=== PATIENT | female | born 1965 | race Caucasian/White ===

== ENCOUNTER → 2020-03-05 09:49 | Outpatient (REF) | payer MEDICAID, SELFPAY ==
--- NOTE | 2020-03-05 09:58 | ECG_ITS ---
Hook-up date: 2020-03-05 10:23:00 Duration: 47:59:00 Test Indications: cardiac arrhythmia,unspecified
== END ==
LOC: HO.CARD 09:49
PROVIDERS: PCP Internal Medicine; Visit Provider Emergency Medicine
DX: I49.9 Cardiac arrhythmia, unspecified (principal)
CPT/HCPCS: 93225; 93226

== ENCOUNTER 2023-09-09 11:48 | Inpatient (IN) | payer MEDICAID, SELFPAY ==
--- NOTE | ~2023-09-09 | XR_ITS ---
EXAMINATION: XR LUMBOSACRAL SPINE AND PELVIS CLINICAL INFORMATION: Reason for Exam pain s/p fall COMPARISON: PET/CT 11/23/2018 TECHNIQUE: 3 views of the lumbar spine. One view of the pelvis. FINDINGS: 5 nonrib-bearing lumbar-type vertebral bodies. Age-indeterminate wedge compression deformities involving the L1 vertebral body with 30% height loss and the L5 vertebral body with 20% % height loss, new from 2019. Levoconvex curvature of the lumbar spine. Mild multilevel degenerative disc disease with loss of disc space height, disc osteophyte complex and facet arthropathy. Atherosclerotic calcifications of the abdominal aorta. Mild osteoarthritis of the right hip with borderline loss of superolateral joint space. Left hip and sacroiliac joint spaces are maintained. No pelvic fracture or dislocation appreciated. Calcified phleboliths in the pelvis. Atherosclerotic vascular calcification. XR/XR pelvis 1-2V IMPRESSION: 1. Age-indeterminate wedge compression deformities involving the L1 vertebral body with 30% height loss and the L5 vertebral body with 20%% height loss, new from 2019. 2. Levoconvex curvature of the lumbar spine. Mild multilevel degenerative disc disease. 3. Mild osteoarthritis of the right hip. 4. No pelvic fracture appreciated.
--- NOTE | ~2023-09-09 | CT_ITS ---
EXAMINATION: CT ANGIOGRAM OF THE CHEST WITH AND WITHOUT CONTRAST (CT PULMONARY ANGIOGRAM FOR PE) CLINICAL INFORMATION: Reason for Exam elevated dimer, tachycardia/soft blood pressures COMPARISON: None available. TECHNIQUE: Prior to contrast administration, noncontrast localization images were obtained. Subsequently, multidetector volumetric imaging was performed from the thoracic inlet to below the diaphragms following the administration of 65 mL Omnipaque 350 intravenous contrast. No contrast reaction reported Sagittal, coronal, and MIP oblique sagittal reformatted images were obtained on the CT workstation, uploaded to PACS, and reviewed. This CT examination was performed using dose optimization techniques as appropriate, variously including the following: *Automated exposure control *Adjustment of mA and/or kV according to patient size (this includes techniques or standardized protocols for targeted exams where dose is matched to indication/reason for exam; i.e. extremities or head) *Use of iterative reconstruction technique Total exam dose-length product 305 mGy-cm FINDINGS: QUALITY OF STUDY/CONTRAST BOLUS: Satisfactory. PULMONARY ARTERIES: No pulmonary emboli. THORACIC AORTA: No aneurysm. LUNG: No abnormality the trachea or mainstem bronchi. There is an irregular opacity in the right with some central calcification 09/09/23, series 7, image 31 1.0 cm 09/17/18, series 4, image 51-1.1 cm There is a peripheral opacity with some calcification in the posterior right upper lobe 09/09/23, series 7, image 71-1.2 cm 09/17/18, series 4, image 106-1.9 cm Previously there was a thick-walled cavitary lesion There is underlying emphysema. Nonspecific dependent lung densities could be atelectasis. PLEURA: No pleural effusion or pneumothorax. MEDIASTINUM: No enlarged mediastinal or hilar lymph nodes. No suspicious abnormality esophagus. No evidence of septal bowing or right heart strain. CORONARY ARTERY CALCIFICATION: There is mild coronary calcification. CHEST WALL/AXILLA: No axillary or internal mammary lymphadenopathy. OSSEOUS STRUCTURES: No acute or suspicious osseous abnormality. UPPER ABDOMEN: There is artifact. There is extensive fatty change in the liver. No reflux of contrast into the hepatic veins to suggest elevated right heart pressures. CT/CT angio chest PE protocol IMPRESSION: No pulmonary embolus demonstrated. Decreased size of opacities in the right upper lung which could represent the sequelae from previous cavitary lesion/abscess. VTE: negative
--- NOTE | ~2023-09-09 | XR_ITS ---
EXAMINATION: XR LUMBOSACRAL SPINE AND PELVIS CLINICAL INFORMATION: Reason for Exam pain s/p fall COMPARISON: PET/CT 11/23/2018 TECHNIQUE: 3 views of the lumbar spine. One view of the pelvis. FINDINGS: 5 nonrib-bearing lumbar-type vertebral bodies. Age-indeterminate wedge compression deformities involving the L1 vertebral body with 30% height loss and the L5 vertebral body with 20% % height loss, new from 2019. Levoconvex curvature of the lumbar spine. Mild multilevel degenerative disc disease with loss of disc space height, disc osteophyte complex and facet arthropathy. Atherosclerotic calcifications of the abdominal aorta. Mild osteoarthritis of the right hip with borderline loss of superolateral joint space. Left hip and sacroiliac joint spaces are maintained. No pelvic fracture or dislocation appreciated. Calcified phleboliths in the pelvis. Atherosclerotic vascular calcification. XR/XR lumbar spine 2-3V IMPRESSION: 1. Age-indeterminate wedge compression deformities involving the L1 vertebral body with 30% height loss and the L5 vertebral body with 20%% height loss, new from 2019. 2. Levoconvex curvature of the lumbar spine. Mild multilevel degenerative disc disease. 3. Mild osteoarthritis of the right hip. 4. No pelvic fracture appreciated.
--- NOTE | ~2023-09-09 | US_ITS ---
EXAMINATION: US VENOUS ULTRASOUND WITH DOPPLER LOWER EXTREMITY, BILATERAL CLINICAL INFORMATION: Bilateral lower extremity swelling. Lower extremity pain. Bilateral leg swelling COMPARISON: None available. TECHNIQUE: Ultrasound of the deep veins is performed from the hip to the calf with compression sonography and color and pulse Doppler assessment. Spectral analysis with color-flow imaging is performed. FINDINGS: RIGHT: There is normal venous compression and respiratory variation and augmented flow. The visualized common femoral vein, superficial femoral vein, profunda femoral vein, popliteal vein, and the trifurcation region shows no evidence of deep venous thrombosis. There is no significant popliteal fossa cyst. There is skin thickening and reticulation consistent with edema LEFT: There is normal venous compression and respiratory variation and augmented flow. The visualized common femoral vein, superficial femoral vein, profunda femoral vein, popliteal vein, and the trifurcation region shows no evidence of deep venous thrombosis. There is no significant popliteal fossa cyst. The left peroneal veins are not visualized There is skin thickening and reticulation consistent with edema If the patient's symptoms persist, followup ultrasound in 5 days 7 days might be of value to exclude proximal propagation from a non-visualized calf vein. US/US venous duplex LE BI IMPRESSION: No DVT demonstrated in the bilateral lower extremity.
[2023-09-09 11:53] VITALS: BP 128/92; BP 130/78; PULSE 116; PULSE 137; RESP 18; TEMP 37; O2SAT 98; O2SAT 99; BMI 25.1
--- NOTE | 2023-09-09 12:01 | ED.BACK ---
HPI - Back Pain/Injury General Chief Complaint: Back Pain/Injury Stated Complaint: BACK PAIN X 1 MONTH Time Seen by Provider: 09/09/23 12:01 Source: patient and EMS Mode of arrival: EMS Limitations: no limitations History of Present Illness HPI Narrative: 58-year-old female with history of low back pain, asthma, former smoker presents to the ER from home via EMS for evaluation of worsening low back pain for the last 1 month. She states 1 month ago she was standing in her kitchen when she got a sudden sharp pain from her middle of her spine in her lower back. The pain has been coming and going for the last month and getting worse. It radiates to both hips, worse on the right. It is worse with any movement. She reports recurrent sharp pain that is limiting her ability to ambulate and perform her ADLs. She states she intermittently has tingling in her bilateral extremities, but denies numbness and weakness. She states the pain is severe she has not been taking any medication for the pain. She has been drinking alcohol daily. She has not eating much. No chest pain, abdominal pain, nausea, vomiting, diarrhea. No bowel or bladder incontinence. MD elicited complaint: back pain Pertinent past history: prior back pain and recent trauma Onset (ago): month(s) (1) Timing: progressively worsening Severity: severe Pain scale (0-10): 10 Similar Symptoms Previously: Yes Quality: sharp Location: lumbar spine Radiation: other (Pelvis and bilateral hips) Exacerbating factors: movement Related Data Allergies Allergy/AdvReac Type Severity Reaction Status Date / Time amoxicillin [AMOXICILLIN] Allergy Unknown EYES Verified 09/09/23 12:00 SWELLING pseudoephedrine [Sudafed] Allergy Unknown Unknown Verified 09/09/23 12:00 Sulfa (Sulfonamide Allergy Unknown SWELLING Verified 09/09/23 12:00 Antibiotics) [SULFA (SULFONAMIDE ANTIBIOTICS)] [facility] Family History Family History (Updated 02/07/20 @ 11:36 by Domenica Desai) Father No problems noted. Mother No problems noted. Social History Social History Smoked in Last 30 Days: No Use of substances other than those prescribed or required for medical reasons: No Advance Directives: No Advance Directives Information Provided: Yes Patient : No Physical Exam Vital Signs: Vital Signs: Last Vital Signs Temp 97.0 F 09/09/23 14:33 Pulse 106 H 09/09/23 14:33 Resp 16 09/09/23 14:33 BP 126/73 09/09/23 14:33 Pulse Ox 99 09/09/23 14:33 O2 Del Method Room Air 09/09/23 14:33 BMI result Body Mass Index 25.1 Medications Administered Discontinued Medications Generic Name Dose Route Start Last Admin Trade Name Karen PRN Reason Stop Dose Admin Acetaminophen 975 mg 09/09/23 12:11 09/09/23 12:23 Acetaminophen 325 Mg Tablet PO 09/09/23 12:12 975 mg ONCE ONE Administration Cyclobenzaprine HCl 10 mg 09/09/23 13:49 09/09/23 14:11 Cyclobenzaprine Hcl 10 Mg Tablet PO 09/09/23 13:50 10 mg ONCE ONE Administration Sodium Chloride 1,000 mls @ 999 mls/hr 09/09/23 13:45 09/09/23 14:00 Ns IVCONT 09/09/23 14:45 999 mls/hr .Q1H1M JEMMA Administration Ketorolac Tromethamine 30 mg 09/09/23 12:11 09/09/23 12:23 Ketorolac Tromethamine 30 Mg/Ml Vial IM 09/09/23 12:12 30 mg ONCE ONE Administration Oxycodone HCl 5 mg 09/09/23 12:11 09/09/23 12:23 Oxycodone Hcl Immed Release 5 Mg Tablet PO 09/09/23 12:12 5 mg ONCE ONE Administration Medical Decision Making Medical Decision Making MDM Narrative: 58-year-old female presents to the ER for evaluation of low back pain. Radiating to the hips. No red flag symptoms of low back pain. She does have difficulty ambulating in his significant pain. X-rays of the spine were ordered along with basic labs given her lower extremity edema. Her lower extremity edema is symmetrical and bilateral. It is chronic. She has had ultrasounds in the past showing she does not have blood clots. Low suspicion for DVT. Labs showing some metabolic derangements. She has an anion gap of 25. This is likely due to starvation ketosis. Upon further questioning patient reports that she has been drinking alcohol and not eating much. She does not have any abdominal pain. IV was started and she was given 1 L of IV fluids. X-ray showing compression fractures of L1 and L5. These are new from 2019. Results were discussed with the patient. Her pain is much improved after multiple rounds of medications. She however does have stairs to get into her apartment and does not think that she can safely walk into her home and manage her activities of daily living at home. She is interested in seeing Physical therapy in the morning and arranging for additional services at home versus short-term rehab. Repeat labs are pending and then patient will be paced in physician observation pending PT consult and case management consult. Differential Diagnosis Differential Diagnoses: The differential diagnosis associated with the presentation includes Inflammatory disorders, malignancy, trauma, osteoporosis, nerve root compression, radiculopathy, plexopathy, degenerative disc disease, disc herniation, spinal stenosis, sacroiliac joint dysfunction, facet joint injury, and less likely infection?like abscess or diskitis Admission/Observation Consideration of admission/observation: Escalation of care including admission/observation considered Lab Data MDM Lab Attestation statement: I reviewed the patient's lab results. Elevated anion gap, likely due to starvation ketosis, patient reports not eating and drinking alcohol. 09/09/23 12:36 09/09/23 12:36 Labs: Lab Results 09/09/23 Range/Units 12:36 WBC 6.7 (4.8-10.8) X10*3/uL RBC 3.40 L (4.20-5.50) X10*6/uL Hgb 11.8 L (12.0-16.0) g/dl Hct 33.7 L (37.0-47.0) % MCV 99.1 H (80.0-98.0) fL MCH 34.7 H (27.0-33.0) pg MCHC 35.0 (31.0-35.0) g/dl RDW 13.9 (11.0-16.0) % Plt Count 226 (160-400) X10*3/uL MPV 9.8 (9.4-12.3) fL Immature Gran % (Auto) 1.5 H (0.0-0.4) % Neut % (Auto) 64.9 (45-73) % Lymph % (Auto) 21.8 (20-40) % Person % (Auto) 11.1 H (2-11) % Eos % (Auto) 0.2 (0-4) % Baso % (Auto) 0.5 (0-2) % Lymph # (Auto) 1.5 (1.2-4.9) X10*3/uL Person # (Auto) 0.7 (0.1-1.2) X10*3/uL Eos # (Auto) 0.0 (0.0-0.4) X10*3/uL Baso # (Auto) 0.0 (0.0-0.2) X10*3/uL Abs Immat Gran (auto) 0.10 H (0.00-0.03) X10*3/uL Absolute Neuts (auto) 4.3 (2.0-8.3) x10*3/uL Absolute Nucleated RBC 0.000 (0.0-0.012) X10*3/uL Nucleated RBC % (auto) 0.0 (0.0-0.2) /100WBC Sodium 136 (135-145) mmol/L Potassium 4.0 (3.3-5.1) mmol/L Chloride 95 L (96-108) mmol/L Carbon Dioxide 20 L (22-29) mmol/L Anion Gap 25 H (12-20) BUN < 3 L (9-16) mg/dL Creatinine 0.63 (0.5-1.4) mg/dL Estim Creat Clear Calc 94.6 Estimated GFR > 60 Random Glucose 103 (60-115) mg/dL Calcium 8.8 (8.4-10.2) mg/dL Magnesium 1.7 (1.6-2.6) mg/dL Total Bilirubin 0.5 (0.0-1.0) mg/dL Direct Bilirubin 0.3 (0.0-0.5) mg/dL AST 61 H (5-31) U/L ALT 34 H (0-31) U/L Alkaline Phosphatase 183 H (39-117) U/L B-Natriuretic Peptide 22 (<100) pg/mL Total Protein 6.1 L (6.5-8.0) g/dL Albumin 3.2 L (3.5-5.0) g/dL Independent Interpretation I performed an independent interpretation of an: Plain X-Ray Interpretation: Compression fractures appreciated Radiology Impression Discussion of test interpretation with radiology: I have reviewed the radiologist's reading. Radiologist Impression: EXAMINATION: XR LUMBOSACRAL SPINE AND PELVIS CLINICAL INFORMATION: Reason for Exam pain s/p fall COMPARISON: PET/CT 11/23/2018 TECHNIQUE: 3 views of the lumbar spine. One view of the pelvis. FINDINGS: 5 nonrib-bearing lumbar-type vertebral bodies. Age-indeterminate wedge compression deformities involving the L1 vertebral body with 30% height loss and the L5 vertebral body with 20% % height loss, new from 2019. Levoconvex curvature of the lumbar spine. Mild multilevel degenerative disc disease with loss of disc space height, disc osteophyte complex and facet arthropathy. Atherosclerotic calcifications of the abdominal aorta. Mild osteoarthritis of the right hip with borderline loss of superolateral joint space. Left hip and sacroiliac joint spaces are maintained. No pelvic fracture or dislocation appreciated. Calcified phleboliths in the pelvis. Atherosclerotic vascular calcification. XR/XR lumbar spine 2-3V IMPRESSION: 1. Age-indeterminate wedge compression deformities involving the L1 vertebral body with 30% height loss and the L5 vertebral body with 20%% height loss, new from 2019. 2. Levoconvex curvature of the lumbar spine. Mild multilevel degenerative disc disease. 3. Mild osteoarthritis of the right hip. 4. No pelvic fracture appreciated. External Record Review External record reviewed: Outpatient record Tests considered The following testing was considered but not selected: CT scan of the lumbar spine considered however no red flag symptoms of low back pain, low suspicion for acute infection Prescription Management I considered prescription management with: Pain Medication Social Determinants Patient?s care significantly limited by Social Determinants of Health including: Alcoholism and drug addiction in family and Other Social Determinant of Health Critical Care Time Critical Care Time Critical Care Time: Yes Total Critical Care Time: 49 Attestation: I have personally provided critical care time exclusive of time spent on separately billable procedures. Time includes review of lab data, radiology results, trending of labs and monitoring of pain, multiple bedside reassessments, and monitoring for potential decompensation. Intervention performed as documented. Discharge Plan Discharge Clinical Impression: Compression fx, lumbar spine, Alcohol abuse Patient Disposition: Still a Patient Print Language: Swedish
[2023-09-09] MEDS: Acetaminophen 325 MG TABLET 975 MG PO (12:23)
[2023-09-09] MEDS: oxyCODONE HCl Immed Release 5 MG TABLET PO (12:23)
[2023-09-09] MEDS: Ketorolac Tromethamine 30 MG/ML VIAL IM (12:23)
--- NOTE | 2023-09-09 12:40 | PC.NURSE ---
PT A/O X 3 NO SOB/CAESAR NOTED. PT C/O LOWER BACK PAIN. PT ENCOURAGED TO CHANGE INTO HOSP GARMENT MULTIPLE TIMES AND HAS ADAMANTLY REFUSED. PT C/O L LOWER EXT SWELLING. L LOWER EXT 2+ PITTING EDEMA NOTED. /RYAN AWARE.
[2023-09-09 12:43] LABS: MANUAL DIFF FLAG NO
[2023-09-09 12:46] LABS: Basophils Percent Auto 0.5 % (0-2); Eosinophils Percent Auto 0.2 % (0-4); Hematocrit 33.7 % (37.0-47.0); Hemoglobin 11.8 g/dl (12.0-16.0); Imm Gran Pct Auto 1.5 % (0.0-0.4); Lymphocytes Absolute Auto 1.5 X10*3/uL (1.2-4.9); Lymphocytes Percent Auto 21.8 % (20-40); Mean Corpuscular Hemoglobin 34.7 pg (27.0-33.0); Mean Corpuscular Volume 99.1 fL (80.0-98.0); Mean Platelet Volume 9.8 fL (9.4-12.3); Monocytes Absolute Auto 0.7 X10*3/uL (0.1-1.2); Monocytes Percent Auto 11.1 % (2-11); Neutrophils Absolute Auto 4.3 x10*3/uL (2.0-8.3); Neutrophils Percent Auto 64.9 % (45-73); Platelet Count 226 X10*3/uL (160-400); Red Cell Distribution Width 13.9 % (11.0-16.0); White Blood Count 6.7 X10*3/uL (4.8-10.8)
[2023-09-09 12:59] LABS: Alanine Aminotransferase 34 U/L (0-31); Albumin Level 3.2 g/dL (3.5-5.0); Alkaline Phosphatase 183 U/L (39-117); Anion Gap 25 (12-20); Aspartate Amino Transferase 61 U/L (5-31); Bilirubin Direct 0.3 mg/dL (0.0-0.5); Bilirubin Total 0.5 mg/dL (0.0-1.0); Blood Urea Nitrogen < 3 mg/dL (9-16); Calcium 8.8 mg/dL (8.4-10.2); Carbon Dioxide 20 mmol/L (22-29); Chloride 95 mmol/L (96-108); Creatinine Clr Calc Pharmacy 94.6; Estimated Glomerular Filt Rate > 60; Glucose Random 103 mg/dL (60-115); Magnesium 1.7 mg/dL (1.6-2.6); Sodium 136 mmol/L (135-145); Total Protein 6.1 g/dL (6.5-8.0)
[2023-09-09 13:04] LABS: B Type Natriuretic Peptide 22 pg/mL (<100)
[2023-09-09 13:51] VITALS: BP 117/76; PULSE 121; RESP 117; TEMP 36.8; O2SAT 99
[2023-09-09] MEDS: 0.9 % Sodium Chloride 1,000 ML 999 ML IVCONT (14:00)
[2023-09-09] MEDS: Cyclobenzaprine HCl 10 MG TABLET PO (14:11)
[2023-09-09 14:33] VITALS: BP 126/73; PULSE 106; RESP 16; TEMP 36.1; O2SAT 99
[2023-09-09 17:32] LABS: Anion Gap 21 (12-20); Blood Urea Nitrogen 3 mg/dL (9-16); Carbon Dioxide 18 mmol/L (22-29); Chloride 98 mmol/L (96-108); Creatinine Clr Calc Pharmacy 114.7; Estimated Glomerular Filt Rate > 60; Glucose Random 70 mg/dL (60-115); Potassium 3.3 mmol/L (3.3-5.1); Sodium 134 mmol/L (135-145)
[2023-09-09 17:44] LABS: Calcium 7.9 mg/dL (8.4-10.2)
[2023-09-09 18:43] VITALS: BP 90/52; PULSE 131; RESP 18; TEMP 36.7; O2SAT 97
[2023-09-09] MEDS: 0.9 % Sodium Chloride 1,000 ML 999 ML IV (19:01)
[2023-09-09] MEDS: PHENobarbitaL sodium 130 MG/ML IM ONCE 228 MG IM (19:32)
[2023-09-09] MEDS: Calcium Carbonate 750 MG TAB.CHEW 1500 MG PO (19:32)
--- NOTE | 2023-09-09 19:38 | P.HPHOSP_ITS ---
History of Present Illness Date of Service: 09/09/23 Attending physician on admission: Zo Moreno Chief Complaint: back pain 58-year-old female with history of COPD, osteoporosis on alendronate who is a former smoker presented to the ED from home for evaluation of worsening low back pain ongoing for 1 month. About 1 month ago she was standing in her kitchen when she developed sudden sharp pain from the middle of her spine in the lower back and has been intermittent since then. She denies any specific injury. Reports the pain radiates to both hips and into the ribs bilaterally. She does also report drinking at least 2 16 oz cans of beer on a daily basis but states it is typically more than this. Denies any other substance use. Denies any history of alcohol withdrawal including alcohol withdrawal seizure. Last drink was last night. Since arrival, has been progressively tachycardic on admission, heart rate in the 130s with sinus rhythm. Blood pressure is also soft on admission at 90/52 but has received narcotic medication and Flexeril. There is no leukocytosis. She has a mild macrocytic anemia with H/H 11.8/33.7%, MCV 99.1, platelets within normal limits. On admission, renal function normal. Initially had anion gap with mild acidosis likely secondary to starvation ketosis as patient has been drinking alcohol but not eating much. On admission, anion gap improved to 21. AST 61, ALT 34. X-ray of the lumbar spine shows age- indeterminate wedge compression deformities involving the L1 vertebral body with 30% height loss and the L5 vertebral body with 20% height loss which are new from prior imaging. No other acute osseous abnormality. In the ED, has received 975 mg Tylenol, 10 mg Flexeril, 30 mg ketorolac, 5 mg oxycodone and 1 L IV NS. She has also been started on phenobarbital per protocol given high suspicion for acute alcohol withdrawal with tachycardia and nausea. She is also reporting heartburn. Currently reports her pain as an 8/10 with any movement but is relatively comfortable at rest. She is also reporting concern over swelling and pain in the BLE. Review of Systems 2 Review of Systems: General: No fevers, malaise, unintentional weight loss HEENT: No blurred vision, diplopia. No sore throat, nasal congestion, rhinorrhea, sinus pain, ear pain Cardiovascular: No chest pain, palpitations. +ble edema Respiratory: No shortness of breath, wheezing, cough GI: +heartburn, +nausea. No abdominal pain, nausea, vomiting, diarrhea, constipation, melena, hematochezia : No dysuria, hematuria, increased urinary frequency, decreased urinary output MSK: No myalgia. +back pain, +rib pain. Neuro: No headaches, weakness, paresthesias Skin: No rashes or lesions [facility] Medical History Former smoker Osteopoikilosis Alcohol use disorder COPD (chronic obstructive pulmonary disease) Family History Father No problems noted. Mother No problems noted. Social History Patient Tobacco Use Status: Never used Tobacco Smoked in Last 30 Days: No Use of substances other than those prescribed or required for medical reasons: No Advance Directives: No Advance Directives Information Provided: Yes Nutrition Risks: No Nutritional Risk Patient : No Meds Allergies Allergy/AdvReac Type Severity Reaction Status Date / Time amoxicillin [AMOXICILLIN] Allergy Unknown EYES Verified 09/09/23 12:00 SWELLING pseudoephedrine [Sudafed] Allergy Unknown Unknown Verified 09/09/23 12:00 Sulfa (Sulfonamide Allergy Unknown SWELLING Verified 09/09/23 12:00 Antibiotics) [SULFA (SULFONAMIDE ANTIBIOTICS)] Active Medications: Current Medications Acetaminophen (Acetaminophen 325 Mg Tablet) 650 mg PO Q6H PRN PRN Reason: Pain, Mild (Pain Scale 1-3) Albuterol Sulfate (Albuterol Sulfate 90 Mcg 8 Gm Inhaler) 2 puff INHALE RQ6H PRN PRN Reason: Bronchodilation Calcium Carbonate (Calcium Carbonate 500 Mg Tablet) 500 mg PO DAILY JEMMA Folic Acid (Folic Acid 1 Mg Tablet) 1 mg PO DAILY JEMMA Heparin Sodium (Porcine) (Heparin Sodium,Porcine 5,000 Unit/Ml Vial) 5,000 unit SUBCUT Q12H JEMMA Sodium Chloride (Ns) 1,000 mls @ 999 mls/hr IV .Q1H1M JEMMA Stop: 09/09/23 20:00 Last Admin: 09/09/23 19:01 Dose: 999 mls/hr Sodium Chloride (Ns) 1,000 mls @ 100 mls/hr IVCONT .Q10H [facility] Thiamine HCl 100 mg/ Sodium (Chloride) 101 mls @ 202 mls/hr IV DAILY [facility] Ketorolac Tromethamine (Ketorolac Tromethamine 15 Mg/Ml Vial) 15 mg IVPUSH Q6H JEMMA Stop: 09/10/23 13:46 Loratadine (Loratadine 10 Mg Tablet) 10 mg PO DAILY [facility] Non-Formulary Medication (Fluticasone Propionate) 2 puff INHALE BID [facility] Omeprazole (Omeprazole 20 Mg Capsule.Dr) 20 mg PO DAILY@0630 [facility] Ondansetron HCl (Ondansetron Hcl 4 Mg/2 Ml Vial) 4 mg IVPUSH Q8H PRN PRN Reason: Nausea and Vomiting Oxycodone HCl (Oxycodone Hcl Immed Release 5 Mg Tablet) 5 mg PO Q6H PRN PRN Reason: Pain, Severe (Pain Scale 7-10) Pharmacy Consult (Consult Rx Etoh Phenob Im/Po) 1 each MISCELLANE ONCE PRN; Protocol PRN Reason: Consult order Phenobarbital (Phenobarbital 15 Mg Tablet) 45 mg PO BID [facility]; Protocol Stop: 09/11/23 21:01 Phenobarbital (Phenobarbital 15 Mg Tablet) 15 mg PO BID [facility]; Protocol Stop: 09/13/23 21:01 Phenobarbital (Phenobarbital 15 Mg Tablet) 15 mg PO DAILY [facility]; Protocol Stop: 09/15/23 09:01 Phenobarbital Sodium (Phenobarbital Sodium 130 Mg/Ml Im Once) 228 mg IM ONCE ONE; Protocol Stop: 09/09/23 20:01 Last Admin: 09/09/23 19:32 Dose: 228 mg Phenobarbital Sodium (Phenobarbital Sodium 130 Mg/Ml Vial Im Q3hx2) 170 mg IM Q3H [facility]; Protocol Stop: 09/10/23 02:01 Senna (Sennosides 8.6 Mg Tablet) 17.2 mg PO BEDTIME PRN PRN Reason: Constipation Trazodone HCl (Trazodone Hcl 50 Mg Tablet) 50 mg PO BEDTIME [facility] Vitamin D (Cholecalciferol (Vitamin D3) 25 Mcg Tablet) 25 mcg PO DAILY [facility] Home Medications ?Medication ?Instructions ?Recorded ?Confirmed ?Last Taken ?Type albuterol sulfate 90 mcg/actuation 2 puff inhalation Q6H PRN 09/09/23 09/09/23 Unknown History aerosol inhaler (Ventolin HFA) Bronchodilation alendronate 70 mg tablet 70 mg PO QWEEK 09/09/23 09/09/23 Unknown History calcium carbonate 600 mg PO QAM 09/09/23 09/09/23 Unknown History cetirizine 10 mg tablet 10 mg PO QAM 09/09/23 09/09/23 Unknown History cholecalciferol (vitamin D3) 25 25 mcg PO DAILY 09/09/23 09/09/23 Unknown History mcg (1,000 unit) capsule (Vitamin D3) cholecalciferol (vitamin D3) 25 25 mcg PO DAILY 09/09/23 09/09/23 Unknown History mcg (1,000 unit) capsule (Vitamin D3) fluticasone propionate 110 2 puff inhalation BID 09/09/23 09/09/23 Unknown History mcg/actuation HFA aerosol inhaler trazodone 50 mg tablet 50 mg PO BEDTIME 09/09/23 09/09/23 Unknown History Physical Exam 2 Vital Signs and Narrative: Vital Signs: Last Vital Signs Temp 98.1 F 09/09/23 18:43 Pulse 131 H 09/09/23 18:43 Resp 18 09/09/23 18:43 BP 90/52 L 09/09/23 18:43 Pulse Ox 97 09/09/23 18:43 O2 Del Method Room Air 09/09/23 18:43 BMI result Body Mass Index 25.1 Constitutional - Awake and Alert, No apparent distress Eyes - PERRLA, EOMI Cardiovascular - S1S2, RRR, 1+ ble edema Respiratory - Normal lung expansion, poor respiratory effort, No respiratory distress, CTA bilaterally Gastrointestinal - NT / ND; +BS; No rebound or guarding Extremities - ble swelling with right sided calf tenderness Musculoskeletal - Normal inspection. Pt refusing to turn for evaluation of low back due to pain Skin - Warm/Dry Neurological - Alert & oriented x3 Psychological - Appropriate affect Results Labs 09/09/23 12:36 09/09/23 17:02 Labs: Laboratory Results - last 24 hr 09/09/23 09/09/23 12:36 17:02 MCV 99.1 H MCH 34.7 H MCHC 35.0 RDW 13.9 Plt Count 226 MPV 9.8 Immature Gran % (Auto) 1.5 H Neut % (Auto) 64.9 Lymph % (Auto) 21.8 [place] % (Auto) 11.1 H Eos % (Auto) 0.2 Baso % (Auto) 0.5 Lymph # (Auto) 1.5 [place] # (Auto) 0.7 Eos # (Auto) 0.0 Baso # (Auto) 0.0 Abs Immat Gran (auto) 0.10 H Absolute Neuts (auto) 4.3 Absolute Nucleated RBC 0.000 Nucleated RBC % (auto) 0.0 Anion Gap 25 H 21 H Estim Creat Clear Calc 94.6 114.7 Estimated GFR > 60 > 60 Random Glucose 103 70 Calcium 8.8 7.9 L D Magnesium 1.7 Total Bilirubin 0.5 Direct Bilirubin 0.3 AST 61 H ALT 34 H Alkaline Phosphatase 183 H B-Natriuretic Peptide 22 Total Protein 6.1 L Albumin 3.2 L Imaging Radiologist's Impressions: Impressions Lumbar Spine X-Ray 09/09/23 13:24 IMPRESSION: 1. Age-indeterminate wedge compression deformities involving the L1 vertebral body with 30% height loss and the L5 vertebral body with 20%% height loss, new from 2018. 2. Levoconvex curvature of the lumbar spine. Mild multilevel degenerative disc disease. 3. Mild osteoarthritis of the right hip. 4. No pelvic fracture appreciated. Pelvis X-Ray 09/09/23 13:24 IMPRESSION: 1. Age-indeterminate wedge compression deformities involving the L1 vertebral body with 30% height loss and the L5 vertebral body with 20%% height loss, new from 2019. 2. Levoconvex curvature of the lumbar spine. Mild multilevel degenerative disc disease. 3. Mild osteoarthritis of the right hip. 4. No pelvic fracture appreciated. Assessment and Plan (1) Alcohol abuse: Status: Acute (2) Compression fx, lumbar spine: Status: Acute Plan 58-year-old female with history of COPD, osteoporosis on alendronate who is a former smoker admitted for further management of compression fracture awaiting pt eval for placement with impending alcohol withdrawal requiring phenobarbital per protocol #Acute alcohol withdrawal -pt with tachcyardia, nausea. Drinks at least 2 16 oz beers daily -initiate phenobarbital per protocol -thiamine, folic acid -monitor on ciwa -addiction med consult #Age-indeterminate compression fratures L1 and L5 with loss of vertebral height -known osteoporosis. Pain ongoing x1 month but worsening -IV ketorolac 15mg q6h x 4 doses, tylenol prn, oxycodone prn. Limit iv narcotics due to soft blood pressures -calitonin daily alternating nostrils -incentive spirometry -PT eval -outpt follow up with pain management #BLE swelling/pain RLE -Venous duplex ble -check ddimer given tachycardia and soft bps -no sob, chest pain, lightheadedness, palptiations -compression, leg elevation #Acute starvation ketosis- resolving -likely beer potomania -continue ivf -encourage po intake #Macrocytic anemia- suspect chronic in setting of alcohol abuse -check folic acid/vitamin b12 am -thiamine and folic acid as above #Transaminitis -due to alcohol abuse #COPD -no acute exacebration -continue maintenance inhalers, albuterol prn #osteoporosis -continue fosamax dvt prophylaxis- heparin full code Pt requires inpt stay at least 2 midnights for management of acute alcohol withdrawal requiring phenobarbital per protocol in pt with compression fractures awaiting probable placement to STR Quality Stroke Does the patient have a stroke diagnosis?: No VTE Prior VTE?: No VTE Risk Level:: Medical - moderate - high VTE Device Contraindication: Treatment Not Indicated VTE Drug Contraindication: N/A - Med Ordered
[2023-09-09] MEDS: 0.9 % Sodium Chloride 1,000 ML 100 ML IVCONT (19:40)
[2023-09-09] MEDS: Ketorolac Tromethamine 15 MG/ML VIAL IVPUSH (19:52)
[2023-09-09] MEDS: Loratadine 10 MG TABLET PO (19:52)
[2023-09-09] MEDS: Heparin Sodium,Porcine 5,000 UNIT/ML VIAL 5000 UNIT SUBCUT (19:52)
[2023-09-09] MEDS: Thiamine HCL 100 MG in 0.9 % Sodium Chloride 100 ML 202 MG IV (19:53)
[2023-09-09] MEDS: traZODone HCL 50 MG TABLET PO (19:53)
[2023-09-09] MEDS: Omeprazole 20 MG CAPSULE.DR PO (19:58)
[2023-09-09 20:14] LABS: D Dimer High Sensitivity 545 NG/ML
--- NOTE | 2023-09-09 20:14 | MHC.EDTECH ---
purewick in place.Bladder scan of 258 ml. patient tolerated placement well. VSS
--- NOTE | 2023-09-09 20:35 | PC.NURSE ---
called at 2034 for flopetere from pharmacy.
[2023-09-09] MEDS: iohexoL 350 MG/ML 100 ML INFUS..BTL IV (21:34)
[2023-09-09] MEDS: Fluticasone Propionate 100 MCG BLST.W.DEV 2 PUFF INHALE (21:37)
[2023-09-09 21:38] VITALS: PULSE 113; RESP 18; O2SAT 99
[2023-09-10] VITALS (12 sets, daily range): BP systolic 90–124; BP diastolic 54–80; PULSE 75–119; RESP 14–19; TEMP 36.1–36.8; O2SAT 96–99; BMI 25.1
[2023-09-10] MEDS: PHENobarbitaL sodium 130 MG/ML VIAL IM Q3Hx2 170 MG IM ×2 (00:20→02:54)
[2023-09-10] MEDS: Ketorolac Tromethamine 15 MG/ML VIAL IVPUSH ×3 (02:29→13:13)
[2023-09-10 04:48] LABS: MANUAL DIFF FLAG NO
[2023-09-10 04:49] LABS: Basophils Percent Auto 0.4 % (0-2); Eosinophils Percent Auto 0.4 % (0-4); Hematocrit 29.5 % (37.0-47.0); Imm Gran Abs Auto 0.06 X10*3/uL (0.00-0.03); Imm Gran Pct Auto 1.2 % (0.0-0.4); Lymphocytes Absolute Auto 1.5 X10*3/uL (1.2-4.9); Lymphocytes Percent Auto 29.2 % (20-40); Mean Corpuscular HGB Conc 33.9 g/dl (31.0-35.0); Mean Corpuscular Hemoglobin 34.7 pg (27.0-33.0); Mean Corpuscular Volume 102.4 fL (80.0-98.0); Mean Platelet Volume 10.1 fL (9.4-12.3); Monocytes Absolute Auto 0.5 X10*3/uL (0.1-1.2); Monocytes Percent Auto 10.5 % (2-11); Neutrophils Percent Auto 58.3 % (45-73); Platelet Count 195 X10*3/uL (160-400); Red Blood Count 2.88 X10*6/uL (4.20-5.50); Red Cell Distribution Width 14.3 % (11.0-16.0); White Blood Count 5.1 X10*3/uL (4.8-10.8)
[2023-09-10 05:12] LABS: Anion Gap 16 (12-20); Blood Urea Nitrogen 3 mg/dL (9-16); Calcium 8.3 mg/dL (8.4-10.2); Carbon Dioxide 20 mmol/L (22-29); Chloride 102 mmol/L (96-108); Creatinine Clr Calc Pharmacy 106.4; Estimated Glomerular Filt Rate > 60; Glucose Random 117 mg/dL (60-115); Potassium 2.7 mmol/L (3.3-5.1); Sodium 135 mmol/L (135-145)
--- NOTE | 2023-09-10 05:14 | PC.NURSE ---
Critical K+ 2.7, Dr. Moreno made aware.
[2023-09-10 05:38] LABS: Folate 4.9 ng/mL (> or = 4.0); Vitamin B12 524 pg/mL (200-900)
[2023-09-10] MEDS: 0.9 % Sodium Chloride 1,000 ML 100 ML IVCONT ×2 (05:41→15:14)
[2023-09-10] MEDS: Potassium Chloride/H20 10 MEQ/100 ML PIGGYBACK 100 MEQ IV ×4 (05:47→11:29)
[2023-09-10] MEDS: Omeprazole 20 MG CAPSULE.DR PO (05:47)
[2023-09-10] MEDS: Potassium Chloride Packet 20 MEQ PACKET 40 MEQ PO (05:47)
--- NOTE | 2023-09-10 06:40 | PC.NURSE ---
Patient reports she feeling urge to urinate, she would like to try voiding using a pure wick.Patient denies discomfort in supra pubic area, no discomfort with light palpation.
[2023-09-10] MEDS: Fluticasone Propionate 100 MCG BLST.W.DEV 2 PUFF INHALE ×2 (07:25→19:18)
--- NOTE | 2023-09-10 07:40 | PHA.MEDREC ---
Pharmacy Consult ? Medication Reconciliation Pharmacy has completed the medication reconciliation. Pharmacy has reviewed med rec done by nursing. Duplicate medications removed from list.
[2023-09-10] MEDS: Cholecalciferol (Vitamin D3) 25 MCG TABLET PO (07:45)
[2023-09-10] MEDS: Thiamine HCL 100 MG in 0.9 % Sodium Chloride 100 ML 202 MG IV (07:46)
[2023-09-10] MEDS: PHENobarbitaL 15 MG TABLET 45 MG PO ×2 (07:46→20:23)
[2023-09-10] MEDS: Loratadine 10 MG TABLET PO (07:47)
[2023-09-10] MEDS: Folic Acid 1 MG TABLET PO (07:47)
[2023-09-10] MEDS: Heparin Sodium,Porcine 5,000 UNIT/ML VIAL 5000 UNIT SUBCUT ×2 (07:47→20:22)
[2023-09-10] MEDS: Magnesium Oxide 400 MG TABLET PO ×2 (09:30→17:14)
[2023-09-10] MEDS: oxyCODONE HCl Immed Release 5 MG TABLET PO ×2 (09:30→15:29)
--- NOTE | 2023-09-10 09:35 | P.PNIM_ITS ---
Subjective Subjective Date of Service: 09/10/23 Interval History: weakness Physical Exam 2 Vital Signs: Vital Signs: Last Vital Signs Temp 97.9 F 09/10/23 05:58 Pulse 119 H 09/10/23 09:27 Resp 18 09/10/23 09:27 BP 106/55 L 09/10/23 09:27 Pulse Ox 98 09/10/23 09:27 O2 Del Method Room Air 09/10/23 09:27 BMI result Body Mass Index 25.1 General: AO X 3, anxious Resp: CTA bilateral, no accessory muscles used CVS: S1,S2,RRR GI: soft, non tender, non distended Neuro: motor grossly intact, light tremor Psych: appropriate affect, appropriate insight Objective Data Active Medications Acetaminophen (Acetaminophen 325 Mg Tablet) 650 mg PO Q6H PRN PRN Reason: Pain, Mild (Pain Scale 1-3) Albuterol Sulfate (Albuterol Sulfate 90 Mcg 8 Gm Inhaler) 2 puff INHALE RQ6H PRN PRN Reason: Bronchodilation Calcitonin [place] (Calcitonin,[place],Synth Nasal 3.7 Ml Bottle) 1 spray NOSTRILALT DAILY [facility] Calcium Carbonate (Calcium Carbonate 500 Mg Tablet) 500 mg PO DAILY [facility] Last Admin: 09/10/23 07:46 Dose: 500 mg Documented By: SUNIL Fluticasone Propionate (Fluticasone Propionate 100 Mcg Blst.W.Dev) 2 puff INHALE RBID [facility] Last Admin: 09/10/23 07:25 Dose: 2 puff Documented By: DONITA Folic Acid (Folic Acid 1 Mg Tablet) 1 mg PO DAILY [facility] Last Admin: 09/10/23 07:47 Dose: 1 mg Documented By: SUNIL Heparin Sodium (Porcine) (Heparin Sodium,Porcine 5,000 Unit/Ml Vial) 5,000 unit SUBCUT Q12H [facility] Last Admin: 09/10/23 07:47 Dose: 5,000 unit Documented By: SUNIL Sodium Chloride (Ns) 1,000 mls @ 100 mls/hr IVCONT .Q10H [facility] Last Admin: 09/10/23 05:41 Dose: 100 mls/hr Documented By: KARON Thiamine HCl 100 mg/ Sodium (Chloride) 101 mls @ 202 mls/hr IV DAILY [facility] Last Infusion: 09/10/23 09:19 Dose: Infused Documented By: SUNIL Potassium Chloride (Potassium Chloride/H20) 10 meq in 100 mls @ 100 mls/hr IV Q1H [facility] Stop: 09/10/23 09:59 Last Admin: 09/10/23 07:46 Dose: 100 mls/hr Documented By: SUNIL Ketorolac Tromethamine (Ketorolac Tromethamine 15 Mg/Ml Vial) 15 mg IVPUSH Q6H [facility] Stop: 09/10/23 13:46 Last Admin: 09/10/23 07:47 Dose: 15 mg Documented By: SUNIL Loratadine (Loratadine 10 Mg Tablet) 10 mg PO DAILY [facility] Last Admin: 09/10/23 07:47 Dose: 10 mg Documented By: SUNIL Magnesium Oxide (Magnesium Oxide 400 Mg Tablet) 400 mg PO BIDPC [facility] Last Admin: 09/10/23 09:30 Dose: 400 mg Documented By: SUNIL Omeprazole (Omeprazole 20 Mg Capsule.Dr) 20 mg PO DAILY@0630 [facility] Last Admin: 09/10/23 05:47 Dose: 20 mg Documented By: KARON Ondansetron HCl (Ondansetron Hcl 4 Mg/2 Ml Vial) 4 mg IVPUSH Q8H PRN PRN Reason: Nausea and Vomiting Oxycodone HCl (Oxycodone Hcl Immed Release 5 Mg Tablet) 5 mg PO Q6H PRN PRN Reason: Pain, Severe (Pain Scale 7-10) Last Admin: 09/10/23 09:30 Dose: 5 mg Documented By: SUNIL Pharmacy Consult (Consult Rx Etoh Phenob Im/Po) 1 each MISCELLANE ONCE PRN; Protocol PRN Reason: Consult order Phenobarbital (Phenobarbital 15 Mg Tablet) 45 mg PO BID [facility]; Protocol Stop: 09/11/23 21:01 Last Admin: 09/10/23 07:46 Dose: 45 mg Documented By: SUNIL Phenobarbital (Phenobarbital 15 Mg Tablet) 15 mg PO BID [facility]; Protocol Stop: 09/13/23 21:01 Phenobarbital (Phenobarbital 15 Mg Tablet) 15 mg PO DAILY [facility]; Protocol Stop: 09/15/23 09:01 Senna (Sennosides 8.6 Mg Tablet) 17.2 mg PO BEDTIME PRN PRN Reason: Constipation Trazodone HCl (Trazodone Hcl 50 Mg Tablet) 50 mg PO BEDTIME [facility] Last Admin: 09/09/23 19:53 Dose: 50 mg Documented By: KEV Vitamin D (Cholecalciferol (Vitamin D3) 25 Mcg Tablet) 25 mcg PO DAILY [facility] Last Admin: 09/10/23 07:45 Dose: 25 mcg Documented By: SUNIL Labs 09/10/23 04:19 09/10/23 04:19 Labs: Laboratory Results - last 24 hr 09/09/23 09/09/23 09/09/23 12:36 17:02 20:02 MCV 99.1 H MCH 34.7 H MCHC 35.0 RDW 13.9 Plt Count 226 MPV 9.8 Immature Gran % (Auto) 1.5 H Neut % (Auto) 64.9 Lymph % (Auto) 21.8 [place] % (Auto) 11.1 H Eos % (Auto) 0.2 Baso % (Auto) 0.5 Lymph # (Auto) 1.5 [place] # (Auto) 0.7 Eos # (Auto) 0.0 Baso # (Auto) 0.0 Abs Immat Gran (auto) 0.10 H Absolute Neuts (auto) 4.3 Absolute Nucleated RBC 0.000 Nucleated RBC % (auto) 0.0 D-Dimer High Sensitivty 545 Anion Gap 25 H 21 H Estim Creat Clear Calc 94.6 114.7 Estimated GFR > 60 > 60 Random Glucose 103 70 Calcium 8.8 7.9 L D Magnesium 1.7 Total Bilirubin 0.5 Direct Bilirubin 0.3 AST 61 H ALT 34 H Alkaline Phosphatase 183 H B-Natriuretic Peptide 22 Total Protein 6.1 L Albumin 3.2 L Vitamin B12 Folate 09/10/23 04:19 MCV 102.4 H MCH 34.7 H MCHC 33.9 RDW 14.3 Plt Count 195 MPV 10.1 Immature Gran % (Auto) 1.2 H Neut % (Auto) 58.3 Lymph % (Auto) 29.2 [place] % (Auto) 10.5 Eos % (Auto) 0.4 Baso % (Auto) 0.4 Lymph # (Auto) 1.5 [place] # (Auto) 0.5 Eos # (Auto) 0.0 Baso # (Auto) 0.0 Abs Immat Gran (auto) 0.06 H Absolute Neuts (auto) 3.0 Absolute Nucleated RBC 0.000 Nucleated RBC % (auto) 0.0 D-Dimer High Sensitivty Anion Gap 16 Estim Creat Clear Calc 106.4 Estimated GFR > 60 Random Glucose 117 H Calcium 8.3 L Magnesium Total Bilirubin Direct Bilirubin AST ALT Alkaline Phosphatase B-Natriuretic Peptide Total Protein Albumin Vitamin B12 524 Folate 4.9 Assessment and Plan (1) Alcohol abuse: Status: Acute Plan 58F PMH COPD, osteoporosis, alcohol dependence presented with back pain due to compression fracture, complicated by alcohol withdrawal Alcohol dependence with acute withdrawal Continue phenobarbital protocol Monitor CIWA Back pain due to age indeterminate compression fracture of L1 and L5 Continue pain control PT eval Acute hypokalemia Replace and monitor Acute starvation ketosis Resolved Osteoporosis Hold alendronate while inpatient COPD Stable DVT prophylaxis with heparin subQ Full code reason for continued hospitalization: Active withdrawal, Quality Stroke Does the patient have a stroke diagnosis?: No VTE Prior VTE?: No VTE Risk Level:: Medical - moderate - high VTE Device Contraindication: Treatment Not Indicated VTE Drug Contraindication: N/A - Med Ordered
[2023-09-10] MEDS: Calcitonin,Salmon,Synth Nasal 3.7 ML BOTTLE 1 SPRAY NOSTRILALT (11:10)
--- NOTE | 2023-09-10 12:06 | MHC.CM.PN ---
pt lives with son has own ride home pt will have a pt eval prior to dc ?care team as well
[2023-09-10] MEDS: HYDROmorphone HCl 0.5 MG/0.5 ML SYRINGE IVPUSH ×2 (12:11→18:08)
[2023-09-10] MEDS: ondansetron HCL 4 MG/2 ML VIAL IVPUSH (17:55)
[2023-09-10] MEDS: traZODone HCL 50 MG TABLET PO (20:23)
--- NOTE | 2023-09-10 20:28 | PC.NURSE ---
Patient refuses to have bed linen changed,refused hygiene care
[2023-09-11] VITALS (9 sets, daily range): BP systolic 98–114; BP diastolic 62–73; PULSE 61–108; RESP 16–18; TEMP 36.3–37.2; O2SAT 96–98
[2023-09-11] MEDS: 0.9 % Sodium Chloride 1,000 ML 100 ML IVCONT (00:17)
[2023-09-11] MEDS: HYDROmorphone HCl 0.5 MG/0.5 ML SYRINGE IVPUSH ×2 (00:32→14:13)
[2023-09-11 04:12] LABS: Appearance Urine Cloudy; Color Urine Yellow; Glucose Urine UA Negative (Negative); Leukocyte Esterase Urine Small (1+) (Negative); Nitrite Urine Negative (Negative); Specific Gravity - Urine <= 1.005 (1.005-1.025); UMIC TRIGGER UACC YES; Urine Blood Trace (Negative); Urine Ketones Negative (Negative); Urine Protein Negative (Neg-Trace)
[2023-09-11 04:20] LABS: Bacteria Urine 4+ (None Seen); Hyaline Casts Urine 0-2 /LPF (0-2); RBC Urine 0-2 /HPF (0-2); Squamous Epithelial Cell Urine 0-2 /HPF (0-2); UACC Culture Trigger YES; WBC Urine 0-5 /HPF (0-5)
[2023-09-11 04:33] LABS: Amphetamine Screen Urine Not Detected (Not Detect); Barbiturates, Urine POSITIVE (Not Detect); Benzodiazepines Screen Urine Not Detected (Not Detect); Buprenorphine Scr Not Detected (Not Detect); Cannabinoid Screen Urine Not Detected (Not Detect); Cocaine Screen Urine Not Detected (Not Detect); Fentanyl, urine Not Detected (Not Detect); Methadone Screen, Urine Not Detected (Not Detect); Opiate Screen Urine Not Detected (Not Detect); Oxycodone Screen Urine Positive (Not Detect); Phencyclidine Screen Urine Not Detected (Not Detect)
--- NOTE | 2023-09-11 04:35 | PC.NURSE ---
Patient still unable to void by 0300, asked numerous times to be assisted oob to commode to try and void, however, pt declined from 2330 on. Patient finally agreed to be bladder scanned and it revealed 854ml. Discussed again need to attempt void, but thus far only agreed to a purewick which remained empty. Pt did reveal that she was starting to feel full . Hospitalist alerted and replied okay to st cath at this time. Pt tolerated procedure well and 900ml yellow urine was obtained at 0355. Noted there was a previous specimen ordered for drug screening and UA with micro, therefore those were obtained and sent to the lab right at start of downtime. Will continue to monitor
[2023-09-11] MEDS: Omeprazole 20 MG CAPSULE.DR PO (06:33)
[2023-09-11] MEDS: Heparin Sodium,Porcine 5,000 UNIT/ML VIAL 5000 UNIT SUBCUT ×2 (08:30→20:34)
[2023-09-11] MEDS: Thiamine HCL 100 MG in 0.9 % Sodium Chloride 100 ML 202 MG IV (08:30)
[2023-09-11] MEDS: Folic Acid 1 MG TABLET PO (08:31)
[2023-09-11] MEDS: Loratadine 10 MG TABLET PO (08:31)
[2023-09-11] MEDS: Magnesium Oxide 400 MG TABLET PO ×2 (08:31→15:50)
[2023-09-11] MEDS: Cholecalciferol (Vitamin D3) 25 MCG TABLET PO (08:31)
[2023-09-11] MEDS: PHENobarbitaL 15 MG TABLET 45 MG PO ×2 (08:31→20:35)
[2023-09-11] MEDS: oxyCODONE HCl Immed Release 5 MG TABLET PO (08:52)
[2023-09-11] MEDS: Calcitonin,Salmon,Synth Nasal 3.7 ML BOTTLE 1 SPRAY NOSTRILALT (08:53)
[2023-09-11 08:57] LABS: Hematocrit 28.9 % (37.0-47.0); Hemoglobin 9.6 g/dl (12.0-16.0); Mean Corpuscular HGB Conc 33.2 g/dl (31.0-35.0); Mean Corpuscular Hemoglobin 34.8 pg (27.0-33.0); Mean Corpuscular Volume 104.7 fL (80.0-98.0); Mean Platelet Volume 9.7 fL (9.4-12.3); Platelet Count 186 X10*3/uL (160-400); Red Blood Count 2.76 X10*6/uL (4.20-5.50); Red Cell Distribution Width 14.3 % (11.0-16.0); White Blood Count 6.3 X10*3/uL (4.8-10.8)
[2023-09-11 09:06] LABS: INTERNATIONAL NORM RATIO 0.8 (0.9-1.1); Prothrombin Time 9.4 SEC (11.1-13.3)
[2023-09-11] MEDS: Fluticasone Propionate 100 MCG BLST.W.DEV 2 PUFF INHALE (09:19)
--- NOTE | 2023-09-11 09:27 | P.PNIM_ITS ---
Subjective Subjective Date of Service: 09/11/23 Interval History: back pain Physical Exam 2 Vital Signs: Vital Signs: Last Vital Signs Temp 97.5 F 09/11/23 07:31 Pulse 108 H 09/11/23 09:23 Resp 18 09/11/23 09:23 BP 103/63 09/11/23 07:31 Pulse Ox 98 09/11/23 07:31 O2 Del Method Room Air 09/11/23 07:31 BMI result Body Mass Index 25.1 General: AO X 3, anxious Resp: CTA bilateral, no accessory muscles used CVS: S1,S2,RRR GI: soft, non tender, non distended Neuro: motor grossly intact, light tremor Psych: appropriate affect, appropriate insight Objective Data Active Medications Acetaminophen (Acetaminophen 325 Mg Tablet) 650 mg PO Q6H PRN PRN Reason: Pain, Mild (Pain Scale 1-3) Albuterol Sulfate (Albuterol Sulfate 90 Mcg 8 Gm Inhaler) 2 puff INHALE RQ6H PRN PRN Reason: Bronchodilation Calcitonin [place] (Calcitonin,[place],Synth Nasal 3.7 Ml Bottle) 1 spray NOSTRILALT DAILY [facility] Last Admin: 09/11/23 08:53 Dose: 1 spray Documented By: SOHAIL Calcium Carbonate (Calcium Carbonate 500 Mg Tablet) 500 mg PO DAILY [facility] Last Admin: 09/11/23 08:31 Dose: 500 mg Documented By: SOHAIL Fluticasone Propionate (Fluticasone Propionate 100 Mcg Blst.W.Dev) 2 puff INHALE RBID [facility] Last Admin: 09/11/23 09:19 Dose: 2 puff Documented By: ABDI Folic Acid (Folic Acid 1 Mg Tablet) 1 mg PO DAILY [facility] Last Admin: 09/11/23 08:31 Dose: 1 mg Documented By: SOHAIL Heparin Sodium (Porcine) (Heparin Sodium,Porcine 5,000 Unit/Ml Vial) 5,000 unit SUBCUT Q12H [facility] Last Admin: 09/11/23 08:30 Dose: 5,000 unit Documented By: SOHAIL Hydromorphone HCl (Hydromorphone Hcl 0.5 Mg/0.5 Ml Syringe) 0.5 mg IVPUSH Q4H PRN; Protocol PRN Reason: severe pain Last Admin: 09/11/23 00:32 Dose: 0.5 mg Documented By: JENNA Sodium Chloride (Ns) 1,000 mls @ 100 mls/hr IVCONT .Q10H [facility] Last Admin: 09/11/23 00:17 Dose: 100 mls/hr Documented By: JENNA Thiamine HCl 100 mg/ Sodium (Chloride) 101 mls @ 202 mls/hr IV DAILY [facility] Last Infusion: 09/11/23 09:14 Dose: Infused Documented By: SOHAIL Loratadine (Loratadine 10 Mg Tablet) 10 mg PO DAILY [facility] Last Admin: 09/11/23 08:31 Dose: 10 mg Documented By: SOHAIL Magnesium Oxide (Magnesium Oxide 400 Mg Tablet) 400 mg PO BIDPC [facility] Last Admin: 09/11/23 08:31 Dose: 400 mg Documented By: SOHAIL Omeprazole (Omeprazole 20 Mg Capsule.Dr) 20 mg PO DAILY@0630 [facility] Last Admin: 09/11/23 06:33 Dose: 20 mg Documented By: JENNA Ondansetron HCl (Ondansetron Hcl 4 Mg/2 Ml Vial) 4 mg IVPUSH Q8H PRN PRN Reason: Nausea and Vomiting Last Admin: 09/10/23 17:55 Dose: 4 mg Documented By: VIRA Oxycodone HCl (Oxycodone Hcl Immed Release 5 Mg Tablet) 5 mg PO Q6H PRN PRN Reason: Pain, Severe (Pain Scale 7-10) Last Admin: 09/11/23 08:52 Dose: 5 mg Documented By: SOHAIL Pharmacy Consult (Consult Rx Etoh Phenob Im/Po) 1 each MISCELLANE ONCE PRN; Protocol PRN Reason: Consult order Phenobarbital (Phenobarbital 15 Mg Tablet) 45 mg PO BID [facility]; Protocol Stop: 09/11/23 21:01 Last Admin: 09/11/23 08:31 Dose: 45 mg Documented By: SOHAIL Phenobarbital (Phenobarbital 15 Mg Tablet) 15 mg PO BID [facility]; Protocol Stop: 09/13/23 21:01 Phenobarbital (Phenobarbital 15 Mg Tablet) 15 mg PO DAILY [facility]; Protocol Stop: 09/15/23 09:01 Senna (Sennosides 8.6 Mg Tablet) 17.2 mg PO BEDTIME PRN PRN Reason: Constipation Trazodone HCl (Trazodone Hcl 50 Mg Tablet) 50 mg PO BEDTIME [facility] Last Admin: 09/10/23 20:23 Dose: 50 mg Documented By: CARLOS Vitamin D (Cholecalciferol (Vitamin D3) 25 Mcg Tablet) 25 mcg PO DAILY [facility] Last Admin: 09/11/23 08:31 Dose: 25 mcg Documented By: SOHAIL Labs 09/11/23 08:51 09/10/23 04:19 Labs: Laboratory Results - last 24 hr 09/11/23 09/11/23 03:57 08:51 MCV 104.7 H MCH 34.8 H MCHC 33.2 RDW 14.3 Plt Count 186 MPV 9.7 Absolute Nucleated RBC 0.000 Nucleated RBC % (auto) 0.0 PT 9.4 L INR 0.8 L Urine Color Yellow Urine Appearance Cloudy Urine pH 6.0 Ur Specific [place] <= 1.005 Urine Protein Negative Urine Glucose (UA) Negative Urine Ketones Negative Urine Blood Trace H Urine Nitrite Negative Ur Leukocyte Esterase Small (1+) H Urine RBC 0-2 Urine WBC 0-5 Ur Squamous Epith Cells 0-2 Urine Bacteria 4+ Hyaline Casts 0-2 Urine Opiates Screen Not Detected Ur Buprenorphine Scrn Not Detected Ur Oxycodone Screen Positive H Urine Methadone Screen Not Detected Urine Fentanyl Screen Not Detected Ur Barbiturates Screen POSITIVE H Ur Phencyclidine Scrn Not Detected Ur Amphetamines Screen Not Detected U Benzodiazepines Scrn Not Detected Urine Cocaine Screen Not Detected U Marijuana (THC) Screen Not Detected Assessment and Plan (1) Alcohol abuse: Status: Acute Plan 58F PMH COPD, osteoporosis, alcohol dependence presented with back pain due to compression fracture, complicated by alcohol withdrawal Alcohol dependence with acute withdrawal Continue phenobarbital protocol Monitor CIWA Back pain due to age indeterminate compression fracture of L1 and L5 Continue pain control PT eval Acute hypokalemia Replaced follow up bmp Acute starvation ketosis Resolved Osteoporosis Hold alendronate while inpatient COPD Stable DVT prophylaxis with heparin subQ Full code reason for continued hospitalization: Active withdrawal, Quality Stroke Does the patient have a stroke diagnosis?: No VTE Prior VTE?: No VTE Risk Level:: Medical - moderate - high VTE Device Contraindication: Treatment Not Indicated VTE Drug Contraindication: N/A - Med Ordered
[2023-09-11 09:40] LABS: Alanine Aminotransferase 18 U/L (0-31); Albumin Level 2.3 g/dL (3.5-5.0); Alkaline Phosphatase 136 U/L (39-117); Anion Gap 11 (12-20); Aspartate Amino Transferase 22 U/L (5-31); Bilirubin Direct < 0.2 mg/dL (0.0-0.5); Bilirubin Total 0.2 mg/dL (0.0-1.0); Blood Urea Nitrogen < 3 mg/dL (9-16); Calcium 7.9 mg/dL (8.4-10.2); Carbon Dioxide 21 mmol/L (22-29); Chloride 107 mmol/L (96-108); Creatinine Clr Calc Pharmacy 129.6; Estimated Glomerular Filt Rate > 60; Glucose Fasting 104 mg/dL (60-99); Potassium 3.4 mmol/L (3.3-5.1); Sodium 136 mmol/L (135-145); Total Protein 4.5 g/dL (6.5-8.0)
[2023-09-11 10:01] LABS: Magnesium 1.4 mg/dL (1.6-2.6)
--- NOTE | 2023-09-11 10:47 | MHC.RECOVRN ---
Met with pt in 359 after consult placed to Addiction Medicine for alcohol use. Pt had presented to the ED reporting low back pain and bilateral lower extremity swelling. While in the ED awaiting PT eval, pt began experiencing alcohol withdrawal. Pt subsequently admitted for alcohol use and withdrawal as well as compression fracture. Pt sitting in bed, awake and alert. Pts son and daughter present for discussion with pts permission. Pt engages in conversation but guarded regarding alcohol use. Pt reports drinking 3 beers at night, reports she can stop whenever she wants. Pt reports she does not drink alcohol throughout the day. Pt denies hx tx for AUD. Does report family hx AUD. Pt denies having concerns related to alcohol use. Pts son and daughter also deny concerns related to pts alcohol use. Pt open to receiving resources if needed, written resources provided. Educated pt on recovery supports if pt feels she would like support with reducing or abstaining. Pt and family deny questions or concerns for t/w. Pt provided with t/w contact information if she would like to discuss further. Discussed with Rebecca Ivy APRN.
[2023-09-11] MEDS: Magnesium Sulfate/H2O 2 GM/50 ML PIGGYBACK IV (10:50)
[2023-09-11] MEDS: Potassium Chloride ER 20 MEQ TAB.ER.PRT 40 MEQ PO (10:50)
--- NOTE | 2023-09-11 10:55 | P.CDIM_ITS ---
PROVIDER RESPONSE TEXT: To clarify, the appropriate diagnosis supported by the clinical indicators: Pathologic due to osteoporosis QUERY TEXT: PHYSICIAN'S DOCUMENTATION REQUEST Date of Query: 09/11/2023 09:21 AM EDT Patient Name: KENYA AVLIA Admit Date: 09/09/2023 Dear Joel Bedolla, A review of the medical record indicates additional documentation may be needed. Please review below and update the documentation accordingly. Clinical Indicators: Age-indeterminate compression fracture L1 and L5 Known osteoporosis, pain ongoing x1 month but worsening. Continue fosamax Arrived pain radiating to both hips and spine. Starvation ketoacidosis, metabolic derangements Pertinent past history: prior back pain and recent trauma Please provide the following additional clarification regarding the fracture the Type: Traumatic Pathologic due to osteoporosis Pathologic due to other disease (please specify) Nontraumatic Other (explain) Clinically unable to determine (explain) Thank you, Lexi Neves, CCS, CDIS Use of terms such as suspected, likely, concern for, or probable (associated with a specific diagnosi s that is being evaluated, monitored, or treated as if it exists) are acceptable and can be coded in the inpatient se tting, when documented at the time of discharge. Please use your independent medical judgment in providing your response. THIS QUERY IS PART OF THE PERMANENT MEDICAL RECORD
[2023-09-11] MEDS: PHENobarbitaL sodium 130 MG/ML VIAL 65 MG IM (12:40)
--- NOTE | 2023-09-11 15:19 | PC.NURSE ---
Pt confused and visual hallucinating. Seeing bugs on her bed. Dr. Bedolla notified. Medicated with extra dose phenobarb 65mg IM. Pt with no void since straight cath overnight. Dr. Bedolla notified. Order for lopez. 18fr placed.
[2023-09-11] MEDS: traZODone HCL 50 MG TABLET PO (20:35)
[2023-09-12 03:13] VITALS: BP 131/78; PULSE 89; RESP 16; TEMP 36.3; O2SAT 96
[2023-09-12] MEDS: oxyCODONE HCl Immed Release 5 MG TABLET PO ×3 (03:23→14:19)
[2023-09-12] MEDS: Omeprazole 20 MG CAPSULE.DR PO (06:15)
[2023-09-12 07:34] VITALS: BP 121/72; PULSE 77; RESP 17; TEMP 36; O2SAT 98
[2023-09-12 07:40] LABS: Hematocrit 27.4 % (37.0-47.0); Hemoglobin 9.1 g/dl (12.0-16.0); Mean Corpuscular HGB Conc 33.2 g/dl (31.0-35.0); Mean Corpuscular Hemoglobin 34.2 pg (27.0-33.0); Mean Platelet Volume 10.4 fL (9.4-12.3); Platelet Count 214 X10*3/uL (160-400); Red Blood Count 2.66 X10*6/uL (4.20-5.50); Red Cell Distribution Width 14.6 % (11.0-16.0)
[2023-09-12 07:57] LABS: Anion Gap 10 (12-20); Blood Urea Nitrogen < 3 mg/dL (9-16); Calcium 7.8 mg/dL (8.4-10.2); Carbon Dioxide 25 mmol/L (22-29); Chloride 106 mmol/L (96-108); Creatinine Clr Calc Pharmacy 145.4; Estimated Glomerular Filt Rate > 60; Glucose Fasting 93 mg/dL (60-99); Potassium 3.7 mmol/L (3.3-5.1); Sodium 137 mmol/L (135-145)
[2023-09-12] MEDS: Fluticasone Propionate 100 MCG BLST.W.DEV 2 PUFF INHALE (08:13)
[2023-09-12 08:18] VITALS: PULSE 92; RESP 16; O2SAT 98
[2023-09-12 08:42] LABS: Magnesium 1.7 mg/dL (1.6-2.6)
[2023-09-12] MEDS: Magnesium Oxide 400 MG TABLET PO (08:53)
[2023-09-12] MEDS: Calcitonin,Salmon,Synth Nasal 3.7 ML BOTTLE 1 SPRAY NOSTRILALT (08:53)
[2023-09-12] MEDS: Folic Acid 1 MG TABLET PO (08:54)
[2023-09-12] MEDS: Thiamine HCL 100 MG in 0.9 % Sodium Chloride 100 ML IV (08:54)
[2023-09-12] MEDS: Loratadine 10 MG TABLET PO (08:54)
[2023-09-12] MEDS: PHENobarbitaL 15 MG TABLET PO (08:54)
[2023-09-12] MEDS: Heparin Sodium,Porcine 5,000 UNIT/ML VIAL 5000 UNIT SUBCUT (08:54)
[2023-09-12] MEDS: Cholecalciferol (Vitamin D3) 25 MCG TABLET PO (08:54)
[2023-09-12] MEDS: Acetaminophen 325 MG TABLET 650 MG PO (10:47)
--- NOTE | 2023-09-12 11:35 | P.PNIM_ITS ---
Subjective Subjective Date of Service: 09/12/23 Interval History: Seen and evaluated this morning feels stronger and withdrawal symptoms under control PT rec SNF Review of Systems Review of Systems: Yes all other systems are reviewed and are negative Physical Exam 2 Vital Signs: Vital Signs: Last Vital Signs Temp 96.8 F 09/12/23 07:34 Pulse 92 09/12/23 08:18 Resp 16 09/12/23 08:18 BP 121/72 09/12/23 07:34 Pulse Ox 98 09/12/23 07:34 O2 Del Method Room Air 09/12/23 07:34 BMI result Body Mass Index 25.1 Const: Other: Constitutional : interactive, not in distress Cardiovascular : no JVP, no lower extremity edema Respiratory : bilateral chest movement, not in resp distress Gastrointestinal: soft, lax, Non tender Skin : Warm, Dry Neurological : Alert & oriented , No focal deficit Objective Data Active Medications Acetaminophen (Acetaminophen 325 Mg Tablet) 650 mg PO QSHIFT [facility] Last Admin: 09/12/23 10:47 Dose: 650 mg Documented By: CHRISTIANO Albuterol Sulfate (Albuterol Sulfate 90 Mcg 8 Gm Inhaler) 2 puff INHALE RQ6H PRN PRN Reason: Bronchodilation Calcitonin [place] (Calcitonin,[place],Synth Nasal 3.7 Ml Bottle) 1 spray NOSTRILALT DAILY [facility] Last Admin: 09/12/23 08:53 Dose: 1 spray Documented By: CHRISTIANO Calcium Carbonate (Calcium Carbonate 500 Mg Tablet) 500 mg PO DAILY [facility] Last Admin: 09/12/23 08:54 Dose: 500 mg Documented By: CHRISTIANO Fluticasone Propionate (Fluticasone Propionate 100 Mcg Blst.W.Dev) 2 puff INHALE RBID [facility] Last Admin: 09/12/23 08:13 Dose: 2 puff Documented By: ALANNA Folic Acid (Folic Acid 1 Mg Tablet) 1 mg PO DAILY [facility] Last Admin: 09/12/23 08:54 Dose: 1 mg Documented By: CHRISTIANO Heparin Sodium (Porcine) (Heparin Sodium,Porcine 5,000 Unit/Ml Vial) 5,000 unit SUBCUT Q12H [facility] Last Admin: 09/12/23 08:54 Dose: 5,000 unit Documented By: CHRISTIANO Thiamine HCl 100 mg/ Sodium (Chloride) 101 mls @ 202 mls/hr IV DAILY [facility] Last Infusion: 09/12/23 10:31 Dose: Infused Documented By: CHRISTIANO Lactulose (Lactulose 20 Gm/30 Ml Solution) 20 gm PO TID [facility] Loratadine (Loratadine 10 Mg Tablet) 10 mg PO DAILY [facility] Last Admin: 09/12/23 08:54 Dose: 10 mg Documented By: CHRISTIANO Magnesium Oxide (Magnesium Oxide 400 Mg Tablet) 400 mg PO BIDPC [facility] Last Admin: 09/12/23 08:53 Dose: 400 mg Documented By: CHRISTIANO Omeprazole (Omeprazole 20 Mg Capsule.Dr) 20 mg PO DAILY@0630 [facility] Last Admin: 09/12/23 06:15 Dose: 20 mg Documented By: JENNA Ondansetron HCl (Ondansetron Hcl 4 Mg/2 Ml Vial) 4 mg IVPUSH Q8H PRN PRN Reason: Nausea and Vomiting Last Admin: 09/10/23 17:55 Dose: 4 mg Documented By: VIRA Oxycodone HCl (Oxycodone Hcl Immed Release 5 Mg Tablet) 5 mg PO Q6H PRN PRN Reason: Pain, Severe (Pain Scale 7-10) Last Admin: 09/12/23 08:53 Dose: 5 mg Documented By: CHRISTIANO Pharmacy Consult (Consult Rx Etoh Phenob Im/Po) 1 each MISCELLANE ONCE PRN; Protocol PRN Reason: Consult order Phenobarbital (Phenobarbital 15 Mg Tablet) 15 mg PO BID [facility]; Protocol Stop: 09/13/23 21:01 Last Admin: 09/12/23 08:54 Dose: 15 mg Documented By: CHRISTIANO Phenobarbital (Phenobarbital 15 Mg Tablet) 15 mg PO DAILY [facility]; Protocol Stop: 09/15/23 09:01 Senna (Sennosides 8.6 Mg Tablet) 17.2 mg PO BEDTIME PRN PRN Reason: Constipation Trazodone HCl (Trazodone Hcl 50 Mg Tablet) 50 mg PO BEDTIME [facility] Last Admin: 09/11/23 20:35 Dose: 50 mg Documented By: CARLOS Vitamin D (Cholecalciferol (Vitamin D3) 25 Mcg Tablet) 25 mcg PO DAILY [facility] Last Admin: 09/12/23 08:54 Dose: 25 mcg Documented By: CHRISTIANO Labs 09/12/23 05:49 09/12/23 05:49 Labs: Laboratory Results - last 24 hr 09/12/23 05:49 MCV 103.0 H MCH 34.2 H MCHC 33.2 RDW 14.6 Plt Count 214 MPV 10.4 Absolute Nucleated RBC 0.000 Nucleated RBC % (auto) 0.0 Anion Gap 10 L Estim Creat Clear Calc 145.4 Estimated GFR > 60 Fasting Glucose 93 Calcium 7.8 L Magnesium 1.7 Assessment and Plan (1) Alcohol abuse: Status: Acute (2) Compression fx, lumbar spine: Status: Acute (3) Physical deconditioning: Status: Acute Plan 58F PMH COPD, osteoporosis, alcohol dependence presented with back pain due to compression fracture, complicated by alcohol withdrawal Alcohol dependence with acute withdrawal improving Continue phenobarbital protocol Monitor CIWA Thiamine supplement Back pain due to age indeterminate compression fracture of L1 and L5 Continue pain control PT eval Acute hypokalemia corrected Acute starvation ketosis Resolved Osteoporosis Hold alendronate while inpatient COPD Stable DVT prophylaxis with heparin subQ Full code reason for continued hospitalization: Active withdrawal, Quality Stroke Does the patient have a stroke diagnosis?: No VTE Prior VTE?: No VTE Risk Level:: Medical - moderate - high VTE Device Contraindication: Treatment Not Indicated VTE Drug Contraindication: N/A - Med Ordered
--- NOTE | 2023-09-12 12:06 | P.DS_ITS ---
DS: Providers Provider Date of Service: 09/12/23 Date of admission: 09/09/23 19:26 Primary care physician: Deyvi Ramos MD Consults: 09/09/23 16:20 Consult to Case Management Stat Comment: 09/09/23 19:47 Addiction Medicine Routine Consulting Provider: Addiction Covering Reason for consultation: etoh use disorder DS: Diagnosis Discharge Diagnosis (1) Alcohol abuse: Status: Acute (2) Compression fx, lumbar spine: Status: Acute (3) Physical deconditioning: Status: Acute DS: Summary Hospital Course Hospital Course: Admission note 58-year-old female with history of COPD, osteoporosis on alendronate who is a former smoker presented to the ED from home for evaluation of worsening low back pain ongoing for 1 month. About 1 month ago she was standing in her kitchen when she developed sudden sharp pain from the middle of her spine in the lower back and has been intermittent since then. She denies any specific injury. Reports the pain radiates to both hips and into the ribs bilaterally. She does also report drinking at least 2 16 oz cans of beer on a daily basis but states it is typically more than this. Denies any other substance use. Denies any history of alcohol withdrawal including alcohol withdrawal seizure. Last drink was last night. Since arrival, has been progressively tachycardic on admission, heart rate in the 130s with sinus rhythm. Blood pressure is also soft on admission at 90/52 but has received narcotic medication and Flexeril. There is no leukocytosis. She has a mild macrocytic anemia with H/H 11.8/33.7%, MCV 99.1, platelets within normal limits. On admission, renal function normal. Initially had anion gap with mild acidosis likely secondary to starvation ketosis as patient has been drinking alcohol but not eating much. On admission, anion gap improved to 21. AST 61, ALT 34. X-ray of the lumbar spine shows age- indeterminate wedge compression deformities involving the L1 vertebral body with 30% height loss and the L5 vertebral body with 20% height loss which are new from prior imaging. No other acute osseous abnormality. In the ED, has recei kobe 975 mg Tylenol, 10 mg Flexeril, 30 mg ketorolac, 5 mg oxycodone and 1 L IV NS. She has also been started on phenobarbital per protocol given high suspicion for acute alcohol withdrawal with tachycardia and nausea. She is also reporting heartburn. Currently reports her pain as an 8/10 with any movement but is relatively comfortable at rest. She is also reporting concern over swelling and pain in the BLE. Hospital course Alcohol dependence with acute withdrawal. treated with phenobarbital protocol and Monitored CIWA with good response over the course of hospital stay. Thiamine supplement given. Back pain due to age indeterminate compression fracture of L1 and L5. Seen by PT who recommended STR. pain controlled with Oxycodone. Discharge Plan Oxycodone for pain management, can use Tylenol 3 times daily as well Follow with PCP for further evaluation Complete abstinence from Alcohol Continue Thaimine supplement Omeprazole for stomach acid protection The patient will likely need less than 30 days in SNF. Time Attestation Discharge Coordination Time (in mins): 38 Quality: Safe Use of Opioids Does Pt have an Active Cancer Diagnosis on the Problem List?: No Quality: Stroke Does the patient have a stroke diagnosis?: No Physical Exam Vital Signs: Vital Signs: Last Vital Signs Temp 96.8 F 09/12/23 07:34 Pulse 92 09/12/23 08:18 Resp 16 09/12/23 08:18 BP 121/72 09/12/23 07:34 Pulse Ox 98 09/12/23 07:34 O2 Del Method Room Air 09/12/23 07:34 BMI result Body Mass Index 25.1 Const: Other: Constitutional : interactive, not in distress Cardiovascular : no JVP, no lower extremity edema Respiratory : bilateral chest movement, not in resp distress Gastrointestinal: soft, lax, Non tender Skin : Warm, Dry Neurological : Alert & oriented , No focal deficit DS: Data Data Completed and Pending Labs on day of discharge: Laboratory Results - last 24 hr 09/12/23 05:49 WBC 6.0 RBC 2.66 L Hgb 9.1 L Hct 27.4 L MCV 103.0 H MCH 34.2 H MCHC 33.2 RDW 14.6 Plt Count 214 MPV 10.4 Absolute Nucleated RBC 0.000 Nucleated RBC % (auto) 0.0 Sodium 137 Potassium 3.7 Chloride 106 Carbon Dioxide 25 Anion Gap 10 L BUN < 3 L Creatinine 0.41 L Estim Creat Clear Calc 145.4 Estimated GFR > 60 Fasting Glucose 93 Calcium 7.8 L Magnesium 1.7 Preliminary micro results at discharge 09/11/23 Unknown Urine Culture - Preliminary Urine clean catch - Urine valenzuela top Gram negative delvin Imaging Chest x-ray: Radiologist's impression: ITS Impressions Lumbar Spine X-Ray 09/09/23 13:24 IMPRESSION: 1. Age-indeterminate wedge compression deformities involving the L1 vertebral body with 30% height loss and the L5 vertebral body with 20%% height loss, new from 2019. 2. Levoconvex curvature of the lumbar spine. Mild multilevel degenerative disc disease. 3. Mild osteoarthritis of the right hip. 4. No pelvic fracture appreciated. Pelvis X-Ray 09/09/23 13:24 IMPRESSION: 1. Age-indeterminate wedge compression deformities involving the L1 vertebral body with 30% height loss and the L5 vertebral body with 20%% height loss, new from 2019. 2. Levoconvex curvature of the lumbar spine. Mild multilevel degenerative disc disease. 3. Mild osteoarthritis of the right hip. 4. No pelvic fracture appreciated. Venous Duplex 09/09/23 20:31 IMPRESSION: No DVT demonstrated in the bilateral lower extremity. Chest CTA 09/09/23 21:15 IMPRESSION: No pulmonary embolus demonstrated. Decreased size of opacities in the right upper lung which could represent the sequelae from previous cavitary lesion/abscess. VTE: negative Discharge Plan Discharge Anticipated Discharge Date/Time: 09/12/23 12:01 Patient Disposition: er SNF Discharge Diagnosis: Alcohol abuse Compression fracture Referrals: Deyvi Ramos MD [Primary Care Provider] - 1 Week Discharge Medications: New omeprazole 20 mg Capsule,Delayed Release(Dr/Ec) 20 mg PO DAILY@0630 Qty: 30 0RF oxycodone 5 mg Tablet 5 mg PO Q6H PRN (Reason: Pain, Severe (Pain Scale 7-10)) Qty: 15 0RF Rx Instructions: Partial Fill upon patient request. thiamine mononitrate (vit B1) 100 mg Tablet 100 mg PO DAILY Qty: 90 0RF Continued trazodone 50 mg tablet 50 mg PO BEDTIME cetirizine 10 mg tablet 10 mg PO QAM alendronate 70 mg tablet 70 mg PO QWEEK calcium carbonate 600 mg calcium (1,500 mg) tablet 600 mg PO QAM albuterol sulfate [Ventolin HFA] 90 mcg/actuation HFA aerosol inhaler 2 puff INHALATION Q6H PRN (Reason: Bronchodilation) fluticasone propionate 110 mcg/actuation HFA aerosol inhaler 2 puff INHALATION BID cholecalciferol (vitamin D3) [Vitamin D3] 25 mcg (1,000 unit) capsule 25 mcg PO DAILY Discharge Orders: Discharge Order (Routine); Ordered 09/12/23 Ordered By: Johnny Lauren Diet: Advance to usual diet Activity on Discharge: As tolerated Stand Alone Forms: Patient Portal Discharge page Print Language: Bruneian Care Plan Goals: Read below Health Concerns: Read below Plan of Treatment: Read below Assessment: Oxycodone for pain management, can use Tylenol 3 times daily as well Follow with PCP for further evaluation Complete abstinence from Alcohol Continue Thaimine supplement Omeprazole for stomach acid protection
--- NOTE | 2023-09-12 12:36 | MHC.CM.CNN ---
pt to be dcd today at 3 to [facility] notified of dc ms completed will be faxed
[2023-09-12] MEDS: Lactulose 20 GM/30 ML SOLUTION PO (14:20)
--- NOTE | 2023-09-12 15:10 | PC.NURSE ---
Roxicodone given to ambulance personell
== END 2023-09-12 15:17 | disposition skilled nursing facility (03) | DRG 775 ==
LOC: HO.ED 16:24 → HO.EDOVER 19:35 → HO.S3 09-10 07:36
PROVIDERS: Internal Medicine; Physician Assistant; Admitting Provider Physician Assistant; Emergency Provider Student in an Organized Health Care Education/Training Program; PCP Internal Medicine; Visit Provider Student in an Organized Health Care Education/Training Program
DX: F10.239 Alcohol dependence with withdrawal, unspecified (principal); E88.89 Other specified metabolic disorders; M48.56XA Collapsed vertebra, not elsewhere classified, lumbar region, initial encounter for fracture; J44.9 Chronic obstructive pulmonary disease, unspecified; D53.9 Nutritional anemia, unspecified; R33.9 Retention of urine, unspecified; E87.6 Hypokalemia; Z79.51 Long term (current) use of inhaled steroids; Z79.83 Long term (current) use of bisphosphonates; Z87.891 Personal history of nicotine dependence; Z79.899 Other long term (current) drug therapy
CPT/HCPCS: 36415; 71275; 72100; 72170; 80048; 80076; 80307; 81001; 82607; 82746; 83735; 83880; 85025; 85027; 85379; 85610; 87086; 87088; 87186; 93970; 94640; 97162; 99285; C1758; J1170; J1644; J1885; J2405; J2560; J3411; J3475; J3480; Q9967

== ENCOUNTER → 2023-09-09 19:26 | Outpatient (BNV) | payer MEDICAID, SELFPAY | PROVIDERS: Admitting Provider Physician Assistant; Emergency Provider Student in an Organized Health Care Education/Training Program; PCP Internal Medicine; Visit Provider Physician Assistant | DX: F10.230 Alcohol dependence with withdrawal, uncomplicated (principal); S32.000A Wedge compression fracture of unspecified lumbar vertebra, initial encounter for closed fracture; R53.81 Other malaise | CPT/HCPCS: 99223; 99232; 99239; 99499 ==

== ENCOUNTER 2024-04-15 10:50 | Outpatient (REF) | payer MEDICAID, SELFPAY ==
[2024-04-15 13:28] LABS: MANUAL DIFF FLAG NO
[2024-04-15 14:03] LABS: Basophils Percent Auto 0.5 % (0-2); Eosinophils Absolute Auto 0.1 X10*3/uL (0.0-0.4); Eosinophils Percent Auto 1.2 % (0-4); Hematocrit 40.3 % (37.0-47.0); Hemoglobin 12.9 g/dl (12.0-16.0); Imm Gran Abs Auto 0.02 X10*3/uL (0.00-0.03); Imm Gran Pct Auto 0.3 % (0.0-0.4); Lymphocytes Absolute Auto 2.5 X10*3/uL (1.2-4.9); Lymphocytes Percent Auto 37.8 % (20-40); Mean Corpuscular Hemoglobin 28.9 pg (27.0-33.0); Mean Corpuscular Volume 90.2 fL (80.0-98.0); Mean Platelet Volume 9.9 fL (9.4-12.3); Monocytes Absolute Auto 0.6 X10*3/uL (0.1-1.2); Monocytes Percent Auto 8.8 % (2-11); Neutrophils Absolute Auto 3.3 x10*3/uL (2.0-8.3); Neutrophils Percent Auto 51.4 % (45-73); Platelet Count 317 X10*3/uL (160-400); Red Blood Count 4.47 X10*6/uL (4.20-5.50); Red Cell Distribution Width 12.1 % (11.0-16.0); White Blood Count 6.5 X10*3/uL (4.8-10.8)
[2024-04-15 14:38] LABS: Alanine Aminotransferase 7 U/L (0-31); Albumin Level 3.8 g/dL (3.5-5.0); Alkaline Phosphatase 91 U/L (39-117); Anion Gap 9 (12-20); Aspartate Amino Transferase 18 U/L (5-31); Bilirubin Total 0.2 mg/dL (0.0-1.0); Blood Urea Nitrogen 5 mg/dL (9-16); Calcium 9.1 mg/dL (8.4-10.2); Carbon Dioxide 28 mmol/L (22-29); Chloride 101 mmol/L (96-108); Cholesterol 197 mg/dL (<200); Estimated Glomerular Filt Rate > 60; Glucose Random 101 mg/dL (60-115); HDL Cholesterol 47 mg/dL (>40); LDL Cholesterol Calculated 126 mg/dL (<100); Sodium 134 mmol/L (135-145); Total Protein 6.6 g/dL (6.5-8.0); Triglycerides 120 mg/dL (<150); Vitamin D 25-OH Total 49.8 ng/mL (>30)
[2024-04-19 08:22] LABS: Vitamin B1 15 nmol/L (8-30)
== END 2024-04-15 10:51 | disposition home or self-care (01) ==
LOC: HO.CHCLDS 10:50
PROVIDERS: Visit Provider Internal Medicine
DX: M80.80XD Other osteoporosis with current pathological fracture, unspecified site, subsequent encounter for fracture with routine healing (principal); R03.0 Elevated blood-pressure reading, without diagnosis of hypertension; S32.010A Wedge compression fracture of first lumbar vertebra, initial encounter for closed fracture
CPT/HCPCS: 36415; 80053; 80061; 82306; 83735; 84425; 85025

== ENCOUNTER 2024-05-15 10:53 | Outpatient (AMB) | payer MEDICAID, SELFPAY ==
[2024-05-15 11:16] VITALS: BP 130/64; PULSE 84; O2SAT 98; BMI 22.7
--- NOTE | 2024-05-15 11:16 | MHC.OFFVIS ---
Vital Signs 05/15/24 11:16 Height 5 ft 5 in Weight 136 lb 10.986 oz BMI 22.7 BP 130/64 Blood Pressure Location Lt brachial Position Sitting Pulse 84 Pulse Source Pulse Oximeter Pulse Oximetry (%) 98 Oxygen Delivery Method Room Air Intake Visit Reasons: copd Intake Note: pt is here for long overdue follow up and has been out of inhalers since August, and states she did have some heaviness at times in chest, she does have ventolin prn. Hammer Operator Required: No Allergies amoxicillin [AMOXICILLIN] Allergy (Unknown, Verified 05/15/24 11:43) EYES SWELLING pseudoephedrine [Sudafed] Allergy (Unknown, Verified 05/15/24 11:43) Unknown Sulfa (Sulfonamide Antibiotics) [SULFA (SULFONAMIDE ANTIBIOTICS)] Allergy (Unknown, Verified 05/15/24 11:43) SWELLING Medication List - Last Reconciled 05/15/24 by Callum Adams MD acetaminophen 500 mg PO Q8H PRN albuterol sulfate 90 mcg/actuation (Ventolin HFA) 2 puffs inhalation Q6H PRN alendronate 70 mg PO QWEEK calcium carbonate 600 mg PO QAM cetirizine 10 mg PO QAM cholecalciferol (vitamin D3) (Vitamin D3) 25 mcg PO DAILY diclofenac sodium 1% topical TID thiamine mononitrate (vit B1) 100 mg PO DAILY trazodone 50 mg PO BEDTIME HPI HPI copd: Details: This 59 years old female was previously seen by me sometime in 2019. She had diagnosis of mild COPD with recurrent cough and mild allergic rhinitis . At that time she used to be a smoker of about half pack of cigarettes a day. Subsequently has quit smoking She does have history of alcohol abuse and has been treated frequently in the hospital. Last admission was in August of this year at [facility] after a fall, compression fracture of the spine, and Some chest pain CTA OF THE CHEST NEGATIVE FOR PULMONARY EMBOLISM BUT DID SHOW A SPOT IN THE RIGHT UPPER LOBE WHICH HAS DECREASED IN SIZE AND NO FURTHER CAVITATION. SHE SPENT SEVERAL WEEKS IN REHAB PROGRAM. SHE COMES TODAY FOR FOLLOW-UP OF HER PULMONARY ISSUES. COMPLAINS OF MILD INTERMITTENT COUGH AND ALSO SHORTNESS OF BREATH ON EXERTION. THE ONLY MEDICINE SHE USES IS ALBUTEROL 2 PUFFS Q 6 HOURS P.R.N.. SHE USED TO BE ON FLOVENT WHICH HAS BEEN STOPPED DURING THE PAST FEW YEARS. AT PRESENT SHE DOES NOT SMOKE. SHE ALSO CLAIMS THAT SHE IS REFRAINING FROM DRINKING ALCOHOL. SHE HAS LOST SIGNIFICANT AMOUNT OF WEIGHT. SHE HAS IMPAIRED LOCOMOTION AND IS SITTING IN THE WHEELCHAIR BROUGHT IN THE OFFICE BY HER DAUGHTER. [facility] Medical History (Updated 05/15/24 @ 12:08 by Callum Adams MD) Alcohol abuse Compression fx, lumbar spine Former smoker Osteopoikilosis Alcohol use disorder COPD (chronic obstructive pulmonary disease) Family History Father No problems noted. Mother No problems noted. Social History Household Members: Children Household Members Other:: son Housing: Apartment Do you presently have visiting nurse or other home services: No Patient Tobacco Use Status: Former Tobacco user service: No Review of Systems Const All systems reviewed & are unremarkable except as noted in HPI and below Eyes Reports no additional complaints ENT Reports no additional complaints Card Denies chest pain, Denies rapid heart rate, Denies irregular heart rhythm and Denies lightheadedness Resp Reports as per HPI GI Reports no additional complaints Reports no additional complaints Musc Denies abnormal gait (IMPAIRED DUE TO WEAKNESS OF LOWER EXTREMITIES), Reports back pain and Reports muscle weakness (GENERALIZED) Skin/Breast Reports system reviewed and no additional complaints, except as documented Neuro Denies abnormal gait (IMPAIRED DUE TO WEAKNESS OF LOWER EXTREMITIES) Psych Reports no additional complaints Endo Reports no additional complaints Yung/Lymph Reports no additional complaints Aller/Immun Reports no additional complaints Physical Exam Vital Signs: Last Vital Signs Pulse 84 05/15/24 11:16 BP 130/64 05/15/24 11:16 Pulse Ox 98 05/15/24 11:16 Oxygen Delivery Method Room Air 05/15/24 11:16 BMI result Body Mass Index 22.7 Const General: comfortable, no acute distress, alert and awake; No healthy appearing (CHRONICALLY SICK-LOOKING OF A THIN BUILD) Orientation/consciousness: patient oriented x3 HEENT Head: Yes normal to inspection General nose exam: No nasal polyps present and No nasal discharge present Face and sinus: Yes sinuses nontender Mouth: oropharynx normal Throat: Yes posterior oropharynx normal Eyes General: appearance normal, both eyes and all related structures Neck Neck: Yes normal visual inspection, Yes no lymphadenopathy, Yes trachea midline and Yes no JVD Thyroid: Thyroid normal Chest Chest palpation & inspection: normal inspection of the chest, normal palpation of entire chest wall and no tenderness Resp Effort & Inspection: normal respiratory effort and able to speak in complete sentences Auscultation: clear to auscultation bilaterally, no crackles and no wheezes Cardio Palpation: normal PMI Rate: regular rate Rhythm: regular rhythm Heart sounds: no gallops and no murmurs Peripheral pulses: Peripheral pulses 2+ throughout GI Palpation (GI): Soft to palpation, Tenderness to palpation present (GI), No hepatosplenomegaly present and Palpable mass present Auscultation: normal bowel sounds Back/Spine/Pelvis Thoracic/Lumbar Spine: thoracic and lumbar spine normal to inspection and lumbar spinal tenderness (MILD TENDERNESS TO PRESSURE AT DORSO-LUMBAR AREA) Skin General skin exam: no rashes or lesions noted Neuro General: patient oriented x3 and no focal motor deficits Cranial nerves: Yes CN's II-XII intact bilaterally Extrem General: Yes normal to inspection, Yes no clubbing, cyanosis or edema and Yes no calf tenderness Psych Appearance: grossly normal and well kempt Speech and movement: Normal speech and movement present Assessment & Plan Assessment & Plan (1) COPD (chronic obstructive pulmonary disease): Comment: SHE HAS PAST HISTORY, OF SMOKING SHE DOES MILD CHRONIC OBSTRUCTIVE PULMONARY DISORDER. HER RESPIRATORY STATUS IS DEFINITELY IMPROVED SINCE SHE QUIT SMOKING Code(s): J44.9 - Chronic obstructive pulmonary disease, unspecified Category: Medical Plan: VENTOLIN HFA 2 PUFFS Q 4-6 HOURS ONLY P.R.N.. PRESCRIPTION IS RENEWED. SHE DOES NOT NEED TO USE ANY LONG-ACTING BRONCHODILATORS OR INHALED STEROIDS. (2) Physical deconditioning: Comment: SHE IS A THIN BUILD, HAS SIGNIFICANT WEAKNESS IN THE LOWER EXTREMITIES, I THINK THIS IS DUE TO HER CHRONIC ALCOHOLISM. Code(s): R53.81 - Other malaise Category: Medical Plan: I DID STRESS THAT SHE SHOULD CONTINUE PHYSICAL THERAPY AND EXERCISES. NO DRINKING OF ALCOHOL AT ALL . Medications: New albuterol sulfate 90 mcg/actuation (Ventolin HFA) 2 puffs inhalation Q4-6H PRN 8.5 grams 4RF shortness of breath or wheezing Discontinued oxycodone Partial Fill upon patient request. Discontinued Reason: Patient Completed Course 5 mg PO Q6H PRN 15 tabs 0RF Pain, Severe (Pain Scale 7-10) Coding Level of Care Code Est Pt Level 4 (69903) Diagnoses COPD (chronic obstructive pulmonary disease) J44.9 Physical deconditioning R53.81
== END 2024-05-15 11:59 | disposition home or self-care (01) ==
PROVIDERS: PCP Internal Medicine; Visit Provider Internal Medicine
DX: J44.9 Chronic obstructive pulmonary disease, unspecified (principal); R53.81 Other malaise
CPT/HCPCS: 94010; 99214

== ENCOUNTER 2024-05-15 12:54 | Outpatient (REF) | payer MEDICAID, SELFPAY ==
--- NOTE | ~2024-05-15 | XR_ITS ---
CLINICAL HISTORY: left knee pain 2 view left knee Comparison: None Findings: Bones intact. No dislocations. Tricompartmental periarticular osteophyte formation, indicating osteoarthritis. No joint effusion. No radiopaque foreign body. IMPRESSION: 1. No acute findings. This document has been electronically signed by: Luis Eduardo Griffith MD on 05/20/2024 14:57:47
--- NOTE | ~2024-05-15 | MR_ITS ---
CLINICAL HISTORY: Low back pain radiating to the left lower limb MR lumbar spine without gadolinium Comparison: CT lumbar spine 09/09/2023 Findings: There is stable mild lumbar spine dextroscoliosis. There is stable old mild superior endplate L5 compression fracture. There is new likely acute to subacute mild superior endplate compression fracture L4 with mild marrow edema. There is mild to moderate compression fracture L2 which demonstrates mild increased loss of height when compared to prior exam. There is stable old L1 compression fracture. There is new likely acute to subacute mild superior endplate compression fracture T11 with new mild subchondral marrow edema.. There is small left paracentral posterior disc protrusion T10-T11. No significant central canal or foraminal stenosis. There is mild disc space narrowing at this level. There is stable 4 mm retropulsion superior endplate of L1 unchanged when compared to lumbar spine radiographs. There is mild central canal stenosis at T12-L1. There are mild multilevel bulging annuli without central canal and foraminal stenoses. There is small central posterior disc protrusion L4-L5. There is ligamentous hypertrophy mild facet spondylosis mild central canal stenosis at this level. There is no significant foraminal stenoses on the exam. There is multilevel uncinate and facet hypertrophy. There is mild benign posterior epidural lipomatosis IMPRESSION: 1. New acute to subacute compression fractures at T11 and L4 with marrow edema. 2. Progressive L2 compression fracture with mild increased height loss. 3. Mild central canal stenosis at T12-L1 and L4-L5. This document has been electronically signed by: Stephan Lemon MD on 05/16/2024 08:03:24
== END 2024-05-15 12:55 | disposition home or self-care (01) ==
LOC: HO.MRI 12:54
PROVIDERS: PCP Internal Medicine; Visit Provider Internal Medicine
DX: S32.010A Wedge compression fracture of first lumbar vertebra, initial encounter for closed fracture (principal); M25.562 Pain in left knee; G89.29 Other chronic pain; J44.9 Chronic obstructive pulmonary disease, unspecified; R53.81 Other malaise
CPT/HCPCS: 72148; 73560; 94010; 99212

== ENCOUNTER → 2024-05-15 13:02 | Outpatient (BNV) | payer MEDICAID, SELFPAY | PROVIDERS: PCP Internal Medicine; Visit Provider Radiology Diagnostic Radiology | DX: S22.080A Wedge compression fracture of T11-T12 vertebra, initial encounter for closed fracture (principal); S32.040A Wedge compression fracture of fourth lumbar vertebra, initial encounter for closed fracture | CPT/HCPCS: 72148 ==

== ENCOUNTER 2024-07-18 09:59 | Outpatient (AMB) | payer MEDICAID, SELFPAY ==
[2024-07-18 10:00] VITALS: BP 142/67; PULSE 82; RESP 16; O2SAT 96; BMI 25.8
--- NOTE | 2024-07-18 10:00 | A.OFFVIS_ITS ---
Vital Signs 07/18/24 10:00 Height 5 ft 5 in Weight 155 lb 4 oz BMI 25.8 BP 142/67 H Blood Pressure Location Lt brachial Position Sitting Respiration 16 Pulse 82 Pulse Source Pulse Oximeter Pulse Oximetry (%) 96 Oxygen Delivery Method Room Air Intake Visit Reasons: Compression Fracture of L5 initial encounter Calibration Tester Required: No Credit And Collections Representative: Credit And Collections Representative Present Accompanied by: Family/Other Allergies amoxicillin [AMOXICILLIN] Allergy (Unknown, Verified 07/18/24 10:06) EYES SWELLING pseudoephedrine [Sudafed] Allergy (Unknown, Verified 07/18/24 10:06) Unknown Sulfa (Sulfonamide Antibiotics) [SULFA (SULFONAMIDE ANTIBIOTICS)] Allergy (Unknown, Verified 07/18/24 10:06) SWELLING HPI HPI Compression Fracture of L5 initial encounter: Details: History of Present Illness The patient is a 59-year-old female presenting with low back pain secondary to lumbar vertebral compression fractures. She has a significant history of back issues, first emerging in 2010 with associated left leg swelling. The back pain was exacerbated by a fall last year, which led to a hospital stay and ongoing pain. Past medical interventions were limited due to pneumonia and the COVID-19 pandemic. Her pain has progressively worsened, particularly after a subsequent fall in December, leading to rehabilitation but limited pain improvement. She continuously experiences lower back pain, radiation to hips, and associated left knee instability. Additionally, MRI findings revealed lumbar compression fractures with chronic degeneration and concerns of bulging discs. Osteoporosis management with alendronate is ongoing. At this point, she is 6 months out from her fall with continuing fracture related symptoms. Pain Description - Onset: Longstanding, exacerbated by falls, notably last year and in December. - Quality: Persistent, severe, sharp pain. - Location: Lower back, particularly L2 and L4 areas, radiating to hips. - Exacerbating Factors: Falls, increased activity, lower back pressure. - Relieving Factors: Higher doses of acetaminophen (1000 mg). - Interference: Daily functioning affected, requiring use of a walker. Physical Exam - Musculoskeletal- Tenderness over L2 and L4 vertebral body on palpation. - Functional- Requires stability assist for standing; uses a walker for ambulation. Results MRI showing worsening fracture at L2, new fracture at L4 superior endplate Pain Management - Affect: Patient concerned about persistent back pain and instability. - Analgesia: Uses high doses of acetaminophen; inadequate relief at standard doses. - Adverse Effects: None specifically noted with current medication. - Activities of Daily Living: Requires a walker; activities limited by pain. - Aberrant Drug Related Behaviors: No evidence of misuse reported. [facility] Medical History (Updated 07/21/24 @ 12:24 by Kiet Bui MD) Compression fx, lumbar spine Alcohol abuse Former smoker Osteopoikilosis Alcohol use disorder COPD (chronic obstructive pulmonary disease) Family History Father No problems noted. Mother No problems noted. Social History Household Members: Children Household Members Other:: son Housing: Apartment Do you presently have visiting nurse or other home services: No Patient Tobacco Use Status: Former Tobacco user service: No Physical Exam Vital Signs: Last Vital Signs Pulse 82 07/18/24 10:00 Resp 16 07/18/24 10:00 BP 142/67 H 07/18/24 10:00 Pulse Ox 96 07/18/24 10:00 Oxygen Delivery Method Room Air 07/18/24 10:00 BMI result Body Mass Index 25.8 Assessment & Plan Assessment & Plan (1) Compression fx, lumbar spine: Code(s): S32.000A - Wedge compression fracture of unspecified lumbar vertebra, initial encounter for closed fracture Category: Medical Plan Plan The management plan includes potential kyphoplasty at L2 and L4 due to evidence of instability and persistent tenderness, indicating ongoing compression fracture issues. Risks and benefits of the procedure, including its potential to alleviate pain associated with these fractures, were thoroughly discussed. The patient was given related literature to review at home and encouraged to reach out upon making a decision. The management of osteoporosis with alendronate remains vital, though its role in delaying fracture healing was explained. Patient was informed and verbally consented to the use of an ambient scribe for clinic note documentation during this visit. Discussion Notes I discussed with the patient the potential benefits of undergoing kyphoplasty for her lumbar compression fractures, particularly at L2 and L4. I detailed the procedure, involving creation of space within the vertebrae using a balloon and filling it with bone cement for stabilization. We explored the possible outcomes, namely pain relief from fracture-related symptoms, and outlined that she would be under sedation during this minimally invasive procedure. A brochure was provided for her to review, and she was advised to contact the clinic upon deciding to proceed. I assured her that this is not an urgent decision, and the importance of adequately addressing her osteoporosis management was reinforced, although it may delay fracture healing. Patient Instructions - Review the brochure provided about kyphoplasty at home. - Consider the potential benefits and risks of the procedure. - Maintain current osteoporosis management as prescribed. - Contact the clinic once a decision regarding kyphoplasty is made. - Monitor for any changes in symptoms or sudden worsening, and seek prompt medical attention if needed. Coding Level of Care Code New Pt Level 4 (08611) Diagnoses Compression fx, lumbar spine S32.000A
--- OUTSIDE RECORDS SUMMARY | 2024-07-18 11:11 | XMS_ITS | Encounter Summary ---
Author Organization [employer] Address [address] [facility] [address] [place] [address] Care Team Providers Care Retail Branch Manager Name Role Phone Deyvi Ramos MD Primary Care Provider [phone] Deyvi Ramos MD Primary Care Provider [phone] Encounter Details Date Type Department Care Team ([facility] Contact Info) Description 09/19/2022 Orders Only [facility] MED & PEDS [address] [place] [address] Judith Britton LPN Social History Tobacco Use Types Packs/Day Years Used Date Smoking Tobacco: Never Assessed Comments Unknown Sex and Gender Information Value Date Recorded Sex Assigned at Female 03/13/2022 10:22 AM EDT Legal Sex Female 10:22 AM EDT Gender Identity Female 03/13/2022 10:22 AM EDT Sexual Orientation Choose not to disclose 2021 10:22 AM EDT documented as of this encounter Plan of Treatment Upcoming Encounters Date Type Department Care Team ([facility] Contact Info) Description 10/16/2024 10:30 AM EDT Office Visit [facility] MED & PEDS [address] [place] [address] Deyvi Ramos MD [address] [place] [address] documented as of this encounter Visit Diagnoses Not on filedocumented in this encounter Care Teams Retail Branch Manager Relationship Specialty Start Date End Date Deyvi Ramos MD [address] [place] [address] PCP - General Internal Medicine 06/12/13 06/03/23 Deyvi Ramos MD [address] [place] [address] [place] Waterman [address] PCP - General Internal Medicine 11/22/23 [facility] 04/04/24 documented as of this encounter
--- OUTSIDE RECORDS SUMMARY | 2024-07-18 11:11 | XMS_ITS | Encounter Summary ---
Author Organization [employer] Address [address] [facility] 7 [place] [address] Care Team Providers Care Manager Clinical Applications Name Role Phone Deyvi Ramos MD Primary Care Provider [phone] Deyvi Ramos MD Primary Care Provider [phone] Reason for Visit * Reason Comments Med Refill Encounter Details Date Type Department Care Team (Late st Contact Info) Description 08/21/2022 Refill [facility] MED & PEDS [address] [place] [address] Deyvi Ramos MD [address] [place], [place] [id number] Social History Tobacco Use Types Packs/Day Years [...] Upcoming Encounters Date Type Department Care Team (Late Contact Info) Description 10/16/2024 10:30 AM EDT Office Visit [facility] MED & PEDS [address] [place] [address] Deyvi Ramos MD [address] [place] [address] documented as of this encounter Visit Diagnoses Not on filedocumented in this encounter Care Teams Manager Clinical Applications Relationship Specialty Start Date End Date Deyvi Ramos MD [address] [place] [address] PCP - General Internal Medicine 06/12/13 06/03/23 Deyvi Ramos MD [address] [place] [address] PCP - General Internal Medicine 11/22/23 [facility] 04/04/24 documented as of this encounter
--- OUTSIDE RECORDS SUMMARY | 2024-07-18 11:11 | XMS_ITS | Encounter Summary ---
Author Organization [employer] Address [address] [facility] 7t [place] [address] Care Team Providers Care Solderer Torch Name Role Phone Deyvi Ramos MD Primary Care Provider [phone] Deyvi Ramos MD Primary Care Provider [phone] Reason for Visit * Reason Onset Date Comments New Script 09/20/2022 Encounter Details Date Type Department Care Team ([facility] st Contact Info) Description 09/20/2022 Telephone [facility] MED & PEDS [address] [place], [place] [phone] Deyvi Ramos MD [address] [place], [place] [id number] New Script Social History Tobacco Use Types Packs/Day Years Used Date Smoking Tobacco: Never Assessed Comments Unknown Sex and Gender Information Value Date Recorded Sex Assigned at Female 03/13/2022 10:22 AM EDT Legal Sex Female 10:22 AM EDT Gender Identity Female 03/13/2022 10:22 AM EDT Sexual Orientation Choose not to disclose 2021 10:22 AM EDT documented as of this encounter Miscellaneous Notes * Telephone Encounter - James Mack RN - 09/20/2022 11:23 AM EDT Please review message below and advise. Thank you. * Telephone Encounter - Linda Chu - 09/20/2022 11:17 AM EDT Tc from [facility] requesting a new script for calcium carbonate 1500 (600 Ca) MG tablet for a 90 day's supply due to insurance not covering other script. Please contact pharmacy at [phone] documented in this encounter Plan of Treatment Upcoming Encounters Date Type Department Care Team (Late st Contact Info) Description 10/16/2024 10:30 AM EDT Office Visit [facility] MED & PEDS [address] [place] [address] Deyvi Ramos MD [address] [place] [address] documented as of this encounter Visit Diagnoses Not on filedocumented in this encounter Care Teams Solderer Torch Relationship Specialty Start Date End Date Deyvi Ramos MD [address] [place] [address] PCP - General Internal Medicine 06/12/13 06/03/23 Deyvi Ramos MD [address] [place] [address] PCP - General Internal Medicine 11/22/23 [facility] 04/04/24 documented as of this encounter
--- OUTSIDE RECORDS SUMMARY | 2024-07-18 11:11 | XMS_ITS | Encounter Summary ---
Author Organization [employer] Address [address] [facility] 7t [place] [address] Care Team Providers Care Dining Manager Name Role Phone Deyvi Ramos MD Primary Care Provider [phone] Encounter Details Date Type Department Care Team (Latest Contact Info) Description 06/26/2024 Travel Social History Tobacco Use Types Packs/Day Years Used Date Smoking Tobacco: Former Cigarettes Smokeless Tobacco: Never Depression Answer Date Recorded Patient Health Questionnaire-9 Score 2 06/26/2024 Patient Health Questionnaire-9 Score 2 06/26/2024 Last PHQ-9: Questionnaire Data Not on file 0 06/26/2024 Housing Stability Answer Date Recorded What is your housing situation today? I have gaurang green 11/12/[address] you li ve. Do you have problems with any of the following? None of the above 11/12/2023 Food Insecurity Answer Date Recorded Within the past 12 months, y ou worried that your food would run out before you got money to buy more: Never True 11/12/2023 Within the past 12 months,th e food you bought just didn't last and you didn't have enough money to get more: Never True 05/2023 Transportation Answer Date Recorded In the past 12 months, has l ack of transportation kept you from medical appts, meetings, work or from getting things needed for daily living? Yes, it has kept me from medical appointments or getting medications. 11/12/2023 Utilities Answer Date Recorded In the past 12 months, has t he electric, gas, oil or water company threatened to shut off services in your home? No 11/12/2023 Depression Answer Date Recorded Patient Health Questionnaire-2 Score 2 06/26/2024 Internet Access Answer Date Recorded Internet Access Q1 Yes 01/11/2024 Internet Access Q2 Not on file 01/11/2024 Comments Unknown Sex and Gender Information Value [...] Description 10/16/2024 10:30 AM EDT Office Visit [facility] MED & PEDS [address] [place] [address] Deyvi Ramos MD [address] [place] [address] documented as of this encounter Visit Diagnoses Not on filedocumented in this encounter Additional Health Concerns Assessment Noted Time PHQ-9 Depression Total Score: 2 06/26/19 25 11:28 AM EST documented as of this encounter Care Teams Dining Manager Relationship Specialty Start Date End Date Deyvi Ramos MD [address] [place] [address] PCP - General Internal Medicine 11/22/23 [facility] 04/04/24 documented as of this encounter
--- OUTSIDE RECORDS SUMMARY | 2024-07-18 11:11 | XMS_ITS | Encounter Summary ---
Author Organization [employer] Address [address] [facility] [address] [place] [address] Care Team Providers Care Bike Technician Name Role Phone Deyvi Ramos MD Primary Care Provider [phone] Encounter Details Date Type Department Care Team (Latest Contact Info) Description 07/15/2024 Travel Social History Tobacco Use Types Packs/Day [...] Description 10/16/2024 10:30 AM EDT Office Visit [facility] MED & PEDS [address] [place] [address] Deyvi Ramos MD [address] [place] [address] documented as of this encounter Visit Diagnoses Not on filedocumented in this encounter Additional Health Concerns Assessment Noted Time PHQ-9 Depression Total Score: 2 06/26/19 25 11:28 AM EST documented as of this encounter Care Teams Bike Technician Relationship Specialty Start Date End Date Deyvi Ramos MD [address] [place] [address] PCP - General Internal Medicine 11/22/23 [facility] 04/04/24 documented as of this encounter
--- OUTSIDE RECORDS SUMMARY | 2024-07-18 11:11 | XMS_ITS | Encounter Summary ---
Author Organization [employer] Address [address] [facility] 7t [place] [address] Care Team Providers Care Licensed Psychologist Director Name Role Phone Deyvi Ramos MD Primary Care Provider [phone] Reason for Visit * Reason Onset Date Comments Durable Medical Equipment 06/17/2024 Encounter Details Date Type Department Care Team ([facility] st Contact Info) Description 06/17/2024 Telephone [facility] MED & PEDS [address] [place] [address] Deyvi Ramos MD [address] [place] [address] Durable Medical Equipment Social History Tobacco Use Types Packs/Day Years Used Date Smoking Tobacco: Former Cigarettes Smokeless Tobacco: Never Housing Stability Answer Date Recorded What is [...] t he electric, gas, oil or water [employer] threatened to shut off services in your home? No 11/12/2023 Internet Access Answer Date Recorded Internet Access [...] encounter Miscellaneous Notes * Telephone Encounter - Michelle Sommer LPN - 06/19/2024 10:45 AM EST Rx generated and faxed to [facility] as requested During r/s call pt requesting that [facility] D[facility] [employer]. [address], [place] [address] * Telephone Encounter - Niya Yepez RN - 06/19/2024 9:16 AM EST During r/s call pt requesting that this DME be sent to [employer]. [address], [place] [address] * Telephone Encounter - Michelle Sommer LPN - 06/18/2024 9:33 AM EST Please review message below and advise, Thank you Tc from pt requesting below DME. Maged * Telephone Encounter - Lizzie Stinson - 06/17/2024 9:26 AM EST Tc from pt requesting below DME. Maged documented in this encounter Plan of Treatment Upcoming Encounters Date Type Department Care Team (Late st Contact Info) Description 10/16/2024 10:30 AM EDT Office Visit [facility] MED & PEDS [address] [place] [address] Deyvi Ramos MD [address] [place] [address] documented as of this encounter Visit Diagnoses Not on filedocumented in this encounter Care Teams Licensed Psychologist Director Relationship Specialty Start Date End Date Deyvi Ramos MD [address] [place] [address] PCP - General Internal Medicine 11/22/23 [facility] 04/04/24 documented as of this encounter
--- OUTSIDE RECORDS SUMMARY | 2024-07-18 11:11 | XMS_ITS | Clinical Summary ---
Author Organization [address] [facility] Address [address] [place] [address] Phone Care Team Providers Care Dredge Pipe Operator Name Role Phone Deyvi Ramos MD Primary Care Provider [phone] Allergies Active Allergy Reactions Criticality Noted Date Comments Sulfacetamide Sodium 01/25/2006 Sulfa swelling Medications albuterol HFA (PROAIR HFA ; PROVENTIL HFA ; VENTOLIN HFA) 90 mcg/actuation inhaler ALBUTEROL SULFATE 108 (90 BASE) MCG/ACT AERS Inhale 2 Puffs into the lungs 4 times daily as needed for Cough, Wheezing or Shortness of Breath 1 Active Active Problems Problem Noted Date Diagnosed Date Hypercholesteremia 11/07/2010 COPD (chronic obstructive pulmonary disease) Overview (07/16/2024): Moderate-severe without reversibility on PFTs 10/2010 Tobacco use disorder 08/30/2010 Depression 01/25/2006 Upper GI bleed 01/25/2006 Overview (07/16/2024): 1994, ulcer IMO update Immunizations Name Administration Dates Next Due Influenza trivalent, with pr eservative (Fluzone; Afluria) 6mo and older 04/21/2009 Td Tetanus diptheria (Tdvax) 7yo and older 07/17 Tdap Tetanus diptheria acell ular pertussis (Boostrix; Adacel) 7yo and older 11/07/2010 Surgical History Surgery Date Site/Laterality Comments OTHER SURGICAL HISTORY PROCEDURE: DENIES PREVIOUS SURGERY Medical History Medical History Date Comments Depressive disorder, not els ewhere classified 01/25/2006 DX:Depressive disorder, not elsewhere classified Hemorrhage of gastrointestin al tract, unspecified 01/25/2006 DX:Hemorrhage of gastrointes tinal tract, unspecified; COMMENT: 1994, ulcer Anxiety state, unspecified DX:An xiety state, unspecified Hypercholesteremia 11/07/2010 DX:Hyperchole steremia Family History Medical History Relation Name Comments Other cancer Father ,, unknown primary 67 Lung cancer Mother Relation Name Status Comments Father Mother Social History Tobacco Use Types Packs/Day Years Used Date Smoking Tobacco: Every Day Cigarettes Smokeless Tobacco: Never Alcohol Use Standard Drinks/Week Comments Yes 0 (1 standard drink = 0.6 oz pur e alcohol) Comments Unknown Sex and Gender Information Value Date Recorded Sex Assigned at Not on file Legal Sex Female 3:40 PM EST Gender Identity Not on file Sexual Orientation Not on file Obstetrics History Plan of Treatment Upcoming Encounters Date Type Department Care Team ([facility] st Contact Info) Description 09/11/2024 10:30 AM EDT Consult Orthopedic Surgery - [place] [address] [address] Yunier Gaytan, DPM [address] [address] Health Maintenance Due Date Last Done Comments Breast Cancer Screening 1965 Hepatitis B Vaccines (1 of 3 - 19+ 3-dose series) 1984 Pneumococcal Vaccine: 50+ Years (1 of 2 - PCV) 1984 Pneumococcal Vaccine: Pediatrics (0 to 5 Years) and At-Risk Patients (6 to 64 Years) (1 of 2 - PCV) 1984 Cervical Cancer Screening: P ap Smear 02/01/2010 02/01/2007, 02/01/2007 Zoster Vaccines (1 of 2) 2015 DTaP,Tdap,and Td Vaccines (3 - Td or Tdap) 11/07/2020 11/07/2010, 07/17/2002 Cholesterol Screening (Lipid Panel) 12/04/2023 11/07/2010 Colorectal Cancer Screening: Colonoscopy 12/04/2023 Depression Screening 12/04/2023 HIV Screening 12/04/2023 Hepatitis C Screening 12/04/2023 Social Influencers of Health Screening 12/04/2023 COVID-19 Vaccine (1 - 2023-2 5 season) 2024 Influenza Vaccine (#1) 2024 04/21/2009 RSV Immunization Patients 60 + Years Old (1 - 1-dose 75+ series) 2040 HIB Vaccines Aged Out No longer eligi ble based on patient's age to complete this topic HPV Vaccines Aged Out No longer eligi ble based on patient's age to complete this topic Hepatitis A Vaccines Aged Out No long er eligible based on patient's age to complete this topic IPV Vaccines Aged Out No longer eligi ble based on patient's age to complete this topic MMR Vaccines Aged Out No longer eligi ble based on patient's age to complete this topic Meningococcal ACWY Vaccine Aged Out N o longer eligible based on patient's age to complete this topic Meningococcal B Vacine Aged Out No lo nger eligible based on patient's age to complete this topic RSV Immunization Patients Under 20 months Aged Out No longer eligible b ased on patient's age to complete this topic Varicella Vaccines Aged Out No longer eligible based on patient's age to complete this topic Procedures Procedure Name Priority Date/Time Associated Diagnosis Comments LIPID PANEL Routine 11/07/2010 HPV Routine 02/01/2007 from Last 3 Months or Most Recently Relevant to Health Maintenance Results * Lipid panel (11/07/2010) LDL/HDL Ratio 3 0 - 4 Triglycerides 103 0 - 150 mg/dL Cholesterol 190 0 - 200 mg/dL HDL 76 >=40 mg/dL LDL Cholesterol 94 0 - 100 mg/dL Blood Venous blood specimen / Unknown us Historical Provider LAB BLOOD ORDERABLES Renée l Result * Cervical Cancer Screening: HPV (02/01/2007) Pathologist Counts include 234 beds at the [facility] Cervical Cancer Screening: HPV no interpretation , abstracted us Historical Provider HEALTH MAINTENANCE Final Result from Last 3 Months or Most Recently Relevant to Health Maintenance Insurance MEDICAID - [place] Care Teams Dredge Pipe Operator Relationship Specialty Start Date End Date Deyvi Ramos MD [address] [place] [address] [place] [address] PCP - General Internal Medicine 07/14/24
--- OUTSIDE RECORDS SUMMARY | 2024-07-18 11:11 | XMS_ITS | Encounter Summary ---
Author Organization [employer] Address 75 [facility] 7t [place] [address] Care Team Providers Care Alteration Tailor Name Role Phone Deyvi Ramos MD Primary Care Provider +1- [phone] Encounter Details Date Type Department Care Team ([facility] Contact Info) Description 07/15/2024 10:30 AM EST Office Visit [facility] CH[facility] MED & PEDS [address] [place], [place] [phone] Deyvi Ramos MD [address] [place] [address] Telogen effluvium (Primary Dx) Social History Tobacco Use Types Packs/Day Years [...] AM EDT documented as of this encounter Last Filed Vital Signs Vital Sign Reading Time Taken Comments Blood Pressure 130/74 07/15/2024 10:24 AM EST Pulse 76 07/15/2024 10:24 AM EST Temperature 36.7 ??C (98 ??F) 07/15/2024 10:24 AM EST Respiratory Rate 20 07/15/2024 10:24 AM EST Oxygen Saturation 96% 07/15/2024 10:24 AM EST Inhaled Oxygen Concentration - - Weight 71.2 kg (157 lb) 07/15/2024 10:24 AM EST Height - - Body Mass Index - - documented in this encounter Progress Notes * Deyvi Ramos MD - 07/15/2024 10:30 AM EST Subjective Patient ID: Adrianna Lucio is a 59 y.o. female who presents for No chief complaint on file.. HPI More than 6 months h/o hair loss. Patient Active Problem List Diagnosis Alcohol abuse Animal dander allergy Compression fx, lumbar spine (CMS/HCC) COPD, mild (CMS/HCC) Depressive disorder Migraine Osteoporosis Physical deconditioning Senile angioma Current Outpatient Medications on File Prior to Visit Medication Sig Dispense Refill acetaminophen (Tylenol Extra Strength) 500 MG tablet Take 1 tablet (500 mg) by mouth every 8 (eight) hours if needed for mild pain. 90 tablet 2 albuterol (Ventolin HFA) 108 (90 Base) MCG/ACT inhaler INHALE 2 PUFFS BY MOUTH EVERY 6 HOURS NEEDED 18 g 0 alendronate (Fosamax) 70 MG tablet Take 1 tablet (70 mg) by mouth every 7 (seven) days. Take in themorning with a full glass of water, on an empty stomach, and do not take anything else by mouth or lie down for the next 30 min. 4 tablet 11 calcium carbonate 1500 (600 Ca) MG tablet TAKE 1 TABLET BY MOUTH EVERY MORNING 90 tablet 1 cetirizine (ZyrTEC) 10 MG tablet Take 1 tablet (10 mg) by mouth in the morning. 90 tablet 3 cholecalciferol (Vitamin D-3) 25 MCG (1000 UT) tablet Take 1 tablet (25 mcg) by mouth Once per day.60 tablet 11 D3-1000 25 MCG (1000 UT) capsule TAKE 1 CAPSULE BY MOUTH EVERY DAY Diclofenac Sodium 1 % gel To apply to the affected area 3 times a day 100 g 0 fluticasone (Flovent HFA) 110 MCG/ACT inhaler INHALE 2 PUFFS BY MOUTH TWICE DAILY 12 g 11 traZODone (Desyrel) 50 MG tablet Take 1 tablet (50 mg) by mouth at bedtime. 30 tablet 11 No current facility-administered medications on file prior to visit. Allergies Allergen Reactions Amoxicillin Other Reaction(s): EYES SWELLING Pseudoephedrine Unknown Sulfa Antibiotics Swelling Review of Systems Constitutional: Negative for appetite change, chills and diaphoresis. Cardiovascular: Negative for chest pain. Skin: Hair loss Objective Physical Exam Constitutional: General: She is not in acute distress. Appearance: Normal appearance. She is not ill-appearing, toxic-appearing or diaphoretic. Pulmonary: Effort: Pulmonary effort is normal. Skin: Comments: Scalp is non inflammatory, non scaly. Pull hair test pos. Neurological: Mental Status: She is alert. Psychiatric: Mood and Affect: Mood normal. Assessment/Plan Diagnoses and all orders for this visit: Telogen effluvium - ketoconazole (NIZOral) 2 % shampoo; Apply topically 2 (two) times a week. - Fluocinolone Acetonide Scalp ([place]-Smoothe/FS Scalp) 0.01 % oil; To use on the scalp 2 times a week. Cover the head w/ a du rag after RTC prn Follow up as scheduled for health maintenance. documented in this encounter Plan of Treatment Upcoming Encounters Date Type Department Care Team (Late st Contact Info) Description 10/16/2024 10:30 AM EDT Office Visit [facility] CHC MED & PEDS [address] [place] [address] Deyvi Ramos MD [address] [place] [address] documented as of this encounter Visit Diagnoses Diagnosis Telogen effluvium- Primary documented in this encounter Additional Health Concerns Assessment Noted Time PHQ-9 Depression Total Score: 2 06/26/19 25 11:28 AM EST documented as of this encounter Care Teams Alteration Tailor Relationship Specialty Start Date End Date Deyvi Ramos MD [address] [place] [address] PCP - General Internal Medicine 11/22/23 [facility] 04/04/24 documented as of this encounter
--- OUTSIDE RECORDS SUMMARY | 2024-07-18 11:11 | XMS_ITS | Encounter Summary ---
Author Organization [employer] Address [address] [place] [address] Care Team Providers Care New Car Driver Name Role Phone Deyvi Ramos MD Primary Care Provider [phone] [phone] Reason for Referral * Consultation (Routine) - Canceled Specialty Diagnoses / Procedures Referred By Juan mcdonald Referred To Contact Podiatry Diagnoses Onychogryphosis Deyvi Ramos MD [address] [place] [address] Phone: tel: fax: Referral ID Status Reason Start Date Expiration Date Visits Requested Visits Authorized [id number] Canceled Specialty Services Required 06/18/2024 06/18/2025 1 1 Encounter Details Date Type Department Care Team ([facility] Contact Info) Description 06/18/2024 Orders Only [facility] CHC MED & PEDS [address] [place] [address] Deyvi Ramos MD [address] [place] [address] Onychogryphosis (Primary Dx) Social History Tobacco Use Types [...] Description 10/16/2024 10:30 AM EDT Office Visit [facility] CHC MED & PEDS [address] [place] [address] Deyvi Ramos MD [address] [place] [address] Scheduled Referrals Name Type Priority Associated Diagnoses Orde r Schedule Referral to Podiatry Outpatient Referral Routine Onychogryphosis Expected: 06/18/2024 (Approximate), Expires: 06/18/2025 documented as of this encounter Visit Diagnoses Diagnosis Onychogryphosis- Primary Other specified disease of nail documented in this encounter Care Teams New Car Driver Relationship Specialty Start Date End Date Deyvi Ramos MD [address] [place] [address] PCP - General Internal Medicine 11/22/23 [facility] 04/04/24 documented as of this encounter
--- OUTSIDE RECORDS SUMMARY | 2024-07-18 11:11 | XMS_ITS | Encounter Summary ---
Author Organization [employer] Address [address] [facility] [address] [place] [address] Care Team Providers Care Boiling Tub Operator Name Role Phone Deyvi Ramos MD Primary Care Provider [phone] [phone] Reason for Referral * Consultation (Routine) - Closed Specialty Diagnoses / Procedures Referred By Juan mcdonald Referred To Contact Physical Therapy Diagnoses Primary osteoarthritis of left knee Deyvi Ramos MD [address] [place] [address] Phone: tel: fax: Physical Therapy, AT [address] [place] [address] Dr Boss [place], [place] Phone: tel: fax: Referral ID Status Reason Start Date Expiration Date V isits Requested Visits Authorized [id number] Closed Specialty Services Required 06/26/2024 06/26/2025 1 1 * Consultation (Routine) - Authorized Specialty Diagnoses / Procedures Referred By Juan mcdonald Referred To Contact Podiatry Diagnoses Onychogryphosis Deyvi Ramos MD [address] [place] [address] Phone: tel: fax: Yunier Gaytan DPM [address] [facility] [address] [place] [address] Phone: tel: fax: Referral ID Status Reason Start Date Expiration Date Visits Requested Visits Authorized [id number] Authorized Specialty Services Required 06/26/2024 06/26/2025 1 1 * Consultation (Routine) - Authorized Specialty Diagnoses / Procedures Referred By Juan t Referred To Contact Pain Medicine Diagnoses Compression fracture of L5 vertebra, initial encounter ([facility]) Central stenosis of spinal canal Deyvi Ramos MD [address] [place] [address] Phone: tel: fax: Lupillo Mckenna MD [address] [place] [address] [address] [place] [address] Phone: tel: fax: Referral ID Status Reason Start Date Expiration Date Visits Requested Visits Authorized [id number] Authorized Specialty Services Required 06/26/2024 06/26/2025 1 1 Reason for Visit * Reason Comments Back Pain Encounter Details Date Type Department Care Team (Latest Contact Info) Description 06/26/2024 11:15 AM EST Office Visit [facility] CHC MED & PEDS [address] [place] [address] Deyvi Ramos MD [address] [place] [address] Compression fracture of L5 vertebra, initial encounter ([facility]) (Primary Dx); Seasonal allergies; Chronic midline low back pain without sciatica; Central stenosis of spinal canal; Onychogryphosis; Primary osteoarthritis of left knee Social History Tobacco Use Types Packs/Day Years [...] Sign Reading Time Taken Comments Blood Pressure 134/74 06/26/2024 11:26 AM EST Pulse 88 06/26/2024 11:26 AM EST Temperature 36.6 ??C (97.9 ??F) 06/26/2024 11:[address] Respiratory Rate 20 06/26/2024 11:26 AM EST Oxygen Saturation 98% 06/26/2024 11:26 AM EST Inhaled Oxygen Concentration - - Weight 68.6 kg (151 lb 3.2 oz) 06/26/2024 11:26 AM EST Height - - Body Mass Index - - documented in this encounter Progress Notes * Deyvi Ramos MD - 06/26/2024 11:15 AM EST Subjective Patient ID: Adrianna Lucio is a 59 y.o. female who presents for Back Pain. Back Pain Here for follow-up on her chronic back pain. Has history of back pain for several months. Had an MRI of the lumbar spine done in May 2024 and no acute compression fracture at T11 and L4 with marrow edema. Also showing a progressive L2 compression fracture with mild increased height loss mild central canal stenosis at T12-L1 and L4-L5. Patient has constant pain that she estimates to be between3-4/10 denies any saddle anesthesia/fever/urinary retention or urinary incontinence. Patient is also concerned by left knee pain that she has been experiencing for several weeks. Currently receiving therapy at home with some improvement. She states that she is going to get dischargedfrom home physical therapy. Still having difficulty with going up stairs in her apartment complex. The idea of going upstairs continues anxiety. Patient is scared of falling. Has missed her appointment with the dermatology. Would like to get rescheduled. Patient is also requesting a new referral with a new auto body estimator. Patient Active Problem List Diagnosis Alcohol abuse [...] BY MOUTH EVERY MORNING 90 tablet 1 cholecalciferol (Vitamin D-3) 25 MCG (1000 UT) [...] by mouth at bedtime. 30 tablet 11 [DISCONTINUED] cetirizine (ZyrTEC) 10 MG tablet TAKE 1 TABLET BY MOUTH EVERY MORNING 90 tablet 0 No current facility-administered medications on file prior to visit. Allergies Allergen Reactions Amoxicillin Other Reaction(s): EYES SWELLING Pseudoephedrine Unknown Sulfa Antibiotics Swelling Review of Systems Constitutional: Negative for appetite change, chills and diaphoresis. Eyes: Negative for pain, redness and itching. Respiratory: Negative for cough and choking. Musculoskeletal: Positive for arthralgias and back pain. Left knee pain Objective BP 134/74 (BP Location: Right arm, Patient Position: Sitting, BP Cuff Size: Adult) Pulse 88 Temp 97.9 ??F (36.6 ??C) (Oral) Resp 20 Wt 151 lb 3.2 oz (68.6 kg) SpO2 98% Physical Exam Constitutional: General: She is not in acute distress. Appearance: Normal appearance. She is not ill-appearing, toxic-appearing or diaphoretic. Pulmonary: Effort: Pulmonary effort is normal. Musculoskeletal: Thoracic back: Tenderness present. Decreased range of motion. Neurological: Mental Status: She is alert. Assessment/Plan Diagnoses and all orders for this visit: Compression fracture of L5 vertebra, initial encounter ([facility]) - Referral to Pain Medicine; Future Seasonal allergies - cetirizine (ZyrTEC) 10 MG tablet; Take 1 tablet (10 mg) by mouth in the morning. Chronic midline low back pain without sciatica Moist heat to the back daily Tylenol around the clock. Referred to pain management The results of the MRI was discussed. All questions answered. Central stenosis of spinal canal - Referral to Pain Medicine; Future Onychogryphosis - Referral to Podiatry; Future Primary osteoarthritis of left knee - Referral to Physical Therapy; Future documented in this encounter Plan of Treatment Upcoming Encounters Date Type Department Care Team ([facility] st Contact Info) Description 10/16/2024 10:30 AM EDT Office Visit [facility] MED & PEDS [address] [place], [place] [phone] Deyvi Ramos MD [address] [place], [place] [phone] Scheduled Referrals Name Type Priority Associated Diagnoses Orde r Schedule Referral to Pain Medicine Outpatient Referral Routine Compression fracture of L5 vertebra, initial encounter ([facility]) Central stenosis of spinal canal Expected: 06/26/2024 (Approximate), Expires: 06/26/2025 Referral to Podiatry Outpatient Referral Routine Onychogryphosis Expected: 06/26/2024 (Approximate), Expires: 06/26/2025 Referral to Physical Therapy Outpatient Referral Routine Primary osteoarthritis of left knee Expected: 06/26/2024 (Approximate), Expires: 06/26/2025 documented as of this encounter Visit Diagnoses Diagnosis Compression fracture of L5 vertebra, initial encounter ([facility])- Primary Seasonal allergies Allergic rhinitis, cause unspecified Chronic midline low back pain without sciatica Central stenosis of spinal canal Onychogryphosis Other specified disease of nail Primary osteoarthritis of left knee documented in this encounter Additional Health Concerns Assessment Noted Time PHQ-9 Depression Total Score: 2 06/26/19 25 11:28 AM EST documented as of this encounter Care Teams Boiling Tub Operator Relationship Specialty Start Date End Date Deyvi Ramos MD [address] [facility] [place] [address] PCP - General Internal Medicine 11/22/23 [facility] 04/04/24 documented as of this encounter
--- OUTSIDE RECORDS SUMMARY | 2024-07-18 11:11 | XMS_ITS | Encounter Summary ---
Author Organization [employer] Address [address] [facility] 7t [place] [address] Care Team Providers Care Secondary Social Studies Teacher Name Role Phone Deyvi Ramos MD Primary Care Provider +- [phone] Reason for Visit * Reason Onset Date Comments Traige 06/19/2024 Encounter Details Date Type Department Care Team ([facility] st Contact Info) Description 06/19/2024 Telephone [facility] CHC MED & PEDS [address] [place], [place] [phone] Deyvi Ramos MD [address] [place] [address] Traige Social History Tobacco Use Types Packs/Day Years Used Date Smoking Tobacco: Former Cigarettes Smokeless Tobacco: Never Housing Stability Answer Date Recorded What is your housing situation today? I have [employer] 11/12/[address] you [...] encounter Miscellaneous Notes * Telephone Encounter - Niya Yepez RN - 06/19/2024 9:11 AM EST This appointment booked by Fanta Bolanos RN [facility] for [facility]. Call to Adrianna Lucio to r/s apptas message sent to Triage team in [facility]. Pt r/s for next week on as only day able to obtain transportation. Used a sick on site slot as that was the original appt type used by Team RN. Future Appointments Date Time Provider Department Center 06/26/2024 11:15 AM Deyvi Ramos MD [facility] 08/07/2024 9:15 AM Deyvi Ramos MD [facility] Insurance verified as active per Real Time Eligibility in [facility]. * Telephone Encounter - Shweta Sandra - 06/19/2024 9:02 AM EST TC from pt requesting a call back to r/s SICK ON SITE appt. MRI results and ongoing back pain Please contact pt at [phone]. documented in this encounter Plan of Treatment Upcoming Encounters Date Type Department Care Team ([facility] Contact Info) Description 10/16/2024 10:30 AM EDT Office Visit [facility] MED & PEDS [address] [place], [place] [phone] Deyvi Ramos MD [address] [place] [address] documented as of this encounter Visit Diagnoses Not on filedocumented in this encounter Care Teams Secondary Social Studies Teacher Relationship Specialty Start Date End Date Deyvi Ramos MD 505 [facility] [place] [address] PCP - General Internal Medicine 11/22/23 [facility] 04/04/24 documented as of this encounter
--- OUTSIDE RECORDS SUMMARY | 2024-07-18 11:11 | XMS_ITS | Encounter Summary ---
Author Organization [employer] Address 75 [facility] [address] [place] [address] Care Team Providers Care Garland Machine Operator Name Role Phone Deyvi Ramos MD Primary Care Provider [phone]- [phone] Deyvi Ramos MD Primary Care Provider [phone]- [phone] Encounter Details Date Type Department Care Team ([facility] Contact Info) Description 11/16/2022 Orders Only [facility] MED & PEDS [address] [place] [address] Evette Senior LPN Social History Tobacco Use Types Packs/Day [...] Upcoming Encounters Date Type Department Care Team ([facility] Contact Info) Description 10/16/2024 10:30 AM EDT Office Visit [facility] CHC MED & PEDS [address] [place] [address] Deyvi Ramos MD [address] [place], [place] [phone] documented as of this encounter Visit Diagnoses Not on filedocumented in this encounter Care Teams Garland Machine Operator Relationship Specialty Start Date End Date Deyvi Ramos MD [address] [place] [address] PCP - General Internal Medicine 06/12/13 06/03/23 eDyvi Ramos MD [address] [place] [address] [place] [address] PCP - General Internal Medicine 11/22/23 [facility] 04/04/24 documented as of this encounter
--- OUTSIDE RECORDS SUMMARY | 2024-07-18 11:11 | XMS_ITS | Encounter Summary ---
Author Organization [employer] Address [address] [facility] 7t [place] [address] Care Team Providers Care Naval Aircrewman Mechanical Name Role Phone Deyvi Ramos MD Primary Care Provider +- [phone] Reason for Visit * Reason Onset Date Comments Durable Medical Equipment 03/27/2024 Encounter Details Date Type Department Care Team ([facility] st Contact Info) Description 03/27/2024 Telephone [facility] CHC MED & PEDS [address] [place] [address] Deyvi Ramos MD [address] [place] [address] Durable Medical Equipment Social History Tobacco Use [...] Telephone Encounter - Michelle Sommer LPN - 03/28/2024 11:21 AM EST A call was placed to the patient to address the message below. The patient has an upcoming appointment scheduled for April 07, 2024, during which these needs should be discussed for documentation purposes. This information is being sent to the primary care provider for their reference.(FYI) Tc from pt requesting status on DME requested on last visit. Raised toilet seat with rails Shower chair Walker Please call pt to clarify. * Telephone Encounter - Lizzie Stinson - 03/27/2024 2:54 PM EST Tc from pt requesting status on DME requested on last visit. Raised toilet seat with rails Shower chair Walker Please call pt to clarify. documented in this encounter Plan of Treatment Upcoming Encounters Date Type Department Care Team (Late st Contact Info) Description 10/16/2024 10:30 AM EDT Office Visit [facility] CHC MED & PEDS [address] [place] [address] Deyvi Ramos MD [address] [place] [address] documented as of this encounter Visit Diagnoses Not on filedocumented in this encounter Care Teams Naval Aircrew[employer] Mechanical Relationship Specialty Start Date End Date Deyvi Ramos MD [address] [place] [address] PCP - General Internal Medicine 11/22/[address] [facility] 04/04/24 documented as of this encounter
--- OUTSIDE RECORDS SUMMARY | 2024-07-18 11:11 | XMS_ITS | Encounter Summary ---
Author Organization [employer] Address [address] [facility] 7 [place] [address] Care Team Providers Care Healthcare Liaison Name Role Phone Deyvi Ramos MD Primary Care Provider [phone] Deyvi Ramos MD Primary Care Provider Reason for Visit * Reason Comments Med Refill Encounter Details Date Type Department Care Team (Late st Contact Info) Description 04/17/2023 Refill [facility] MED & PEDS [address] [place] [address] Deyvi Ramos MD [address] [place] [address] Social History Tobacco Use Types Packs/Day Years [...] Description 10/16/2024 10:30 AM EDT Office Visit [facility] MED & PEDS [address] [place] [address] Deyvi Ramos MD [address] [place] [address] documented as of this encounter Visit Diagnoses Not on filedocumented in this encounter Care Teams Healthcare Liaison Relationship Specialty Start Date End Date Deyvi Ramos MD [address] [place] [address] PCP - General Internal Medicine 06/12/13 06/03/23 Deyvi Ramos MD [address] [place] [address] PCP - General Internal Medicine 11/22/23 [facility] 04/04/24 documented as of this encounter
--- OUTSIDE RECORDS SUMMARY | 2024-07-18 11:11 | XMS_ITS | Encounter Summary ---
Author Organization [employer] Address [address] [facility] 7 [place] [address] Care Team Providers Care Health Occupations Teacher Name Role Phone Deyvi Ramos MD Primary Care Provider [phone]- [phone] Reason for Visit * Reason Comments Med Refill Encounter Details Date Type Department Care Team ([facility] Contact Info) Description 06/26/2023 Refill [facility] MED & PEDS [address] [place] [address] Deyvi Ramos MD [address] [place] [address] Social History Tobacco Use Types Packs/Day Years [...] Upcoming Encounters Date Type Department Care Team ([facility] Contact Info) Description 10/16/2024 10:30 AM EDT Office Visit [facility] CHC MED & PEDS [address] [place] [address] Deyvi Ramos MD [address] [place] [address] documented as of this encounter Visit Diagnoses Not on filedocumented in this encounter Care Teams Health Occupations Teacher Relationship Specialty Start Date End Date Deyvi Ramos MD [address] [place] [address] PCP - General Internal Medicine 11/22/23 [facility] 04/04/24 documented as of this encounter
--- OUTSIDE RECORDS SUMMARY | 2024-07-18 11:11 | XMS_ITS | Encounter Summary ---
Author Organization [employer] Address [address] [facility] 7t [place] [address] Care Team Providers Care General Car Supervisor Yard Name Role Phone Deyvi Ramos MD Primary Care Provider [phone] Reason for Visit * Reason Onset Date Comments Results 06/27/2024 Encounter Details Date Type Department Care Team ([facility] st Contact Info) Description 06/27/2024 Telephone [facility] MEDICINE [address] [place] [address] Deyvi Ramos MD [address] [place], [place] [phone] Results Social History Tobacco Use Types Packs/Day Years [...] encounter Miscellaneous Notes * Telephone Encounter - Samina Mcdonald RN - 06/27/2024 2:19 PM EST Tc to Shelly (physical therapy). No answer. Message left for Shelly to return call to office to discuss MRI and Xray results. * Telephone Encounter - Candelario Higuera - 06/27/2024 11:46 AM EST Tc from Shelly a Physical therapist at [facility] requesting a call back to Discuss results Mri and Xray due to pt not being able to give a lot of information to her. Contact pt at [phone] documented in this encounter Plan of Treatment Upcoming Encounters Date Type Department Care Team (Late st Contact Info) Description 10/16/2024 10:30 AM EDT Office Visit [facility] CHC MED & PEDS [address] [place], [place] [phone] Deyvi Ramos MD [address] [place], [place] [phone] documented as of this encounter Visit Diagnoses Not on filedocumented in this encounter Additional Health Concerns Assessment Noted Time PHQ-9 Depression Total Score: 2 06/26/19 25 11:28 AM EST documented as of this encounter Care Teams General Car Supervisor Yard Relationship Specialty Start Date End Date Deyvi Ramos MD [address] [place] [address] PCP - General Internal Medicine 11/22/23 [facility] 04/04/24 documented as of this encounter
--- OUTSIDE RECORDS SUMMARY | 2024-07-18 11:11 | XMS_ITS | Encounter Summary ---
Author Organization [employer] Address [address] [facility] 7 [place] [address] Care Team Providers Care Six Pack Loader Operator Name Role Phone Deyvi Ramos MD Primary Care Provider [phone] Reason for Visit * Reason Onset Date Comments PT-1 07/15/2024 Encounter Details Date Type Department Care Team ([facility] st Contact Info) Description 07/15/2024 Telephone [facility] CHC MED & PEDS [address] [place] [address] Deyvi Ramos MD [address] [place] [address] PT-1 Social History Tobacco Use Types Packs/Day Years [...] encounter Miscellaneous Notes * Telephone Encounter - Shayla Quiroz - 07/15/2024 12:15 PM EST PT-1 submitted for patient. They will receive a letter of approval or denial in the mail. * Telephone Encounter - Orin Larson - 07/15/2024 11:46 AM EST Patient in for appt and was informed to come to front desk receptionist and request pt [address] [place] [address]. [facility], [address] . Appt on 09/11/2024@ 10:30am. Patient will need an escort, pt also has a walker. documented in this encounter Plan of Treatment Upcoming Encounters Date Type Department Care Team ([facility] st Contact Info) Description 10/16/2024 10:30 AM EDT Office Visit [facility] MED & PEDS [address] [place] [address] Deyvi Ramos MD [address] [place] [address] documented as of this encounter Visit Diagnoses Not on filedocumented in this encounter Additional Health Concerns Assessment Noted Time PHQ-9 Depression Total Score: 2 06/26/19 25 11:28 AM EST documented as of this encounter Care Teams Six Pack Loader Operator Relationship Specialty Start Date End Date Deyvi Ramos MD [address] [place] [address] PCP - General Internal Medicine 11/22/23 [facility] 04/04/24 documented as of this encounter
--- OUTSIDE RECORDS SUMMARY | 2024-07-18 11:11 | XMS_ITS | Encounter Summary ---
Author Organization [employer] Address [address] [facility] 7t [place] [address] Care Team Providers Care Bessemer Bottom Maker Name Role Phone Deyvi Ramos MD Primary Care Provider [phone] Encounter Details Date Type Department Care Team ([facility] st Contact Info) Description 05/16/2024 Orders Only [facility] CHC MED & PEDS [address] [place], [place] [phone] Deyvi Ramos MD [address] [place] [address] Social History Tobacco Use Types Packs/Day Years [...] Description 10/16/2024 10:30 AM EDT Office Visit [facility] MED & PEDS [address] [place] [address] Deyvi Ramos MD [address] [place] [address] documented as of this encounter Visit Diagnoses Not on filedocumented in this encounter Care Teams Bessemer Bottom Maker Relationship Specialty Start Date End Date Deyvi Ramos MD [address] [place] [address] PCP - General Internal Medicine 11/22/23 [facility] 04/04/24 documented as of this encounter
--- OUTSIDE RECORDS SUMMARY | 2024-07-18 11:11 | XMS_ITS | Encounter Summary ---
Author Organization [employer] Address [address] [facility] 7t [place] [address] Care Team Providers Care Boardinghouse Keeper Name Role Phone Deyvi Ramos MD Primary Care Provider [phone] Reason for Visit * Reason Onset Date Comments Referral 06/17/2024 Encounter Details Date Type Department Care Team ([facility] st Contact Info) Description 06/17/2024 Telephone [facility] CHC MED & PEDS [address] [place], [place] [phone] eDyvi Ramos MD [address] [place] [address] Referral Social History Tobacco Use Types Packs/Day Years [...] encounter Miscellaneous Notes * Telephone Encounter - Lizzie Stinson - 06/17/2024 9:20 AM EST Tc from pt requesting a new podiatry referral . States where she was going podiatry specialist . documented in this encounter Plan of Treatment Upcoming Encounters Date Type Department Care Team (Late st Contact Info) Description 10/16/2024 10:30 AM EDT Office Visit [facility] MED & PEDS [address] [place] [address] Deyvi Ramos MD [address] [place] [address] documented as of this encounter Visit Diagnoses Not on filedocumented in this encounter Care Teams Boardinghouse Keeper Relationship Specialty Start Date End Date Deyvi Ramos MD [address] [place] [address] PCP - General Internal Medicine 11/22/23 [facility] 04/04/24 documented as of this encounter
--- OUTSIDE RECORDS SUMMARY | 2024-07-18 11:11 | XMS_ITS | Encounter Summary ---
Author Organization [employer] Address [address] [facility] 7 [place] [address] Care Team Providers Care Dentofacial Orthopedics Dentist Name Role Phone Deyvi Ramos MD Primary Care Provider [phone] Reason for Visit * Reason Onset Date Comments Appointment Request 06/17/2024 Encounter Details Date Type Department Care Team ([facility] st Contact Info) Description 06/17/2024 Telephone [facility] [facility] CHC MED & PEDS [address] [place] [address] Deyvi Ramos MD [address] [place] [address] Appointment Request Social History Tobacco Use Types Packs/Day Years [...] * Telephone Encounter - Shayla Quiroz - 06/18/2024 12:08 PM EST Good afternoon Dr. Ramos, please discuss the need for podiatry during patient appointment tomorrow in order to proceed with referral, thank you. * Telephone Encounter - Lizzie Stinson - 06/17/2024 9:42 AM EST Tc from pt requesting to r/s derm appt. documented in this encounter Plan of Treatment Upcoming Encounters Date Type Department Care Team (Late st Contact Info) Description 10/16/2024 10:30 AM EDT Office Visit [facility] MED & PEDS [address] [place] [address] Deyvi Ramos MD [address] [place] [address] documented as of this encounter Visit Diagnoses Not on filedocumented in this encounter Care Teams Dentofacial Orthopedics Dentist Relationship Specialty Start Date End Date Deyvi Ramos MD [address] [place] [address] PCP - General Internal Medicine 11/22/23 [facility] 04/04/24 documented as of this encounter
--- OUTSIDE RECORDS SUMMARY | 2024-07-18 11:11 | XMS_ITS | Encounter Summary ---
Author Organization [employer] Address [address] [place] [address] [address] [place] [address] Care Team Providers Care Plastic Surgery Nurse Name Role Phone Deyvi Ramos MD Primary Care Provider [phone] Reason for Visit * Reason Comments Med Refill Encounter Details Date Type Department Care Team (Late Contact Info) Description 08/13/2023 Refill [facility] MED & PEDS [address] [place] [address] Deyvi Ramos MD [address] [place] [address] Osteoporosis of disuse Social History Tobacco Use Types Packs/Day Years [...] Office Visit [facility] MED & PEDS [address] [place], [place] [phone] Deyvi Ramos MD [address] [place] [address] documented as of this encounter Visit Diagnoses Diagnosis Osteoporosis of disuse Disuse osteoporosis documented in this encounter Care Teams Plastic Surgery Nurse Relationship Specialty Start Date End Date Deyvi Ramos MD [address] [place] [address] PCP - General Internal Medicine 11/22/23 [facility] 04/04/24 documented as of this encounter
--- OUTSIDE RECORDS SUMMARY | 2024-07-18 11:11 | XMS_ITS | Encounter Summary ---
Author Organization [employer] Address [address] [facility] 7 [place] [address] Care Team Providers Care Certified Nursing Attendant Name Role Phone Deyvi Ramos MD Primary Care Provider [phone] Reason for Visit * Reason Comments Med Refill Encounter Details Date Type Department Care Team ([facility] Contact Info) Description 08/09/2023 Refill [facility] MED & PEDS [address] [place] [address] Deyvi Ramos MD [address] [place] [address] Social History Tobacco Use Types Packs/Day Years [...] Upcoming Encounters Date Type Department Care Team ([facility] Contact Info) Description 10/16/2024 10:30 AM EDT Office Visit [facility] CHC MED & PEDS [address] [place] [address] Deyvi Ramos MD [address] [place] [address] documented as of this encounter Visit Diagnoses Not on filedocumented in this encounter Care Teams Certified Nursing Attendant Relationship Specialty Start Date End Date Deyvi Ramos MD [address] [place] [address] PCP - General Internal Medicine 11/22/23 [facility] 04/04/24 documented as of this encounter
--- OUTSIDE RECORDS SUMMARY | 2024-07-18 11:11 | XMS_ITS | Encounter Summary ---
Author Organization [employer] Address [address] [facility] 7 [place] [address] Care Team Providers Care Braddisher Name Role Phone Deyvi Ramos MD Primary Care Provider [phone] Deyvi Ramos MD Primary Care Provider [phone]- [phone] Encounter Details Date Type Department Care Team (Latest Contact Info) Description 11/15/2018 Abstract [facility] CONVERSIONS Dental, Provider, DDS Social History Tobacco Use Types Packs/Day Years [...] Description 10/16/2024 10:30 AM EDT Office Visit [facility] CHC MED & PEDS [address] [place] [address] Deyvi Ramos MD [address] [place] [address] documented as of this encounter Visit Diagnoses Not on filedocumented in this encounter Care Teams Braddisher Relationship Specialty Start Date End Date Deyvi Ramos MD [address] [place] [address] PCP - General Internal Medicine 06/12/13 06/03/23 Deyvi Ramos MD [address] [place] [address] PCP - General Internal Medicine 11/22/23 [facility] 04/04/24 documented as of this encounter
--- OUTSIDE RECORDS SUMMARY | 2024-07-18 11:11 | XMS_ITS | Clinical Summary ---
Author Organization [employer] Address [address] [place] [address] Care Team Providers Care Financial Cost Analyst Name Role Phone Deyvi Ramos MD Primary Care Provider [phone] Allergies Active Allergy Reactions Criticality Noted Date Comments Amoxicillin 09/09/2023 Other Reaction(s): EYES SWELLING Pseudoephedrine Unknown 09/09/2023 Sulfa Antibiotics Swelling 09/09/2023 Medications * This document contains information received from the source organization and may not represent a complete record from that organization. fluticasone (Flovent HFA) 110 MCG/ACT inhaler INHALE 2 PUFFS BY MOUTH TWICE DAILY 12 g 11 08/22/19 23 Active D3-1000 25 MCG (1000 UT) capsule TAKE 1 CAPSULE BY MOUTH EVERY DAY 05/03/20 22 Active cholecalcifero l (Vitamin D-3) 25 MCG (1000 UT) tabletIndicati ons:Compressio n fracture of L1 vertebra, initial encounter (CMS/HCC) Take 1 tablet (25 mcg) by mouth Once per day. 60 tablet 11/22/19 24 Active traZODone (Desyrel) 50 MG tablet Take 1 tablet (50 mg) by mouth at bedtime. 30 tablet 11 11/22/19 24 Active calcium carbonate 1500 (600 Ca) MG tabletIndicati ons:Osteoporos is of disuse TAKE 1 TABLET BY MOUTH EVERY MORNING 90 tablet 1 11/30/19 24 Active Diclofenac Sodium 1 % gelIndications :Compression fracture of L1 vertebra, initial encounter (CMS/HCC) To apply to the affected area 3 times a day 100 g 04/07/20 24 Active acetaminophen (Tylenol Extra Strength) 500 MG tabletIndicati ons:Compressio n fracture of L1 vertebra, initial encounter (CMS/[facility]) Take 1 tablet (500 mg) by mouth every 8 (eight) hours if needed for mild pain. 90 tablet 2 04/07/20 24 Active alendronate (Fosamax) 70 MG tabletIndicati ons:Osteoporos is of disuse Take 1 tablet (70 mg) by mouth every 7 (seven) days. Take in the morning with a full glass of water, on an empty stomach, and do not take anything else by mouth or lie down for the next 30 min. 4 tablet 11 04/07/20 24 Active albuterol (Ventolin HFA) 108 (90 Base) MCG/ACT inhalerIndicat ions:Seasonal allergies,COPD , mild (CMS/[facility]) INHALE 2 PUFFS BY MOUTH EVERY 6 HOURS NEEDED 18 g 06/12/19 25 Active cetirizine (ZyrTEC) 10 MG tabletIndicati ons:Seasonal allergies Take 1 tablet (10 mg) by mouth in the morning. 90 tablet 3 06/26/19 25 Active ketoconazole (NIZOral) 2 % shampooIndicat ions:Telogen effluvium Apply topically 2 (two) times a week. 120 mL 3 07/18/19 25 Active Fluocinolone Acetonide Scalp ([place]-Smoothe /FS Scalp) 0.01 % oilIndications :Telogen effluvium To use on the scalp 2 times a week. 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 allergy 05/24/2017 Depressive disorder 09/28/2016 Migraine 09/28/2016 Osteoporosis 09/28/2016 COPD, mild 01/15/2014 Encounters Date Type Department Care Team Description 07/15/2024 10:30 AM EST Office Visit [facility] [address] [place] [address] Deyvi Ramos MD Telogen effluvium (Primary Dx) 07/15/2024 Telephone [facility] [address] [place] [address] Deyvi Ramos MD PT-1 07/15/2024 Travel 06/27/2024 Telephone [facility] [address] [place] [address] [phone] Deyvi Ramos MD Results 06/26/2024 11:15 AM EST Office Visit [facility] [address] [place] [address] Deyvi Ramos MD Compression fracture of L5 vertebra, initial encounter (CMS/HCC) (Primary Dx); Seasonal allergies; Chronic midline low back pain without sciatica; Central stenosis of spinal canal; Onychogryphosis; Primary osteoarthritis of left knee 06/26/2024 Travel 06/19/2024 Telephone [facility] [address] [place] [address] Deyvi Ramos MD Traige 06/18/2024 Orders Only [facility] [address] [place] [address] Deyvi Ramos MD Onychogryphosis (Primary Dx) 06/17/2024 Telephone [facility] [address] [place] [address] Deyvi Ramos MD Appointment Request 06/17/2024 Telephone [facility] [address] [place] [address] Deyvi Ramos MD Durable Medical Equipment 06/17/2024 Telephone [facility] [address] [place] [address] Deyvi Barfield MD Referral 06/12/2024 Refill [facility] [address] [place] [address] Deyvi Ramos MD Seasonal allergies; COPD, mild (CMS/HCC) 05/16/2024 Telephone [facility] [address] [place] [address] Fanta Bolanos, LORRIE Results 05/16/2024 Orders Only [facility] [address] [place] [address] Deyvi Ramos MD 05/12/2024 Telephone [facility] [address] [place] [address] Deyvi Ramos MD from Last 3 Months Immunizations Name Administration Dates Next Due Influenza injectable quadriv alent IIV4 with preservative 02/18/2018 Influenza injectable quadrivalent preservative f ree 03/11/2019 Influenza, IIV3, injectable 03/27/2013, 9 Influenza, Injectable, MDCK, preservative free 0 01/08/2015 Influenza, seasonal, injectable, preservative fr ee 04/07/2024 Pfizer Covid-19 Vaccine 12+ 04/07/2024 Pneumococcal Conjugate PCV 20 11/22/2023 Pneumococcal Polysaccharide PPSV23 07/17/2017 Td (adult), unspecified 07/17/2002 Tdap 02/25/2015,11/07/2010 Social History Tobacco Use Types Packs/Day Years Used Date Smoking Tobacco: Former Cigarettes Smokeless Tobacco: Never Tobacco Cessation:Counseling Given: No Depression Answer Date Recorded Patient Health Questionnaire-9 [...] not to disclose 2021 10:22 AM EDT Last Filed Vital Signs Vital Sign Reading [...] - - Body Mass Index - - Plan of Treatment Upcoming Encounters Date Type Department Care Team (Late st Contact Info) Description 10/16/2024 10:30 AM EDT Office Visit [facility] [address] [place] [address] Deyvi Ramos MD [address] [place] [address] Health Maintenance Due Date Last Done Comments CT Colonography 1965 Colonoscopy 1965 Colorectal Cancer Screening 1965 FIT DNA/Cologuard 1965 FIT 1965 FOBT 1965 HIV Screening 1965 Sigmoidoscopy 1965 Hepatitis C Screening 1983 Hepatitis A Vaccines (1 of 2 - Risk 2-dose series) 1984 Hepatitis B Vaccines (1 of 3 - 19+ 3-dose series) 1984 Pap Smear 1986 Cervical Cancer Screening 1995 HPV/Cotest 1995 Zoster Vaccines (1 of 2) 2015 Mammogram 10/17/2019 10/16/2017 SDOH Screening 11/12/2024 11/13/2023 DTaP/Tdap/Td Vaccines (3 - Td or Tdap) 02/25/2025 02/25/2015, 11/07/2010, 07/17/2002, Additional history exists Alcohol/Substance Use Screening 06/26/2025 06/26/2024 Depression Screening 06/26/2025 06/26/2024, 06/26/19 Tobacco Screening 06/26/2025 06/26/2024 RSV Patients and Patients Aged 60 years or older (1 - 1-dose 75+ series) 2040 Pneumococcal Vaccine: 50+ Years Completed 11/22/2023, 07/17/2017 COVID-19 Vaccine Completed 04/07/2024, , 09/27/2020, Additional history exists Influenza Vaccine Completed 04/07/2024, , 02/18/2018, Additional history exists HIB Vaccines Aged Out No longer eligi ble based on patient's age to complete this topic HPV Vaccines Aged Out No longer eligi ble based on patient's age to complete this topic IPV Vaccines Aged Out No longer eligi ble based on patient's age to complete this topic Meningococcal Vaccine Aged Out No luana gianni eligible based on patient's age to complete this topic RSV under 20 months Aged Out No longe r eligible based on patient's age to complete this topic Rotavirus Vaccines Aged Out No longer eligible based on patient's age to complete this topic Procedures Procedure Name Priority Date/Time Associated Diagnosis Comments XR KNEE 1-2 VIEWS LEFT Routine 05/20/2024 2:57 PM EST Chronic pain of left knee MR LUMBAR SPINE WO CONTRAST Routine 05/16/2024 8:03 AM EST Compression fracture of L1 vertebra, initial encounter ([facility]) BI MAMMOGRAM SCREENING BILATERAL Routine 10/16/2017 4:56 PM EDT from Last 3 Months or Most Recently Relevant to Health Maintenance Results * XR Knee 1-2 Views Left (05/20/2024 2:57 PM EST) Anatomical Region Laterality Modality Lower Extremities, Knee Left Radiogra phic Imaging 05/20/2024 2:57 PM EST Narrative 05/20/2024 2:59 PM EST ? [facility] ?[address] ?[place] [address] ?XRay Report ? Signed ? Patient: Khadijah,Adrianna A ?MR#: [id number] ?? 144 ? : 1965 ?Acct:[id number] ? Age/Sex: 59 / F ?ADM Date: 05/15/24 ? Loc: HO.MRI ? Attending Dr: Deyvi Ramos MD ? Ordering Physician: Deyvi Ramos MD ?? Date of Service: 05/15/24 ?? Procedure(s): XR knee LT 2V ?? Accession Number(s): [id number] ? cc: Deyvi Ramos MD ? CLINICAL HISTORY: left knee pain ? 2 view left knee ? Comparison: None ? Findings: ?? Bones intact. No dislocations. ?? Tricompartmental periarticular osteophyte formation, indicating ?? osteoarthritis. ?? No joint effusion. ?? No radiopaque foreign body. ? IMPRESSION: ?? 1. No acute findings. ? This document has been electronically signed by: Luis Eduardo Griffith MD on ?? 05/20/2024 14:57:47 ? Dictated By: ?Luis Eduardo Griffith MD ? Signed By: ?<Electronically signed by Luis Eduardo Griffith MD in OV> ? 05/20/241457 ? DD/ 56 ? TD/TT: 05/20/241456 ? Gem Setter: ? Procedure Note Jun Foreman - 05/20/[address] [address] XRay Report Signed Patient: Adrianna Lucio AMR#: [id number] 144 : 1965Acct:[id number] Age/Sex: 59 / FADM Date: 05/15/24 Loc: HO.MRI Attending Dr: Deyvi Ramos MD Ordering Physician: Deyvi Ramos MD Date of Service: 05/15/24 Procedure(s): XR knee LT 2V Accession Number(s): [id number] cc: Deyvi Ramos MD CLINICAL HISTORY: left knee pain 2 view left knee Comparison: None Findings: Bones intact. No dislocations. Tricompartmental periarticular osteophyte formation, indicating osteoarthritis. No joint effusion. No radiopaque foreign body. IMPRESSION: 1. No acute findings. This document has been electronically signed by: Luis Eduardo Griffith MD on 05/20/2024 14:57:47 Dictated By: Luis Eduardo Griffith MD Signed By: <Electronically signed by Luis Eduardo Griffith MD in OV> 05/20/24 1458 DD/ 56 TD/TT: 05/20/24 145 Gem Setter: us Deyvi Ramos MD IMG XR PROCEDURES Final Res ult * MR Lumbar Spine w/o Contrast (05/16/2024 8:03 AM EST) Anatomical Region Laterality Modality Spine, L-spine Magnetic Resonan ce 05/16/2024 8:03 AM EST Narrative 05/16/2024 8:05 AM EST ? [facility] ?[address] ?[place] [address] ? Magnetic Resonance Report ? Signed with Addenda ? Patient: Adrianna Lucio ?MR#: [id number] ?? 144 ? : 1965 ?Acct:[id number] ? Age/Sex: 59 / F ?ADM Date: 05/15/24 ? Loc: HO.MRI ? Attending Dr: Deyvi Ramos MD ? Ordering Physician: Deyvi Ramos MD ?? Date of Service: 05/15/24 ?? Procedure(s): MR lumbar spine wo con ?? Accession Number(s): [id number] ? cc: Deyvi Ramos MD ?ADDENDUM ?? This document has been electronically signed by: Stephan Lemon MD on ?? 05/16/2024 08:03:24 ? ADDENDUM: ?? Addendum Impression: ? Small left paracentral posterior disc protrusion T10-T11 ?? Small central posterior disc protrusion L4-L5 ? This document has been electronically signed by: Stephan Lemon MD on ?? 05/16/2024 08:48:21 ? Addendum Dictated By: ?Stephan Lemon MD ? Addendum Signed By: ? <Electronically signed by Stephan Lemon MD in OV> ? 05/16/24 0849 ?? Addendum Cosigned By: ? DD/ /05/802 ? TD/TT: 05/16/2408/06/847 ?ADDENDUM ?? This document has been electronically signed by: Stephan Lemon MD on ?? 05/16/2024 08:03:24 ? ADDENDUM: ?? Addendum Impression: ? Small left paracentral posterior disc protrusion T10-T11 ?? Small central posterior disc protrusion L4-L5 ? This document has been electronically signed by: Stephan Lemon MD on ?? 05/16/2024 08:48:21 ? Addendum Dictated By: ?Stephan Lemon MD ? Addendum Signed By: ? <Electronically signed by Stephan eLmon MD in OV> ? 05/16/24 0849 ?? Addendum Cosigned By: ? DD/ /05/802 ? TD/TT: 05/16/2408/06/847 ? CLINICAL HISTORY: Low back pain radiating to the left lower limb ? MR lumbar spine without gadolinium ? Comparison: CT lumbar spine 09/09/2023 ? Findings: ?? There is stable mild lumbar spine dextroscoliosis. ?? There is stable old mild superior endplate L5 compression fracture. ?? There is new likely acute to subacute mild superior endplate compression ?? fracture L4 with mild marrow edema. There is mild to moderate compression ?? fracture L2 which demonstrates mild increased loss of height when compared ?? to prior exam. There is stable old L1 compression fracture. ?? There is new likely acute to subacute mild superior endplate compression ?? fracture T11 with new mild subchondral marrow edema.. ?? There is small left paracentral posterior disc protrusion T10-T11. No ?? significant central canal or foraminal stenosis. There is mild disc space ?? narrowing at this level. ?? There is stable 4 mm retropulsion superior endplate of L1 unchanged when ?? compared to lumbar spine radiographs. There is mild central canal stenosis ?? at T12-L1. ?? There are mild multilevel bulging annuli without central canal and ?? foraminal stenoses. There is small central posterior disc protrusion ?? L4-L5. There is ligamentous hypertrophy mild facet spondylosis mild ?? central canal stenosis at this level. There is no significant foraminal ?? stenoses on the exam. There is multilevel uncinate and facet hypertrophy. ?? There is mild benign posterior epidural lipomatosis ? IMPRESSION: ?? 1. New acute to subacute compression fractures at T11 and L4 with marrow ?? edema. ?? 2. Progressive L2 compression fracture with mild increased height loss. ?? 3. Mild central canal stenosis at T12-L1 and L4-L5. ? This document has been electronically signed by: Stephan Lemon MD on ?? 05/16/2024 08:03:24 ? Dictated By: ?Stephan Lemon MD ? Signed By: ?<Electronically signed by Stephan Lemon MD in OV> ? 05/16/24 08 ? DD/ 0803 ? TD/TT: 05/16/24802 ? Gem Setter: ? Procedure Note Donotdeandrater, Image - 05/16/2024 [place] [address] Magnetic Resonance Report Signed with Joel Patient: Adrianna Lucio AMR#: [id number] 144 : 1965Acct:[id number] Age/Sex: 59 / FADM Date: 05/15/24 Loc: HO.MRI Attending Dr: Deyvi Ramos MD Ordering Physician: Deyvi Ramos MD Date of Service: 05/15/24 Procedure(s): MR lumbar spine wo con Accession Number(s): [id number] cc: Deyvi Ramos MD ADDENDUM This document has been electronically signed by: Stephan Lemon MD on 05/16/2024 08:03:24 ADDENDUM: Addendum Impression: Small left paracentral posterior disc protrusion T10-T11 Small central posterior disc protrusion L4-L5 This document has been electronically signed by: Stephan Lemon MD on 05/16/2024 08:48:21 Addendum Dictated By: Stephan Lemon MD Addendum Signed By: <Electronically signed by Stephan Lemon MD in OV> 05/16/24848 Addendum Cosigned By: DD/ /05/802 TD/TT: 05/16/2408/06/847 ADDENDUM This document has been electronically signed by: Stephan Lemon MD on 05/16/2024 08:03:24 ADDENDUM: Addendum Impression: Small left paracentral posterior disc protrusion T10-T11 Small central posterior disc protrusion L4-L5 This document has been electronically signed by: Stephan Lemon MD on 05/16/2024 08:48:21 Addendum Dictated By: Stephan Lemon MD Addendum Signed By: <Electronically signed by Stephan Lemon MD in OV> 05/16/2449 Addendum Cosigned By: DD/ /05/802 TD/TT: 05/16/2408/06/847 CLINICAL HISTORY: Low back pain radiating to the left lower limb MR lumbar spine without gadolinium Comparison: CT lumbar spine 09/09/2023 Findings: There is stable mild lumbar spine dextroscoliosis. There is stable old mild superior endplate L5 compression fracture. There is new likely acute to subacute mild superior endplate compression fracture L4 with mild marrow edema. There is mild to moderate compression fracture L2 which demonstrates mild increased loss of height when compared to prior exam. There is stable old L1 compression fracture. There is new likely acute to subacute mild superior endplate compression fracture T11 with new mild subchondral marrow edema.. There is small left paracentral posterior disc protrusion T10-T11. No significant central canal or foraminal stenosis. There is mild disc space narrowing at this level. There is stable 4 mm retropulsion superior endplate of L1 unchanged when compared to lumbar spine radiographs. There is mild central canal stenosis at T12-L1. There are mild multilevel bulging annuli without central canal and foraminal stenoses. There is small central posterior disc protrusion L4-L5. There is ligamentous hypertrophy mild facet spondylosis mild central canal stenosis at this level. There is no significant foraminal stenoses on the exam. There is multilevel uncinate and facet hypertrophy. There is mild benign posterior epidural lipomatosis IMPRESSION: 1. New acute to subacute compression fractures at T11 and L4 with marrow edema. 2. Progressive L2 compression fracture with mild increased height loss. 3. Mild central canal stenosis at T12-L1 and L4-L5. This document has been electronically signed by: Stephan Lemon MD on 05/16/2024 08:03:24 Dictated By: Stephan Lemon MD Signed By: <Electronically signed by Stephan Lemon MD in OV> 05/16/24 0804 DD/ 2 TD/TT: 05/16/24802 Gem Setter: us Deyvi Ramos MD IMG MRI PROCEDURES Edited R esult - Final * 3D DIGITAL MADHAVI SCR MAMMO 1 (10/16/2017 4:56 PM EDT) Anatomical Region Laterality Modality Breast Bilateral Mammography 10/16/2017 4:56 PM EDT Narrative 10/16/2017 4:58 PM EDT Refer to the Notes tab for result details [facility] Procedure: 3D DIGITAL MADHAVI SCR MAMMO 1 Procedure Note Provider, MD Emilia - 08/05/2022 Refer to the Notes tab for result details [facility] Procedure: 3D DIGITAL MADHAVI SCR MAMMO 1 us Deyvi Ramos MD IMG BI PROCEDURES Final Res ult from Last 3 Months or Most Recently Relevant to Health Maintenance Insurance [facility] Care Teams Financial Cost Analyst Relationship Specialty Start Date End Date Deyvi Ramos MD [address] [place] [phone] PCP - General Internal Medicine 11/22/23 [facility] 04/04/24
== END 2024-07-18 10:49 | disposition home or self-care (01) ==
PROVIDERS: PCP Internal Medicine; Referring Provider Internal Medicine; Visit Provider Internal Medicine
DX: S32.000A Wedge compression fracture of unspecified lumbar vertebra, initial encounter for closed fracture (principal)
CPT/HCPCS: 99204

== ENCOUNTER → 2024-07-18 09:59 | Outpatient (BNVA) | payer MEDICAID, SELFPAY | PROVIDERS: PCP Internal Medicine; Referring Provider Internal Medicine; Visit Provider Internal Medicine | DX: S32.000A Wedge compression fracture of unspecified lumbar vertebra, initial encounter for closed fracture (principal) | CPT/HCPCS: 99202 ==

== ENCOUNTER 2024-08-25 10:51 | Emergency (ER) | payer MEDICAID, SELFPAY ==
--- NOTE | ~2024-08-25 | CT_ITS ---
EXAMINATION: CT SOFT TISSUE NECK WITH CONTRAST CLINICAL INFORMATION: Left-sided facial swelling. COMPARISON: Correlation made with CT chest 09/17/2018. TECHNIQUE: Following the intravenous administration of 60 mL of Omnipaque 350 intravenous contrast, helical imaging was performed in the axial plane with generation of coronal and sagittal reformatted images. This CT examination was performed using dose optimization techniques as appropriate, variously including the following: *Automated exposure control *Adjustment of mA and/or kV according to patient size (this includes techniques or standardized protocols for targeted exams where dose is matched to indication/reason for exam; i.e. extremities or head) *Use of iterative reconstruction technique FINDINGS: Lymph Nodes: -Reactive appearing left level 2 lymph nodes, largest measuring 1.0 cm short axis (series 2, image 53). -No pathologic adenopathy seen. Carotid Sheath Structures: -Normal. Salivary Glands: -Within the inferior left parotid gland/parotid tail, abutting the angle of the left mandible, there is an abscess collection with enhancing wall measuring 2.1 x 2.0 x 1.8 cm, presumably dental in origin. Inflammatory changes extend into the left submandibular space, with enhancement and thickening of the left platysma. Reactive enhancement and thickening of the inferior left parotid is noted. There is periapical lucency surrounding the root tip of tooth #17 (Series 2, image 48). This is likely the source. This is also seen on (series 7, image 57). -The remainder of the salivary glands image normally. Tongue Base/Floor of Mouth: -Partially obscured by extensive artifact from dental amalgam although no abnormality is evident. Mucosal Space: - Normal. Visceral Space: -Thyroid gland: 9 mm nodule left lobe. No follow-up recommended. Thyroid otherwise normal. -Visceral space otherwise Normal. Retropharangeal Space: - Normal. Parapharyngeal Fat Planes: -Mild infiltration on the left from the inflammatory process in the home care manager space. Ell Teacher Spaces: -Mild thickening of the left masseter and left pterygoid musculature, likely reactive. Abscess collection left posterior masseter as above. The right side appears normal. Anterior Cervical Space: -Normal. Imaged Intracranial Contents: -No mass effect, edema, or abnormal enhancement. Cortical and dural venous sinuses are patent. The skull base is normal. Globes and Orbits: -Normal. Paranasal Sinuses/Mastoids/Tympanic Spaces: -Normally aerated bilaterally. Lung Apices and Superior Mediastinal Structures: -9 mm calcified nodule in the posterior right upper lobe. Moderate centrilobular emphysema. There is right apical scarring with a stellate-like lesion in the right central apex with some degree of calcification, stable findings from 09/17/2018 and benign. Lung apices are otherwise clear. -No mediastinal lymphadenopathy identified. Bony Structures: -No suspicious bone lesions. No fractures. Degenerative disc changes C5-6 and C6-7. -Normal TM joints. CT/CT soft tissue neck w IV con IMPRESSION: 1. Likely dental origin abscess at the angle left mandible, involving the left posterior masseter muscle and inferior left parotid gland. This measures 2.1 x 2.0 x 1.8 cm, with associated inflammatory changes surrounding. 2. Origin appears to be related to periapical lucency with erosion of the buccal cortex of the mandible involving molar #17. 3. Stellate right apical pulmonary scarring, stable and benign. Centrilobular emphysematous changes. 4. Additional ancillary findings as discussed in the body of the report. Electronically signed by: Merlin Ortega MD 08/25/2024 04:38 PM EDT
--- NOTE | 2024-08-25 11:29 | ED_ITS ---
HPI - General Adult General Chief complaint: Dental/Oral Stated complaint: Dental Abscess Time Seen by Provider: 08/25/24 14:44 Source: patient and RN notes reviewed Mode of arrival: ambulatory Limitations: no limitations History of Present Illness ED Provider: Devika Khanna PA-C HPI narrative: This is a 59-year-old female, with a past medical history of COPD and osteoporosis, who presents emergency department for evaluation of left lower jaw pain. Patient reports that she noticed some left lower dental pain 2 weeks ago and ?did not think much of it. She states that over the last several days she has had increased pain and swelling to the left side of her face. Patient reports that over the last 2 weeks she has noticed increased pain, redness, and swelling to the left side of her jaw. No known injury, or insect bites. She denies any fevers, chills, chest pain, shortness of breath, abdominal pain, nausea, vomiting or diarrhea. Denies history of similar symptoms in the past. She reports that she has had difficulty opening and closing her jaw due to the swelling and pain. Last saw a dentist 6 years ago. She knows that she has poor dentition that is requiring intervention. No other complaints or concerns at this time. MD complaint: Left-sided facial pain, swelling Onset (ago): day(s) Location: face Radiation: non-radiation Severity: moderate Quality: aching Pain Consistency: constant Relieving factors: none Exacerbating factors: none Associated symptoms: denies other symptoms Treatments prior to arrival: none Related Data Home Medications ?Medication ?Instructions ?Recorded ?Confirmed albuterol sulfate 90 mcg/actuation 2 puff inhalation Q6H PRN 09/09/23 05/15/24 aerosol inhaler (Ventolin HFA) Bronchodilation alendronate 70 mg tablet 70 mg PO QWEEK 09/09/23 05/15/24 calcium carbonate 600 mg PO QAM 09/09/23 05/15/24 cetirizine 10 mg tablet 10 mg PO QAM 09/09/23 05/15/24 cholecalciferol (vitamin D3) 25 25 mcg PO DAILY 09/09/23 05/15/24 mcg (1,000 unit) capsule (Vitamin D3) trazodone 50 mg tablet 50 mg PO BEDTIME 09/09/23 05/15/24 acetaminophen 500 mg tablet 500 mg PO Q8H PRN 05/15/24 05/15/24 diclofenac sodium 1 % topical gel topical TID 05/15/24 05/15/24 Previous Rx's ?Medication ?Instructions ?Recorded thiamine mononitrate (vit B1) 100 100 mg PO DAILY #90 tabs 09/12/23 mg tablet albuterol sulfate 90 mcg/actuation 2 puff inhalation Q4-6H PRN 05/15/24 aerosol inhaler (Ventolin HFA) shortness of breath or wheezing #8.5 grams Allergies Allergy/AdvReac Type Severity Reaction Status Date / Time amoxicillin [AMOXICILLIN] Allergy Unknown EYES Verified 08/25/24 11:33 SWELLING pseudoephedrine [Sudafed] Allergy Unknown Unknown Verified 08/25/24 11:33 Sulfa (Sulfonamide Allergy Unknown SWELLING Verified 08/25/24 11:33 Antibiotics) [SULFA (SULFONAMIDE ANTIBIOTICS)] Review of Systems 2 Review of Systems: Yes all other systems are reviewed and are negative Constitutional: Constitutional: Reports as per [facility] Past Medical History Attestation statement: The following information was validated with the patient. Medical History Compression fx, lumbar spine Alcohol abuse Former smoker Osteopoikilosis Alcohol use disorder COPD (chronic obstructive pulmonary disease) Family History Family History Father No problems noted. Mother No problems noted. Social History Social History Household Members: Children Household Members Other:: son Housing: Apartment Do you presently have visiting nurse or other home services: No Patient Tobacco Use Status: Former Tobacco user Smoked in Last 30 Days: No Use of substances other than those prescribed or required for medical reasons: No Advance Directives: No Advance Directives Information Provided: Yes Patient : No service: No Physical Exam ED Vital Signs: Vital Signs - 24 hr 08/25/24 11:30 08/25/24 15:06 08/25/24 20:09 Temperature 97.6 F 98.0 F Pulse Rate 90 88 84 Respiratory Rate 18 20 Blood Pressure 175/70 H 133/65 115/73 Pulse Oximetry 97 97 98 Oxygen Delivery Method Room Air Room Air Room Air BMI result Body Mass Index 27.3 Const General: cooperative, comfortable and no acute distress Orientation/consciousness: patient oriented x3 Limitations: no limitations HENMT Other: Left TMJ region, there is an large area of induration in erythema and warmth. Exquisite Tender to palpation. Able to open and close jaw. Poor dentition however no obvious dental abscess noted. Head: Yes normal to inspection, Yes normocephalic and Yes atraumatic Ears: hearing grossly normal bilaterally General nose exam: Normal external nose present Face and sinus: Yes normal facial exam Mouth: Normal oral and palatal mucosa present, oropharynx normal and moist mucous membranes Throat: Yes posterior oropharynx normal Eyes General: appearance normal, both eyes and all related structures Eyelids: Yes eyelids normal Conjunctivae: conjunctivae normal Sclerae: sclerae normal Pupils: Equal, round and reactive pupils present EOM: EOMs intact bilaterally Neck Neck: Yes normal visual inspection, Yes full ROM and Yes no lymphadenopathy Lymphatic: no lymphadenopathy noted Chest Chest palpation & inspection: normal inspection of the chest Resp Effort & Inspection: normal respiratory effort and able to speak in complete sentences Auscultation: clear to auscultation bilaterally, no crackles, no rales, no rhonchi and no wheezes Cardio Rate: regular rate Rhythm: regular rhythm Heart sounds: S1 normal heart sound present and S2 normal heart sound present GI Inspection: Yes normal to inspection Skin General skin exam: no rashes or lesions noted Trauma: no lacerations or abrasions Wounds: no wounds Neuro General: patient oriented x3 and moves all extremities Cranial nerves: Yes Equal, round and reactive pupils present Extrem General: Yes normal to inspection Right upper extremity: normal to inspection Left upper extremity: normal to inspection Right lower extremity: normal to inspection Left lower extremity: normal to inspection Course Course Course Narrative: This is a Rapid Medical Examination (RME) performed by Jazmin Larkin PA-C in triage. Full HPI, ROS, assessment and treatment plan per primary provider in the Main ED. 08/25/24 1129 XIANG Gracia Hx: 59 yo female hx COPD, etoh use disorder presents to the ED today for eval of left jaw pain/swelling x1 week. pain worse w/ eating. unclear if it's dental in nature. reports swelling to left jaw/neck. taking tylenol w/o improvement. last dose yesterday. admits to fall in 12/2023 where she hit her jaw - she is unsure if this is related. PE/vitals: noted swelling to left jaw extending to neck. multiple dental caries/ poor dentition to left lower teeth. trismus. Plan: labs. likely require scan. Reevaluation(s) Reevaluation #1: CT reviewed as Likely dental origin abscess at the angle left mandible, involving the left posterior masseter muscle and inferior left parotid gland. This measures 2.1 x 2.0 x 1.8 cm, with associated inflammatory changes surrounding. Given this finding, patient will need to be transferred. She was already received IV antibiotics. Call placed out to [facility] Time: 17:56 Reevaluation #2: [facility] declined, also paged out to [facility] who also declined. Paged out to [facility]. Awaiting response for possible transfer of care. Patient maintaining airway, no airway compromise, she was stable under no acute distress. We will continue to closely monitor. Time: 19:48 Reevaluation #3: Spencer having trouble seeing images. I spoke to Dr. Arshad, who will reach out to radio time sales supervisor to see if this is an operable. Patient does have a history of osteoporosis therefore she was at risk for osteonecrosis of the jaw. This is weary for them to operate. The dentist just wanted to ensure that patient was aware of the risks and consequences of surgical intervention. Patient does not have good appropriate dental follow-up at this time, states that she has not seen a dentist since 2019, and that she would not be able to be seen for several days and up to weeks. Patient is agreeable for transfer if this is a possibility. Awaiting response for [facility]. Additional Reevaluation(s): Sign-out given to my colleague, Dr. Wilburn pending ?transfer to [facility]. 08/25/2024 at 22:07 hours, Dr. Sam Wilburn's note: The patient was accepted by the dental resident at [facility] as an ED to ED transfer. The accepting attending physician is Dr. Mortensen. Medications Administered Discontinued Medications Generic Name Dose Route Start Last Admin Trade Name Freq PRN Reason Stop Dose Admin Ceftriaxone Sodium 1 gm 08/25/24 16:14 08/25/24 16:49 Ceftriaxone Sodium 1 Gm Vial IVPUSH 08/25/24 16:15 1 gm ONCE ONE Administration Doxycycline Hyclate 100 mg/ 250 mls @ 166.67 mls/hr 08/25/24 16:14 08/25/24 18:19 Sodium Chloride IV 08/25/24 17:43 Infused ONCE ONE Infusion Acetaminophen 1,000 mg in 100 mls @ 400 mls/hr 08/25/24 16:16 08/25/24 17:04 Ofirmev IV 08/25/24 16:30 Infused ONCE ONE Infusion Iohexol 100 ml 08/25/24 15:54 08/25/24 15:59 Iohexol 350 Mg/Ml 100 Ml Infus..Btl IV 08/25/24 15:55 60 ml ONCE ONE Administration Morphine Sulfate 4 mg 08/25/24 21:01 08/25/24 21:43 Morphine Sulfate 4 Mg/Ml Cartridge IVPUSH 08/25/24 21:02 4 mg ONCE ONE Administration Protocol Medical Decision Making Medical Decision Making [facility] Narrative: This is a 59-year-old female who presents emergency department with concerns for left-sided facial pain and swelling for the last 2 weeks. Patient denies any recent trauma or injury. She does report that she had a jaw fracture about 40 years ago. Reports areas hard, red, and swollen. Patient with large area of induration, erythema and warmth. Differential diagnoses include cellulitis, cyst, abscess. Patient reports penicillin allergy gave her a swollen abdominal lymph node. Denies any history of anaphylaxis. Will treat with 1 time dose of ceftriaxone and doxycycline. Awaiting CAT scan. Labs were obtained prior to my evaluation, she has no leukocytosis, chemistry revealing no acute electrolyte derangement. CRP elevated at 8.79. Differential Diagnosis Differential Diagnoses: The differential diagnosis associated with the presentation includes See above Lab Data [facility] Lab Attestation statement: I reviewed the patient's lab results. No leukocytosis, stable H&H, chemistry with no electrolyte derangement. ESR 20, CRP elevated at 8.79 08/25/24 11:45 08/25/24 11:45 Labs: Lab Results 08/25/24 Range/Units 11:45 WBC 10.4 (4.8-10.8) X10*3/uL RBC 4.36 (4.20-5.50) X10*6/uL Hgb 13.2 (12.0-16.0) g/dl Hct 39.6 (37.0-47.0) % MCV 90.8 (80.0-98.0) fL MCH 30.3 (27.0-33.0) pg MCHC 33.3 (31.0-35.0) g/dl RDW 12.4 (11.0-16.0) % Plt Count 287 (160-400) X10*3/uL MPV 9.4 (9.4-12.3) fL Immature Gran % (Auto) 0.3 (0.0-0.4) % Neut % (Auto) 69.5 (45-73) % Lymph % (Auto) 17.4 L (20-40) % Wright % (Auto) 12.1 H (2-11) % Eos % (Auto) 0.4 (0-4) % Baso % (Auto) 0.3 (0-2) % Lymph # (Auto) 1.8 (1.2-4.9) X10*3/uL Wright # (Auto) 1.3 H (0.1-1.2) X10*3/uL Eos # (Auto) 0.0 (0.0-0.4) X10*3/uL Baso # (Auto) 0.0 (0.0-0.2) X10*3/uL Abs Immat Gran (auto) 0.03 (0.00-0.03) X10*3/uL Absolute Neuts (auto) 7.3 (2.0-8.3) x10*3/uL Absolute Nucleated RBC 0.000 (0.0-0.012) X10*3/uL Nucleated RBC % (auto) 0.0 (0.0-0.2) /100WBC ESR 20 (0-20) MM/HR Sodium 141 (135-145) mmol/L Potassium 4.1 (3.3-5.1) mmol/L Chloride 104 (96-108) mmol/L Carbon Dioxide 27 (22-29) mmol/L Anion Gap 14 (12-20) BUN 9 (9-16) mg/dL Creatinine 0.58 (0.5-1.4) mg/dL Estim Creat Clear Calc 105.5 Estimated GFR > 60 Random Glucose 111 (60-115) mg/dL Calcium 9.6 (8.4-10.2) mg/dL C-Reactive Protein 8.79 H (< or = 0.50) mg/dL Radiology Impression Discussion of test interpretation with radiology: I have reviewed the radiologist's reading. Radiologist Impression: Report Number: [id number]: Total DLP = 388.00 mGy-cm EXAMINATION: CT SOFT TISSUE NECK WITH CONTRAST CLINICAL INFORMATION: Left-sided facial swelling. COMPARISON: Correlation made with CT chest 09/17/2018. TECHNIQUE: Following the intravenous administration of 60 mL of Omnipaque 350 intravenous contrast, helical imaging was performed in the axial plane with generation of coronal and sagittal reformatted images. This CT examination was performed using dose optimization techniques as appropriate, variously including the following: *Automated exposure control *Adjustment of mA and/or kV according to patient size (this includes techniques or standardized protocols for targeted exams where dose is matched to indication/reason for exam; i.e. extremities or head) *Use of iterative reconstruction technique FINDINGS: Lymph Nodes: -Reactive appearing left level 2 lymph nodes, largest measuring 1.0 cm short axis (series 2, image 53). -No pathologic adenopathy seen. Carotid Sheath Structures: -Normal. Salivary Glands: -Within the inferior left parotid gland/parotid tail, abutting the angle of the left mandible, there is an abscess collection with enhancing wall measuring 2.1 x 2.0 x 1.8 cm, presumably dental in origin. Inflammatory changes extend into the left submandibular space, with enhancement and thickening of the left platysma. Reactive enhancement and thickening of the inferior left parotid is noted. There is periapical lucency surrounding the root tip of tooth #17 (Series 2, image 48). This is likely the source. This is also seen on (series 7, image 57). -The remainder of the salivary glands image normally. Tongue Base/Floor of Mouth: -Partially obscured by extensive artifact from dental amalgam although no abnormality is evident. Mucosal Space: - Normal. Visceral Space: -Thyroid gland: 9 mm nodule left lobe. No follow-up recommended. Thyroid otherwise normal. -Visceral space otherwise Normal. Retropharangeal Space: - Normal. Parapharyngeal Fat Planes: -Mild infiltration on the left from the inflammatory process in the client services manager space. Scallop Dredger Spaces: -Mild thickening of the left masseter and left pterygoid musculature, likely reactive. Abscess collection left posterior masseter as above. The right side appears normal. Anterior Cervical Space: -Normal. Imaged Intracranial Contents: -No mass effect, edema, or abnormal enhancement. Cortical and dural venous sinuses are patent. The skull base is normal. Globes and Orbits: -Normal. Paranasal Sinuses/Mastoids/Tympanic Spaces: -Normally aerated bilaterally. Lung Apices and Superior Mediastinal Structures: -9 mm calcified nodule in the posterior right upper lobe. Moderate centrilobular emphysema. There is right apical scarring with a stellate-like lesion in the right central apex with some degree of calcification, stable findings from 09/17/2018 and benign. Lung apices are otherwise clear. -No mediastinal lymphadenopathy identified. Bony Structures: -No suspicious bone lesions. No fractures. Degenerative disc changes C5-6 and C6-7. -Normal TM joints. CT/CT soft tissue neck w IV con IMPRESSION: 1. Likely dental origin abscess at the angle left mandible, involving the left posterior masseter muscle and inferior left parotid gland. This measures 2.1 x 2.0 x 1.8 cm, with associated inflammatory changes surrounding. 2. Origin appears to be related to periapical lucency with erosion of the buccal cortex of the mandible involving molar #17. 3. Stellate right apical pulmonary scarring, stable and benign. Centrilobular emphysematous changes. 4. Additional ancillary findings as discussed in the body of the report. Electronically signed by: Merlin Ortega MD 08/25/2024 04:38 PM EDT RP Dictated By: Merlin Ortega MD Discharge Plan Discharge Clinical Impression: Abscess, Abscess, dental Patient Disposition: [facility] Transfer Details: [facility] ED, accepting attending is Dr. Mortensen Prescriptions: No Action trazodone 50 mg tablet 50 mg PO BEDTIME cetirizine 10 mg tablet 10 mg PO QAM alendronate 70 mg tablet 70 mg PO QWEEK calcium carbonate 600 mg calcium (1,500 mg) tablet 600 mg PO QAM albuterol sulfate [Ventolin HFA] 90 mcg/actuation HFA aerosol inhaler 2 puff INHALATION Q6H PRN (Reason: Bronchodilation) cholecalciferol (vitamin D3) [Vitamin D3] 25 mcg (1,000 unit) capsule 25 mcg PO DAILY thiamine mononitrate (vit B1) 100 mg Tablet 100 mg PO DAILY Qty: 90 0RF diclofenac sodium 1 % gel topical TID acetaminophen 500 mg tablet 500 mg PO Q8H PRN albuterol sulfate [Ventolin HFA] 90 mcg/actuation HFA aerosol inhaler 2 puff inhalation Q4-6H PRN (Reason: shortness of breath or wheezing) Qty: 8.5 4RF Print Language: Kyrgyz
[2024-08-25 11:30] VITALS: BP 175/70; PULSE 90; RESP 18; TEMP 36.4; O2SAT 97; BMI 27.3
[2024-08-25 11:55] LABS: MANUAL DIFF FLAG NO
[2024-08-25 12:00] LABS: Basophils Percent Auto 0.3 % (0-2); Eosinophils Percent Auto 0.4 % (0-4); Hematocrit 39.6 % (37.0-47.0); Hemoglobin 13.2 g/dl (12.0-16.0); Imm Gran Abs Auto 0.03 X10*3/uL (0.00-0.03); Imm Gran Pct Auto 0.3 % (0.0-0.4); Lymphocytes Absolute Auto 1.8 X10*3/uL (1.2-4.9); Lymphocytes Percent Auto 17.4 % (20-40); Mean Corpuscular HGB Conc 33.3 g/dl (31.0-35.0); Mean Corpuscular Hemoglobin 30.3 pg (27.0-33.0); Mean Corpuscular Volume 90.8 fL (80.0-98.0); Mean Platelet Volume 9.4 fL (9.4-12.3); Monocytes Absolute Auto 1.3 X10*3/uL (0.1-1.2); Monocytes Percent Auto 12.1 % (2-11); Neutrophils Absolute Auto 7.3 x10*3/uL (2.0-8.3); Neutrophils Percent Auto 69.5 % (45-73); Platelet Count 287 X10*3/uL (160-400); Red Blood Count 4.36 X10*6/uL (4.20-5.50); Red Cell Distribution Width 12.4 % (11.0-16.0); White Blood Count 10.4 X10*3/uL (4.8-10.8)
[2024-08-25 12:13] LABS: Anion Gap 14 (12-20); Blood Urea Nitrogen 9 mg/dL (9-16); C Reactive Protein 8.79 mg/dL (< or = 0.50); Calcium 9.6 mg/dL (8.4-10.2); Carbon Dioxide 27 mmol/L (22-29); Chloride 104 mmol/L (96-108); Creatinine Clr Calc Pharmacy 105.5; Estimated Glomerular Filt Rate > 60; Glucose Random 111 mg/dL (60-115); Potassium 4.1 mmol/L (3.3-5.1); Sodium 141 mmol/L (135-145)
[2024-08-25 12:41] LABS: Erythrocyte Sedimentation Rate 20 MM/HR (0-20)
[2024-08-25 15:06] VITALS: BP 133/65; PULSE 88; O2SAT 97
[2024-08-25] MEDS: iohexoL 350 MG/ML 100 ML INFUS..BTL IV (15:59)
[2024-08-25] MEDS: Doxycycline Hyclate 100 MG in 0.9 % Sodium Chloride 250 ML 166.67 MG IV (16:49)
[2024-08-25] MEDS: Acetaminophen 1,000 MG/100 ML PIGGYBACK 400 MG IV (16:49)
[2024-08-25] MEDS: cefTRIAXone sodium 1 GM VIAL IVPUSH (16:49)
--- OUTSIDE RECORDS SUMMARY | 2024-08-25 17:19 | XMS_ITS | Encounter Summary ---
Author Organization [employer] Address [address] [place] [address] Care Team Providers Care Block Cuber Name Role Phone Deyvi Ramos MD Primary Care Provider [phone] Deyvi Ramos MD Primary Care Provider Reason for Visit * Reason Comments Med Refill Encounter Details Date Type Department Care Team (Late st Contact Info) Description 08/21/[address] [facility] [address] [place] [address] Deyvi Ramos MD [address], [place] [id number] Social History Tobacco Use Types Packs/Day Years [...] [facility] [address] [place] [address] Deyvi Ramos MD [address] [place] [address] documented as of this encounter Visit Diagnoses Not on filedocumented in this encounter Care Teams Block Cuber Relationship Specialty Start Date End Date Deyvi Ramos MD [address] [facility] [place] [address] PCP - General Internal Medicine 06/12/13 06/03/23 Deyvi Ramos MD [address] [facility] [place] [address] PCP - General Internal Medicine 11/22/23 [facility] 04/04/24 documented as of this encounter
--- OUTSIDE RECORDS SUMMARY | 2024-08-25 17:19 | XMS_ITS | Encounter Summary ---
Author Organization [employer] Address [address] [facility] [address] [address] [place] [address] Care Team Providers Care Rn Clinical Coordinator Name Role Phone Deyvi Ramos MD Primary Care Provider Deyvi Ramos MD Primary Care Provider [phone] Reason for Visit * Reason Comments Med Refill Encounter Details Date Type Department Care Team (Late st Contact Info) Description 04/17/2023 Refill [facility] [address] [place] [address] Deyvi Ramos MD [address] [place] [address] Social History Tobacco Use Types Packs/Day Years [...] Description 10/16/2024 10:30 AM EDT Office Visit [facility] [address] [place] [address] Deyvi Ramos MD [address] [place] [address] documented as of this encounter Visit Diagnoses Not on filedocumented in this encounter Care Teams Rn Clinical Coordinator Relationship Specialty Start Date End Date Deyvi Ramos MD [address] [facility] [address] PCP - General Internal Medicine 06/12/13 06/03/23 Deyvi Ramos MD [address] [facility] [address] PCP - General Internal Medicine 11/22/23 [facility] [place] 04/04/24 documented as of this encounter
--- OUTSIDE RECORDS SUMMARY | 2024-08-25 17:19 | XMS_ITS | Clinical Summary ---
Author Organization [employer] Address [address] [facility] 7t [place] [address] Care Team Providers Care Room Service Manager Name Role Phone Deyvi Ramos MD Primary Care Provider [phone] Allergies Active Allergy Reactions Criticality Noted Date Comments Amoxicillin 09/09/2023 Other Reaction(s): EYES SWELLING Pseudoephedrine Unknown 09/09/2023 Sulfa Antibiotics Swelling 09/09/2023 Medications * This document contains information received from the source organization and may not represent a complete record from that organization. fluticasone (Flovent HFA) 110 MCG/ACT inhaler INHALE 2 PUFFS BY MOUTH TWICE DAILY 12 g 11 3 Active D3-1000 25 MCG (1000 UT) capsule TAKE 1 CAPSULE BY MOUTH EVERY DAY 2 Active cholecalciferol (Vitamin D-3) 25 MCG (1000 UT) tabletIndicatio ns:Compression fracture of L1 vertebra, initial encounter (CMS/[facility]) Take 1 tablet (25 mcg) by mouth Once per day. 60 tablet 11 4 Active traZODone (Desyrel) 50 MG tablet Take 1 tablet (50 mg) by mouth at bedtime. 30 tablet 11 4 Active calcium carbonate 1500 (600 Ca) MG tabletIndicatio ns:Osteoporosis of disuse TAKE 1 TABLET BY MOUTH EVERY MORNING 90 tablet 1 4 Active Diclofenac Sodium 1 % gelIndications: Compression fracture of L1 vertebra, initial encounter (CMS/[facility]) To apply to the affected area 3 times a day 100 g 4 Active acetaminophen (Tylenol Extra Strength) 500 MG tabletIndicatio ns:Compression fracture of L1 vertebra, initial encounter (CMS/[facility]) Take 1 tablet (500 mg) by mouth every 8 (eight) hours if needed for mild pain. 90 tablet 2 4 Active alendronate (Fosamax) 70 MG tabletIndicatio ns:Osteoporosis of disuse Take 1 tablet (70 mg) by mouth every 7 (seven) days. Take in the morning with a full glass of water, on an empty stomach, and do not take anything else by mouth or lie down for the next 30 min. 4 tablet 11 4 Active albuterol (Ventolin HFA) 108 (90 Base) MCG/ACT inhalerIndicati ons:Seasonal allergies,COPD, mild (CMS/[facility]) INHALE 2 PUFFS BY MOUTH EVERY 6 HOURS NEEDED 18 g 5 Active cetirizine (ZyrTEC) 10 MG tabletIndicatio ns:Seasonal allergies Take 1 tablet (10 mg) by mouth in the morning. 90 tablet 3 5 Active ketoconazole (NIZOral) 2 % shampooIndicati ons:Telogen effluvium Apply topically 2 (two) times a week. 120 mL 3 5 Active Fluocinolone Acetonide Scalp ([place]-Smoothe/ FS Scalp) 0.01 % oilIndications: Telogen effluvium To use on the scalp 2 times a week. 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 Encounters Date Type Department Care Team Description 08/25/2024 Orders Only GENERIC EXTERNAL DATA DEPARTMENT Provider, Generic External Data 07/30/2024 Patient Outreach [facility] [address] [place] [address] Deyvi Ramos MD Care Coordination (CHW outreach for SDOH PT-1 needs-referral completed /) 07/25/2024 Population Health Risk Score [facility] (C3) Department [address] [place] [address] [phone] Provider, Population Health Generic 07/15/2024 10:30 AM EST Office Visit [facility] [address] [place] [address] Deyvi Ramos MD Telogen effluvium (Primary Dx) 07/15/2024 Telephone [facility] [address] [place] [address] Deyvi Ramos MD PT-1 07/15/2024 Travel 06/27/2024 Telephone [facility] [address] [place] [address] Deyvi Rmaos MD Results 06/26/2024 11:15 AM EST Office Visit [facility] [address] [place] [address] Deyvi Ramos MD Compression fracture of L5 vertebra, initial encounter ([facility]) (Primary Dx); Seasonal allergies; Chronic midline low back pain without sciatica; Central stenosis of spinal canal; Onychogryphosis; Primary osteoarthritis of left knee 06/26/2024 Travel 06/19/2024 Telephone [facility] [address] [place] [address] Deyvi Ramos MD Traige 06/18/2024 Orders Only [facility] [address] [place] [address] Deyvi Ramos MD Onychogryphosis (Primary Dx) 06/17/2024 Telephone [facility] [address] [place] [address] Deyvi Ramos MD Appointment Request 06/17/2024 Telephone [facility] [address] [place] [address] Deyvi Ramos MD Durable Medical Equipment 06/17/2024 Telephone [facility] [address] [place] [address] Deyvi Ramos MD Referral 06/12/2024 Refill [facility] [address] [place] [address] Deyvi Ramos MD Seasonal allergies; COPD, mild (CMS/HCC) from Last 3 Months Immunizations Name Administration [...] Description 10/16/2024 10:30 AM EDT Office Visit [facility] [address] [place] [address] Deyvi Ramos MD [address] [place] [address] Health Maintenance Due Date Last Done Comments CT Colonography 1965 Colonoscopy 1965 Colorectal Cancer Screening 1965 FIT DNA/Cologuard 1965 FIT 1965 FOBT 1965 HIV Screening 1965 Sigmoidoscopy 1965 Hepatitis C Screening 1983 Hepatitis B Vaccines (1 of 3 - [...] Procedure Name Priority Date/Time Associated Diagnosis Comments CT SOFT TISSUE NECK W CONTRAST Routine 08/25/2024 3:51 PM EDT SED RATE BY MODIFIED WESTERGREN Routine 08/25/2024 11:45 AM EDT C-REACTIVE PROTEIN Routine 08/25/2024 11 :45 AM EDT BASIC METABOLIC PANEL Routine 08/25/2024 11:45 AM EDT CBC WITH AUTO DIFFERENTIAL Routine 08/25/2024 11:45 AM EDT BI MAMMOGRAM SCREENING BILATERAL Routine 10/16/2017 4:56 PM EDT from Last 3 Months or Most Recently Relevant to Health Maintenance Results * CT Soft Tissue Neck w/ Contrast (08/25/2024 3:51 PM EDT) Anatomical Region Laterality Modality Head, Neck Computed Tomogra phy 08/25/2024 3:51 PM EDT Narrative 08/25/2024 4:41 PM EDT ? [facility] ?[address] ?[place] [address] ? CT Scan Report ? Signed ? Patient: Adrianna Lucio ?MR#: [id number] ?? 144 ? : 1965 ?Acct:[id number] ? Age/Sex: 59 / F ?ADM Date: 08/25/24 ? Loc: HO.ED ? Attending Dr: ? Ordering Physician: Devika Mathias ?? Date of Service: 08/25/24 ?? Procedure(s): CT soft tissue neck w IV con ?? Accession Number(s): [id number] ? cc: Deyvi Ramos MD; Devika Mathias ? Report Number: ?? [id number]: Total DLP = ??388.00 mGy-cm ?? EXAMINATION: ?? CT SOFT TISSUE NECK WITH CONTRAST ? CLINICAL INFORMATION: ?? Left-sided facial swelling. ? COMPARISON: ?? Correlation made with CT chest 09/17/2018. ? TECHNIQUE: ?? Following the intravenous administration of 60 mL of Omnipaque 350 ?? intravenous contrast, helical imaging was performed in the axial plane ?? with generation of coronal and sagittal reformatted images. ? This CT examination was performed using dose optimization techniques as ?? appropriate, variously including the following: ?? *Automated exposure control ?? *Adjustment of mA and/or kV according to patient size (this includes ?? techniques or standardized protocols for targeted exams where dose is ?? matched to indication/reason for exam; i.e. extremities or head) ?? *Use of iterative reconstruction technique ? FINDINGS: ?? Lymph Nodes: ?? -Reactive appearing left level 2 lymph nodes, largest measuring 1.0 cm ?? short axis (series 2, image 53). ?? -No pathologic adenopathy seen. ? Carotid Sheath Structures: ?? -Normal. ? Salivary Glands: ?? -Within the inferior left parotid gland/parotid tail, abutting the ?? angle of the left mandible, there is an abscess collection with ?? enhancing wall measuring 2.1 x 2.0 x 1.8 cm, presumably dental in ?? origin. Inflammatory changes extend into the left submandibular space, ?? with enhancement and thickening of the left platysma. Reactive ?? enhancement and thickening of the inferior left parotid is noted. There ?? is periapical lucency surrounding the root tip of tooth #17 (Series 2, ?? image 48). This is likely the source. This is also seen on (series 7, ?? image 57). ?? -The remainder of the salivary glands image normally. ? Tongue Base/Floor of Mouth: ?? -Partially obscured by extensive artifact from dental amalgam although ?? no abnormality is evident. ? Mucosal Space: ?? - Normal. ? Visceral Space: ?? -Thyroid gland: 9 mm nodule left lobe. No follow-up recommended. ?? Thyroid otherwise normal. ?? -Visceral space otherwise Normal. ? Retropharangeal Space: ?? - Normal. ? Parapharyngeal Fat Planes: ?? -Mild infiltration on the left from the inflammatory process in the ?? supervisor photoengraving space. ? It Help Desk Manager Spaces: ?? -Mild thickening of the left masseter and left pterygoid musculature, ?? likely reactive. Abscess collection left posterior masseter as above. ?? The right side appears normal. ? Anterior Cervical Space: ?? -Normal. ? Imaged Intracranial Contents: ?? -No mass effect, edema, or abnormal enhancement. Cortical and dural ?? venous sinuses are patent. The skull base is normal. ? Globes and Orbits: ?? -Normal. ? Paranasal Sinuses/Mastoids/Tympanic Spaces: ?? -Normally aerated bilaterally. ? Lung Apices and Superior Mediastinal Structures: ?? -9 mm calcified nodule in the posterior right upper lobe. Moderate ?? centrilobular emphysema. There is right apical scarring with a ?? stellate-like lesion in the right central apex with some degree of ?? calcification, stable findings from 09/17/2018 and benign. Lung apices ?? are otherwise clear. ?? -No mediastinal lymphadenopathy identified. ? Bony Structures: ?? -No suspicious bone lesions. No fractures. Degenerative disc changes ?? C5-6 and C6-7. ?? -Normal TM joints. ? CT/CT soft tissue neck w IV con ?? IMPRESSION: ?? 1. Likely dental origin abscess at the angle left mandible, involving ?? the left posterior masseter muscle and inferior left parotid gland. ?? This measures 2.1 x 2.0 x 1.8 cm, with associated inflammatory changes ?? surrounding. ?? 2. Origin appears to be related to periapical lucency with erosion of ?? the buccal cortex of the mandible involving molar #17. ?? 3. Stellate right apical pulmonary scarring, stable and benign. ?? Centrilobular emphysematous changes. ?? 4. Additional ancillary findings as discussed in the body of the report. ? Electronically signed by: ??Merlin Ortega MD ??08/25/2024 04:38 PM EDT RP ? Dictated By: ?Merlin Ortega MD ? Signed By: ?<Electronically signed by Merlin Ortega MD in OV> ?08/25/24 1638 ? DD/ 1551 ? TD/TT: 08/25/24 1619 ? Sub Assembly Team Worker: ? Procedure Note Jun Foreman - 08/25/[address] [place] [address] [address] Scan Report Signed Patient: Adrianna Lucio AMR#: [id number] 144 : 1965Acct:[id number] Age/Sex: 59 / FADM Date: 08/25/24 Loc: HO.ED Attending Dr: Ordering Physician: Devika Mathias Date of Service: 08/25/24 Procedure(s): CT soft tissue neck w IV con Accession Number(s): [id number] cc: Deyvi Ramos MD; Devika Mathias Report Number: [id number]: Total DLP = 388.00 mGy-cm EXAMINATION: CT SOFT TISSUE NECK WITH CONTRAST CLINICAL INFORMATION: Left-sided facial swelling. COMPARISON: Correlation made with CT chest 09/17/2018. TECHNIQUE: Following the intravenous administration of 60 mL of Omnipaque 350 intravenous contrast, helical imaging was performed in the axial plane with generation of coronal and sagittal reformatted images. This CT examination was performed using dose optimization techniques as appropriate, variously including the following: *Automated exposure control *Adjustment of mA and/or kV according to patient size (this includes techniques or standardized protocols for targeted exams where dose is matched to indication/reason for exam; i.e. extremities or head) *Use of iterative reconstruction technique FINDINGS: Lymph Nodes: -Reactive appearing left level 2 lymph nodes, largest measuring 1.0 cm short axis (series 2, image 53). -No pathologic adenopathy seen. Carotid Sheath Structures: -Normal. Salivary Glands: -Within the inferior left parotid gland/parotid tail, abutting the angle of the left mandible, there is an abscess collection with enhancing wall measuring 2.1 x 2.0 x 1.8 cm, presumably dental in origin. Inflammatory changes extend into the left submandibular space, with enhancement and thickening of the left platysma. Reactive enhancement and thickening of the inferior left parotid is noted. There is periapical lucency surrounding the root tip of tooth #17 (Series 2, image 48). This is likely the source. This is also seen on (series 7, image 57). -The remainder of the salivary glands image normally. Tongue Base/Floor of Mouth: -Partially obscured by extensive artifact from dental amalgam although no abnormality is evident. Mucosal Space: - Normal. Visceral Space: -Thyroid gland: 9 mm nodule left lobe. No follow-up recommended. Thyroid otherwise normal. -Visceral space otherwise Normal. Retropharangeal Space: - Normal. Parapharyngeal Fat Planes: -Mild infiltration on the left from the inflammatory process in the supervisor photoengraving space. It Help Desk Manager Spaces: -Mild thickening of the left masseter and left pterygoid musculature, likely reactive. Abscess collection left posterior masseter as above. The right side appears normal. Anterior Cervical Space: -Normal. Imaged Intracranial Contents: -No mass effect, edema, or abnormal enhancement. Cortical and dural venous sinuses are patent. The skull base is normal. Globes and Orbits: -Normal. Paranasal Sinuses/Mastoids/Tympanic Spaces: -Normally aerated bilaterally. Lung Apices and Superior Mediastinal Structures: -9 mm calcified nodule in the posterior right upper lobe. Moderate centrilobular emphysema. There is right apical scarring with a stellate-like lesion in the right central apex with some degree of calcification, stable findings from 09/17/2018 and benign. Lung apices are otherwise clear. -No mediastinal lymphadenopathy identified. Bony Structures: -No suspicious bone lesions. No fractures. Degenerative disc changes C5-6 and C6-7. -Normal TM joints. CT/CT soft tissue neck w IV con IMPRESSION: 1. Likely dental origin abscess at the angle left mandible, involving the left posterior masseter muscle and inferior left parotid gland. This measures 2.1 x 2.0 x 1.8 cm, with associated inflammatory changes surrounding. 2. Origin appears to be related to periapical lucency with erosion of the buccal cortex of the mandible involving molar #17. 3. Stellate right apical pulmonary scarring, stable and benign. Centrilobular emphysematous changes. 4. Additional ancillary findings as discussed in the body of the report. Electronically signed by: Merlin Ortega MD 08/25/2024 04:38 PM EDT Dictated By: Merlin Ortega MD Signed By: <Electronically signed by Merlin Ortega MD in OV> 08/25/24 1638 DD/ 1551 TD/TT: 08/25/24 1619 Sub Assembly Team Worker: [facility] External Provider IMG CT PROCEDURES Edited Result - Final * (ABNORMAL) CBC auto differential (08/25/2024 11:45 AM EDT) White Blood Count 10.4 4.8 - 10.8 X10*3/uL [facility] Red Blood Count 4.36 4.20 - 5.50 X10*6/uL [facility] Hemoglobin 13.2 12.0 - 16.0 g/dl [facility] Hematocrit 39.6 37.0 - 47.0 % [facility] Mean Corpuscular Volume 90.8 80.0 - 98.0 fL [facility] Mean Corpuscular Hemoglobin 30.3 27.0 - 33.0 pg [facility] Mean Corpuscular HGB Conc 33.3 31.0 - 35.0 g/dl [facility] Red Cell Distribution Width 12.4 11.0 - 16.0 % [facility] Platelet Count 287 160 - 400 X10*3/uL [facility] Mean Platelet Volume 9.4 9.4 - 12.3 fL [facility] Neutrophils Percent Auto 69.5 45 - 73 % [facility] Imm Gran Pct Auto 0.3 0.0 - 0.4 % [facility] Lymphocytes Percent Auto 17.4(L) 20 - 40 % [facility] Monocytes Percent Auto 12.1(H) 2 - 11 % [facility] Eosinophils Percent Auto 0.4 0 - 4 % [facility] Basophils Percent Auto 0.3 0 - 2 % [facility] NRBC Pct Auto 0.0 0.0 - 0.2 /100WBC [facility] Neutrophils Absolute Auto 7.3 2.0 - 8.3 x10*3/uL [facility] Imm Gran Abs Auto 0.03 0.00 - 0.03 X10*3/uL [facility] Lymphocytes Absolute Auto 1.8 1.2 - 4.9 X10*3/uL [facility] Monocytes Absolute Auto 1.3(H) 0.1 - 1.2 X10*3/uL [facility] Eosinophils Absolute Auto 0.0 0.0 - 0.4 X10*3/uL [facility] Basophils Absolute Auto 0.0 0.0 - 0.2 X10*3/uL [facility] NRBC Abs Auto 0.000 0.0 - 0.012 X10*3/uL [facility] 08/25/2024 11:4 5 AM EDT 08/25/2024 11:53 AM EDT us Generic External Data Provider LAB BLOOD ORDERAB LES Final Result [facility] [address] [place] [phone] [phone] * Sed Rate by Modified Westergren (08/25/2024 11:45 AM EDT) Pathologist [facility] Erythrocyte Sedimentation Rate 20 0 - 20 MM/HR [facility] Comment:Patients with polycy themia and many hemoglobin abnormalitiesmay have depressed sed rates whereas patients with anemiamay have elevated sed rates. 08/25/2024 11:4 5 AM EDT 08/25/2024 11:53 AM EDT Generic External Data Provider LAB BLOOD ORDERAB LES Final Result Performing Organization Address [facility]/ZIP Co de Phone Number [facility] [address] [place] [phone] * (ABNORMAL) C-reactive Protein (08/25/2024 11:45 AM EDT) Pathologist [facility] C Reactive Protein 8.79(H) < or = 0.50 mg/dL [facility] 08/25/2024 11:4 5 AM EDT 08/25/2024 11:53 AM EDT Generic External Data Provider LAB BLOOD ORDERAB LES Final Result Performing Organization Address [facility] Co de Phone Number [facility] [address] [place] [phone] * Basic Metabolic Panel (08/25/2024 11:45 AM EDT) Pathologist [facility] Sodium 141 135 - 145 mmol/L [facility] Potassium 4.1 3.3 - 5.1 mmol/L [facility] Chloride 104 96 - 108 mmol/L [facility] Carbon Dioxide 27 22 - 29 mmol/L [facility] Anion Gap 14 12 - 20 [facility] Urea Nitrogen (BUN) 9 9 - 16 mg/dL [facility] Creatinine, Serum 0.58 0.5 - 1.4 mg/dL [facility] Creatinine Clr Calc Pharmacy 105.5 [facility] Comment:Provided height and weight: 165.1 cm,74.5 kg.eGFR (calculated from the MDRD study equation) and eCrCl(calculated from the Cockcroft-Gault equation) are based ondifferent parameters and may not yield comparable results.If eCrCl result is absurd, please check patient'sheight/weight. Estimated Glomerular Filt Rate >60 [facility] Comment:Chronic Kidney Disea se: Estimated GFR < 60 mL/min/[id number] Kidney Disease: Estimated GFR < 15 mL/min/1.73m2 Glucose 111 60 - 115 mg/dL [facility] Calcium 9.6 8.4 - 10.2 mg/dL [facility] 08/25/2024 11:4 5 AM EDT 08/25/2024 11:53 AM EDT us Generic External Data Provider LAB BLOOD ORDERAB LES Final Result Performing Organization Address City/State/[facility] Co de Phone Number [facility] [address] [place] [phone] * 3D DIGITAL MADHAVI SCR MAMMO 1 [...] Most Recently Relevant to Health Maintenance [place] [id number] [id number] Care Teams Room Service Manager Relationship Specialty Start Date End Date Deyvi Ramos MD [address] [place] [address] ROCAEL Waterman [phone] PCP - General Internal Medicine 11/22/23 [facility] 04/04/24
--- OUTSIDE RECORDS SUMMARY | 2024-08-25 17:19 | XMS_ITS | Encounter Summary ---
Author Organization [employer] Address [address] [facility] 7 [place] [address] Care Team Providers Care Quiller Hand Name Role Phone Deyvi Ramos MD Primary Care Provider [phone] Reason for Visit * Reason Comments Med Refill Encounter Details Date Type Department Care Team ([facility] Contact Info) Description 08/09/2023 Refill [facility] [address] [place] [address] Deyvi Ramos MD [address] [place] [address] Social History Tobacco Use Types Packs/Day Years [...] Upcoming Encounters Date Type Department Care Team ([facility] Contact Info) Description 10/16/2024 10:30 AM EDT Office Visit [facility]S [address] [place] [address] Deyvi Ramos MD [address] [place] [address] documented as of this encounter Visit Diagnoses Not on filedocumented in this encounter Care Teams Quiller Hand Relationship Specialty Start Date End Date Deyvi Ramos MD [address] [place] [phone] PCP - General Internal Medicine 11/22/23 [facility] 04/04/24 documented as of this encounter
--- OUTSIDE RECORDS SUMMARY | 2024-08-25 17:19 | XMS_ITS | Encounter Summary ---
Author Organization [employer] Address [address] [facility] [address] [place] [address] Care Team Providers Care Dewatering Filtering Supervisor Name Role Phone Deyvi Ramos MD Primary Care Provider [phone] Reason for Visit * Reason Onset Date Comments Appointment Request 06/17/2024 Encounter Details Date Type Department Care Team ([facility] st Contact Info) Description 06/17/2024 Telephone [facility] & PEDS [address] [place] [address] Deyvi Ramos MD [address] [place] [address] Appointment Request Social History Tobacco Use Types [...] Description 10/16/2024 10:30 AM EDT Office Visit [facility] MED [facility]ED[facility] [address] [place] [address] Deyvi Ramos MD [address] [place] [address] documented as of this encounter Visit Diagnoses Not on filedocumented in this encounter Care Teams Dewatering Filtering Supervisor Relationship Specialty Start Date End Date Deyvi Ramos MD [address] [place] [address] PCP - General Internal Medicine 11/22/23 [facility] 04/04/24 documented as of this encounter
--- OUTSIDE RECORDS SUMMARY | 2024-08-25 17:19 | XMS_ITS | Encounter Summary ---
Author Organization [employer] Address [address] [facility] 7 [place] [address] Care Team Providers Care Refractory Mixer Name Role Phone Deyvi Ramos MD Primary Care Provider [phone] Reason for Visit * Reason Comments Med Refill Encounter Details Date Type Department Care Team ([facility] Contact Info) Description 06/26/2023 Refill [facility] [address] [place] [address] Deyvi Ramos MD [address] [place] [address] Social History Tobacco Use Types Packs/Day Years [...] Upcoming Encounters Date Type Department Care Team ([facility] Contact Info) Description 10/16/2024 10:30 AM EDT Office Visit [facility] MED [facility] PEDS [address] [place] [address] Deyvi Ramos MD [address] [place] [address] documented as of this encounter Visit Diagnoses Not on filedocumented in this encounter Care Teams Refractory Mixer Relationship Specialty Start Date End Date Deyvi Ramos MD [address] [place] [phone] PCP - General Internal Medicine 11/22/23 [facility] 04/04/24 documented as of this encounter
--- OUTSIDE RECORDS SUMMARY | 2024-08-25 17:19 | XMS_ITS | Encounter Summary ---
Author Organization [employer] Address [address] [place] [address] 7 [place] [address] Care Team Providers Care Drawing Kiln Operator Name Role Phone Deyvi Ramos MD Primary Care Provider [phone]- [phone] Reason for Visit * Reason Comments Med Refill Encounter Details Date Type Department Care Team (Late Contact Info) Description 08/13/2023 Refill [facility] MED & PEDS [address] [place] [address] Deyvi Ramos MD 505 [place] [address] Osteoporosis of disuse Social History Tobacco Use [...] Description 10/16/2024 10:30 AM EDT Office Visit [facility] [address] [place], [place] [phone] Deyvi Ramos MD 505 [place] [address] documented as of this encounter Visit Diagnoses Diagnosis Osteoporosis of disuse Disuse osteoporosis documented in this encounter Care Teams Drawing Kiln Operator Relationship Specialty Start Date End Date Deyvi Ramos MD [address] [place] [address] PCP - General Internal Medicine 11/22/23 [facility] 04/04/24 documented as of this encounter
--- OUTSIDE RECORDS SUMMARY | 2024-08-25 17:19 | XMS_ITS | Clinical Summary ---
Author Organization 175 [facility] Address 175 [place] [address] Phone Care Team Providers Care Glass Tube Bender Name Role Phone Deyvi Ramos MD Primary Care Provider [phone] Allergies Active Allergy Reactions Criticality Noted Date [...] Diagnosed Date Hypercholesteremia 11/07/2010 COPD (chronic obstructive pu lmonary disease) ([facility] V24, [facility] V28) 11/04/2010 Overview (07/16/2024): Moderate-severe without reversibility on PFTs [...] Upcoming Encounters Date Type Department Care Team ([facility] Contact Info) Description 09/11/2024 10:30 AM EDT Consult Orthopedic Surgery - [place] [address] [address] Yunier Gaytan, DPM [address] [address] Health Maintenance Due Date Last Done Comments [...] Influencers of Health Screening 12/04/2023 COVID-19 Vaccine ( - 2023-2 5 season) 2024 Influenza Vaccine (Season Ended) 2025 04/21/2009 RSV Immunization Adult Patients (1 - 1-dose 75+ series) 2040 HIB [...] age to complete this topic Meningococcal B Vaccine Aged Out No l onger eligible based on patient's age to complete [...] Health Maintenance Results * Lipid panel (11/07/2010) Pathologist [facility] LDL/HDL Ratio 3 0 - 4 Triglycerides 103 0 - 150 mg/dL Cholesterol 190 0 - 200 mg/dL HDL 76 >=40 mg/dL LDL Cholesterol 94 0 - 100 mg/dL Blood Venous blood specimen / Unknown Historical Provider LAB BLOOD ORDERABLES Renée l Result * Cervical Cancer Screening: HPV (02/01/2007) Pathologist [facility] Cervical Cancer Screening: HPV no interpretation , abstracted Historical Provider HEALTH MAINTENANCE Final Result from Last 3 Months or Most Recently Relevant to Health Maintenance Insurance MEDICAID - [place] Care Teams Glass Tube Bender Relationship Specialty Start Date End Date Deyvi Ramos MD [address] [place] [address] PCP - General Internal Medicine 07/14/24
--- OUTSIDE RECORDS SUMMARY | 2024-08-25 17:19 | XMS_ITS | Encounter Summary ---
Author Organization [employer] Address 75 [facility] 7t [place] [address] Care Team Providers Care Criminal Justice Department Chair Name Role Phone Deyvi Ramos MD Primary Care Provider [phone]- [phone] Reason for Visit * Reason Onset Date Comments Durable Medical Equipment 03/27/2024 Encounter Details Date Type Department Care Team ([facility] st Contact Info) Description 03/27/2024 Telephone [facility] CHC MED & PEDS 505 [place] [address] Deyvi Ramos MD 505 [place] [address] Durable Medical Equipment Social History Tobacco Use [...] Description 10/16/2024 10:30 AM EDT Office Visit [facility] CHC MED & PEDS 505 [place] [address] Deyvi Ramos MD 505 [place] [address] documented as of this encounter Visit Diagnoses Not on filedocumented in this encounter Care Teams Criminal Justice Department Chair Relationship Specialty Start Date End Date Deyvi Ramos MD [address] [place] [address] PCP - General Internal Medicine 11/22/23 [facility] 04/04/24 documented as of this encounter
--- OUTSIDE RECORDS SUMMARY | 2024-08-25 17:19 | XMS_ITS | Encounter Summary ---
Author Organization [employer] Address 75 [facility] 7t [place] [address] Care Team Providers Care Fulfillment Mail Clerk Name Role Phone Deyvi Ramos MD Primary Care Provider [phone]- [phone] Deyvi Ramos MD Primary Care Provider [phone]- [phone] Reason for Visit * Reason Onset Date Comments New Script 09/20/2022 Encounter Details Date Type Department Care Team ([facility] st Contact Info) Description 09/20/2022 Telephone [facility] CHC MED & PEDS 505 [place], [place] [phone] Deyvi Ramos MD 505 [place], [place] [phone] New Script Social History Tobacco Use Types [...] - 09/20/2022 11:17 AM EDT Tc from [facility] requesting a new script for calcium carbonate 1500 (600 Ca) MG tablet for a 90 day's supply due to insurance not covering other script. Please contact pharmacy at [phone] documented in this encounter Plan of Treatment Upcoming Encounters Date Type Department Care Team (Late st Contact Info) Description 10/16/2024 10:30 AM EDT Office Visit [facility] MED & PEDS [address] [place] [address] Deyvi Ramos MD 505 [place] [address] documented as of this encounter Visit Diagnoses Not on filedocumented in this encounter Care Teams Fulfillment Mail Clerk Relationship Specialty Start Date End Date Deyvi Ramos MD [address] [place] [address] PCP - General Internal Medicine 06/12/13 06/03/23 Deyvi Ramos MD 505 [place] [address] PCP - General Internal Medicine 11/22/23 [facility] 04/04/24 documented as of this encounter
--- OUTSIDE RECORDS SUMMARY | 2024-08-25 17:19 | XMS_ITS | Encounter Summary ---
Author Organization [employer] Address 75 [facility] 7t [place] [address] Care Team Providers Care Environmental Sciences Professor Name Role Phone Deyvi Ramos MD Primary Care Provider [phone] Encounter Details Date Type Department Care Team ([facility] st Contact Info) Description 05/16/2024 Orders Only [facility] CHC MED & PEDS 505 [place], [place] [phone] Deyvi Ramos MD 505 [place] [address] Social History Tobacco Use Types Packs/Day Years [...] Description 10/16/2024 10:30 AM EDT Office Visit [facility] MED & PEDS [address] [place] [address] Deyvi Ramos MD 505 [place] [address] documented as of this encounter Visit Diagnoses Not on filedocumented in this encounter Care Teams Environmental Sciences Professor Relationship Specialty Start Date End Date Deyvi Ramos MD 505 [place] [address] PCP - General Internal Medicine 11/22/23 [facility] 04/04/24 documented as of this encounter
--- OUTSIDE RECORDS SUMMARY | 2024-08-25 17:19 | XMS_ITS | Encounter Summary ---
Author Organization [employer] Address [address] [place] [address] 7 [place] [address] Care Team Providers Care Slurry Control Tender Name Role Phone Deyvi Ramos MD Primary Care Provider [phone]- [phone] Deyvi Ramos MD Primary Care Provider [phone]- [phone] Encounter Details Date Type Department Care Team ([facility] Contact Info) Description 11/16/2022 Orders Only [facility] MED & PEDS 505 [place] [address] Evette Senior LPN Social History Tobacco Use [...] Upcoming Encounters Date Type Department Care Team ([facility] Contact Info) Description 10/16/2024 10:30 AM EDT Office Visit [facility] CHC MED & PEDS 505 [place] [address] Deyvi Ramos MD 505 [place], [place] [phone] documented as of this encounter Visit Diagnoses Not on filedocumented in this encounter Care Teams Slurry Control Tender Relationship Specialty Start Date End Date Deyvi Ramos MD 505 [place] [address] PCP - General Internal Medicine 06/12/13 06/03/23 Deyvi Ramos MD [address] [place] [address] ROCAEL Waterman [address] PCP - General Internal Medicine 11/22/23 [facility] 04/04/24 documented as of this encounter
--- OUTSIDE RECORDS SUMMARY | 2024-08-25 17:19 | XMS_ITS | Encounter Summary ---
Author Organization [employer] Address [address] [place] [address] 7 [place] [address] Care Team Providers Care Manager Social Services Name Role Phone Deyvi Ramos MD Primary Care Provider [phone]- [phone] Deyvi Ramos MD Primary Care Provider [phone]- [phone] Encounter Details Date Type Department Care Team ([facility] Contact Info) Description 09/19/2022 Orders Only [facility] MED & PEDS 505 [place] [address] Judith Britton LPN Social History Tobacco Use [...] Upcoming Encounters Date Type Department Care Team ([facility] Contact Info) Description 10/16/2024 10:30 AM EDT Office Visit [facility] MED & PEDS 505 [place] [address] Deyvi Ramos MD 505 [place] [address] documented as of this encounter Visit Diagnoses Not on filedocumented in this encounter Care Teams Manager Social Services Relationship Specialty Start Date End Date Deyvi Ramos MD 505 [place] [address] PCP - General Internal Medicine 06/12/13 06/03/23 Deyvi Ramos MD [address] [place] [address] [place] Waterman [address] PCP - General Internal Medicine 11/22/[address] [facility] 04/04/24 documented as of this encounter
--- OUTSIDE RECORDS SUMMARY | 2024-08-25 17:19 | XMS_ITS | Encounter Summary ---
Author Organization [employer] Address 75 [facility] 7t [place] [address] Care Team Providers Care Ocean Freight Manager Name Role Phone Deyvi Ramos MD Primary Care Provider [phone] Reason for Visit * Reason Onset Date Comments Referral 06/17/2024 Encounter Details Date Type Department Care Team ([facility] st Contact Info) Description 06/17/2024 Telephone [facility] CHC MED & PEDS 505 [place], [place] [phone] Deyvi Ramos MD 505 [place] [address] Referral Social History Tobacco Use Types Packs/Day [...] Description 10/16/2024 10:30 AM EDT Office Visit [facility] MED & PEDS 505 [place] [address] Deyvi Ramos MD 505 [place] [address] documented as of this encounter Visit Diagnoses Not on filedocumented in this encounter Care Teams Ocean Freight Manager Relationship Specialty Start Date End Date Deyvi Ramos MD 505 [place] [address] PCP - General Internal Medicine 11/22/23 [facility] 04/04/24 documented as of this encounter
--- OUTSIDE RECORDS SUMMARY | 2024-08-25 17:19 | XMS_ITS | Encounter Summary ---
Author Organization [employer] Address 75 [facility] 7t [place] [address] Care Team Providers Care Block Cableman Name Role Phone Deyvi Ramos MD Primary Care Provider [phone] [phone] Encounter Details Date Type Department Care Team ([facility] st Contact Info) Description 08/25/2024 Orders Only GENERIC EXTERNAL DATA DEPARTMENT Provider, Generic External Data Social History Tobacco Use Types Packs/Day Years [...] Upcoming Encounters Date Type Department Care Team ([facility] st Contact Info) Description 10/16/2024 10:30 AM EDT Office Visit [facility] CHC MED & PEDS 505 [place], [place] [phone] Deyvi Ramos MD 505 [place], [place] [phone] documented as of this encounter Procedures Procedure Name Priority Date/Time Associated Diagnosis Comments CT SOFT TISSUE NECK W CONTRAST Routine 08/25/2024 3:51 PM EDT CBC WITH AUTO DIFFERENTIAL Routine 08/25/2024 11:45 AM EDT SED RATE BY MODIFIED WESTERGREN Routine 08/25/2024 11:45 AM EDT C-REACTIVE PROTEIN Routine 08/25/2024 11 :45 AM EDT BASIC METABOLIC PANEL Routine 08/25/2024 11:45 AM EDT documented in this encounter Results * CT Soft Tissue Neck w/ Contrast (08/25/2024 3:51 PM EDT) Anatomical Region Laterality Modality Head, Neck Computed Tomogra phy 08/25/2024 3:51 PM EDT Narrative 08/25/2024 4:41 PM EDT ? [facility] ?[address] ?[place] [address] ? CT Scan Report ? Signed ? Patient: Khadijah,Adrianna A ?MR#: [id number] ?? 144 ? : 1965 ?Acct:[id number] ? Age/Sex: 59 / F ?ADM Date: 08/25/24 ? Loc: HO.ED ? Attending Dr: ? Ordering Physician: Devika Mathias ?? Date of Service: 08/25/24 ?? Procedure(s): CT soft tissue neck w IV con ?? Accession Number(s): [id number] ? cc: Deyvi Ramos MD; Devika Mathias ? Report Number: ?? [id number]: Total DLP = ??388.00 mGy-cm ?? EXAMINATION: [...] from the inflammatory process in the ?? fashion designer space. ? Molder Floor Spaces: ?? -Mild thickening of the left [...] DD/ 1551 ? TD/TT: 08/25/24 1619 ? Veneer Manufacturer: ? Procedure Note Ahsan, Jun - 08/25/[address] [place] [address] [address] Scan Report Signed Patient: Adrianna Lucio AMR#: [id number] 144 : 1965Acct:[id number] Age/Sex: 59 / FADM Date: 08/25/24 Loc: HO.ED Attending Dr: Ordering Physician: Devika Mathias Date of Service: 08/25/24 Procedure(s): CT soft tissue neck w IV con Accession Number(s): [id number] cc: Deyvi Ramos MD; Devika Mathias Report Number: [id number]: Total DLP = 388.00 mGy-cm EXAMINATION: CT [...] left from the inflammatory process in the fashion designer space. Molder Floor Spaces: -Mild thickening of the left masseter [...] 08/25/24 1638 DD/ 1551 TD/TT: 08/25/24 1619 Veneer Manufacturer: [facility] External Provider IMG CT PROCEDURES Edited Result - Final * Sed Rate by Modified Chetan (08/25/2024 11:45 AM EDT) Pathologist [facility] Erythrocyte Sedimentation Rate 20 0 - 20 MM/HR [facility] Comment:Patients with polycy themia and many hemoglobin abnormalitiesmay have depressed sed rates whereas patients with anemiamay have elevated sed rates. 08/25/2024 11:4 5 AM EDT 08/25/2024 11:53 AM EDT Generic External Data Provider LAB BLOOD ORDERAB LES Final Result [facility] [address] [place] [phone] * (ABNORMAL) C-reactive Protein (08/25/2024 11:45 AM EDT) C Reactive Protein 8.79(H) < or = 0.50 mg/dL [facility] 08/25/2024 11:4 5 AM EDT 08/25/2024 11:53 AM EDT Generic External Data Provider LAB BLOOD ORDERAB LES Final Result Performing Organization Address City/[facility] [address]/ZIP Co de Phone Number [facility] [address] [place] [address] [phone] * Basic Metabolic Panel (08/25/2024 11:45 AM EDT) Pathologist [facility] Sodium 141 135 - 145 mmol/L [facility] Potassium 4.1 3.3 - 5.1 mmol/L [facility] Chloride 104 96 - 108 mmol/L [facility] Carbon Dioxide 27 22 - 29 mmol/L [facility] Anion Gap 14 12 - 20 [facility] Urea Nitrogen (BUN) 9 9 - 16 mg/dL [facility] Creatinine, Serum 0.58 0.5 - 1.4 mg/dL [facility] Creatinine Clr Calc Pharmacy 105.5 [facility] Comment:Provided height and weight: 165.1 cm,74.5 kg.eGFR (calculated from the MDRD study equation) and eCrCl(calculated from the Cockcroft-Gault equation) are based ondifferent parameters and may not yield comparable results.If eCrCl result is absurd, please check patient'sheight/weight. Estimated Glomerular Filt Rate >60 [facility] Comment:Chronic Kidney Disea se: Estimated GFR < 60 mL/min/1.34s1Yedxor Kidney Disease: Estimated GFR < 15 mL/min/1.73m2 Glucose 111 60 - 115 mg/dL [facility] Calcium 9.6 8.4 - 10.2 mg/dL [facility] 08/25/2024 11:4 5 AM EDT 08/25/2024 11:53 AM EDT us Generic External Data Provider LAB BLOOD ORDERAB LES Final Result Performing Organization Address [facility] [address]/ZIP Co de Phone Number [facility] [address] [place] [address] [phone] * (ABNORMAL) CBC auto differential (08/25/2024 11:45 AM EDT) Pathologist [facility] White Blood Count 10.4 4.8 - 10.8 X10*3/uL [facility] Red Blood Count 4.36 4.20 - 5.50 X10*6/uL [facility] Hemoglobin 13.2 12.0 - 16.0 g/dl [facility] Hematocrit 39.6 37.0 - 47.0 % [facility] Mean Corpuscular Volume 90.8 80.0 - 98.0 fL [facility] Mean Corpuscular Hemoglobin 30.3 27.0 - 33.0 pg [facility] Mean Corpuscular HGB Conc 33.3 31.0 - 35.0 g/dl [facility] Red Cell Distribution Width 12.4 11.0 - 16.0 % [facility] Platelet Count 287 160 - 400 X10*3/uL [facility] Mean Platelet Volume 9.4 9.4 - 12.3 fL [facility] Neutrophils Percent Auto 69.5 45 - 73 % [facility] Imm Gran Pct Auto 0.3 0.0 - 0.4 % [facility] Lymphocytes Percent Auto 17.4(L) 20 - 40 % [facility] Monocytes Percent Auto 12.1(H) 2 - 11 % [facility] Eosinophils Percent Auto 0.4 0 - 4 % [facility] Basophils Percent Auto 0.3 0 - 2 % [facility] NRBC Pct Auto 0.0 0.0 - 0.2 /100WBC [facility] Neutrophils Absolute Auto 7.3 2.0 - 8.3 x10*3/uL [facility] Imm Gran Abs Auto 0.03 0.00 - 0.03 X10*3/uL [facility] Lymphocytes Absolute Auto 1.8 1.2 - 4.9 X10*3/uL [facility] Monocytes Absolute Auto 1.3(H) 0.1 - 1.2 X10*3/uL [facility] Eosinophils Absolute Auto 0.0 0.0 - 0.4 X10*3/uL [facility] Basophils Absolute Auto 0.0 0.0 - 0.2 X10*3/uL [facility] NRBC Abs Auto 0.000 0.0 - 0.012 X10*3/uL [facility] 08/25/2024 11:4 5 AM EDT 08/25/2024 11:53 AM EDT us Generic External Data Provider LAB BLOOD ORDERAB LES Final Result [facility] [address] [place] [address] [phone] documented in this encounter Visit Diagnoses Not on filedocumented in this encounter Additional Health Concerns Assessment Noted Time PHQ-9 Depression Total Score: 2 06/26/19 25 11:28 AM EST documented as of this encounter Care Teams Block Cableman Relationship Specialty Start Date End Date Deyvi Ramos MD [address] [place] [address] PCP - General Internal Medicine 11/22/[address] [facility] 04/04/24 documented as of this encounter
--- OUTSIDE RECORDS SUMMARY | 2024-08-25 17:19 | XMS_ITS | Encounter Summary ---
Author Organization [employer] Address 75 [facility] 7 [place] [address] Care Team Providers Care Vertical Roll Operator Name Role Phone Deyvi Ramos MD Primary Care Provider [phone]- [phone] Deyvi Ramos MD Primary Care Provider +1- [phone] Encounter Details Date Type Department Care Team (Latest Contact Info) Description 11/15/2018 Abstract [facility] CONVERSIONS Dental, Provider, DDS Social History Tobacco [...] Description 10/16/2024 10:30 AM EDT Office Visit [facility] CHC MED & PEDS [address] [place] [address] Deyvi Ramos MD [address] [place] [address] documented as of this encounter Visit Diagnoses Not on filedocumented in this encounter Care Teams Vertical Roll Operator Relationship Specialty Start Date End Date Deyvi Ramos MD [address] [place] [address] PCP - General Internal Medicine 06/12/13 06/03/23 Deyvi Ramos MD [address] [place] [address] PCP - General Internal Medicine 11/22/23 [facility] 04/04/24 documented as of this encounter
--- OUTSIDE RECORDS SUMMARY | 2024-08-25 17:19 | XMS_ITS | Encounter Summary ---
Author Organization [employer] Address [address] [place] [address] [place] [address] Care Team Providers Care Campground Hand Name Role Phone Deyvi Ramos MD Primary Care Provider +[phone] Reason for Referral * Consultation (Routine) - Canceled Specialty Diagnoses / Procedures Referred By Juan mcdonald Referred To Contact Podiatry Diagnoses Onychogryphosis Deyvi Ramos MD [address] [place] [address] Phone: tel: fax: Referral ID Status Reason Start Date Expiration Date Visits Requested Visits Authorized [id number] Canceled Specialty Services Required 06/18/2024 06/18/2025 1 1 Encounter Details Date Type Department Care Team ([facility] Contact Info) Description 06/18/2024 Orders Only [facility] CHC MED & PEDS [address] [place] [address] Deyvi Ramos MD [address] [place] [address] Onychogryphosis (Primary Dx) Social History Tobacco Use [...] Description 10/16/2024 10:30 AM EDT Office Visit [facility] CHC MED & PEDS [address] [place] [address] Deyvi Ramos MD [address] [place] [address] Scheduled Referrals Name Type Priority Associated Diagnoses Orde r Schedule Referral to Podiatry Outpatient Referral Routine Onychogryphosis Expected: 06/18/2024 (Approximate), Expires: 06/18/2025 documented as of this encounter Visit Diagnoses Diagnosis Onychogryphosis- Primary Other specified disease of nail documented in this encounter Care Teams Campground Hand Relationship Specialty Start Date End Date Deyvi Ramos MD [address] [place] [address] PCP - General Internal Medicine 11/22/23 [facility] 04/04/24 documented as of this encounter
[2024-08-25 20:09] VITALS: BP 115/73; PULSE 84; RESP 20; TEMP 36.7; O2SAT 98
[2024-08-25] MEDS: Morphine Sulfate 4 MG/ML CARTRIDGE IVPUSH (21:43)
--- NOTE | 2024-08-25 22:35 | PC.NURSE ---
Report Given to LORRIE Collins at [facility] ED
--- NOTE | 2024-08-25 22:36 | PC.NURSE ---
pt to be transferred via BLS to [facility]
[2024-08-25 23:06] VITALS: BP 131/73; PULSE 90; RESP 20; O2SAT 97
== END 2024-08-26 06:34 | disposition short-term general hospital (02) ==
PROVIDERS: Physician Assistant Medical; Emergency Provider Emergency Medicine; PCP Internal Medicine
DX: K04.7 Periapical abscess without sinus (principal); M54.2 Cervicalgia; Z79.899 Other long term (current) drug therapy
CPT/HCPCS: 36415; 70491; 80048; 85025; 85652; 86140; 87040; 96365; 96366; 96375; 99284; 99285; J0131; J0696; J2270; Q9967

== ENCOUNTER → 2024-08-25 15:28 | Outpatient (BNV) | payer MEDICAID, SELFPAY | PROVIDERS: Emergency Provider Emergency Medicine; PCP Internal Medicine; Visit Provider Radiology Diagnostic Radiology | DX: R22.0 Localized swelling, mass and lump, head (principal); K12.2 Cellulitis and abscess of mouth | CPT/HCPCS: 70491 ==

== ENCOUNTER 2024-10-16 11:34 | Outpatient (REF) | payer MEDICAID, SELFPAY ==
--- OUTSIDE RECORDS SUMMARY | 2024-10-16 13:47 | XMS_ITS | Encounter Summary ---
Author Organization [employer] Address [address] [place] [id number] Care Team Providers Care Hot Box Operator Name Role Phone Deyvi Ramos MD Primary Care Provider [phone] Deyvi Ramos MD Primary Care Provider [phone]- [phone] Reason for Visit * Reason Comments Med Refill Encounter Details Date Type Department Care Team (Late st Contact Info) Description 08/21/2022 Refill [facility] [address] [place] [address] Deyvi Ramos MD [address] [place] [address] Social History Tobacco Use Types Packs/Day Years Used Date Smoking Tobacco: Never Assessed Comments Unknown Sex and Gender Information Value Date Recorded Sex Assigned at Female 03/13/2022 10:22 AM EDT Legal Sex Female 10:22 AM EDT Gender Identity Female 03/13/2022 10:22 AM EDT Sexual Orientation Choose not to disclose 2021 10:22 AM EDT documented as of this encounter Plan of Treatment Not on file documented as of this encounter Visit Diagnoses Not on filedocumented in this encounter Care Teams Hot Box Operator Relationship Specialty Start Date End Date Deyvi Ramos MD [address] [place] [address] PCP - General Internal Medicine 06/12/13 06/03/23 Deyvi Ramos MD [address] [place] [address] PCP - General Internal Medicine 11/22/23 [facility] 04/04/24 documented as of this encounter
[2024-10-17 05:37] LABS: HIV AB/AG Nonreactive (Nonreactive); HIV Num 1 0.06 S/CO (0.00-0.99); ~HepC Num1 0.14 S/CO (0.00-0.79); ~Hepatitis C Antibody Nonreactive (Nonreactive)
== END 2024-10-16 11:35 | disposition home or self-care (01) ==
LOC: HO.CHCLDS 11:34
PROVIDERS: Visit Provider Internal Medicine
DX: S32.050A Wedge compression fracture of fifth lumbar vertebra, initial encounter for closed fracture (principal)
CPT/HCPCS: 36415; 86803; 87389

== ENCOUNTER 2024-11-07 11:03 | Outpatient (AMB) | payer MEDICAID, SELFPAY ==
--- NOTE | 2024-11-07 11:33 | A.SPINEOV_ITS ---
Intake Visit Reasons: LBP Intake Note: Ms. Lucio is here today c/o Low back pain that shoots down the Left leg. Vtc Technician Required: No Allergies amoxicillin (AMOXICILLIN) Allergy (Unknown, Verified 11/07/24 11:34) EYES SWELLING pseudoephedrine (Sudafed) Allergy (Unknown, Verified 11/07/24 11:34) Unknown Sulfa (Sulfonamide Antibiotics) (SULFA (SULFONAMIDE ANTIBIOTICS)) Allergy (Unknown, Verified 11/07/24 11:34) SWELLING Assessment & Plan Assessment & Plan (1) Compression fx, lumbar spine: Code(s): S32.000A - Wedge compression fracture of unspecified lumbar vertebra, initial encounter for closed fracture Category: Medical Plan Dear Dr Ramos, Thank you for referring Mrs Lucio to our office today. This is a very nice 59-year-old female history of osteoporosis, presents for evaluation of chronic low back pain. She was seen at the pain management office here a few months back and was considering kyphoplasty to her L2 vertebrae. She has been having ongoing back issues now since August 2023. She has no radiculopathy down her legs but does report some swelling in her left foot and ankle. She is here today to follow up on her back and possible discussions of what treatments can be done for her. She did go through physical therapy at 1 point, she was in rehabilitation inpatient but has not done anything for her back since she got out. She is interested in pursuing this. PMH: Anxiety, she has elevated blood pressure, osteoporosis, remote history of alcohol abuse per the records, oral abscess that required drainage Social hx: No longer smokes, occasionally uses alcohol, no marijuana Medications: She takes vitamins, prn albuterol, in a foot fungus cream Allergies: Sulfa and possibly amoxicillin Physical exam: Awake alert oriented no acute distress, walks with a walker, some limitations with hip flexion secondary to pain but strength and reflexes otherwise normal Imaging review: Lumbar MRI done at [facility] in May shows what looks like healed fractures at T12-L1, possibly subacute fracture at L2 as well as a healed fracture at L4. Some [id number] degenerative disc disease, no significant central canal or foraminal stenosis Impression: 59-year-old female with early onset osteoporosis, has multiple compression fractures, most of them are healed, and I suspect this subacute 1 from May is also healed at this point. She has chronic back pain which is common in patients with osteoporosis and compression fractures. Right now I am not sure where her back pain is coming from as there are multiple potential sources. Certainly she does not need any surgical intervention on our end, but she may have a new fracture which might be amenable to a kyphoplasty which Dr. Bui performs here at [facility]. She has seen him in the past so I told her she should follow up with him and can order a new MRI if he feels it indicated. Also, she should consider seeing an mold laminator, as she is very young to have this extensive amount of osteoporosis and compression fractures. She is not taking the alendronate anymore because she is concerned it may have cause some part of her jaw abscess last year so right now she is not even taking calcium and vitamin-D. I did give her referral to physical therapy as she is interested in doing some strengthening exercises for her back which is certainly reasonable. Thank you for allowing us to care for your patient. The total time spent with this visit with this patient was 45 minutes reviewing history, physical exam, lumbar imaging review, and implementation of treatment plan or further diagnostic testing Izaiah Olvera MD,PhD [facility] Orders: Orders PT Evaluation and Treatment Today S32.000A - Wedge compression fracture of unspecified lumbar vertebra, initial encounter for closed fracture Coding Level of Care Code New Pt Level 4 (70827) Diagnoses Compression fx, lumbar spine S32.000A
--- OUTSIDE RECORDS SUMMARY | 2024-11-07 12:17 | XMS_ITS ---
Author Name [facility] Organization Unknown Results Test Name/Text Value Interpretation Date Range Source GFR/BSA.pred SerPlBld [id number] >90.0 Normal 08/28/2024 59 - HHCCT Sodium SerPl-sCnc 141.0 mmol/L Normal 08/28/2024 136 - 14 5 H[facility]CT Calcium SerPl-mCnc 9.1 mg/dL Normal 08/28/2024 8.7 - 10.5 H[facility]CT Chloride SerPl-sCnc 104.0 mmol/L Normal 08/28/2024 98 - 1 07 HHCCT BUN SerPl-mCnc 8.0 mg/dL Normal 08/28/2024 8 - 21 HH[facility] T CO2 SerPl-sCnc 22.0 mmol/L Normal 08/28/2024 22 - 33 HH CCT Creat SerPl-mCnc 0.4 mg/dL Normal 08/28/2024 0.4 - 1.1 HH CCT BUN/Creat SerPl 20.0 Ratio Normal 08/28/2024 10 - 25 HH CCT Glucose SerPl-mCnc 83.0 mg/dL Normal 08/28/2024 65 - 99 [facility]CT Anion Gap Bld-sCnc 15.0 Normal 08/28/2024 7 - 17 [facility]CT Potassium SerPl-sCnc 4.1 mmol/L Normal 08/28/2024 3.4 - 5 .3 H[facility]CT Hgb Bld-mCnc 12.5 g/dL Normal 08/28/2024 11.7 - 15.7 [facility] T Basophils/leuk NFr Bld Auto 0.3 % Normal 08/28/2024 [facility] Monocytes/leuk NFr Bld Auto 14.4 % Normal 08/28/2024 H[facility]CT Hct VFr Bld Auto 39.2 % Normal 08/28/2024 35 - 47 HH CCT MCHC RBC Auto-mCnc 31.9 g/dL Normal 08/28/2024 30 - 36 [facility]CT Lymphocytes/leuk NFr Bld Auto 20.8 % Normal 08/28/2024 H[facility]CT Eosinophil num Bld Auto 0.16 Thou/uL Normal 08/28/2024 0 - 0.7 H[facility]CT MCV RBC Auto 91.0 fL Normal 08/28/2024 80 - 100 [facility]CT Neutrophils num Bld Auto 3.88 Thou/uL Normal 08/28/2024 2 - 7.5 H[facility]CT Imm Granulocytes num Bld Auto 0.03 Thou/uL Normal 08/28/2024 0 - 0.1 [facility] Platelet num Bld Auto 303.0 Thou/uL Normal 08/28/2024 150 - 450 H[facility]CT WBC num Bld Auto 6.3 Thou/uL Normal 08/28/2024 4 - 11 [facility]CT PMV Bld Auto 9.5 fL Normal 08/28/2024 7.5 - 12.5 H[facility]CT Imm Granulocytes/leuk NFr Bld Auto 0.5 % Normal 08/28/2024 H[facility]CT Lymphocytes num Bld Auto 1.31 Thou/uL Below low normal 08/28/2024 1.5 - 4.5 H[facility]CT Eosinophil/leuk NFr Bld Auto 2.5 % Normal 08/28/2024 [facility]CT Monocytes num Bld Auto 0.91 Thou/uL Normal 08/28/2024 0.2 - 1.5 [facility]CT Neutrophils/leuk NFr Bld Auto 61.5 % Normal 08/28/2024 H[facility]CT Basophils num Bld Auto 0.02 Thou/uL Normal 08/28/2024 0 - 0.2 [facility] RBC num Bld Auto 4.32 Mil/uL Normal 08/28/2024 4 - 5.4 H[facility]CT RDW RBC Auto-Rto 12.3 % Normal 08/28/2024 11.5 - 14.5 H[facility]CT MCH RBC Qn Auto 28.9 pg Normal 08/28/2024 27 - [address] Magnesium SerPl-mCnc 1.7 mg/dL Normal 08/27/2024 1.6 - 2. 7 [facility]CT Anion Gap Bld-sCnc 15.0 Normal 08/27/2024 7 - 17 [facility]CT Glucose SerPl-mCnc 92.0 mg/dL Normal 08/27/2024 65 - 99 H[facility]CT BUN SerPl-mCnc 8.0 mg/dL Normal 08/27/2024 8 - 21 [facility] T Chloride SerPl-sCnc 104.0 mmol/L Normal 08/27/2024 98 - 1 07 [facility]CT GFR/BSA.pred SerPlBld [id number] >90.0 Normal 08/27/2024 59 - H[facility]CT CO2 SerPl-sCnc 20.0 mmol/L Below low normal 08/27/2024 22 - 33 [facility]CT Sodium SerPl-sCnc 139.0 mmol/L Normal 08/27/2024 136 - 14 5 H[facility]CT Potassium SerPl-sCnc 4.0 mmol/L Normal 08/27/2024 3.4 - 5 .3 [facility]CT BUN/Creat SerPl 16.0 Ratio Normal 08/27/2024 10 - 25 HH CCT Creat SerPl-mCnc 0.5 mg/dL Normal 08/27/2024 0.4 - 1.1 HH CCT Calcium SerPl-mCnc 8.5 mg/dL Below low normal 08/27/2024 8.7 - 10.5 [facility]CT RBC num Bld Auto 3.99 Mil/uL Below low normal 08/27/2024 4 - 5.4 H[facility]CT PMV Bld Auto 9.7 fL Normal 08/27/2024 7.5 - 12.5 H[facility]CT Hct VFr Bld Auto 36.1 % Normal 08/27/2024 35 - 47 HH CCT Hgb Bld-mCnc 11.4 g/dL Below low normal 08/27/2024 11.7 - 15 .7 H[facility]CT MCV RBC Auto 91.0 fL Normal 08/27/2024 80 - 100 [facility] Platelet num Bld Auto 270.0 Thou/uL Normal 08/27/2024 150 - 450 [facility]CT WBC num Bld Auto 9.6 Thou/uL Normal 08/27/2024 4 - 11 H[facility]CT MCH RBC Qn Auto 28.6 pg Normal 08/27/2024 27 - [address] MCHC RBC Auto-mCnc 31.6 g/dL Normal 08/27/2024 30 - 36 [facility]CT RDW RBC Auto-Rto 12.4 % Normal 08/27/2024 11.5 - 14.5 [facility]CT Chloride SerPl-sCnc 102.0 mmol/L Normal 08/26/2024 98 - 1 07 [facility]CT Glucose SerPl-mCnc 119.0 mg/dL Above high normal 08/26/2024 65 - 99 [facility]CT Creat SerPl-mCnc 0.5 mg/dL Normal 08/26/2024 0.4 - 1.1 HH CCT Calcium SerPl-mCnc 9.5 mg/dL Normal 08/26/2024 8.7 - 10.5 H[facility]CT BUN/Creat SerPl 14.0 Ratio Normal 08/26/2024 10 - 25 HH CCT Anion Gap Bld-sCnc 16.0 Normal 08/26/2024 7 - 17 H[facility]CT GFR/BSA.pred SerPlBld [id number] >90.0 Normal 08/26/2024 59 - HHCCT BUN SerPl-mCnc 7.0 mg/dL Below low normal 08/26/2024 8 - 21 H[facility]CT Sodium SerPl-sCnc 139.0 mmol/L Normal 08/26/2024 136 - 14 5 H[facility]CT CO2 SerPl-sCnc 21.0 mmol/L Below low normal 08/26/2024 22 - 33 H[facility]CT Potassium SerPl-sCnc 3.9 mmol/L Normal 08/26/2024 3.4 - 5 .3 H[facility]CT Neutrophils/leuk NFr Bld Auto 84.6 % Normal 08/26/2024 H[facility]CT Monocytes num Bld Auto 0.51 Thou/uL Normal 08/26/2024 0.2 - 1.5 HHCCT WBC num Bld Auto 11.5 Thou/uL Above high normal 08/26/2024 4 - 11 [facility]CT Lymphocytes/leuk NFr Bld Auto 10.5 % Normal 08/26/2024 H[facility]CT Neutrophils num Bld Auto 9.72 Thou/uL Above high normal 08/26/2024 2 - 7.5 HHCCT Eosinophil num Bld Auto 0.0 Thou/uL Normal 08/26/2024 0 - 0.7 [facility]CT Platelet num Bld Auto 294.0 Thou/uL Normal 08/26/2024 150 - 450 H[facility]CT MCHC RBC Auto-mCnc 31.5 g/dL Normal 08/26/2024 30 - 36 H[facility]CT Imm Granulocytes num Bld Auto 0.04 Thou/uL Normal 08/26/2024 0 - 0.1 HHCCT Basophils num Bld Auto 0.02 Thou/uL Normal 08/26/2024 0 - 0.2 [facility]CT Eosinophil/leuk NFr Bld Auto 0.0 % Normal 08/26/2024 HHCCT Hct VFr Bld Auto 42.8 % Normal 08/26/2024 35 - 47 HH CCT RBC num Bld Auto 4.71 Mil/uL Normal 08/26/2024 4 - 5.4 HHCCT MCV RBC Auto 91.0 fL Normal 08/26/2024 80 - 100 [facility]CT Monocytes/leuk NFr Bld Auto 4.4 % Normal 08/26/2024 H[facility]CT Basophils/leuk NFr Bld Auto 0.2 % Normal 08/26/2024 H[facility]CT Lymphocytes num Bld Auto 1.21 Thou/uL Below low normal 08/26/2024 1.5 - 4.5 HHCCT Imm Granulocytes/leuk NFr Bld Auto 0.3 % Normal 08/26/2024 HHCCT PMV Bld Auto 9.3 fL Normal 08/26/2024 7.5 - 12.5 HHCCT Hgb Bld-mCnc 13.5 g/dL Normal 08/26/2024 11.7 - 15.7 [facility] T MCH RBC Qn Auto 28.7 pg Normal 08/26/2024 27 - [address] RDW RBC Auto-Rto 12.3 % Normal 08/26/2024 11.5 - 14.5 HHCCT Encounters Encounter Type Encounter Reason Primary Diagnosis Location Date Inpatient Periapical abscess without sinus Periapical abscess without sinus [facility] 08/26/2024 [facility] 08/25/2024 Care Team Organization Name Specialty Phone Email Start Date End Da te [facility] 08/29/2024 09/27/2024 [facility] JUVENAL ZAVALETA [facility] 08/26/2024 [facility] 08/26/2024
== END 2024-11-07 12:09 | disposition home or self-care (01) ==
LOC: HO.HNS 11:03
PROVIDERS: PCP Internal Medicine; Referring Provider Internal Medicine; Visit Provider Physician Assistant
DX: S32.000A Wedge compression fracture of unspecified lumbar vertebra, initial encounter for closed fracture (principal)
CPT/HCPCS: 99204

== ENCOUNTER → 2024-11-07 11:03 | Outpatient (BNVA) | payer MEDICAID, SELFPAY | PROVIDERS: PCP Internal Medicine; Referring Provider Internal Medicine; Visit Provider Physician Assistant | DX: S32.020A Wedge compression fracture of second lumbar vertebra, initial encounter for closed fracture (principal); X58.XXXA Exposure to other specified factors, initial encounter | CPT/HCPCS: 99212 ==

== ENCOUNTER 2024-12-11 13:54 | Outpatient (AMB) | payer MEDICAID, SELFPAY ==
[2024-12-11 14:02] VITALS: BP 110/68; PULSE 88; O2SAT 98; BMI 30.4
--- NOTE | 2024-12-11 14:02 | A.OFFVIS_ITS ---
Vital Signs 12/11/24 14:02 Height 5 ft 5 in Weight 182 lb 15.739 oz BMI 30.4 BP 110/68 Blood Pressure Location Lt brachial Position Sitting Pulse 88 Pulse Source Pulse Oximeter Pulse Oximetry (%) 98 Oxygen Delivery Method Room Air Intake Visit Reasons: COPD Intake Note: pt is here for follow up and states she is feeling her breathing is off and on past couple of weeks, weight and humidity makes it worse. 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 Allergies amoxicillin (AMOXICILLIN) Allergy (Unknown, Verified 12/11/24 14:48) EYES SWELLING pseudoephedrine (Sudafed) Allergy (Unknown, Verified 12/11/24 14:48) Unknown Sulfa (Sulfonamide Antibiotics) (SULFA (SULFONAMIDE ANTIBIOTICS)) Allergy (Unknown, Verified 12/11/24 14:48) SWELLING Medication List - Last Reconciled 12/11/24 by Callum Adams MD acetaminophen 500 mg PO Q8H PRN albuterol sulfate 90 mcg/actuation (Ventolin HFA) 2 puffs inhalation Q4-6H PRN calcium carbonate 600 mg PO QAM cetirizine 10 mg PO QAM cholecalciferol (vitamin D3) (Vitamin D3) 25 mcg PO DAILY diclofenac sodium 1% topical TID thiamine mononitrate (vit B1) 100 mg PO DAILY trazodone 50 mg PO BEDTIME Do you need a note to return to daycare/school/sports/work: No HPI HPI COPD: Details: This 59 years old female is here for follow-up for COPD. She has history of smoking cigarettes more than 1 pack a day for about 30-35 years. Was able to quit 1 year ago. She does have intermittent cough but, no wheezing Her main issue is getting short of breath on exertion like going outdoors in a hot and humid weather, She uses albuterol just PRN. She has not needed any maintenance inhaler. As she had been in the house most of the time not going outdoors and. Just drinking moderate amount of alcohol, she has put on about 20 lb during the past 1 year. [facility] Medical History (Updated 12/11/24 @ 14:56 by Callum Adams MD) History of smoking 30 or more pack years Compression fx, lumbar spine Alcohol abuse Former smoker Osteopoikilosis Alcohol use disorder COPD (chronic obstructive pulmonary disease) Family History Father No problems noted. Mother No problems noted. Social History Household Members: Children Household Members Other:: son Housing: Apartment Do you presently have visiting nurse or other home services: No Patient Tobacco Use Status: Former Tobacco user service: No Review of Systems Const All systems reviewed & are unremarkable except as noted in HPI and below Eyes Reports no additional complaints ENT Reports no additional complaints Card Denies chest pain, Denies rapid heart rate, Denies irregular heart rhythm and Denies lightheadedness Resp Reports as per HPI GI Reports no additional complaints Reports no additional complaints Musc Denies abnormal gait (IMPAIRED DUE TO WEAKNESS OF LOWER EXTREMITIES), Reports back pain and Reports muscle weakness (GENERALIZED) Skin/Breast Reports system reviewed and no additional complaints, except as documented Neuro Denies abnormal gait (IMPAIRED DUE TO WEAKNESS OF LOWER EXTREMITIES) Psych Reports no additional complaints Endo Reports no additional complaints Yung/Lymph Reports no additional complaints Aller/Immun Reports no additional complaints Physical Exam Vital Signs: Last Vital Signs Pulse 88 12/11/24 14:02 BP 110/68 12/11/24 14:02 Pulse Ox 98 12/11/24 14:02 Oxygen Delivery Method Room Air 12/11/24 14:02 BMI result Body Mass Index 30.4 Const General: healthy appearing, comfortable, no acute distress, alert and awake Orientation/consciousness: patient oriented x3 HEENT Head: Yes normal to inspection General nose exam: No nasal polyps present and No nasal discharge present Face and sinus: Yes sinuses nontender Mouth: oropharynx normal Throat: Yes posterior oropharynx normal Eyes General: appearance normal, both eyes and all related structures Neck Neck: Yes normal visual inspection, Yes no lymphadenopathy, Yes trachea midline and Yes no JVD Thyroid: Thyroid normal Chest Chest palpation & inspection: normal inspection of the chest, normal palpation of entire chest wall and no tenderness Resp Effort & Inspection: normal respiratory effort and able to speak in complete sentences Auscultation: clear to auscultation bilaterally, no crackles and no wheezes Cardio Palpation: normal PMI Rate: regular rate Rhythm: regular rhythm Heart sounds: no gallops and no murmurs Peripheral pulses: Peripheral pulses 2+ throughout GI Palpation (GI): Soft to palpation, Tenderness to palpation present (GI), No hepatosplenomegaly present and Palpable mass present Auscultation: normal bowel sounds Back/Spine/Pelvis Thoracic/Lumbar Spine: thoracic and lumbar spine normal to inspection and lumbar spinal tenderness (MILD TENDERNESS TO PRESSURE AT DORSO-LUMBAR AREA) Skin General skin exam: no rashes or lesions noted Neuro General: patient oriented x3, No gait normal (Uses walker, due to chronic back pain) and no focal motor deficits Cranial nerves: Yes CN's II-XII intact bilaterally Extrem General: Yes normal to inspection, Yes no clubbing, cyanosis or edema and Yes no calf tenderness Psych Appearance: grossly normal and well kempt Speech and movement: Normal speech and movement present Assessment & Plan Assessment & Plan (1) COPD (chronic obstructive pulmonary disease): Comment: SHE HAS PAST HISTORY, OF SMOKING SHE DOES MILD CHRONIC OBSTRUCTIVE PULMONARY DISORDER. HER RESPIRATORY STATUS IS DEFINITELY IMPROVED SINCE SHE QUIT SMOKING, AND IS STAYING STABLE. HOWEVER SHE COMPLAINS OF INCREASED SHORTNESS OF BREATH IN HOT AND HUMID WEATHER. Code(s): J44.9 - Chronic obstructive pulmonary disease, unspecified Category: Medical Plan: ADVISED TO DO DEEP BREATHING EXERCISES WITH THE INCENTIVE SPIROMETER WHICH SHE HAS AT HOME. USE ALBUTEROL HFA 2 PUFFS Q 6 HOURS P.R.N.. (2) Physical deconditioning: Code(s): R53.81 - Other malaise Category: Medical (3) History of smoking 30 or more pack years: Comment: PATIENT HAS HISTORY OF SMOKING 1 PACK A DAY FOR MORE THAN 30 YEARS BEFORE SHE QUIT 1 YEAR AGO Code(s): Z87.891 - Personal history of nicotine dependence Category: Social Hx Plan: COMMENDED FOR NOT SMOKING. SHE IS ADVISED TO JOIN THE ANNUAL LUNG SCREENING PROGRAM. Plan .IS GOOD THAT SHE IS NOT SMOKING ANYMORE BUT SHE IS ENCOURAGED TO JOIN THE ANNUAL LUNG SCREENING PROGRAM Orders: Orders CT lung screening Today J44.9 - Chronic obstructive pulmonary disease, unspecified, Z87.891 - Personal history of nicotine dependence Coding Level of Care Code Est Pt Level 3 (25274) Diagnoses COPD (chronic obstructive pulmonary disease) J44.9 Physical deconditioning R53.81 History of smoking 30 or more pack years Z87.891
--- OUTSIDE RECORDS SUMMARY | 2024-12-11 14:07 | XMS_ITS | Clinical Summary ---
Author Organization 175 [facility] Address [address] [place] [address] Phone Care Team Providers Care Watch Mechanic Name Role Phone Deyvi Ramos MD Primary Care Provider [phone] Allergies Active Allergy Reactions Criticality Noted Date [...] 11/07/2010 COPD (chronic obstructive pu lmonary disease) ([facility] V24, [facility] V28) 11/04/2010 Overview (07/16/2024): Moderate-severe without reversibility on PFTs 10/2010 Tobacco use disorder 08/30/2010 Depression 01/25/2006 Upper GI bleed 01/25/2006 Overview (07/16/2024): 1994, ulcer IMO update Encounters Date Type Department Care Team Description 09/11/2024 10:30 AM EDT Consult Orthopedic Surgery [facility] 250 175 [facility] 250 [place] [address] Yunier Gaytan DPM Dermatophytosis of nail (Primary Dx); Pain in toe of right foot; Pain in toe of left foot; Bilateral femoral artery stenosis (CMS/HCC V24); Tinea pedis of both feet from Last 3 Months Immunizations Name Administration [...] Care Team (Late st Contact Info) Description 02/19/2025 9:15 AM EDT Office Visit Orthopedic Surgery - [place] [address] [phone] Yunier Gaytan DPM [address] [address] Health Maintenance Due Date Last Done Comments Hepatitis A Vaccines (1 of 2 - Risk 2-dose series) 1984 Hepatitis B Vaccines (1 of 3 - 19+ 3-dose series) 1984 Cervical Cancer Screening: Pap Smear 02/01/2010 02/01/2007, 02/01/2007 Zoster Vaccines (1 of 2) 2015 Breast Cancer Screening 10/17/2019 10/16/2017 Cholesterol Screening (Lipid Panel) 12/04/2023 11/07/2010 Colorectal Cancer Screening: Colonoscopy 12/04/2023 HIV Screening 12/04/2023 Hepatitis C Screening 12/04/2023 Osteoporosis Screening (Bone Density Screening) 12/04/2023 Social Influencers of Health Screening 12/04/2023 Depression Screening 05/14/2024 Influenza Vaccine (#1) 2025 , 03/11/2019, 02/18/2018, Additional history exists DTaP,Tdap,and Td Vaccines (4 - Td or Tdap) 02/25/2025 02/25/2015, 11/07/2010, 07/17/2002 RSV Immunization Adult Patients (1 - 1-dose 75+ series) 2040 Pneumococcal Vaccine: 50+ Years Completed 11/22/2023, 07/17/2017 COVID-19 Vaccine Completed 04/07/2024, , 09/27/2020, Additional history exists HIB Vaccines Aged Out [...] 20 months Aged Out No longer eligible based on patient's age to complete this topic Varicella Vaccines Aged Out No longer eligible based on patient's age to complete this topic Procedures Procedure Name Priority Date/Time Associated Diagnosis Comments LIPID PANEL Routine 11/07/2010 HM HPV Routine 02/01/2007 from Last 3 Months [...] Result * Cervical Cancer Screening: HPV (02/01/2007) Cervical Cancer Screening: HPV no interpretation , abstracted Historical Provider HEALTH MAINTENANCE Final Result from Last 3 Months or Most Recently Relevant to Health Maintenance Insurance MEDICAID - [place] Care Teams Watch Mechanic Relationship Specialty Start Date End Date Deyvi Ramos MD [address] [place] [id number] PCP - General Internal Medicine 07/14/24
--- OUTSIDE RECORDS SUMMARY | 2024-12-11 14:07 | XMS_ITS | Clinical Summary ---
Author Organization [facility] Address [address] [place] [address] Care Team Providers Care Network Architect Name Role Phone Deyvi Rmaos MD Primary Care Provider [phone] Allergies Active Allergy Reactions Criticality Noted Date Comments Amoxicillin Unknown/Patient and Family Unable to Define Medium 08/26/2024 Sulfa Antibiotics Unknown/Patient and Family Unable to Define Medium 08/26/2024 Medications alendronate (FOSAMAX) 70 MG tablet Take 1 tablet (70 mg total) by mouth every 7 days. 5 Active calcium carbonate (CALTRATE) 1500 (600 Ca) MG tablet Take 1 tablet (1,500 mg total) by mouth every morning. 4 Active traZODone (DESYREL) 50 MG tablet Take 1 tablet (50 mg total) by mouth nightly as needed for sleep. 5 Active ketoconazole (NIZORAL) 2 % shampoo Apply topically 2 (two) times a week. 5 Active Fluocinolone Acetonide Scalp 0.01 % Oil USE DIRECTED ON THE SCALP 2 TIMES WEEKLYCOVER HEAD WITH DU RAG AFTER USE 5 Active diclofenac (VOLTAREN) 1 % gel To apply to the affected area 3 times a day 4 Active cholecalciferol (CHOLECALCIFERO L) 25 MCG (1000 UT) tablet Take 1 tablet (1,000 Units total) by mouth daily. Active cetirizine (ZyrTEC) 10 MG tablet Take 1 tablet (10 mg total) by mouth. 4 Active Acetaminophen Extra Strength 500 MG Tab Take 1 tablet by mouth 3 times daily (every 8 hours) as needed. Active Ventolin HFA 108 (90 Base) MCG/ACT inhaler INHALE 2 PUFFS BY MOUTH EVERY 4 TO 6 HOURS NEEDED FOR SHORTNESS OF BREATH OR WHEEZING Active chlorhexidine (PERIDEX) 0.12 % oral solutionIndicat ions:Periapical abscess Apply 15 mL to the mouth or throat 2 (two) times a day. 120 mL 5 Active ibuprofen (MOTRIN) 400 MG tabletIndicatio ns:Periapical abscess Take 1 tablet (400 mg total) by mouth 3 times daily (every 8 hours) as needed for moderate pain. 30 tablet 5 Active Active Problems Problem Noted Date Diagnosed Date Abscess 08/26/2024 Encounters Date Type Department Care Team Description 11/07/[address] [address] Deyvi Ramos MD from Last 3 Months Social History Tobacco Use Types Packs/Day Years Used Date Smoking Tobacco: Never Assessed [facility] Utilities Answer Date Recorded In the past 12 months has [employer], gas, oil, or water [employer] threatened to shut off services in your home? Patient declined 08/27/2024 AUDIT-C Answer Date Recorded Q1: How often do you have a drink containing alc ohol? Monthly or less 08/26/2024 Q2: How many drinks containi ng alcohol do you have on a typical day when you are drinking? 1 or 2 08/26/2024 Q3: How often do you have si x or more drinks on one occasion? Never 08/26/2024 Hunger Vital Sign Answer Date Recorded Within the past 12 months, y ou worried that your food would run out before you got the money to buy more. Patient declined Within the past 12 months, t he food you bought just didn't last and you didn't have money to get more. Patient declined PRAPARE - Transportation Answer Date Re corded In the past 12 months, has l ack of transportation kept you from medical appointments or from getting medications? Patient declined 08/27/2024 In the past 12 months, has l ack of transportation kept you from meetings, work, or from getting things needed for daily living? Patient declined 08/27/2024 Housing Stability Vital Sign Answer Duane e Recorded In the last 12 months, was t here a time when you were not able to pay the mortgage or rent on time? Patient declined 08/28/19 25 In the past 12 months, how m any times have you moved where you were living? 0 08/27/2024 At any time in the past 12 m [facility], were you homeless or living in a fpc (including now)? Patient declined 08/27/2024 Comments Unknown Sex and Gender Information Value Date Recorded Sex Assigned at Female 08/26/2024 1:10 AM EDT Legal Sex Female 7:58 PM EDT Gender Identity Female 08/26/2024 1:10 AM EDT Sexual Orientation Heterosexual (straight) 08/26 1:10 AM EDT Last Filed Vital Signs Vital Sign Reading Time Taken Comments Blood Pressure 104/56 08/29/2024 5:44 AM EDT Pulse 66 08/29/2024 5:44 AM EDT Temperature 36.2 C (97.2 F) 08/29/2024 5:44 AM EDT Respiratory Rate 18 08/29/2024 5:44 AM EDT Oxygen Saturation 97% 08/29/2024 5:44 AM EDT Inhaled Oxygen Concentration - - Weight 100 kg (220 lb 14.4 oz) 08/26/2024 2:36 P M EDT Height - - Body Mass Index - - Plan of Treatment Health Maintenance Due Date Last Done Comments Hepatitis C Virus Screening 1965 HIV Screening 1978 DTaP/Tdap/Td Vaccines (1 - Tdap) 1984 Hepatitis B Vaccines (1 of 3 - 19+ 3-dose series) 1984 Pneumococcal Vaccines 50+ (1 of 2 - PCV) 1984 Pap Smear (Ages 21-65) 1986 Mammogram 2005 Colonoscopy 2010 Zoster (Shingles) Vaccine (1 of 2) 2015 Influenza Vaccine 12/12/2024 04/07/2024, , 02/18/2018, Additional history exists COVID-19 Vaccine Completed 04/07/2024 Insurance [employer] Advance Directives * Full Code (Latest Code Status on File) Date Activated Date Inactivated Comments 08/26/2024 10:59 AM Care Teams Network Architect Relationship Specialty Start Date End Date Deyvi Ramos MD [address] [place] [address] PCP - General General Medicine 08/26/24
--- OUTSIDE RECORDS SUMMARY | 2024-12-11 14:07 | XMS_ITS | Encounter Summary ---
Author Organization [employer] Address [address] [place] [address] [address] [address] Care Team Providers Care Billboard Poster Helper Name Role Phone Deyvi Ramos MD Primary Care Provider [phone] Deyvi Ramos MD Primary Care Provider [phone] Reason for Visit * Reason Comments Med Refill Encounter Details Date Type Department Care Team (Late st Contact Info) Description 08/21/2022 Refill [facility] [address] [place] [address] Deyvi Ramos MD [address] [place] [address] Social History Tobacco Use Types Packs/Day Years [...] Department Care Team (Late Contact Info) Description 02/09/2025 11:00 AM EDT Office Visit [facility] [address] [place] [address] Deyvi Ramos MD [address] [place] [address] documented as of this encounter Visit Diagnoses Not on filedocumented in this encounter Care Teams Billboard Poster Helper Relationship Specialty Start Date End Date Deyvi Ramos MD [address] [facility] [place] [address] PCP - General Internal Medicine 06/12/13 06/03/23 Deyvi Ramos MD [address] [facility] [address] PCP - General Internal Medicine 11/22/23 [facility] 04/04/24 documented as of this encounter
--- OUTSIDE RECORDS SUMMARY | 2024-12-11 14:07 | XMS_ITS ---
[facility] Name [facility] Unknown Results Test Name/Text Value Interpretation Date Range Source GFR/BSA.pred SerPlBld IFG-BHT-KeXQtf >90.0 Normal 08/28/2024 59 - [facility] Sodium [...] 98 - 1 07 [facility] GFR/BSA.pred SerPlBld HES-VNZ-KqQPsf >90.0 Normal 08/27/2024 59 - [facility] CO2 [...] 08/26/2024 7 - 17 [facility] GFR/BSA.pred SerPlBld LIH-PQI-UpDAyy >90.0 Normal 08/26/2024 59 - [facility] BUN [...] % Normal 08/26/2024 11.5 - 14.5 [facility] Allergies Allergen Reaction Severity Comment Documented Date Source Statu s SULFA ANTIBIOTICS UNKNOWN/PATIENT AND FAMILY UNABLE TO DEFINE 08/26/2024 [facility] active AMOXICILLIN UNKNOWN/PATIENT AND FAMILY UNABLE TO DEFINE [facility] Encounters Encounter Type Encounter Reason Primary Diagnosis Location Date Inpatient Periapical abscess without sinus Periapical abscess without sinus [facility] 08/26/2024 [facility] 08/25/2024 Care Team Organization Name Specialty Phone Email Start Date End Da te [facility] 08/29/2024 09/27/2024 [facility] THESHAUN ZAVALETA Primary Care 08/26/2024 [facility] 08/26/2024
== END 2024-12-11 15:02 | disposition home or self-care (01) ==
LOC: HO.HPS 13:55
PROVIDERS: PCP Internal Medicine; Visit Provider Internal Medicine
DX: J44.9 Chronic obstructive pulmonary disease, unspecified (principal); R53.81 Other malaise; Z87.891 Personal history of nicotine dependence
CPT/HCPCS: 99213

== ENCOUNTER → 2024-12-11 13:54 | Outpatient (BNVA) | payer MEDICAID, SELFPAY | PROVIDERS: PCP Internal Medicine; Visit Provider Internal Medicine | DX: J44.9 Chronic obstructive pulmonary disease, unspecified (principal); R53.81 Other malaise; Z87.891 Personal history of nicotine dependence | CPT/HCPCS: 99212 ==

== ENCOUNTER 2025-01-28 13:35 | Outpatient (REF) | payer MEDICAID, SELFPAY ==
--- NOTE | ~2025-01-28 | MM_ITS ---
EXAMINATION: DXA BONE DENSITY AXIAL HISTORY: S32.000A - Wedge compression fracture of unspecified lumbar vertebra... TECHNIQUE: [employer] Dual energy absorptiometry (DEXA) of the lumbar spine, total left hip, and femoral neck was performed. COMPARISON: Comparison is made with the prior examination dated 06/17/2015. FINDINGS: The bone mineral density of the lumbar spine is 0.959 g/cm2, corresponding to a T-score of -2.0, and a Z-score of -1.7. This is indicative of osteopenia. This represents a BMD change of 0.1% compared to the prior exam. This is not statistically significant. The bone mineral density of the left total hip is 0.570 g/cm2, corresponding to a T-score of -3.5, and a Z-score of -3.2. This is indicative of osteoporosis. This represents a BMD change of -16.8% compared to the prior exam. This is statistically significant. The bone mineral density of the left femoral neck is 0.543 g/cm2, corresponding to a T-score of -3.6, and a Z-score of -2.7. This is indicative of osteoporosis. This represents a BMD change of -14.5% compared to the prior exam. MM/XR DEXA axial skeleton IMPRESSION: Based on bone mineral density, and according to World Health Organization (WHO) criteria, the diagnosis is consistent with osteoporosis. Statistically, 68% of repeat scans fall within 1 SD (+/- 0.010 g/cm2 for AP spine L1-L4) and 1 SD (+/- 0.012 g/cm2 for femur total) FRAX is a trademark of the [employer] for Metabolic Bone Disease, a World Health Organization (WHO) Collaborating Center. Electronically signed by: Stephan Cortes MD 01/28/2025 03:18 PM EDT
--- OUTSIDE RECORDS SUMMARY | 2025-01-28 17:24 | XMS_ITS | Encounter Summary ---
Author Organization [employer] Address [address] [facility] 7[address] [place] [address] Care Team Providers Care Sales Estimator Name Role Phone Deyvi Ramos MD Primary Care Provider [phone] Encounter Details Date Type Department Care Team (Late st Contact Info) Description 01/28/[address] Orders [address] [facility] External Provider, [facility] Social History Tobacco Use Types Packs/Day Years [...] Care Team (Late st Contact Info) Description 02/09/2025 11:00 AM EDT Office Visit [facility] [address] [place], [place] [phone] Deyvi Ramos MD [address] [place] [address] documented as of this encounter Procedures Procedure Name Priority Date/Time Associated Diagnosis Comments BD DEXA AXIAL Routine 01/28/2025 2:37 PM EDT documented in this encounter Results * BD DEXA Axial (01/28/2025 2:37 PM EDT) Anatomical Region Laterality Modality Body Radiographic Rebecca ging 01/28/2025 2:37 PM EDT Narrative 01/28/2025 3:21 PM EDT [facility] [address] [place] [address] Mammography Report Signed Patient: Adrianna Lucio MR#: [id number] 144 : 1965 Acct:[id number] Age/Sex: 59 / F ADM Date: 01/28/25 Loc: HO.MAMMO Attending Dr: Deyvi Ramos MD Ordering Physician: Kiet Bui MD Results: Date of Service: 01/28/25 Follow Up: Procedure(s): XR DEXA axial skeleton Accession Number(s): [id number] cc: Deyvi Ramos MD; Kiet Bui MD Reason For Exam: S32.000A - Wedge compression fracture of unspecified lumbar vertebra, in... EXAMINATION: DXA BONE DENSITY AXIAL HISTORY: S32.000A - Wedge compression fracture of unspecified lumbar vertebra... TECHNIQUE: [place] Dual energy absorptiometry (DEXA) of the lumbar spine, total left hip, and femoral neck was performed. COMPARISON: Comparison is made with the prior examination dated 06/17/2015. FINDINGS: The bone mineral density of the lumbar spine is 0.959 g/cm2, corresponding to a T-score of -2.0, and a Z-score of -1.7. This is indicative of osteopenia. This represents a BMD change of 0.1% compared to the prior exam. This is not statistically significant. The bone mineral density of the left total hip is 0.570 g/cm2, corresponding to a T-score of -3.5, and a Z-score of -3.2. This is indicative of osteoporosis. This represents a BMD change of -16.8% compared to the prior exam. This is statistically significant. The bone mineral density of the left femoral neck is 0.543 g/cm2, corresponding to a T-score of -3.6, and a Z-score of -2.7. This is indicative of osteoporosis. This represents a BMD change of -14.5% compared to the prior exam. MM/XR DEXA axial skeleton IMPRESSION: Based on bone mineral density, and according to World Health Organization (WHO) criteria, the diagnosis is consistent with osteoporosis. Statistically, 68% of repeat scans fall within 1 SD (+/- 0.010 g/cm2 for AP spine L1-L4) and 1 SD (+/- 0.012 g/cm2 for femur total) FRAX is a trademark of the [employer] Metabolic Bone Disease, a World Health Organization (WHO) Collaborating Center. Electronically signed by: Stephan Cortes MD 01/28/2025 03:18 PM EDT Dictated By: Stephan Cortes MD Signed By: <Electronically signed by Stephan Cortes MD in OV> 01/28/25 1518 DD/ 1437 TD/TT: 01/28/25 1500 [employer] Operator: Procedure Note Donotpettyinterpreter, Image - 01/28/2025 [facility] [address] [place], [place] [address] Mammography Report Signed Patient: Adrianna Lucio AMR#: [id number] 144 : 1965Acct:[id number] Age/Sex: 59 / FADM Date: 01/28/25 Loc: HO.MAMMO Attending Dr: Deyvi Ramos MD Ordering Physician: Kiet Bui MDResults: Date of Service: 01/28/25Follow Up: Procedure(s): XR DEXA axial skeleton Accession Number(s): [id number] cc: Deyvi Ramos MD; Kiet Bui MD Reason For Exam: S32.000A - Wedge compression fracture of unspecifiedlumbar vertebra, in... EXAMINATION: DXA BONE DENSITY AXIAL HISTORY: S32.000A - Wedge compression fracture of unspecified lumbar vertebra... TECHNIQUE: [place] Dual energy absorptiometry (DEXA) of the lumbar spine, total left hip, and femoral neck was performed. COMPARISON: Comparison is made with the prior examination dated 06/17/2015. FINDINGS: The bone mineral density of the lumbar spine is 0.959 g/cm2, corresponding to a T-score of -2.0, and a Z-score of -1.7. This is indicative of osteopenia. This represents a BMD change of 0.1% compared to the prior exam. This is not statistically significant. The bone mineral density of the left total hip is 0.570 g/cm2, corresponding to a T-score of -3.5, and a Z-score of -3.2. This is indicative of osteoporosis. This represents a BMD change of -16.8% compared to the prior exam. This is statistically significant. The bone mineral density of the left femoral neck is 0.543 g/cm2, corresponding to a T-score of -3.6, and a Z-score of -2.7. This is indicative of osteoporosis. This represents a BMD change of -14.5% compared to the prior exam. MM/XR DEXA axial skeleton IMPRESSION: Based on bone mineral density, and according to World Health Organization (WHO) criteria, the diagnosis is consistent with osteoporosis. Statistically, 68% of repeat scans fall within 1 SD (+/- 0.010 g/cm2 for AP spine L1-L4) and 1 SD (+/- 0.012 g/cm2 for femur total) FRAX is a trademark of the [employer] Metabolic Bone Disease, a World Health Organization (WHO) Collaborating Center. Electronically signed by: Stephan Cortes MD 01/28/2025 03:18 PM EDT RP Dictated By: Stephan Cortes MD Signed By: <Electronically signed by Stephan Cortes MD in OV> 01/28/25 1518 DD/ 1437 TD/TT: 01/28/25 1500 [employer] Operator: [facility] External Provider IMG DXA PROCEDURES Edited Result - Final documented in this encounter Visit Diagnoses Not on filedocumented in this encounter Additional Health Concerns Assessment Noted Time PHQ-9 Depression Total Score: 2 06/26/19 25 11:28 AM EST documented as of this encounter Care Teams Sales Estimator Relationship Specialty Start Date End Date Deyvi Ramos MD [address] [place] [address] PCP - General Internal Medicine 11/22/23 [facility] 04/04/24 documented as of this encounter
--- OUTSIDE RECORDS SUMMARY | 2025-01-28 17:24 | XMS_ITS | Encounter Summary ---
Author Organization [employer] Address [address] [facility] 7 [place] [address] Care Team Providers Care Molder Wax Ball Name Role Phone Deyvi Ramos MD Primary Care Provider [phone] Reason for Visit * Reason Onset Date Comments Appointment Request 06/17/2024 Encounter Details Date Type Department Care Team ([facility] st Contact Info) Description 06/17/2024 Telephone [facility] & [facility]ED[facility] [address] [place] [address] Deyvi Ramos MD [address] [place] [address] Appointment Request Social History Tobacco Use Types [...] referral, thank you. * Telephone Encounter - Lzizie Stinson - 06/17/2024 9:42 AM EST Tc from pt requesting to r/s derm appt. documented in this encounter Plan of Treatment Upcoming Encounters Date Type Department Care Team (Late st Contact Info) Description 02/09/2025 11:00 AM EDT Office Visit [facility] MED [facility] [address] [place] [address] Deyvi Ramos MD [address] [place] [address] documented as of this encounter Visit Diagnoses Not on filedocumented in this encounter Care Teams Molder Wax Ball Relationship Specialty Start Date End Date Deyvi Ramos MD [address] [place] [address] PCP - General Internal Medicine 11/22/23 [facility] 04/04/24 documented as of this encounter
--- OUTSIDE RECORDS SUMMARY | 2025-01-28 17:24 | XMS_ITS | Encounter Summary ---
Author Organization [employer] Address [address] [facility] 7 [place] [address] Care Team Providers Care Blueberry Grower Name Role Phone Deyvi Ramos MD Primary Care Provider [phone] Reason for Visit * Reason Onset Date Comments Durable Medical Equipment 03/27/2024 Encounter Details Date Type Department Care Team ([facility] Contact Info) Description 03/27/2024 Telephone [facility] MED & PEDS [address] [place], [place] [phone] Deyvi Ramos MD [address] [place] [address] Durable Medical Equipment Social History Tobacco Use [...] Description 02/09/2025 11:00 AM EDT Office Visit [facility] MED & PEDS [address] [place] [address] Deyvi Ramos MD [address] [place] [address] documented as of this encounter Visit Diagnoses Not on filedocumented in this encounter Care Teams Blueberry Grower Relationship Specialty Start Date End Date Deyvi Ramos MD [address] [place] [address] PCP - General Internal Medicine 11/22/23 [facility] 04/04/24 documented as of this encounter
--- OUTSIDE RECORDS SUMMARY | 2025-01-28 17:24 | XMS_ITS | Encounter Summary ---
Author Organization [employer] Address [address] [place] [address] Care Team Providers Care Deflash And Wash Operator Name Role Phone Deyvi Ramos MD Primary Care Provider [phone] Reason for Visit * Reason Comments Med Refill Encounter Details Date Type Department Care Team ([facility] Contact Info) Description 08/13/2023 Refill [facility] MED & PEDS [address] [place] [address] Deyvi Ramos MD [address] [place] [address] Osteoporosis of disuse Social History Tobacco Use [...] Upcoming Encounters Date Type Department Care Team ([facility] Contact Info) Description 02/09/2025 11:00 AM EDT Office Visit [facility] MED [facility] [address] [place], [place] [phone] Deyvi Ramos MD [address] [place] [address] documented as of this encounter Visit Diagnoses Diagnosis Osteoporosis of disuse Disuse osteoporosis documented in this encounter Care Teams Deflash And Wash Operator Relationship Specialty Start Date End Date Deyvi Ramos MD [address] [place] [address] PCP - General Internal Medicine 11/22/23 [facility] 04/04/24 documented as of this encounter
--- OUTSIDE RECORDS SUMMARY | 2025-01-28 17:24 | XMS_ITS | Encounter Summary ---
Author Organization [employer] [facility] Address [address] [place] [address] [address] [address] Care Team Providers Care Director Sterile Processing Name Role Phone Deyvi Ramos MD Primary Care Provider [phone] Reason for Visit * Reason Comments Med Refill Encounter Details Date Type Department Care Team ([facility] Contact Info) Description 06/26/2023 Refill [facility] [address] [place] [address] Deyvi Ramos MD [address] [place] [address] Social History Tobacco Use Types Packs/Day Years [...] Date Type Department Care Team ([facility] Contact Info) Description 02/09/2025 11:00 AM EDT Office Visit [facility] MED & PEDS [address] [place], [place] [phone] Deyvi Ramos MD [address] [place] [address] documented as of this encounter Visit Diagnoses Not on filedocumented in this encounter Care Teams Director Sterile Processing Relationship Specialty Start Date End Date Deyvi Ramos MD [address] [place] [address] PCP - General Internal Medicine 11/22/23 [facility] 04/04/24 documented as of this encounter
--- OUTSIDE RECORDS SUMMARY | 2025-01-28 17:24 | XMS_ITS | Clinical Summary ---
Author Organization [employer] Address [address] [facility] 7t [place] [address] Care Team Providers Care Engineering Technical Specialist Name Role Phone Deyvi Ramos MD Primary Care Provider [phone]- [phone] Allergies Active Allergy Reactions Criticality Noted Date [...] CAPSULE BY MOUTH EVERY DAY 2 Active calcium carbonate 1500 (600 Ca) MG tabletIndicatio ns:Osteoporosis of disuse TAKE 1 TABLET BY MOUTH EVERY MORNING 90 tablet 1 4 Active Diclofenac Sodium 1 % gelIndications: Compression fracture of L1 vertebra, initial encounter ([facility]) To apply to the affected area 3 times a day 100 g 4 Active acetaminophen (Tylenol Extra Strength) 500 MG tabletIndicatio ns:Compression fracture of L1 vertebra, initial encounter ([facility]) Take 1 tablet (500 mg) by mouth [...] (90 Base) MCG/ACT inhalerIndicati ons:Seasonal allergies,COPD, mild ([facility]) INHALE 2 PUFFS BY MOUTH EVERY 6 HOURS NEEDED 18 g 5 Active cetirizine (ZyrTEC) 10 MG tabletIndicatio ns:Seasonal allergies Take 1 tablet (10 mg) by mouth in the morning. 90 tablet 3 5 Active ketoconazole (NIZOral) 2 % shampooIndicati ons:Telogen effluvium Apply topically 2 (two) times a week. 120 mL 3 5 Active Fluocinolone Acetonide Scalp (Marmaduke-Smoothe/ FS Scalp) 0.01 % oilIndications: Telogen effluvium To use on the scalp 2 times a week. 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 Date Type Department Care Team Description 01/28/2025 Orders Only [facility] External Provider, [facility] 12/26/2024 Refill [facility] MED & PEDS [address] [place] [address] Deyvi Ramos MD Compression fracture of L1 vertebra, initial encounter ([facility]) 12/26/2024 Refill [facility] MED & PEDS [address] [place] [address] Deyvi Ramos MD Compression fracture of L1 vertebra, initial encounter ([facility]) 12/01/2024 Telephone [facility] MED & PEDS [address] [place] [address] Deyvi Ramos MD Referral 11/11/2024 Telephone [facility] P[facility] [address] [place] [address] Deyvi Ramos MD Referral 10/28/2024 Orders Only [facility] MED & PED[facility] [address] [place], [place] [phone] Deyvi Ramos MD Left leg paresthesias (Primary Dx); Osteoporosis of disuse; Compression fracture of L5 vertebra, initial encounter ([facility]) 10/28/2024 Telephone [facility] Information Management [address] [place] [address] [phone] Deyvi Ramos MD EMG ORDER from Last 3 Months Immunizations Immunization Administration Dates Next Due Hep B, adult 10/16/2024 Influenza injectable quadriv alent IIV4 with preservative 02/18/2018 Influenza injectable quadrivalent preservative f ree 03/11/2019 Influenza, IIV3, injectable 03/27/2013, 9 Influenza, Injectable, MDCK, preservative free 0 01/08/2015 Influenza, seasonal, injectable, preservative fr ee 04/07/2024 Pfizer Covid-19 Vaccine 12+ 04/07/2024 Pneumococcal Conjugate PCV 20 11/22/2023 Pneumococcal Polysaccharide PPSV23 07/17/2017 Td (adult), unspecified 07/17/2002 Tdap 02/25/2015,11/07/2010 Family History Medical History Relation Name Comments Diabetes Mother's Brother Relation Name Status Comments Mother's Brother Social History Tobacco Use Types Packs/Day Years [...] Sign Reading Time Taken Comments Blood Pressure 133/81 10/16/2024 10:56 AM EDT Pulse 84 10/16/2024 10:56 AM EDT Temperature 36.4 C (97.6 F) 10/16/2024 10:27 AM EDT Respiratory Rate 16 10/16/2024 10:27 AM EDT Oxygen Saturation 98% 10/16/2024 10:27 AM EDT Inhaled Oxygen Concentration - - Weight 78 kg (172 lb) 10/16/2024 10:27 AM EDT Height - - Body Mass Index - - Plan of Treatment Upcoming Encounters Date Type Department Care Team (Late st Contact Info) Description 02/09/2025 11:00 AM EDT Office Visit [facility] MED & PEDS [address] [place] [address] Deyvi Ramos MD [address] [place] [address] Health Maintenance Due Date Last Done Comments CT Colonography 1965 Colonoscopy 1965 Colorectal Cancer Screening 1965 FIT DNA/Cologuard 1965 FIT 1965 FOBT 1965 Sigmoidoscopy 1965 Pap Smear 1986 Cervical Cancer Screening 1995 HPV/Cotest 1995 Zoster Vaccines (1 of 2) 2015 Mammogram 10/17/2019 10/16/2017 SDOH Screening 11/12/2024 11/13/2023 Hepatitis B Vaccines (2 of 3 - 19+ 3-dose series) 11/13/2024 10/16/2024 Influenza Vaccine (#1) 2025 , 03/11/2019, 02/18/2018, Additional history exists DTaP/Tdap/Td Vaccines (3 - Td or Tdap) 02/25/2025 02/25/2015, 11/07/2010, 07/17/2002, Additional history exists Alcohol/Substance Use Screening 06/26/2025 06/26/2024 Depression Screening 06/26/2025 06/26/2024, 06/26/19 25 Disability Screening 10/10/2025 10/10/2024 Tobacco Screening 10/16/2025 10/16/2024 RSV Patients and Patients Aged 60 years or older (1 - 1-dose 75+ series) 2040 Pneumococcal Vaccine: 50+ Years Completed 11/22/2023, 07/17/2017 COVID-19 Vaccine Completed 04/07/2024, , 09/27/2020, Additional history exists HIV Screening Completed 10/16/2024 Hepatitis C Screening Completed 10/16/2024 HIB Vaccines Aged Out No longer eligi [...] DEXA AXIAL Routine 01/28/2025 2:37 PM EDT HEPATITIS C AB W/REFL TO HCV RNA, QN, PCR Routine 10/16/2024 11:36 AM EDT Compression fracture of L5 vertebra, initial encounter ([facility]) HIV 1/2 ANTIGEN/ANTIBODY, FOURTH GENERATION W/RFL Routine 10/16/2024 11:36 AM EDT Compression fracture of L5 vertebra, initial encounter ([facility]) BI MAMMOGRAM SCREENING BILATERAL Routine 10/16/2017 4:56 PM EDT from Last 3 Months or Most Recently Relevant to Health Maintenance Results * BD DEXA Axial (01/28/2025 2:37 PM EDT) Anatomical Region Laterality Modality Body Radiographic Rebecca ging 01/28/2025 2:37 PM EDT Narrative 01/28/2025 3:21 PM EDT [facility] [address] [place], [place] [address] Mammography Report Signed Patient: Adrianna Lucio MR#: [id number] : 1965 Acct:[id number] Age/Sex: 59 / F ADM Date: 01/28/25 Loc: HO.MAMMO Attending Dr: Deyvi Ramos MD Ordering Physician: Kiet Bui MD Results: Date of Service: 01/28/25 Follow Up: Procedure(s): XR DEXA axial skeleton Accession Number(s): [id number] cc: Deyvi Ramos MD; Kiet Bui MD Reason For Exam: S32.000A - Wedge compression fracture of unspecified lumbar vertebra, in... EXAMINATION: DXA BONE DENSITY AXIAL HISTORY: S32.000A - Wedge compression fracture of unspecified lumbar vertebra... TECHNIQUE: [facility] [employer] Dual energy absorptiometry (DEXA) of the lumbar [...] is a trademark of the [employer]'s [employer] Metabolic Bone Disease, a World Health Organization (WHO) Collaborating Center. Electronically signed by: Stephan Cortes MD 01/28/2025 03:18 PM EDT RP Dictated By: Stephan Cortes MD Signed By: <Electronically signed by Stephan Cortes MD in OV> 01/28/25 1518 DD/ 1437 TD/TT: 01/28/25 1500 Jacquard Loom Weaver: Procedure Note Donotuseinterpreter, Image - 01/28/2025 [facility] [address] [place], [place] [address] Mammography Report Signed Patient: Adrianna Lucio AMR#: [id number] : 1965Acct:[id number] Age/Sex: 59 / FADM Date: 01/28/25 Loc: HO.MAMMO Attending Dr: Deyvi Ramos MD Ordering Physician: Kiet Bui MDResults: Date of Service: 01/28/25Follow Up: Procedure(s): XR DEXA axial skeleton Accession Number(s): [id number] cc: Deyvi Ramos MD; Kiet Bui MD Reason For Exam: S32.000A - Wedge compression fracture of unspecifiedlumbar vertebra, in... EXAMINATION: DXA BONE DENSITY AXIAL HISTORY: S32.000A - Wedge compression fracture of unspecified lumbar vertebra... TECHNIQUE: [employer] Dual energy absorptiometry (DEXA) of the lumbar [...] of the [employer] Disease, a World Health Organization (WHO) Collaborating Center. Electronically signed by: Stephan Cortes MD 01/28/2025 03:18 PM EDT Dictated By: Stephan Cortes MD Signed By: <Electronically signed by Stephan Cortes MD in OV> 01/28/25 1518 DD/ 1437 TD/TT: 01/28/25 1500 Jacquard Loom Weaver: [facility] External Provider IMG DXA PROCEDURES Edited Result - Final * Hepatitis C Antibody with Reflex to HCV, RNA, Quantitative, Real-Time PCR (10/16/2024 11:36 AM EDT) Hepatitis C Antibody Nonreactive Nonreactive [facility] Comment:Antibodies to HCV no t detected; does not exclude early acuteHCV infection. Blood Venous blood specimen / Unknown 10/16/2024 11:36 AM EDT 10/16/2024 2:08 PM EDT Deyvi Ramos MD LAB BLOOD ORDERABLES Final Result [facility] [address] [place] [phone] * HIV-1/2 Antigen and Antibodies, Fourth Generation, with Reflexes (10/16/2024 11:36 AM EDT) HIV AB/AG Nonreactive Nonreactive [facility] Comment:HIV-1 p24 Ag and/or HIV-1/HIV-2 Ab not detected.A test result that is nonreactive does not exclude thepossibility of exposure to or infection with HIV-1 and/orHIV-2. Nonreactive results in this assay for individualswith prior exposure to HIV-1 and/or HIV-2 may be due toantigen and antibody levels that are below the limit ofdetection of this assay.The [employer] HIV Ag/Ab Combo assay result andsupplemental assay results should be interpreted inconjunction with the patient's clinical presentation,history and other laboratory results. If the results areinconsistent with clinical evidence, additional testing issuggested to confirm the result. Blood Venous blood specimen / Unknown 10/16/2024 11:36 AM EDT 10/16/2024 2:08 PM EDT us Deyvi Ramos MD LAB BLOOD ORDERABLES Final Result [facility] [address] [place] [address] [phone] * 3D DIGITAL MADHAVI SCR MAMMO 1 (10/16/2017 4:56 PM EDT) Anatomical Region Laterality Modality Breast Bilateral Mammography 10/16/2017 4:56 PM EDT Narrative 10/16/2017 4:58 PM EDT Refer to the Notes tab for result details [facility] Procedure: 3D DIGITAL MADHAVI SCR MAMMO 1 Procedure Note ProviderEmilia MD - 08/05/2022 Refer to the Notes tab for result details [facility] Procedure: 3D DIGITAL MADHAVI SCR MAMMO 1 us Deyvi Ramos MD IMG BI PROCEDURES Final Res ult from Last 3 Months or Most Recently Relevant to Health Maintenance Insurance [facility] C3 Care Teams Engineering Technical Specialist Relationship Specialty Start Date End Date Deyvi Ramos MD [address] [place] [address] PCP - General Internal Medicine 11/22/23 [facility] 04/04/24
--- OUTSIDE RECORDS SUMMARY | 2025-01-28 17:24 | XMS_ITS | Encounter Summary ---
Author Organization [employer] Address [address] [facility] 7t [place] [address] Care Team Providers Care Patient Registration Supervisor Name Role Phone Deyvi Ramos MD Primary Care Provider [phone] Encounter Details Date Type Department Care Team ([facility] st Contact Info) Description 05/16/2024 Orders Only [facility] CH[facility] MED & PEDS [address] [place], [place] [phone] Deyvi Ramos MD [address] [place] [address] Social History Tobacco Use Types Packs/Day Years [...] Description 02/09/2025 11:00 AM EDT Office Visit [facility] MED & PEDS [address] [place] [address] Deyvi Ramos MD [address] [place] [address] documented as of this encounter Visit Diagnoses Not on filedocumented in this encounter Care Teams Patient Registration Supervisor Relationship Specialty Start Date End Date Deyvi Ramos MD [address] [place] [address] PCP - General Internal Medicine 11/22/[address] [facility] 04/04/24 documented as of this encounter
--- OUTSIDE RECORDS SUMMARY | 2025-01-28 17:24 | XMS_ITS | Encounter Summary ---
Author Organization [employer] Address [address] [place] [address] Care Team Providers Care Apartment Maintenance Name Role Phone Deyvi Ramos MD Primary Care Provider [phone] Reason for Referral * Consultation (Routine) - Canceled Specialty Diagnoses / Procedures Referred By Juan mcdonald Referred To Contact Podiatry Diagnoses Onychogryphosis Deyvi Ramos MD [address] [place] [address] Phone: tel: fax: Referral ID Status Reason Start Date Expiration Date Visits Requested Visits Authorized [id number] Canceled Specialty Services Required 06/18/2024 06/18/2025 1 1 Encounter Details Date Type Department Care Team ([facility] Contact Info) Description 06/18/2024 Orders Only [facility] CHC MED & PEDS [address] [place] [address] Deyvi Ramos MD [address] [place] [address] Onychogryphosis (Primary Dx) Social History Tobacco Use [...] Description 02/09/2025 11:00 AM EDT Office Visit [facility] MED & PEDS [address] [place] [address] Deyvi Ramos MD [address] [place] [address] Scheduled Referrals Name Type Priority Associated Diagnoses Orde r Schedule Referral to Podiatry Outpatient Referral Routine Onychogryphosis Expected: 06/18/2024 (Approximate), Expires: 06/18/2025 documented as of this encounter Visit Diagnoses Diagnosis Onychogryphosis- Primary Other specified disease of nail documented in this encounter Care Teams Apartment Maintenance Relationship Specialty Start Date End Date Deyvi Ramos MD [address] [place] [address] PCP - General Internal Medicine 11/22/23 [facility] 04/04/24 documented as of this encounter
--- OUTSIDE RECORDS SUMMARY | 2025-01-28 17:24 | XMS_ITS | Encounter Summary ---
Author Organization [employer] Address [address] [place] [address] [address], [place] [address] Care Team Providers Care Biostatistics Manager Name Role Phone Deyvi Ramos MD Primary Care Provider [phone] Deyvi Ramos MD Primary Care Provider [phone]- [phone] Reason for Visit * Reason Comments Med Refill Encounter Details Date Type Department Care Team (Late st Contact Info) Description 08/21/2022 Refill [facility] MED & PEDS [address] [place] [address] Deyvi Ramos MD [address] [place] [address] Social History Tobacco Use Types Packs/Day Years [...] Description 02/09/2025 11:00 AM EDT Office Visit [facility] MED & PEDS [address] [place] [address] Deyvi Ramos MD [address] [place] [address] documented as of this encounter Visit Diagnoses Not on filedocumented in this encounter Care Teams Biostatistics Manager Relationship Specialty Start Date End Date Deyvi Ramos MD [address] [place] [address] PCP - General Internal Medicine 06/12/13 06/03/23 Deyvi Ramos MD [address] [place] [address] PCP - General Internal Medicine 11/22/23 [facility] 04/04/24 documented as of this encounter
--- OUTSIDE RECORDS SUMMARY | 2025-01-28 17:24 | XMS_ITS | Clinical Summary ---
Author Organization [facility] Address [address] [place] [address] Care Team Providers Care Diving Coach Name Role Phone Deyvi Ramos MD Primary Care Provider [phone] Allergies Active Allergy Reactions Criticality Noted Date [...] Type Department Care Team Description 11/07/[address] [address] Deyvi Ramos MD from Last 3 Months Social History Tobacco Use Types Packs/Day Years Used Date Smoking Tobacco: Never Assessed [facility] Utilities Answer Date Recorded In the past 12 months has [employer], gas, oil, or water [employer] threatened to shut off services in your [...] any time in the past 12 m [facility], were you homeless or living in a chcf (including now)? Patient declined 08/27/2024 Comments Unknown [...] Inactivated Comments 08/26/2024 10:59 AM Care Teams Diving Coach Relationship Specialty Start Date End Date Deyvi Ramos MD [address] [place] [address] PCP - General General Medicine 08/26/24
--- OUTSIDE RECORDS SUMMARY | 2025-01-28 17:24 | XMS_ITS | Encounter Summary ---
Author Organization [facility] Address [address] [place] [address] [address] [address] Care Team Providers Care Concrete Plant Laborer Name Role Phone Deyvi Ramos MD Primary Care Provider [phone] Reason for Visit * Reason Comments Med Refill Encounter Details Date Type Department Care Team ([facility] Contact Info) Description 08/09/2023 Refill [facility] MED & PEDS [address] [place] [address] Deyvi Ramos MD [address] [place] [address] Social History Tobacco Use Types Packs/Day Years [...] Upcoming Encounters Date Type Department Care Team ([facility] Contact Info) Description 02/09/2025 11:00 AM EDT Office Visit [facility] CHC MED & PEDS [address] [place], [place] [phone] Deyvi Ramos MD [address] [place] [address] documented as of this encounter Visit Diagnoses Not on filedocumented in this encounter Care Teams Concrete Plant Laborer Relationship Specialty Start Date End Date Deyvi Ramos MD [address] [place] [address] PCP - General Internal Medicine 11/22/23 [facility] 04/04/24 documented as of this encounter
--- OUTSIDE RECORDS SUMMARY | 2025-01-28 17:24 | XMS_ITS | Encounter Summary ---
Author Organization [employer] Address [address] [facility] 7 [place] [address] Care Team Providers Care Dixonac Operator Name Role Phone Deyvi Ramos MD Primary Care Provider [phone]- [phone] Reason for Visit * Reason Onset Date Comments Referral 06/17/2024 Encounter Details Date Type Department Care Team ([facility] st Contact Info) Description 06/17/[address] [facility] CHC MED & PEDS [address] [place], [place] [phone] Deyvi Ramos MD [address] [place] [address] Referral Social History Tobacco Use Types Packs/Day [...] 02/09/2025 11:00 AM EDT Office Visit [facility] MED & PEDS [address] [place] [address] Deyvi Ramos MD [address] [place] [address] documented as of this encounter Visit Diagnoses Not on filedocumented in this encounter Care Teams Dixonac Operator Relationship Specialty Start Date End Date Deyvi Ramos MD [address] [place] [address] PCP - General Internal Medicine 11/22/23 [facility] 04/04/24 documented as of this encounter
--- OUTSIDE RECORDS SUMMARY | 2025-01-28 17:24 | XMS_ITS | Encounter Summary ---
Author Organization [employer] Address [address] [place] [address] 7 [place] [address] Care Team Providers Care Dietitian Teaching Name Role Phone Deyvi Ramos MD Primary Care Provider [phone] Reason for Referral * Consultation (Routine) - Authorized Specialty Diagnoses / Procedures Referred By Juan mcdonald Referred To Contact Endocrinology Diagnoses Left leg paresthesias Osteoporosis of disuse Compression fracture of L5 vertebra, initial encounter ([facility]) Deyvi Ramos MD [address] [place] [address] Phone: tel: fax: [facility] Endocrinology [address] [place], [place] Phone: tel: fax: Referral ID Status Reason Start Date Expiration Date Visits Requested Visits Authorized [id number] Authorized Specialty Services Required 11/10/2024 11/10/2025 1 1 * Neurology (Routine) - Closed Specialty Diagnoses / Procedures Referred By Juan mcdonald Referred To Contact Diagnoses Left leg paresthesias Procedures Nerve conduction test Deyvi Ramos MD [address] [place] [address] Phone: tel: fax: [facility] [address] [place] [address] Phone: tel: fax: Referral ID Status Reason Start Date Expiration Date Visits Re quested Visits Authorized [id number] Closed 10/28/2024 10/28/2025 1 1 Encounter Details Date Type Department Care Team (Late st Contact Info) Description 10/28/2024 Orders Only [facility] CHC MED & PEDS [address] [place] [address] Deyvi Ramos MD [address] [place] [address] Left leg paresthesias (Primary Dx); Osteoporosis of disuse; Compression fracture of L5 vertebra, initial encounter ([facility]) Social History Tobacco Use Types Packs/Day Years [...] Description 02/09/2025 11:00 AM EDT Office Visit [facility] MED & PEDS [address] [place] [address] Deyvi Ramos MD [address] [place] [address] Scheduled Orders Name Type Priority Associated Diagnoses Orde r Schedule Nerve conduction test Neurology Routine Left leg paresthesias Expected: 10/28/2024 (Approximate), Expires: 10/28/2025 Scheduled Referrals Name Type Priority Associated Diagnoses Order Schedule Referral to Endocrinology Outpatient Referral Routine Left leg paresthesias Osteoporosis of disuse Compression fracture of L5 vertebra, initial encounter ([facility]) Expected: 11/10/2024 (Approximate), Expires: 11/10/2025 documented as of this encounter Visit Diagnoses Diagnosis Left leg paresthesias- Primary Disturbance of skin sensation Osteoporosis of disuse Disuse osteoporosis Compression fracture of L5 vertebra, initial encounter ([facility]) documented in this encounter Additional Health Concerns Assessment Noted Time PHQ-9 Depression Total Score: 2 06/26/19 25 11:28 AM EST documented as of this encounter Care Teams Dietitian Teaching Relationship Specialty Start Date End Date Deyvi Ramos MD [address] [place] [address] PCP - General Internal Medicine 11/22/23 [facility] 04/04/24 documented as of this encounter
--- OUTSIDE RECORDS SUMMARY | 2025-01-28 17:24 | XMS_ITS | Encounter Summary ---
Author Organization [employer] Address [address] [place] [address] 7 [place] [address] Care Team Providers Care Transit Clerk Name Role Phone Deyvi Ramos MD Primary Care Provider [phone] Deyvi Ramos MD Primary Care Provider [phone] Reason for Visit * Reason Onset Date Comments New Script 09/20/2022 Encounter Details Date Type Department Care Team ([facility] Contact Info) Description 09/20/[address] [facility] MED & PEDS [address] [place], [place] [phone] Deyvi Ramos MD [address] [place], [place] [phone] New Script Social History Tobacco Use Types [...] - 09/20/2022 11:17 AM EDT Tc from [facility] requesting a new script for calcium carbonate 1500 (600 Ca) MG tablet for a 90 day's supply due to insurance not covering other script. Please contact pharmacy at [phone] documented in this encounter Plan of Treatment Upcoming Encounters Date Type Department Care Team (Late st Contact Info) Description 02/09/2025 11:00 AM EDT Office Visit [facility] MED [facility] PEDS [address] [place] [address] Deyvi Ramos MD [address] [place] [address] documented as of this encounter Visit Diagnoses Not on filedocumented in this encounter Care Teams Transit Clerk Relationship Specialty Start Date End Date Deyvi Ramos MD [address] [place] [address] PCP - General Internal Medicine 06/12/13 06/03/23 Deyvi Ramos MD [address] [place] [address] PCP - General Internal Medicine 11/22/23 [facility] 04/04/24 documented as of this encounter
--- OUTSIDE RECORDS SUMMARY | 2025-01-28 17:24 | XMS_ITS | Encounter Summary ---
Author Organization [employer] Address [address] [place] [address] Care Team Providers Care Tape Recorder Mechanic Name Role Phone Deyvi Ramos MD Primary Care Provider +1- [phone] Deyvi Ramos MD Primary Care Provider +1- [phone] Encounter Details Date Type Department Care Team ([facility] Contact Info) Description 11/16/[address] [facility] MED & PEDS [address] [place] [address] Evette Senior LPN Social History Tobacco Use [...] Upcoming Encounters Date Type Department Care Team ([facility] Contact Info) Description 02/09/2025 11:00 AM EDT Office Visit [facility] MED & PEDS [address] [place], [place] [phone] Deyvi Ramos MD [address] [place], [place] [phone] documented as of this encounter Visit Diagnoses Not on filedocumented in this encounter Care Teams Tape Recorder Mechanic Relationship Specialty Start Date End Date Deyvi Ramos MD [address] [place] [address] PCP - General Internal Medicine 06/12/13 06/03/23 Deyvi Ramos MD [address] [place] [address] [place] [address] PCP - General Internal Medicine 11/22/23 [facility] 04/04/24 documented as of this encounter
--- OUTSIDE RECORDS SUMMARY | 2025-01-28 17:24 | XMS_ITS | Encounter Summary ---
Author Organization [employer] Address [address] [facility] 7 [place] [address] Care Team Providers Care Paper Deliverer Name Role Phone Deyvi Ramos MD Primary Care Provider +1- [phone] Reason for Visit * Reason Comments Med Refill Encounter Details Date Type Department Care Team ([facility] st Contact Info) Description 12/26/2024 Refill [facility] CHC MED & PEDS [address] [place], [place] [phone] Deyvi Ramos MD [address] [place] [address] Compression fracture of L1 vertebra, initial encounter ([facility]) Social History Tobacco Use Types Packs/Day Years [...] Upcoming Encounters Date Type Department Care Team ([facility] st Contact Info) Description 02/09/2025 11:00 AM EDT Office Visit [facility] CHC MED & PEDS [address] [place] [address] Deyvi aRmos MD [address] [place] [address] documented as of this encounter Visit Diagnoses Diagnosis Compression fracture of L1 vertebra, initial encounter ([facility]) documented in this encounter Additional Health Concerns Assessment Noted Time PHQ-9 Depression Total Score: 2 06/26/19 25 11:28 AM EST documented as of this encounter Care Teams Paper Deliverer Relationship Specialty Start Date End Date Deyvi Ramos MD [address] [place] [address] PCP - General Internal Medicine 11/22/23 [facility] 04/04/24 documented as of this encounter
--- OUTSIDE RECORDS SUMMARY | 2025-01-28 17:24 | XMS_ITS | Encounter Summary ---
Author Organization [employer] Address [address] [place] [address] Care Team Providers Care Skating Rink Manager Name Role Phone Deyvi Ramos MD Primary Care Provider +1- [phone] Deyvi Ramos MD Primary Care Provider +1- [phone] Encounter Details Date Type Department Care Team ([facility] Contact Info) Description 09/19/2022 Orders Only [facility] MED & PEDS [address] [place] [address] Judith Britton LPN Social History Tobacco Use [...] Upcoming Encounters Date Type Department Care Team ([facility] Contact Info) Description 02/09/2025 11:00 AM EDT Office Visit [facility] MED & PEDS [address] [place] [address] Deyvi Ramos MD [address] [place] [address] documented as of this encounter Visit Diagnoses Not on filedocumented in this encounter Care Teams Skating Rink Manager Relationship Specialty Start Date End Date Deyvi Ramos MD [address] [place] [address] PCP - General Internal Medicine 06/12/13 06/03/23 Deyvi Ramos MD [address] [place] [address] PCP - General Internal Medicine 11/22/[address] [facility] 04/04/24 documented as of this encounter
--- OUTSIDE RECORDS SUMMARY | 2025-01-28 17:24 | XMS_ITS | Encounter Summary ---
Author Organization [employer] Address [address] [place] [address] [place] [address] Care Team Providers Care Diplomatic Officer Name Role Phone Deyvi Ramos MD Primary Care Provider +1- [phone] Deyvi Ramos MD Primary Care Provider +1- [phone] Reason for Visit * Reason Comments Med Refill Encounter Details Date Type Department Care Team (Late st Contact Info) Description 04/17/2023 Refill [facility] MED & PEDS [address] [place] [address] Deyvi Ramos MD [address] [place] [address] Social History Tobacco Use Types Packs/Day Years [...] [facility] [address] [place] [address] Deyvi Ramos MD [address] [place] [address] documented as of this encounter Visit Diagnoses Not on filedocumented in this encounter Care Teams Diplomatic Officer Relationship Specialty Start Date End Date Deyvi Ramos MD [address] [place] [address] PCP - General Internal Medicine 06/12/13 06/03/23 Deyvi Ramos MD [address] [place] [address] PCP - General Internal Medicine 11/22/23 [facility] 04/04/24 documented as of this encounter
--- OUTSIDE RECORDS SUMMARY | 2025-01-28 17:24 | XMS_ITS | Encounter Summary ---
Author Organization [facility] Address [address] [place] [address] Care Team Providers Care Rig Site Engineer Name Role Phone Deyvi Ramos MD Primary Care Provider [phone] Encounter Details Date Type Department Care Team ([facility] st Contact Info) Description 11/07/2024 Telephone [facility] [address] [place] [address] Deyvi Ramos MD [address] [place] [address] Social History Tobacco Use Types Packs/Day Years Used Date Smoking Tobacco: Never Assessed [facility] Utilities Answer Date Recorded In the past 12 months has e electric, gas, oil, or water company threatened to shut off [...] any time in the past 12 m [facility], were you homeless or living in a skilled nursing (including now)? Patient declined 08/27/2024 Comments Unknown Sex and Gender Information Value Date Recorded Sex Assigned at Female 08/26/2024 1:10 AM EDT Legal Sex Female 7:58 PM EDT Gender Identity Female 08/26/2024 1:10 AM EDT Sexual Orientation Heterosexual (straight) 08/26 1:10 AM EDT documented as of this encounter Plan of Treatment Not on file documented as of this encounter Visit Diagnoses Not on filedocumented in this encounter Care Teams Rig Site Engineer Relationship Specialty Start Date End Date Deyvi Ramos MD [address] [place] [address] PCP - General General Medicine 08/26/24 documented as of this encounter
--- OUTSIDE RECORDS SUMMARY | 2025-01-28 17:24 | XMS_ITS | Encounter Summary ---
Author Organization [employer] Address [address] [facility] 7 [place] [address] Care Team Providers Care Professor Of Biochemistry Name Role Phone Deyvi Ramos MD Primary Care Provider [phone] Reason for Visit * Reason Comments Med Refill Encounter Details Date Type Department Care Team ([facility] st Contact Info) Description 09/10/2024 Refill [facility] CHC MED & PEDS [address] [place], [place] [phone] Deyvi Ramos MD [address] [place] [address] Seasonal allergies Social History Tobacco Use Types Packs/Day Years [...] Upcoming Encounters Date Type Department Care Team ([facility] st Contact Info) Description 02/09/2025 11:00 AM EDT Office Visit [facility] MED & PEDS [address] [place] [address] Deyvi Ramos MD [address] [place] [address] documented as of this encounter Visit Diagnoses Diagnosis Seasonal allergies Allergic rhinitis, cause unspecified documented in this encounter Additional Health Concerns Assessment Noted Time PHQ-9 Depression Total Score: 2 06/26/19 25 11:28 AM EST documented as of this encounter Care Teams Professor Of Biochemistry Relationship Specialty Start Date End Date Deyvi Ramos MD [address] [place] [address] PCP - General Internal Medicine 11/22/23 [facility] 04/04/24 documented as of this encounter
--- OUTSIDE RECORDS SUMMARY | 2025-01-28 17:24 | XMS_ITS | Encounter Summary ---
Author Organization [employer] Address [address] [place] [address] Care Team Providers Care Oil Well Services Field Supervisor Name Role Phone Deyvi Ramos MD Primary Care Provider [phone]- [phone] Deyvi Ramos MD Primary Care Provider [phone]- [phone] Encounter Details Date Type Department Care Team (Latest Contact Info) Description 11/15/2018 Abstract [facility] CONVERSIONS Dental, Provider, DDS Social History [...] Description 02/09/2025 11:00 AM EDT Office Visit [facility] CHC MED & PEDS [address] [place] [address] Deyvi Ramos MD [address] [place] [address] documented as of this encounter Visit Diagnoses Not on filedocumented in this encounter Care Teams Oil Well Services Field Supervisor Relationship Specialty Start Date End Date Deyvi Ramos MD [address] [place] [address] PCP - General Internal Medicine 06/12/13 06/03/23 Deyvi Ramos MD [address] [place] [address] PCP - General Internal Medicine 11/22/23 [facility] 04/04/24 documented as of this encounter
== END 2025-01-28 13:36 | disposition home or self-care (01) ==
LOC: HO.MAMMO 13:35
PROVIDERS: PCP Internal Medicine; Visit Provider Internal Medicine
DX: Z12.31 Encounter for screening mammogram for malignant neoplasm of breast (principal); Z13.820 Encounter for screening for osteoporosis; S32.000D Wedge compression fracture of unspecified lumbar vertebra, subsequent encounter for fracture with routine healing; M81.0 Age-related osteoporosis without current pathological fracture
CPT/HCPCS: 77063; 77067; 77080

== ENCOUNTER → 2025-01-28 14:30 | Outpatient (BNV) | payer MEDICAID, SELFPAY | PROVIDERS: PCP Internal Medicine; Visit Provider Radiology Diagnostic Radiology | DX: E28.39 Other primary ovarian failure (principal) | CPT/HCPCS: 77080 ==

== ENCOUNTER → 2025-02-06 10:11 | Outpatient (AMB) | payer MEDICAID, SELFPAY ==
--- NOTE | 2025-02-06 08:05 | A.OFFVIS_ITS ---
Intake Visit Reasons: Former Smoker Allergies amoxicillin (AMOXICILLIN) Allergy (Unknown, Verified 12/11/24 14:48) EYES SWELLING pseudoephedrine (Sudafed) Allergy (Unknown, Verified 12/11/24 14:48) Unknown Sulfa (Sulfonamide Antibiotics) (SULFA (SULFONAMIDE ANTIBIOTICS)) Allergy (Unknown, Verified 12/11/24 14:48) SWELLING HPI HPI Former Smoker: Details: Initial visit for this 59yo smoker with a 20PYH. Patient started smoking at age 16 for 43 years at 1/2ppd. She quit smoking in 2023. . Denies marijuana use. Denies second hand smoke exposure. Denies exposure to chemicals or substances like asbestos. . Family history of lung cancer. Mom & Dad. Denies personal history of cancers. Denies chest CT in last year. . Denies recent travel outside the [place]. Denies recent respiratory illness or recent hospitalization for respiratory issues. History of testing positive for COVID. Admits receiving COVID Vaccine. . Denies fever, chills, new/worsening cough, hemoptysis, hoarseness or dysphagia. Denies significant chest pain, significant dyspnea or unintentional weight loss. Patient Lung Cancer Screening Questionnaire reviewed with patient by provider. . Shared Decision Making Completed. Patient meets criteria. Discussed in detail with patient, the risk vs benefit of LDCT screening. Patient consents to proceed with scan. Discussed and encouraged continued smoking cessation. [facility] Medical History (Updated 02/06/25 @ 10:39 by Maria Alejandra Kennedy PA-C) Personal history of nicotine dependence Compression fx, lumbar spine Alcohol abuse Osteopoikilosis Alcohol use disorder COPD (chronic obstructive pulmonary disease) Surgical History (Updated 02/06/25 @ 10:42 by Maria Alejandra Kennedy PA-C) History of surgery on lower extremity Family History Father No problems noted. Mother No problems noted. Social History (Updated 02/06/25 @ 10:40 by Maria Alejandra Kennedy PA-C) Household Members: Children Household Members Other:: son Housing: Apartment Do you presently have visiting nurse or other home services: No Patient Tobacco Use Status: Former Tobacco user Years Smoked: (onset 16yo, 1/2ppd x 43yrs, 20PYH, quit 2023) service: No Assessment & Plan Assessment & Plan (1) Personal history of nicotine dependence: Comment: (onset 16yo, 1/2ppd x 43yrs, 20PYH, quit 2023) Code(s): Z87.891 - Personal history of nicotine dependence Category: Medical Plan: - SDM visit completed today in office. - Patient meets criteria for LDCT for lung cancer screening purposes and is asymptomatic. - Smoking cessation counseling offered. Patients can always call [phone]. - Will arrange for a LDCT scan of the chest for screening purposes at [facility]. - Risks, benefits, and alternatives were discussed in detail and the patient agrees to proceed. - Risks discussed include but are not limited to: radiation exposure, anxiety during testing and while awaiting results, false negatives, false positives and possibility of additional intervention such as further imaging or surgical procedures for benign disease. - Benefits are obviously detection of lung cancer at an early stage which can lead to improved outcomes. - Discussed the importance of screening program compliance with adherence to yearly LDCT scan as scheduled - or sooner interval scans for personalized screening regimen. - Discussed follow up plan. Our office will send a letter discussing results and if needed set up phone call and office visit based on CT findings. - Patient educated on results categorization and the management decisions for suspicious findings potentially found on the screening LDCT scan. Any patient with a Lung RADS score of 3 or 4 will be reviewed by a multidisciplinary team at [facility] to form a plan of action in regards to scan findings. - If further work up is warranted for a suspicious lung finding this will be followed by the Lung Cancer Screening program in conjunction with the Thoracic Surgery Department at [facility]. - A copy of the office note and LDCT will be sent to the patient's PCP - as well as documentation on any associated further plans of care. - Incidental findings on LDCT are the PCP's responsibility. These findings are indicated with an S finding on the LDCT Assessment. A note discussing the findings will be sent to the PCP who is then responsible for further management. - All questions answered.? Coding Level of Care Code Lung Cancer Screening G0296 Diagnoses Personal history of nicotine dependence Z87.891
--- OUTSIDE RECORDS SUMMARY | 2025-02-06 11:26 | XMS_ITS | Encounter Summary ---
Author Organization [employer] Address [address] [place] [address] [address], [place] [address] Care Team Providers Care Nuclear Weapons Mechanical Specialist Name Role Phone Deyvi Ramos MD Primary Care Provider [phone]- [phone] Deyvi Ramos MD Primary Care Provider +1- [phone] Reason for Visit * Reason Comments Med Refill Encounter Details Date Type Department Care Team (Late st Contact Info) Description 08/21/2022 Refill [facility] MED & PEDS [address] [place] [address] Deyvi Ramos MD [address] [place] [address] Social History Tobacco Use Types Packs/Day Years [...] 11:00 AM EDT Office Visit [facility] MED & PEDS [address] [place] [address] Deyvi Ramos MD [address] [place] [address] documented as of this encounter Visit Diagnoses Not on filedocumented in this encounter Care Teams Nuclear Weapons Mechanical Specialist Relationship Specialty Start Date End Date Deyvi Ramos MD 505 [place] [address] PCP - General Internal Medicine 06/12/13 06/03/23 Deyvi Ramos MD [address] [place] [address] PCP - General Internal Medicine 11/22/23 [facility] 04/04/24 documented as of this encounter
--- OUTSIDE RECORDS SUMMARY | 2025-02-06 11:26 | XMS_ITS | Clinical Summary ---
Author Organization [facility] Address [address] [place] [address] Care Team Providers Care Head Insulation Board Saw Operator Name Role Phone Deyvi Ramos MD Primary Care Provider [phone] Allergies Active Allergy Reactions Criticality Noted Date [...] Type Department Care Team Description 11/07/[address] [address] Deyvi Ramos MD from Last 3 Months Social History Tobacco Use Types Packs/Day Years Used Date Smoking Tobacco: Never Assessed [facility] Utilities Answer Date Recorded In the past 12 months has [employer], gas, oil, or water [employer] threatened to shut off services in your [...] any time in the past 12 m [facility], were you homeless or living in a usp (including now)? Patient declined 08/27/2024 Comments Unknown [...] Inactivated Comments 08/26/2024 10:59 AM Care Teams Head Insulation Board Saw Operator Relationship Specialty Start Date End Date Deyvi Ramos MD [address] [place] [address] PCP - General General Medicine 08/26/24
--- OUTSIDE RECORDS SUMMARY | 2025-02-06 11:26 | XMS_ITS | Encounter Summary ---
Author Organization [employer] Address [address] [place] [address] Care Team Providers Care Repairer Hairspring Name Role Phone Deyvi Ramos MD Primary Care Provider +1- [phone] Deyvi Ramos MD Primary Care Provider [phone]- [phone] Encounter Details Date Type Department Care Team ([facility] Contact Info) Description 11/16/2022 Orders Only [facility] CHC MED & PEDS [address] [place] [address] Evette Senior LPN Social History Tobacco Use [...] Upcoming Encounters Date Type Department Care Team ([facility] Contact Info) Description 02/09/2025 11:00 AM EDT Office Visit [facility] CHC MED & PEDS [address] [place], [place] [phone] Deyvi Ramos MD [address] [place], [place] [phone] documented as of this encounter Visit Diagnoses Not on filedocumented in this encounter Care Teams Repairer Hairspring Relationship Specialty Start Date End Date Deyvi Ramos MD [address] [place] [address] PCP - General Internal Medicine 06/12/13 06/03/23 Deyvi Ramos MD [address] [place] [address] [place] [address] PCP - General Internal Medicine 11/22/23 [facility] 04/04/24 documented as of this encounter
--- OUTSIDE RECORDS SUMMARY | 2025-02-06 11:26 | XMS_ITS | Encounter Summary ---
Author Organization [employer] Address [address] [place] [address] Care Team Providers Care Playground Monitor Name Role Phone Deyvi Ramos MD Primary Care Provider +1- [phone] Deyvi Ramos MD Primary Care Provider +1- [phone] Encounter Details Date Type Department Care Team ([facility] Contact Info) Description 09/19/2022 Orders Only [facility] MED & PEDS [address] [place] [address] Juidth Britton LPN Social History Tobacco Use Types [...] Upcoming Encounters Date Type Department Care Team ([facility] Contact Info) Description 02/09/2025 11:00 AM EDT Office Visit [facility] MED & PEDS [address] [place] [address] Deyvi Ramos MD [address] [place] [address] documented as of this encounter Visit Diagnoses Not on filedocumented in this encounter Care Teams Playground Monitor Relationship Specialty Start Date End Date Deyvi Ramos MD [address] [place] [address] PCP - General Internal Medicine 06/12/13 06/03/23 Deyvi Ramos MD [address] [place] [address] PCP - General Internal Medicine 11/22/23 [facility] 04/04/24 documented as of this encounter
--- OUTSIDE RECORDS SUMMARY | 2025-02-06 11:26 | XMS_ITS | Encounter Summary ---
Author Organization [employer] Address [address] [place] [address] 7 [place] [address] Care Team Providers Care Manager Loss Prevention Name Role Phone Deyvi Ramos MD Primary Care Provider +1- [phone] Deyvi Ramos MD Primary Care Provider +1- [phone] Reason for Visit * Reason Onset Date Comments New Script 09/20/2022 Encounter Details Date Type Department Care Team ([facility] Contact Info) Description 09/20/2022 Telephone [facility] CHC MED & PEDS [address] [place], [place] [phone] Deyvi Ramos MD [address] [place], [place] [phone] New Script Social History Tobacco Use Types [...] - 09/20/2022 11:17 AM EDT Tc from [facility] requesting a new script for calcium carbonate 1500 (600 Ca) MG tablet for a 90 day's supply due to insurance not covering other script. Please contact pharmacy at [phone] documented in this encounter Plan of Treatment Upcoming Encounters Date Type Department Care Team (Late st Contact Info) Description 02/09/2025 11:00 AM EDT Office Visit [facility] MED & PEDS [address] [place] [address] Deyvi Ramos MD [address] [place] [address] documented as of this encounter Visit Diagnoses Not on filedocumented in this encounter Care Teams Manager Loss Prevention Relationship Specialty Start Date End Date Deyvi Ramos MD [address] [place] [address] PCP - General Internal Medicine 06/12/13 06/03/23 Deyvi Ramos MD [address] [place] [address] PCP - General Internal Medicine 11/22/23 [facility] 04/04/24 documented as of this encounter
--- OUTSIDE RECORDS SUMMARY | 2025-02-06 11:27 | XMS_ITS | Encounter Summary ---
Author Organization [employer] Address [address] [place] [address] Care Team Providers Care Telephone Order Clerk Room Service Name Role Phone Deyvi Ramos MD Primary Care Provider +1- [phone] Deyvi Ramos MD Primary Care Provider +1- [phone] Encounter Details Date Type Department Care Team (Latest Contact Info) Description 11/15/2018 Abstract [facility] CONVERSIONS Dental, Provider, DDS Social History Tobacco [...] Description 02/09/2025 11:00 AM EDT Office Visit [facility] CHC MED & PEDS [address] [place] [address] Deyvi Ramos MD [address] [place] [address] documented as of this encounter Visit Diagnoses Not on filedocumented in this encounter Care Teams Telephone Order Clerk Room Service Relationship Specialty Start Date End Date Deyvi Ramos MD [address] [place] [address] PCP - General Internal Medicine 06/12/13 06/03/23 Deyvi Ramos MD [address] [place] [address] PCP - General Internal Medicine 11/22/23 [facility] 04/04/24 documented as of this encounter
--- OUTSIDE RECORDS SUMMARY | 2025-02-06 11:27 | XMS_ITS | Encounter Summary ---
Author Organization [employer] Address [address] [place] [address] [address] [address] Care Team Providers Care Cdl Team Truck Driver Name Role Phone Deyvi Ramos MD Primary Care Provider [phone] Deyvi Ramos MD Primary Care Provider [phone] Reason for Visit * Reason Comments Med Refill Encounter Details Date Type Department Care Team (Late st Contact Info) Description 04/17/2023 Refill [facility] [address] [place] [address] Deyvi Ramos MD 505 [place] [address] Social History Tobacco Use Types Packs/Day Years [...] Description 02/09/2025 11:00 AM EDT Office Visit [facility] [address] [place] [address] Deyvi Ramos MD 505 [place] [address] documented as of this encounter Visit Diagnoses Not on filedocumented in this encounter Care Teams Cdl Team Truck Driver Relationship Specialty Start Date End Date Deyvi Ramos MD 505 [facility] [place] [address] PCP - General Internal Medicine 06/12/13 06/03/23 Deyvi Ramos MD 505 [facility] [place] [address] PCP - General Internal Medicine 11/22/23 [facility] 04/04/24 documented as of this encounter
--- OUTSIDE RECORDS SUMMARY | 2025-02-06 11:27 | XMS_ITS | Clinical Summary ---
Author Organization [address] [facility] Address [address] [place] [address] Phone Care Team Providers Care Commercial Lines Assistant Name Role Phone Deyvi Ramos MD Primary Care Provider [phone] [phone] Allergies Active Allergy Reactions Criticality Noted Date [...] 11/07/2010 COPD (chronic obstructive pu lmonary disease) ([facility] V24, [facility] V28) 11/04/2010 Overview (07/16/2024): Moderate-severe without reversibility [...] Upcoming Encounters Date Type Department Care Team ([facility] st Contact Info) Description 02/19/2025 9:15 AM EDT Office Visit Orthopedic Surgery - [facility] [address] [id number] Yunier Gaytan, DPM [address] [phone] Health Maintenance Due Date Last Done Comments [...] Maintenance Insurance MEDICAID - [place] Care Teams Commercial Lines Assistant Relationship Specialty Start Date End Date Deyvi Ramos MD 505 [place] [address] PCP - General Internal Medicine 07/14/24
--- OUTSIDE RECORDS SUMMARY | 2025-02-06 11:27 | XMS_ITS | Encounter Summary ---
Author Organization [employer] [facility] Address [address] [place] [address] [address], [place] [address] Care Team Providers Care Firestopper Technician Name Role Phone Deyvi Ramos MD Primary Care Provider [phone]- [phone] Reason for Visit * Reason Comments Med Refill Encounter Details Date Type Department Care Team ([facility] Contact Info) Description 08/09/2023 Refill [facility]ED[facility] [address] [place] [address] Deyvi Ramos MD 505 [place] [address] Social History Tobacco Use Types Packs/Day Years [...] Upcoming Encounters Date Type Department Care Team ([facility] Contact Info) Description 02/09/2025 11:00 AM EDT Office Visit [facility] MED & PEDS [address] [place], [place] [phone] Deyvi Ramos MD 505 [place] [address] documented as of this encounter Visit Diagnoses Not on filedocumented in this encounter Care Teams Firestopper Technician Relationship Specialty Start Date End Date Deyvi Ramos MD [address] [place] [address] PCP - General Internal Medicine 11/22/23 [facility] 04/04/24 documented as of this encounter
--- OUTSIDE RECORDS SUMMARY | 2025-02-06 11:27 | XMS_ITS | Encounter Summary ---
Author Organization [employer] Address [address] [place] [address] 7 [place] [address] Care Team Providers Care Retail Sales Associate Bilingual Name Role Phone Deyvi Ramos MD Primary Care Provider [phone] Reason for Referral * Consultation (Routine) - Authorized Specialty Diagnoses / Procedures Referred By Juan mcdonald Referred To Contact Endocrinology Diagnoses Left leg paresthesias Osteoporosis of disuse Compression fracture of L5 vertebra, initial encounter ([facility]) Deyvi Ramos MD [address] [place] [address] Phone: tel: fax: [facility] Endocrinology [address] [place], [place] Phone: tel: fax: Referral ID Status Reason Start Date Expiration Date Visits Requested Visits Authorized [id number] Authorized Specialty Services Required 11/10/2024 11/10/2025 1 1 * Neurology (Routine) - Closed Specialty Diagnoses / Procedures Referred By Juan mcdonald Referred To Contact Diagnoses Left leg paresthesias Procedures Nerve conduction test Deyvi Ramos MD [address] [place] [address] Phone: tel: fax: [facility] [address] [place] [address] Phone: tel: fax: Referral ID Status Reason Start Date Expiration Date Visits Re quested Visits Authorized [id number] Closed 10/28/2024 10/28/2025 1 1 Encounter Details Date Type Department Care Team (Late st Contact Info) Description 10/28/2024 Orders Only [facility] CHC MED & PEDS [address] [place] [address] Deyvi Ramos MD 505 [place] [address] Left leg paresthesias (Primary Dx); Osteoporosis of disuse; Compression fracture of L5 vertebra, initial encounter ([facility]) Social History Tobacco Use Types Packs/Day Years [...] Description 02/09/2025 11:00 AM EDT Office Visit [facility] MED & PEDS [address] [place] [address] Deyvi Ramos MD [address] [place] [address] Scheduled Orders Name Type Priority Associated Diagnoses Orde r Schedule Nerve conduction test Neurology Routine Left leg paresthesias Expected: 10/28/2024 (Approximate), Expires: 10/28/2025 Scheduled Referrals Name Type Priority Associated Diagnoses Order Schedule Referral to Endocrinology Outpatient Referral Routine Left leg paresthesias Osteoporosis of disuse Compression fracture of L5 vertebra, initial encounter ([facility]) Expected: 11/10/2024 (Approximate), Expires: 11/10/2025 documented as of this encounter Visit Diagnoses Diagnosis Left leg paresthesias- Primary Disturbance of skin sensation Osteoporosis of disuse Disuse osteoporosis Compression fracture of L5 vertebra, initial encounter ([facility]) documented in this encounter Additional Health Concerns Assessment Noted Time PHQ-9 Depression Total Score: 2 06/26/19 25 11:28 AM EST documented as of this encounter Care Teams Retail Sales Associate Bilingual Relationship Specialty Start Date End Date Deyvi Ramos MD 505 [place] [address] PCP - General Internal Medicine 11/22/23 [facility] 04/04/24 documented as of this encounter
--- OUTSIDE RECORDS SUMMARY | 2025-02-06 11:27 | XMS_ITS | Encounter Summary ---
Author Organization [employer] Address [address] [facility] 7 [place] [address] Care Team Providers Care Assembler Piano Name Role Phone Deyvi Ramos MD Primary Care Provider [phone] Reason for Visit * Reason Onset Date Comments Durable Medical Equipment 03/27/2024 Encounter Details Date Type Department Care Team ([facility] Contact Info) Description 03/27/2024 Telephone [facility] CHC MED & PEDS [address] [place] [address] Deyvi Ramos MD 505 [place] [address] Durable Medical Equipment Social History Tobacco Use [...] Description 02/09/2025 11:00 AM EDT Office Visit [facility] CHC MED & PEDS 505 [place] [address] Deyvi Ramos MD 505 [place] [address] documented as of this encounter Visit Diagnoses Not on filedocumented in this encounter Care Teams Assembler Piano Relationship Specialty Start Date End Date Deyvi Ramos MD [address] [place] [address] PCP - General Internal Medicine 11/22/23 [facility] 04/04/24 documented as of this encounter
--- OUTSIDE RECORDS SUMMARY | 2025-02-06 11:27 | XMS_ITS | Encounter Summary ---
Author Organization [employer] Address [address] [facility] 7 [place] [address] Care Team Providers Care Organic Chemistry Professor Name Role Phone Deyvi Ramos MD Primary Care Provider [phone] Reason for Visit * Reason Comments Med Refill Encounter Details Date Type Department Care Team ([facility] st Contact Info) Description 09/10/2024 Refill [facility] CHC MED & PEDS [address] [place], [place] [phone] Deyvi Ramos MD 505 [place] [address] Seasonal allergies Social History Tobacco Use Types [...] Upcoming Encounters Date Type Department Care Team ([facility] st Contact Info) Description 02/09/2025 11:00 AM EDT Office Visit [facility] MED & PEDS 505 [place] [address] Deyvi Ramos MD 505 [place] [address] documented as of this encounter Visit Diagnoses Diagnosis Seasonal allergies Allergic rhinitis, cause unspecified documented in this encounter Additional Health Concerns Assessment Noted Time PHQ-9 Depression Total Score: 2 06/26/19 25 11:28 AM EST documented as of this encounter Care Teams Organic Chemistry Professor Relationship Specialty Start Date End Date Deyvi Ramos MD 505 [place] [address] PCP - General Internal Medicine 11/22/23 [facility] 04/04/24 documented as of this encounter
--- OUTSIDE RECORDS SUMMARY | 2025-02-06 11:27 | XMS_ITS | Encounter Summary ---
Author Organization [employer] [facility] Address [address] [place] [address] 7[place] [address] Care Team Providers Care Bench Assembler Name Role Phone Deyvi Ramos MD Primary Care Provider [phone] Reason for Visit * Reason Comments Med Refill Encounter Details Date Type Department Care Team ([facility] Contact Info) Description 06/26/2023 Refill [facility] MED & PEDS 505 [place] [address] Deyvi Ramos MD 505 [place] [address] Social History Tobacco Use Types Packs/Day Years [...] Description 02/09/2025 11:00 AM EDT Office Visit [facility] CHC MED & PEDS [address] [place], [place] [phone] Deyvi Ramos MD 505 [place] [address] documented as of this encounter Visit Diagnoses Not on filedocumented in this encounter Care Teams Bench Assembler Relationship Specialty Start Date End Date Deyvi Ramos MD [address] [place] [address] PCP - General Internal Medicine 11/22/23 [facility] 04/04/24 documented as of this encounter
--- OUTSIDE RECORDS SUMMARY | 2025-02-06 11:27 | XMS_ITS | Encounter Summary ---
Author Organization [employer] Address [address] [facility] 7t [place] [address] Care Team Providers Care Filtration Operator Name Role Phone Deyvi Ramos MD Primary Care Provider [phone] Encounter Details Date Type Department Care Team ([facility] st Contact Info) Description 05/16/2024 Orders Only [facility] CHC MED & PEDS 505 [place], [place] [phone] Deyvi Ramos MD 505 [place] [address] Social History Tobacco Use Types Packs/Day Years [...] Description 02/09/2025 11:00 AM EDT Office Visit [facility] MED & PEDS 505 [place] [address] Deyvi Ramos MD 505 [place] [address] documented as of this encounter Visit Diagnoses Not on filedocumented in this encounter Care Teams Filtration Operator Relationship Specialty Start Date End Date Deyvi Ramos MD 505 [place] [address] PCP - General Internal Medicine 11/22/[address] [facility] 04/04/24 documented as of this encounter
--- OUTSIDE RECORDS SUMMARY | 2025-02-06 11:27 | XMS_ITS | Encounter Summary ---
Author Organization [employer] Address [address] [place] [address] Care Team Providers Care Watch Inspector Name Role Phone Deyvi Ramos MD Primary Care Provider [phone] Reason for Referral * Consultation (Routine) - Canceled Specialty Diagnoses / Procedures Referred By Juan mcdonald Referred To Contact Podiatry Diagnoses Onychogryphosis Deyvi Ramos MD [address] [place] [address] Phone: tel: fax: Referral ID Status Reason Start Date Expiration Date Visits Requested Visits Authorized [id number] Canceled Specialty Services Required 06/18/2024 06/18/2025 1 1 Encounter Details Date Type Department Care Team ([facility] Contact Info) Description 06/18/2024 Orders Only [facility] CHC MED & PEDS [address] [place] [address] Deyvi Ramos MD [address] [place] [address] Onychogryphosis (Primary Dx) Social History Tobacco Use [...] Description 02/09/2025 11:00 AM EDT Office Visit [facility] MED & PEDS [address] [place] [address] Deyvi Ramos MD [address] [place] [address] Scheduled Referrals Name Type Priority Associated Diagnoses Orde r Schedule Referral to Podiatry Outpatient Referral Routine Onychogryphosis Expected: 06/18/2024 (Approximate), Expires: 06/18/2025 documented as of this encounter Visit Diagnoses Diagnosis Onychogryphosis- Primary Other specified disease of nail documented in this encounter Care Teams Watch Inspector Relationship Specialty Start Date End Date Deyvi Ramos MD [address] [place] [address] PCP - General Internal Medicine 11/22/23 [facility] 04/04/24 documented as of this encounter
--- OUTSIDE RECORDS SUMMARY | 2025-02-06 11:27 | XMS_ITS | Encounter Summary ---
Author Organization [employer] Address [address] [facility] 7 [place] [address] Care Team Providers Care Internet Technology Manager Name Role Phone Deyvi Ramos MD Primary Care Provider [phone] Reason for Visit * Reason Comments Care Coordination CHW outreach for SDO H PT-1 and food needs-referral completed Encounter Details Date Type Department Care Team (Latest Contact Info) Description 02/05/2025 Patient Outreach [facility] MEDICINE [address] [place] [address] Deyvi Ramos MD [address] [place] [address] Care Coordination (CHW outreach for SDOH PT-1 and food needs-referral completed /) Social History Tobacco Use Types Packs/Day Years [...] AM EDT documented as of this encounter Progress Notes * Kris Low - 02/05/2025 2:26 PM EDT CHW Kris Low, placed outbound call to patient for assistance with SDOH as a referral was received by the provider. Patient's name and were confirmed. Patient screened positive for the following SDOH food insecurities. Patient states family in on SNAP program at this time. CHW referral patient to the local list of pantries in the area for help. PT-1 requested was send out in behalf of patient for futures appt. Patient verbalizes understanding, and able to agree with plan to follow up.Patient educated on extended clinic hours on Mondays through Wednesdays, and Walk-In Urgent Care Located in [facility]. Patient provided with after-hours line for [facility], , which offer night time triage service and option to transfer to sponge press operator provider if needed. documented in this encounter Plan of Treatment Upcoming Encounters Date Type Department Care Team (Late st Contact Info) Description 02/09/2025 11:00 AM EDT Office Visit [facility] MED & PEDS 505 [place] [address] Deyvi Ramos MD [address] [place] [address] documented as of this encounter Visit Diagnoses Not on filedocumented in this encounter Additional Health Concerns Assessment Noted Time PHQ-9 Depression Total Score: 2 06/26/19 25 11:28 AM EST documented as of this encounter Care Teams Internet Technology Manager Relationship Specialty Start Date End Date Deyvi Ramos MD 505 [place] [address] PCP - General Internal Medicine 11/22/23 [facility] 04/04/24 documented as of this encounter
--- OUTSIDE RECORDS SUMMARY | 2025-02-06 11:27 | XMS_ITS | Encounter Summary ---
Author Organization [employer] Address [address] [facility] 7t [place] [address] Care Team Providers Care Ski Lift Mechanic Name Role Phone Deyvi Ramos MD Primary Care Provider [phone] Reason for Visit * Reason Onset Date Comments Results 01/29/2025 Encounter Details Date Type Department Care Team ([facility] st Contact Info) Description 01/29/2025 Results Follow-Up [facility] MEDICINE [address] [place] [address] Awilda Browning, LORRIE BD DEXA Axial Social History Tobacco Use Types Packs/Day Years Used Date Smoking Tobacco: Former Cigarettes Smokeless Tobacco: Never Depression Answer Date Recorded Patient Health Questionnaire-9 Score 2 06/26/2024 Patient Health Questionnaire-9 Score 2 06/26/2024 Last PHQ-9: Questionnaire Data Not on file 0 06/26/2024 Housing Stability Answer Date Recorded What is your housing situation today? I have gaurang sing 11/12/[address] you li [...] encounter Miscellaneous Notes * Telephone Encounter - Awilda Browning RN - 02/06/2025 9:29 AM EDT Cologuard pended to provider and has not been sent. Pt to be seen at visit with PCP on 02/09/25. Appointment notes updated to review need for new Cologuard kit at visit with PCP on 02/09/25. * Telephone Encounter - Awilda Browning RN - 01/29/2025 9:19 AM EDT Images from the original note were not included. TC placed to pt to inform and advise of below PCP message. Advised pt bone mineral density is compatible with osteoporosis. Advised pt per PCP, they are to continue treatment with alendronate. Pt reports they have not been taking the alendronate as they were told it would have broken their jaw. Pt reports they were advised by their back specialist they should see a specialist for osteoporosis and menopause. Pt reports they were also advised by pt should see a weight reduction specialist. Pt reports they did not go through with the nerve conduction test and EMG as they were not aware of what the test would entail. Pt reports they were advised by [facility] that the test would include inse rting needles. Pt reports [facility] advised pt that PCP should prescribe medications for anxiety, pain, and to loosen the body. Pt reports they will do the test and EMG if the provider is able to prescribemedication for test. Pt reports per [facility], they will need a new referral placed for the nerve conduction test and EMG. Pt reports they received a call from a nurse at [facility] that they should disregard the kit received and was advised to call cologuard for a new kit. Pt reports they called cologuard who advised pt to disregard kit and request a new kit through PCP. Advised pt message to be sent to PCP for review. Advised pt of upcoming appointment with PCP on 02/09/25. Pt verbalized understanding and denies further questions at this time. Cologuard order pended to PCP for review. Deyvi Ramos MD to [facility] Peds Nurses [facility] 01/28/25 8:38 PM Please call. The bone mineral density is compatible with osteoporosis. Mrs. Adrianna Lucio is to continue with her treatment with alendronate. ----- Message from Deyvi Ramos MD sent at 01/28/2025 8:37 PM EDT ----- Please call. The bone mineral density is compatible with osteoporosis. ----- Message ----- From: Interface, Ris Results In Sent: 01/28/2025 3:21 PM EDT To: Deyvi Ramos MD documented in this encounter Plan of Treatment Upcoming Encounters Date Type Department Care Team (Late st Contact Info) Description 02/09/2025 11:00 AM EDT Office Visit [facility] MED & PEDS [address] [place] [address] Deyvi Ramos MD [address] [place] [address] documented as of this encounter Visit Diagnoses Diagnosis Screening for colon cancer- Primary Special screening for malignant neoplasms, colon documented in this encounter Additional Health Concerns Assessment Noted Time PHQ-9 Depression Total Score: 2 06/26/19 25 11:28 AM EST documented as of this encounter Care Teams Ski Lift Mechanic Relationship Specialty Start Date End Date Deyvi Ramos MD [address] [place] [address] PCP - General Internal Medicine 11/22/23 [facility] 04/04/24 documented as of this encounter
--- OUTSIDE RECORDS SUMMARY | 2025-02-06 11:27 | XMS_ITS | Encounter Summary ---
Author Organization [employer] Address [address] [facility] 7t [place] [address] Care Team Providers Care Food Product Inspector Name Role Phone Deyvi Ramos MD Primary Care Provider [phone] Encounter Details Date Type Department Care Team ([facility] st Contact Info) Description 01/28/2025 Orders Only [facility] CHC MED & PEDS [address] [place], [place] [phone] Deyvi Ramos MD [address] [place] [address] Anxiety (Primary Dx) Social History Tobacco Use Types [...] Upcoming Encounters Date Type Department Care Team ([facility] Contact Info) Description 02/09/2025 11:00 AM EDT Office Visit [facility] CHC MED & PEDS [address] [place] [address] Deyvi Ramos MD [address] [place] [address] Scheduled Orders Name Type Priority Associated Diagnoses Orde r Schedule Cologuard colon cancer screening Lab Routine Anxiety Expected: 02/03/2025 (Approximate), Expires: 02/03/2026 documented as of this encounter Visit Diagnoses Diagnosis Anxiety- Primary Anxiety state, unspecified documented in this encounter Additional Health Concerns Assessment Noted Time PHQ-9 Depression Total Score: 2 06/26/19 25 11:28 AM EST documented as of this encounter Care Teams Food Product Inspector Relationship Specialty Start Date End Date Deyvi Ramos MD [address] [place] [address] PCP - General Internal Medicine 11/22/23 [facility] 04/04/24 documented as of this encounter
--- OUTSIDE RECORDS SUMMARY | 2025-02-06 11:27 | XMS_ITS | Encounter Summary ---
Author Organization [employer] Address [address] [place] [address] Care Team Providers Care Safe Expert Name Role Phone Deyvi Ramos MD Primary Care Provider [phone] Reason for Visit * Reason Comments Med Refill Encounter Details Date Type Department Care Team ([facility] Contact Info) Description 08/13/2023 Refill [facility] MED & PEDS [address] [place] [address] Deyvi Ramos MD [address] [place] [address] Osteoporosis of disuse Social History Tobacco Use [...] Upcoming Encounters Date Type Department Care Team ([facility] Contact Info) Description 02/09/2025 11:00 AM EDT Office Visit [facility] MED & PEDS [address] [place], [place] [phone] Deyvi Ramos MD [address] [place] [address] documented as of this encounter Visit Diagnoses Diagnosis Osteoporosis of disuse Disuse osteoporosis documented in this encounter Care Teams Safe Expert Relationship Specialty Start Date End Date Deyvi Ramos MD [address] [place] [address] PCP - General Internal Medicine 11/22/23 [facility] 04/04/24 documented as of this encounter
--- OUTSIDE RECORDS SUMMARY | 2025-02-06 11:27 | XMS_ITS | Encounter Summary ---
Author Organization [employer] Address [address] [facility] 7t [place] [address] Care Team Providers Care String Winding Machine Operator Name Role Phone Deyvi Ramos MD Primary Care Provider [phone] Encounter Details Date Type Department Care Team (Latest Contact Info) Description 02/02/2025 Travel Social History Tobacco Use Types Packs/Day [...] 11:00 AM EDT Office Visit [facility] MED & PEDS [address] [place] [address] Deyvi Ramos MD [address] [place] [address] documented as of this encounter Visit Diagnoses Not on filedocumented in this encounter Additional Health Concerns Assessment Noted Time PHQ-9 Depression Total Score: 2 06/26/19 25 11:28 AM EST documented as of this encounter Care Teams String Winding Machine Operator Relationship Specialty Start Date End Date Deyvi Ramos MD [address] [place] [address] PCP - General Internal Medicine 11/22/23 [facility] 04/04/24 documented as of this encounter
--- OUTSIDE RECORDS SUMMARY | 2025-02-06 11:27 | XMS_ITS | Encounter Summary ---
Author Organization [employer] Address [address] [facility] 7 [place] [address] Care Team Providers Care Rate Setter Name Role Phone Deyvi Ramos MD Primary Care Provider [phone] Reason for Visit * Reason Comments Med Refill Encounter Details Date Type Department Care Team ([facility] st Contact Info) Description 12/26/2024 Refill [facility] PEDS [address] [place], [place] [phone] Deyvi Ramos MD [address] [place] [address] Compression fracture of L1 vertebra, initial encounter ([facility]) Social History Tobacco Use Types Packs/Day Years [...] Upcoming Encounters Date Type Department Care Team ([facility] st Contact Info) Description 02/09/2025 11:00 AM EDT Office Visit [facility] [address] [place] [address] Deyvi Ramos MD [address] [place] [address] documented as of this encounter Visit Diagnoses Diagnosis Compression fracture of L1 vertebra, initial encounter ([facility]) documented in this encounter Additional Health Concerns Assessment Noted Time PHQ-9 Depression Total Score: 2 06/26/19 25 11:28 AM EST documented as of this encounter Care Teams Rate Setter Relationship Specialty Start Date End Date Deyvi Ramos MD [address] [place] [address] PCP - General Internal Medicine 11/22/23 [facility] 04/04/24 documented as of this encounter
--- OUTSIDE RECORDS SUMMARY | 2025-02-06 11:27 | XMS_ITS | Encounter Summary ---
Author Organization [employer] Address [address] [facility] 7 [place] [address] Care Team Providers Care Cloth Bleaching Range Tender Name Role Phone Deyvi Ramos MD Primary Care Provider [phone] Reason for Visit * Reason Onset Date Comments Referral 06/17/2024 Encounter Details Date Type Department Care Team ([facility] st Contact Info) Description 06/17/2024 Telephone [facility]S [address] [place], [place] [phone] Deyvi Ramos MD [address] [place] [address] Referral Social History Tobacco Use Types Packs/Day [...] 11:00 AM EDT Office Visit [facility] MED & PEDS [address] [place] [address] Deyvi Ramos MD [address] [place] [address] documented as of this encounter Visit Diagnoses Not on filedocumented in this encounter Care Teams Cloth Bleaching Range Tender Relationship Specialty Start Date End Date Deyvi Ramos MD [address] [place] [address] PCP - General Internal Medicine 11/22/[address] [facility] 04/04/24 documented as of this encounter
--- OUTSIDE RECORDS SUMMARY | 2025-02-06 11:27 | XMS_ITS | Encounter Summary ---
Author Organization [employer] Address [address] [facility] [address] [place] [address] Care Team Providers Care Drop Hammer Set Up Operator Name Role Phone Deyvi Ramos MD Primary Care Provider [phone] Reason for Visit * Reason Onset Date Comments Appointment Request 06/17/2024 Encounter Details Date Type Department Care Team ([facility] st Contact Info) Description 06/17/2024 Telephone [facility] MED [facility] PEDS [address] [place] [address] Deyvi Ramos MD [address] [place] [address] Appointment Request Social History Tobacco Use Types [...] 11:00 AM EDT Office Visit [facility] MED & PEDS [address] [place] [address] Deyvi Ramos MD [address] [place] [address] documented as of this encounter Visit Diagnoses Not on filedocumented in this encounter Care Teams Drop Hammer Set Up Operator Relationship Specialty Start Date End Date Deyvi Ramos MD [address] [place] [address] PCP - General Internal Medicine 11/22/23 [facility] 04/04/24 documented as of this encounter
--- OUTSIDE RECORDS SUMMARY | 2025-02-06 11:27 | XMS_ITS | Data Portability ---
Author Organization [facility] Plan[facility], Main Office Address [address] [place] [address] Care Team Providers Care Investment Executive Name Role Phone BALA PASCAL - 2ND FLOOR OTHER LISSETTE HOWARD Primary Care Provider [phone] Assessment No assessment recorded. Plan of Treatment Reminders Order Date Submit Date Provider Last Modified By Organization Details Last Modified Time Details Appointments None record ed. Lab None record ed. Referral None record ed. Procedures None record ed. Surgeries None record ed. Imaging None record ed. Medication Orders None record ed. Patient TargetsNo targets recorded. Patient InstructionsNo instructions recorded. Reason for Referral None Reported. Problems Name Problem SNOMED Code Status Onset Date Resolution Date Notes Provider Name and Address Organization Details Recorded Time Chronic obstructive pulmonary disease 12932386 Active 2023 JULIAN BAUER NP [address] [facility] [facility] [address] [facility], [address], [place], [address], [facility] [employer] 4 09:47:06 Osteoporosis 19702886 Active 2023 JULIAN BAUER NP [address] [facility] [facility] [address] [facility], [address], [place], [address], [facility] [employer] 4 09:47:16 Compression fracture of lumbar spine 617699169 Active 2023 JULIAN BAUER NP [address] , [address], [place], [address], [facility] [employer] 4 09:47:46 Retention of urine 551188284 Active 2023 JULIAN BAUER NP [address] [facility] [facility] [address] [facility], [address], [place], [address], [employer] 4 10:04:54 Asthenia 44908737 Active 2023 JULIAN BAUER NP [address] [facility] [facility] [address] [facility], [address], [place], [address], [facility] 4 10:05:08 Alcoholism 1926213 Active 2023 JULIAN BAUER NP [address] [facility] [facility] [address] [facility], [address], [place], [address], [facility] 4 10:08:16 Insomnia 274769650 Active 2023 JULIAN BAUER NP [address] [facility] [facility] [address] [facility], [address], [place], [address], [facility] 4 10:45:49 Constipation 15641832 Active 2023 Trudi Deleon NP [address] [facility] [facility] [address] [facility], [address], [place], [address], [facility] 4 14:07:28 Problem Notes None recorded. Medical Equipment None Reported. Allergies Allergen ID Allergen Name Allergen Category Reaction Reaction Severity Criticality Documentation Date Start Date Code Code System Note Provider Name and Address Organization Details Recorded Time 52713 Amoxil medicatio n Not available Not available Not available 09/13/2023 09583 9 RxNorm eye swell ing JULIAN BAUER NP [address] [facility], [facility] [address], [place], [address], [facility] 4 09:43:16 09114 pseudoeph edrine Not available Not available Not available Not available 09/13/2023 8896 RxNorm JULIAN BAUER NP [address] [facility], [facility] [address], [place], [address], [facility] 4 09:43:28 24136 Substance with sulfonami de structure and antibacte rial mechanism of action (substanc e) medicatio n Not available Not available Not available 09/13/2023 54848 8003 SNOMED swell ing JULIAN BAUER NP [address] [facility], [facility] [address], [place], [address], [facility] 4 09:43:42 Medications Name Sig Start Date Stop Date Status Note LastModified by Organization Details LastModified Time oxycodone 5 mg tablet Take 1 tablet every 6 hours by oral route. 05/09/2 024 active Not Available Not Available Not Avai lable Vitals Date Recorded Body weight Heart rate Respiratory rate Body temperature Oxygen saturation Oxygen saturation in Arterial blood by Pulse oximetry Systolic And Diastolic Provider Name and Address Organization Details Last Updated DateTime 4 32444.7 8 g 100 /min 18 /min 98.2 [degF] 98 % 98 % 107/68 mm[Hg] Trudi Deleon NP [address] [facility], [address], [place], [address], [employer] 4 13:48:40 Date Recorded Body weight Heart rate Respiratory rate Body temperature Oxygen saturation Oxygen saturation in Arterial blood by Pulse oximetry Systolic And Diastolic Provider Name and Address Organization Details Last Updated DateTime 4 64849.2 2 g 99 /min 18 /min 97.6 [degF] 96 % 96 % 106/60 mm[Hg] Trudi Deleon NP [address] [facility], [facility] [address], [place], [address], [employer] 4 09:15:48 Date Recorded Body weight Heart rate Respiratory rate Body temperature Oxygen saturation Oxygen saturation in Arterial blood by Pulse oximetry Systolic And Diastolic Provider Name and Address Organization Details Last Updated DateTime 4 01245.4 5 g 108 /min 18 /min 98 [degF] 96 % 96 % 149/95 mm[Hg] Trudi Deleon NP [address] [facility], [facility] [address], [place], [address], [employer] 4 17:32:25 Date Recorded Body weight Heart rate Respiratory rate Body temperature Oxygen saturation Oxygen saturation in Arterial blood by Pulse oximetry Systolic And Diastolic Provider Name and Address Organization Details Last Updated DateTime 4 42310.6 3 g 80 /min 18 /min 97.7 [degF] 94 % 94 % 122/60 mm[Hg] Trudi Deleon NP [address] [facility], [address], [place], [address], [employer] 4 10:06:03 Date Recorded Body weight Heart rate Respiratory rate Body temperature Oxygen saturation Oxygen saturation in Arterial blood by Pulse oximetry Systolic And Diastolic Provider Name and Address Organization Details Last Updated DateTime 4 09022.6 3 g 88 /min 18 /min 97.1 [degF] 97 % 97 % 128/68 mm[Hg] Trudi Deleon NP [address] , [address], [place], [address], [employer] 4 10:32:34 Social History Question Answer Notes LastModified by Organizat ion Details LastModified Time Tobacco Smoking Status Current Some Day Smoker reports she quit a few yrs ago, smoked about 1/4 ppd. No just smokes once in a while, mostly if stressed. JULIAN BAUER NP [address] , [address], [place], [address], [employer] 09/13/2023 11:00:19 Do You Have An Advance Directive? No [email or web address] Information not available 09/13/2023 What Is Your Code Status? Full Code [email or web address] Information not available 09/13/2023 Where Do You Live? Apartment Lives Alone, Kids Nearby And Helpful, Few Steps To Enter Apt. [email or web address] Information not available 09/13/2023 What Was The Date Of Your Most Recent Tobacco Screening? 09/13/2023 Information not available 09/13/2023 Do You Have An Out Of Hospital DNR? No [email or web address] Information not available 09/13/2023 Have You Ever Been Counseled For Unhealthy Alcohol Use? Yes Recently In Hosp. [email or web address] Information not available 09/13/2023 Has Tobacco Cessation Counseling Been Provided? Yes [email or web address] Information not available 09/13/2023 On What Date Was Tobacco Cessation Counseling Provided? 09/13/2023 Information not available 09/13/2023 Sex: Unknown Functional Status Question Answer Note LastModified by Organizat ion Details LastModified Time How many times per week do you consume alcohol? 5-7 times per week [email or web address] Information not available 09/13/2023 Do you use any illicit or recreational drugs? No [email or web address] Information not available 09/13/2023 Do you or have you ever used any other forms of tobacco or nicotine? No [email or web address] Information not available 09/13/2023 What is your level of alcohol consumption? Heavy [facility] paperwork reporting >2 beers per day, pt. says she dtarted drinking in July to help with pain mgmt. [email or web address] Information not available 09/13/2023 Mental Status None recorded. Family History Relationship Description Onset Age of this Age Resolved Age Notes LastModified by Organization Details LastModified Time Father Malignant neoplasm of lung [email or web address] Not available 2023 10:57:57 Mother Malignant neoplasm of lung Not available 2023 10:57:58 Medical History No medical history recorded. Gynecological HistoryNo gynecological history recorded. Obstetrics History GPAL:G 0 P 0 0 0 0 Immunizations Vaccine Type Date Status Note Provider Nam e and Address Organization Details Recorded Time Tdap [address] [facility] 09/14/2023 11:08:[address] [facility] 09/14/2023 11:08:46 Td(adult) unspecified formulation [address] [facility] 09/14/2023 11:08:59 pneumococcal polysaccharide PPV23 [address] [facility] 09/14/2023 11:09:17 SARS-COV-2 (COVID-19) vaccine, UNSPECIFIED [address] [facility] 09/14/2023 11:09:33 SARS-COV-2 (COVID-19) vaccine, UNSPECIFIED [address] [facility] 09/14/2023 11:09:40 SARS-COV-2 (COVID-19) vaccine, UNSPECIFIED [address] [facility] 09/14/2023 11:09:47 Past Encounters Encounter ID Performer Location Encounter Start Date Encounter Closed Date Diagnosis/Indication Diagnosis SNOMED-CT Code Diagnosis ICD10 Code Diagnosis IMO Codes Diagnosis Note [id number] JULIAN BAUER NP [place] [address] [place] [address] 09/13/2023 09:38:33 09/19/2023 07:38:06 Compression fracture of lumbar spine 789753286 M48.56XA Back pain worsening x 1 month.X rays = L1, L5 wedge compressio n fractures, age indetermin ate.Given oxycodone, APAP, flexeril, ketorolac in hospital.D ischarged on oxycodone 5 mg q 6 hrs prn - monitor use and effect.Con tinue APAP prn - watch LFTs due to hx. ETOH use.Consid er adding muscle relaxer.Co nsider neurosurg. referral if remains problemati c - ? vertebropl astyPT OT eval and tx. - ? TLSO brace - will discuss with rehabMonit or for constipati on with opioid use.Goal is to return home. Asthenia 27702677 R53.1 Deconditio rudy from hospitaliz ation, unsure of baseline level of functionin g but suspect its not optimal.PT OT eval and tx.Goal is to return home. Retention of urine 75168 4002 R33.9 Lopez present upon exam, no mention of this in available [facility] paperwork sent.Pt. said it was placed due because she couldn't pee.Will remove early am, start bladder scan q shift and cath if >300 ml. Chronic ob structive pulmonary disease 19789868 J44.9 Continue home meds:zyrte c 10 mg qdalbutero l MDI prnflutica sone inhaler 2 inh bidMonitor resp. status Osteoporosis 15538521 M8 1.0 Continue home meds:fosam ax 70 mh q wkCa 600 mg qdVit D 1000 iu qd Alcoholism 0338561 F10.2 0 Active drinkerPhe nobarb started due to concern of withdrawal in hosp.Ru ine startedEnc ourage abstinence - discussed, jennifer. with use of oxycodone Insomnia 463306886 G47.0 9 Reports this is why she takes trazodone at [facility] suspect underlying anxiety/de pression. [id number] Joey Mensah MD [address] [address] 09/16/2023 12:12:28 09/19/2023 08:35:02 Recurrent falls 382284502 R29.6 PT OT eval and treatmonit or fall risk and need for increased support in community Compressio n fracture of lumbar spine 437221662 M48.56XA see HPIL1 and L5 comp fxmonitor for pain controlthe rapy to eval and followmoni tor need for vertebropl astystart flexeril 10 mg q 8 prn Retention of urine 81008 4002 R33.8 lopez since removedmon itor post void residuals Chronic ob structive pulmonary disease 20763664 J41.1 continue out patient medsmonito r respirator y function Alcoholism 3015531 F10.2 0 required phenobarbi shawna in hospitalpa aniya denalfredo states at most 2 beers per dayencoura ge support in community if needed [id number] Trudi Deleon NP [address] [address] 09/20/2023 13:51:02 09/25/2023 07:58:06 Compression fracture of lumbar spine 409527370 M48.56XA L1 and L5 comp fxmonitor for pain controlthe rapy to eval and followmoni tor need for vertebropl astyoxycod one 5 mg po q 6 hours prn mod/severe pain(only uses 1-2 times a day for pain)flexe ril 10 mg q 8 prn ( has not used yet, will today)09/19 start lidocaine patch to right lower back/hip dailymonit or Recurrent falls 40651447 2 R29.6 PT OT eval and treatmonit or fall risk and need for increased support in community Retention of urine 36474 4002 R33.8 lopez since removedmon itor post void residuals Asthenia 15777454 R53.1 Deconditio rudy from hospitaliz ation, unsure of baseline level of functionin g but suspect its not optimal.PT OT eval and tx.Goal is to return home. Osteoporosis 24621438 M8 1.0 Continue home meds:fosam ax 70 mh q wkCa 600 mg qdVit D 1000 iu qd Alcoholism 6368560 F10.2 0 Active drinker, stopped since hospitalPh enobarb started due to concern of withdrawal in hosp.cont thiamineEn courage abstinence - discussed, jennifer. with use of oxycodone Constipation 15245137 K5 9.00 pt is constipate d and has not had bm in 1 weekstartm om 30 cc nowbisacod yl 10 mg po nowstart senna s dailymonit or closely for bm [id number] Trudi Deleon, JANELLE [facility] [address] [address] 09/21/2023 13:47:34 09/25/2023 09:43:12 Compression fracture of lumbar spine 652611831 M48.56XA L1 and L5 comp fxmonitor for pain controlthe rapy to eval and followmoni tor need for vertebropl astyoxycod one 5 mg po q 6 hours prn mod/severe pain(only uses 1-2 times a day for pain)seen by dr mcdonald on 09/19 and rec:09/20 dc flexeril 10 mg q 8 prn5/10 start tizanidine 5 mg po qhscont lidocaine patch to right lower back/hip dailymonit or [id number] Trudi Deleon NP [facility] [address] [address] 09/24/2023 09:15:11 09/26/2023 11:57:50 Compression fracture of lumbar spine 701764337 M48.56XA L1 and L5 comp fxmonitor for pain controlthe rapy to eval and followmoni tor need for vertebropl astyoxycod one 5 mg po q 6 hours prn mod/severe pain(only uses 1-2 times a day for pain)seen by dr mcdonald on 09/19 and rec:09/20 dc flexeril 10 mg q 8 prn5/10 start tizanidine 5 mg po qhscont lidocaine patch to right lower back/hip daily09/23 she continues to refuse the tinazidine or flexeril and aware it is available as neededmoni tor Constipation 30442643 K5 9.00 resolvedco ntsenna s dailymonit or closely for bm Recurrent falls 38326251 2 R29.6 PT OT eval and treatmonit or fall risk and need for increased support in community Asthenia 58797542 R53.1 Deconditio rudy from [facility], unsure of baseline level of functionin g but suspect its not optimal.PT OT eval and tx.Goal is to return home. Osteoporosis 92208598 M8 1.0 Continue home meds:fosam ax 70 mh q wkCa 600 mg qd, she reports taking a pill instead of tums and changed todayVit D 1000 iu qd Alcoholism 0542037 F10.2 0 Active drinker, stopped since hospitalPh enobarb started due to concern of withdrawal in hosp.cont thiamineEn courage abstinence - discussed, jennifer. with use of oxycodone [id number] Trudi Deleon NP [facility] [address] [address] 09/26/2023 15:12:59 10/01/2023 10:29:14 Compression fracture of lumbar spine 863134102 M48.56XA L1 and L5 comp fxmonitor for pain controlthe rapy to eval and followmoni tor need for vertebropl astyoxycod one 5 mg po q 6 hours prn mod/severe pain(only uses 1-2 times a day for pain)seen by dr mcdonald on 09/19 and rec:tizani dine 5 mg po qhs(still has not trialed)li docaine patch to right lower back/hip daily09/25 she continues to refuse the tinazidine or flexeril and aware it is available as neededmoni tor Recurrent falls 43315297 2 R29.6 PT OT eval and treatmonit or fall risk and need for increased support in community Asthenia 97960527 R53.1 Deconditio rudy from [facility] e of baseline level of functionin gPT OT eval and tx.Goal is to return home. Osteoporosis 85959274 M8 1.0 Continue home meds:fosam ax 70 mh q wkCa 600 mg qd, she reports taking a pill instead of tums and changed todayVit D 1000 iu qd Alcoholism 0324008 F10.2 0 Active drinker, stopped since hospitalPh enobarb started due to concern of withdrawal in hosp.cont thiamineEn courage abstinence - discussed, jennifer. with use of oxycodone Tachycardia 3801750 R00. 0 hr 120-140s on palp and 101-108 on recheck with high bp09/25 start metoprolol tartate 12. 5mg po now and then dailymonit or hr/vitals q shift x 5 days then daily [id number] Trudi Deleon NP [facility] [address] [address] 09/28/2023 09:39:42 10/03/2023 08:37:24 Tachycardia 9127454 R00.0 resolving this am HR 80 after metorpolol 12.5 mgcontmeto prolol tartate 12. 5mg po daily(star néstor on 09/25 here)monit or hr/vitals q shift x 5 days then daily Compressio n fracture of lumbar spine 251772229 M48.56XA L1 and L5 comp fxmonitor for pain controlthe rapy to eval and followmoni tor need for vertebropl astyoxycod one 5 mg po q 6 hours prn mod/severe pain(only uses 1-2 times a day for pain)seen by dr mcdonald on 09/19 and rec:tizani dine 5 mg po q 24 hour prn (still has not trialed- reports she will try today)lido mary kay patch to right lower back/hip daily09/25 she continues to refuse the tinazidine or flexeril and aware it is available as neededmoni tor Recurrent falls 96615671 2 R29.6 PT OT eval and treatmonit or fall risk and need for increased support in community Asthenia 21631509 R53.1 [facility] of baseline level of functionin gPT OT eval and tx.Goal is to return home. Osteoporosis 46086179 M8 1.0 Continue home meds:fosam ax 70 mh q wkCa 600 mg qd, she reports taking a pill instead of tums and changed todayVit D 1000 iu qd Alcoholism 5073280 F10.2 0 Active drinker, stopped since hospitalPh enobarb started due to concern of withdrawal in hosp.cont thiamineEn courage abstinence - discussed, jennifer. with use of oxycodone Edema of l ower extremity 744776345 R60.0 edema to lower extremitie s and thigheleva te intermitte ntly throughout day09/27 she is willing to try one dose 09/28 in am 0800 lasix 20 mg po and will reeval from theremonit or [id number] [facility] [address] [place] [address] 10/03/2023 08:11:07 10/16/2023 12:56:05 Edema of lower extremity 225899062 R60.0 edema to lower extremitie s and thigh resolvinge levate intermitte ntly throughout dayon 09/28 lasix 20 mg po x 1 dose given with good effect and will reeval with pcp outpt Tachycardia 0250757 R00. 0 resolving this am HR 80 after metorpolol 12.5 mgcontmeto prolol tartate 12. 5mg po daily(star néstor on 09/25 here)monit or outpt with pcp and nsg Compressio n fracture of lumbar spine 547028391 M48.56XA L1 and L5 comp fxtherapy to eval and follow outptmonit or need for vertebropl asty outptlidoc femi patch 4 % topically prn dailyoxyco done 5 mg po q 6 hours prn mod/severe pain(only uses 1-2 times a day for pain)seen by dr mcdonald on 09/19 and rec:tizani dine 5 mg po q 24 hour prn (reports some relief with this)lidoc femi patch to right lower back/hip dailymonit or outpt with pcp Recurrent falls 64598155 2 R29.6 PT OT eval and treat outptmonit or fall risk and need for increased support in community Asthenia 06069425 R53.1 Deconditio rudy from hospitaliz ation, improved hereunsure of baseline level of functionin gPT OT eval and tx outptGoal is to return home with outpt services and [facility] Osteoporosis 15603906 M8 1.0 Continue home meds:fosam ax 70 mh q wkCa 600 mg qdVit D 1000 iu qdmonitor outpt with pcp Alcoholism 3386691 F10.2 0 Active drinker, stopped since hospitalPh enobarb started due to concern of withdrawal in hosp.does not have obvious s/s of withdrawal herecont thiamineEn courage abstinence - discussed, jennifer. with use of oxycodonef u outpt with pcp Constipation 81934723 K5 9.00 resolvedco ntsenna s dailymonit or closely for bm outpt with pcp Health Concerns Section Related Observation LastModified by Organization Detai ls LastModified Time None Recorded Concern Status LastModified by Organization Details LastModified Time None Recorded Advance Directives Directive N: Payers Insurance Date Sequence Insurance Name Policy Number Policy Jung Covered Member ID Jung Member ID Guarantor Name 10/16/2023 1 [place] [facility] Adrianna Lucio [id number] Adrianna Lucio Notes Date Note Type Note Provider Name and Address Organization Details Recorded Time 09/21/2023 text/html Adrianna is seen today for an acute rounding visit today. PMH: COPD, OP, ETOH abuse, insomnia Adrianna is a 58 yo woman admitted to [facility] 09/12/23 from [facility] after a brief hosp. related to back pain due to VCF and ETOH withdrawal.'She was seen by Dr. mcdonald recommending she start on tinazadine instead of flexeril as pt is worried about drowsiness wtih flexeril. On exam Adrianna is lying in bed states her back remains with spasms. She is agreeable to try the new medication. note: She presented to [facility] 09/09/23 due to worsening LBP x 1 month. Pain radiates into hips and ribs. X ray of lumbar spine showing age indeterminate wedge compression deformities L1 and L5, new from prior imaging. Pain treated with APAP, flexeril, ketorolac, and oxycodone. HR noted to be high - 130s, BP soft 90/52. Given 1 L IVF. C/O nausea, heartburn. Current alcohol use (at least 2 16 oz. beers/d). Concern for ETOH withdrawl, started phenobarb in hosp with good response. Omeprazole and thiamine added. Also c/o pain and swelling in legs - US neg DVT. Chest CTA neg. PE JORDAN completed, low fall riskMOLST: none, assumed full code Trudi Deleon, JANELLE [address] [facility], [address], [place], [address], [place] [facility] 09/21/2023 13:52:18 09/24/2023 text/html Adrianna is seen today for an acute rounding visit today. PMH: COPD, OP, ETOH abuse, insomnia Adrianna is a 58 yo woman admitted to [facility] 09/12/23 from [facility] after a brief hosp. related to back pain due to VCF and ETOH withdrawal.'She was seen by Dr. Mcdonald recommending she start on tinazadine instead of flexeril as pt is worried about drowsiness wtih flexeril. Adrianna is seen today regarding nursing concerns of her stating she is refusing trazodone, not trialling the tinazidine, and calcium supplement. On exam Adrianna is lying in bed states her back remains with spasms. Lungs clear and in NAD. She states she wants the back spasm med tinazidine but it is not available all weekend and she is aware it is here and she states she does not want a dose right now as the pain is okay . She states she takes the trazodone as needed and would like it changed. She reports she would like 600 mg calcium and only wants to be on the one pill and will leave it as requested, she is currently sched for TUMS and will change to tab form. note: She presented to [facility] 09/09/23 due to worsening LBP x 1 month. Pain radiates into hips and ribs. X ray of lumbar spine showing age indeterminate wedge compression deformities L1 and L5, new from prior imaging. Pain treated with APAP, flexeril, ketorolac, and oxycodone. HR noted to be high - 130s, BP soft 90/52. Given 1 L IVF. C/O nausea, heartburn. Current alcohol use (at least 2 16 oz. beers/d). Concern for ETOH withdrawl, started phenobarb in hosp with good response. Omeprazole and thiamine added. Also c/o pain and swelling in legs - US neg DVT. Chest CTA neg. PE JORDAN completed, low fall riskMOLST: none, assumed full code Trudi Deleon, JANELLE [address] [facility], [address], [place], [address], [facility] 09/24/2023 09:37:36 09/26/2023 text/html Adrianna is seen today for an acute rounding visit today. PMH: COPD, OP, ETOH abuse, insomnia Bri is a 58 yo woman admitted to [facility] 09/12/23 from [facility] after a brief hosp. related to back pain due to VCF and ETOH withdrawal.'Since at [facility] she was seen by Dr. mcdonald recommending she start on tinazadine instead of flexeril as pt is worried about drowsiness wtih flexeril. She continues to refuse tinazadine, flexeril, or other meds at times. She states she is not wanting to take meds at times. On exam Adrianna is sitting in bed and states her back remains in pain at times but without spasms. She will use the medication when it spasms. She is noted to have a HR 120-140 on palp and after deep breathing and recheck with pulse oximeter and full set of vitals her HR is 101-108. She does not have any tremors, sweats, hallucinations but only states she is slightly cool at times. She denies anxiety and a dose of ativan was offered but she declines this is not withdrawals or anxiety as she has had withdrawals in the past. She reports eating and drinking good amounts and states she had a large bm the other day. She is aware with her high BP and HR she could benefit from metoprolol tartate and she agrees to a 1/2 dose of 12.5 mg po tonight and daily. of note: seems hr high in ER for brief period also. note: She presented to [facility] 09/09/23 due to worsening LBP x 1 month. Pain radiates into hips and ribs. X ray of lumbar spine showing age indeterminate wedge compression deformities L1 and L5, new from prior imaging. Pain treated with APAP, flexeril, ketorolac, and oxycodone. HR noted to be high - 130s, BP soft 90/52. Given 1 L IVF. C/O nausea, heartburn. Current alcohol use (at least 2 16 oz. beers/d). Concern for ETOH withdrawl, started phenobarb in hosp with good response. Omeprazole and thiamine added. Also c/o pain and swelling in legs - US neg DVT. Chest CTA neg. PE JORDAN completed, low fall riskMOLST: none, assumed full code Trudi Deleon, JANELLE [address] [facility], [address], [place], [address], [place] MD - [employer] 09/26/2023 17:49:53 09/28/2023 text/html Adrianna is seen today for an acute visit. PMH: COPD, OP, ETOH abuse, insomnia Adrianna is a 58 yo woman admitted to [facility] 09/12/23 from [facility] after a brief hosp. related to back pain due to VCF and ETOH withdrawal seen today for followup of her HR and BP. She was recently started on metoprolol 12.5 mg po daily for the increased hr and bp with good effect this am. HR and BP may also be related to increased pain. On exam Adrianna she is seen 40 minutes after her metoprolol 12.5 mg dose and HR is 80 and bp ranges from 122/60 lately to 160 /54 this am. She reports being in pain and taking an oxycodone for the pain with some relief. She also reports fluid in her lower legs and thighs that is bothering her.After discussion she is willing to trial a dose of tizanidine now for the pain, likely spasm and a dose of lasix tomorrow for the swelling. She does not want to try them in the same day.'of note: Since at [facility] she was seen by Dr. mcdonald recommending she start on tinazadine instead of flexeril as pt is worried about drowsiness wtih flexeril. She continues to refuse tinazadine, flexeril, or other meds at times. She states she is not wanting to take meds at times. On exam Adrianna is sitting in bed and states her back remains in pain at times but without spasms. She will use the medication when it spasms. She is noted to have a HR 120-140 on palp and after deep breathing and recheck with pulse oximeter and full set of vitals her HR is 101-108. She does not have any tremors, sweats, hallucinations but only states she is slightly cool at times. She denies anxiety and a dose of ativan was offered but she declines this is not withdrawals or anxiety as she has had withdrawals in the past. She reports eating and drinking good amounts and states she had a large bm the other day. note: She presented to [facility] 09/09/23 due to worsening LBP x 1 month. Pain radiates into hips and ribs. X ray of lumbar spine showing age indeterminate wedge compression deformities L1 and L5, new from prior imaging. Pain treated with APAP, flexeril, ketorolac, and oxycodone. HR noted to be high - 130s, BP soft 90/52. Given 1 L IVF. C/O nausea, heartburn. Current alcohol use (at least 2 16 oz. beers/d). Concern for ETOH withdrawl, started phenobarb in hosp with good response. Omeprazole and thiamine added. Also c/o pain and swelling in legs - US neg DVT. Chest CTA neg. PE JORDAN completed, low fall riskMOLST: none, assumed full code Trudi Deleon, JANELLE [address] [facility], [address], [place], [address], [place] MD - [employer] 09/28/2023 10:18:22 10/03/2023 text/html Adrianna is seen today for a discharge visit. PMH: COPD, OP, ETOH abuse, insomnia Adrianna is a 58 yo woman admitted to [facility] on 09/12/23 from [facility] after a brief hosp. related to back pain due to VCF and ETOH withdrawal. She presented to [facility] 09/09/23 due to worsening LBP x 1 month. Pain radiates into hips and ribs. X ray of lumbar spine showing age indeterminate wedge compression deformities L1 and L5, new from prior imaging. Pain treated with APAP, flexeril, ketorolac, and oxycodone. HR noted to be high - 130s, BP soft 90/52. Given 1 L IVF. C/O nausea, heartburn. Current alcohol use (at least 2 16 oz. beers/d). Concern for ETOH withdrawl, started phenobarb in hosp with good response. Omeprazole and thiamine added. Also c/o pain and swelling in legs - US neg DVT. Chest CTA neg. PE While here at [facility]:She was recently started on metoprolol 12.5 mg po daily for the increased hr and bp with good effect. She is reluctant to take medication in general and only wants to be on the 1/2 dose of metoprolol for now. HR and BP may also be related to increased pain however seems multifactorial here. Hr max noted to be 120-140 here resolved with metoprolol started and seems to run approx 80-100 now. She does not have any other s/s of withdrawal and it is unclear if this is related to withdrawal. She is aware she will need to follow up with pcp outpt and possibly cardiology for this. She was seen by Dr. mcdonald physiatry. She started on tinazadine instead of flexeril as pt is worried about drowsiness wtih flexeril. Over the weekend she took a few doses without any excessive drowsiness and some help and will dc with current medications at this time. She continues with oxycodone prn as needed. Tylenol was used as needed due to hx of ETOH use. A lidocaine patch was adjuncted for pain with good results also. She was given one dose of lasix for her increased swelling of her lower legs with good effect. She will follow up with pcp for future doses if needed. On exam Adrianna is sitting in bed and states her back remains in mild pain at times but without spasms. She does not have any tremors, sweats, hallucinations but only states she is slightly cool at times. She reports eating and drinking good amounts and states she is moving her bowel regularly here. She has participated with therapy and feels much stronger now. She will go home with services today. UJLIAN completed, low fall riskMOLST: none, assumed full code Trudi Deleon, JANELLE [address] [facility], [address], [place], [address], [facility] - [employer] 10/03/2023 11:28:52 OBGyn Episode No OBEpisode recorded.
--- OUTSIDE RECORDS SUMMARY | 2025-02-06 11:27 | XMS_ITS | Encounter Summary ---
Author Organization [facility] Address [address] [place] [address] Care Team Providers Care Optometric Assistant Name Role Phone Deyvi Ramos MD Primary Care Provider [phone] Encounter Details Date Type Department Care Team ([facility] st Contact Info) Description 11/07/2024 Telephone [facility] [address] [place] [address] Deyvi Ramos MD [address] [place] [address] Social History Tobacco Use Types Packs/Day Years Used Date Smoking Tobacco: Never Assessed [facility] Utilities Answer Date Recorded In the [...] any time in the past 12 [address] [facility], were you homeless or living in a longterm (including now)? Patient declined 08/27/2024 Comments Unknown [...] on filedocumented in this encounter Care Teams Optometric Assistant Relationship Specialty Start Date End Date Deyvi Ramos MD [address] [place] [address] PCP - General General Medicine 08/26/24 documented as of this encounter
--- OUTSIDE RECORDS SUMMARY | 2025-02-06 11:27 | XMS_ITS | Clinical Summary ---
Author Organization [facility] Address [address] [place] [address] Care Team Providers Care Air Crew Officer Name Role Phone Deyvi Ramos MD Primary Care Provider [phone] Allergies Active Allergy Reactions Criticality Noted Date [...] Compression fracture of L1 vertebra, initial encounter (CMS/[facility]) To apply to the affected area 3 times a day 100 g 4 Active acetaminophen (Tylenol Extra Strength) 500 MG tabletIndicatio ns:Compression fracture of L1 vertebra, initial encounter (CMS/[facility]) Take 1 tablet (500 mg) by [...] (90 Base) MCG/ACT inhalerIndicati ons:Seasonal allergies,COPD, mild (CMS/HCC) INHALE 2 PUFFS BY MOUTH EVERY 6 HOURS NEEDED 18 g 5 Active cetirizine (ZyrTEC) 10 MG tabletIndicatio ns:Seasonal allergies Take 1 tablet (10 mg) by mouth in the morning. 90 tablet 3 5 Active ketoconazole (NIZOral) 2 % shampooIndicati ons:Telogen effluvium Apply topically 2 (two) times a week. 120 mL 3 5 Active Fluocinolone Acetonide Scalp ([place]-Smoothe/ FS Scalp) 0.01 % oilIndications: Telogen effluvium To use on the scalp 2 times a week. Cover the head w/ a du rag after 118 mL 3 5 Active traZODone (Desyrel) 50 MG tablet TAKE 1 TABLET(50 MG) BY MOUTH AT BEDTIME 30 tablet 11 5 Active cholecalciferol (Vitamin D3) 25 MCG (1000 UT) tabletIndicatio ns:Compression fracture of L1 vertebra, initial encounter ([facility]) TAKE 1 TABLET BY MOUTH EVERY DAY 90 tablet 1 5 Active LORazepam (Ativan) 0.5 MG tablet To take one tab 30 minutes prior to the procedure, may take another tablet after 30 minutes if no effect. 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 Depressive disorder 09/28/2016 Migraine 09/28/2016 Osteoporosis 09/28/2016 COPD, mild 01/15/2014 Encounters Date Type Department Care Team Description 02/05/2025 Patient Outreach [facility] [address] [place] [phone] Deyvi Ramos MD Care Coordination ([facility] outreach for SDOH PT-1 and food needs-referral completed /) 02/02/2025 Travel 01/29/2025 Results Follow-Up [facility] [address] [place], [place] [phone] Awilda Browning, RN BD DEXA Axial 01/28/2025 Orders Only [facility] [address] [place] [address] Deyvi Ramos MD Anxiety (Primary Dx) 01/28/2025 Orders Only [facility] External Provider, [facility] 12/26/2024 Refill [facility] [address] [place] [address] Deyvi Ramos MD Compression fracture of L1 vertebra, initial encounter ([facility]) 12/26/2024 Refill [facility] [address] [place] [address] Deyvi Ramos MD Compression fracture of L1 vertebra, initial encounter ([facility]) 12/01/2024 Telephone [facility] [address] [place] [address] Deyvi Ramos MD Referral 11/11/2024 Telephone [facility] [address] [place] [address] Deyvi Ramos MD Referral from Last 3 Months Immunizations Immunization Administration [...] 11:00 AM EDT Office Visit [facility] [address] [place] [address] Deyvi Ramos MD [address] [place] [address] Health Maintenance Due Date Last Done Comments CT Colonography 1965 Colonoscopy 1965 Colorectal Cancer Screening 1965 FIT DNA/Cologuard 1965 FIT 1965 FOBT 1965 Sigmoidoscopy 1965 Pap Smear 1986 Cervical Cancer Screening 1995 HPV/Cotest 1995 Zoster Vaccines (1 of 2) 2015 SDOH Screening 11/12/2024 11/13/2023 Hepatitis B Vaccines (2 of 3 - 19+ 3-dose series) 11/13/2024 10/16/2024 Influenza Vaccine (#1) 2025 , 03/11/2019, 02/18/2018, Additional history exists DTaP/Tdap/Td Vaccines (3 - Td or Tdap) 02/25/2025 02/25/2015, 11/07/2010, 07/17/2002, Additional history exists Alcohol/Substance Use Screening 06/26/2025 06/26/2024 Depression Screening 06/26/2025 06/26/2024, 06/26/19 25 Disability Screening 10/10/2025 10/10/2024 Tobacco Screening 10/16/2025 10/16/2024 Mammogram 01/28/2027 01/28/2025, 10/16/2017 RSV Patients and Patients Aged 60 years [...] DEXA AXIAL Routine 01/28/2025 2:37 PM EDT BI MAMMOGRAM SCREENING TOMOSYNTHESIS BILATERAL Routine 01/28/2025 2:00 PM EDT Encounter for screening mammogram for malignant neoplasm of breast HEPATITIS C AB W/REFL TO HCV RNA, QN, PCR Routine 10/16/2024 11:36 AM EDT Compression fracture of L5 vertebra, initial encounter (CMS/[facility]) HIV 1/2 ANTIGEN/ANTIBODY, FOURTH GENERATION W/RFL Routine 10/16/2024 11:36 AM EDT Compression fracture of L5 vertebra, initial encounter (CMS/[facility]) from Last 3 Months or Most Recently Relevant to Health Maintenance Results * BD DEXA Axial (01/28/2025 2:37 PM EDT) Anatomical Region Laterality Modality Body Radiographic Rebecca ging 01/28/2025 2:37 PM EDT Narrative 01/28/2025 3:21 PM EDT [place] [facility] [address] [place], [place] [address] Mammography Report Signed Patient: Adrianna Lucio MR#: [id number] 144 : 1965 Acct:[id number] Age/Sex: 59 / F ADM Date: 01/28/25 Loc: ABDIFATAH Attending Dr: Deyvi Ramos MD Ordering Physician: Kiet Bui MD Results: Date of Service: 01/28/25 Follow Up: Procedure(s): XR DEXA axial skeleton Accession Number(s): [id number] cc: Deyvi Ramos MD; Kiet Bui MD Reason For Exam: S32.000A - Wedge compression fracture of unspecified lumbar vertebra, in... EXAMINATION: DXA BONE DENSITY AXIAL HISTORY: S32.000A - Wedge compression fracture of unspecified lumbar vertebra... TECHNIQUE: [email or web address] Dual energy absorptiometry (DEXA) of the lumbar [...] of the [employer] [place] for Metabolic Bone Disease, a World Health Organization (WHO) Collaborating Center. Electronically signed by: Stephan Cortes MD 01/28/2025 03:18 PM EDT RP Dictated By: Stephan Cortes MD Signed By: <Electronically signed by Stephan Cortes MD in OV> 01/28/25 1518 DD/ 1437 TD/TT: 01/28/25 1500 Community Relations Specialist: Procedure Note Donotuseinterpreter, Image - 01/28/2025 [facility] [address] [place] [address] Mammography Report Signed Patient: Adrianna Lucio AMR#: [id number] 144 : 1965Acct:[id number] Age/Sex: 59 / FADM Date: 01/28/25 Loc: HO.MAMMO Attending Dr: Deyvi Ramos MD Ordering Physician: Kiet Bui MDResults: Date of Service: 01/28/25Follow Up: Procedure(s): XR DEXA axial skeleton Accession Number(s): [id number] cc: Deyvi Ramos MD; Kiet Bui MD Reason For Exam: S32.000A - Wedge compression fracture of unspecifiedlumbar vertebra, in... EXAMINATION: DXA BONE DENSITY AXIAL HISTORY: S32.000A - Wedge compression fracture of unspecified lumbar vertebra... TECHNIQUE: [email or web address] Dual energy absorptiometry (DEXA) of the lumbar [...] is a trademark of the [employer] [place] for Metabolic Bone Disease, a World Health Organization (WHO) Collaborating Center. Electronically signed by: Stephan Cortes MD 01/28/2025 03:18 PM EDT Dictated By: Stephan Cortes MD Signed By: <Electronically signed by Stephan Cortes MD in OV> 01/28/25 1518 DD/ 1437 TD/TT: 01/28/25 1500 Community Relations Specialist: [facility] External Provider IMG DXA PROCEDURES Edited Result - Final * BI Mammogram Screening Tomosynthesis Bilateral (01/28/2025 2:00 PM EDT) Anatomical Region Laterality Modality Breast Bilateral Mammography 01/28/2025 2:00 PM EDT Narrative 02/02/2025 2:13 PM EDT [address] [place] [address] Mammography Report Signed Patient: Adrianna Lucio MR#: [id number] 144 : 1965 Acct:[id number] Age/Sex: 59 / F ADM Date: 01/28/25 Loc: HO.MAMMO Attending Dr: Deyvi Ramos MD Ordering Physician: Deyvi Ramos MD Results: 1 Negative Date of Service: 01/28/25 Follow Up: 1 Year From Orig inal Mammogram Procedure(s): MM tomosynthesis screening BI Accession Number(s): [id number] cc: Deyvi Ramos MD Reason For Exam: screening for breast cancer EXAMINATION: MM SCREENING DIGITAL BREAST TOMOSYNTHESIS, BILATERAL CLINICAL INFORMATION: Screening. Asymptomatic. COMPARISON: Mammography: Comparison is made with available priors TECHNIQUE: Digital breast mammography with tomosynthesis is performed in both the craniocaudal and mediolateral oblique views along with computer-aided detection (CAD). FINDINGS: The breasts are heterogeneously dense, which may obscure small masses (ACR BI-RADS breast composition Category c). There are no significant masses, abnormal calcifications, or other abnormalities. MM/MM tomosynthesis screening BI IMPRESSION: No mammographic evidence of malignancy. ASSESSMENT: BI-RADS BI-RADS 1 - Negative RECOMMENDATION: Routine annual mammography screening. 1 year F/U This examination should not preclude the clinical evaluation of a suspicious palpable abnormality. This patient's information was entered into a reminder system with a target due date for their next mammogram. Electronically signed by: Lydia Mercedes DO 02/02/2025 02:10 PM EDT Dictated By: Lydia Mercedes DO Signed By: <Electronically signed by Lydia Mercedes DO in OV> 02/02/25 1410 DD/ 1400 TD/TT: 01/28/25 1420 Community Relations Specialist: Procedure Note Donotuseinterpreter, Image - 02/02/[address] [place] [place] [address] Mammography Report Signed Patient: Adrianna Lucio AMR#: [id number] 144 : 1965Acct:[id number] Age/Sex: 59 / FADM Date: 01/28/25 Loc: HO.MAMMO Attending Dr: Deyvi Ramos MD Ordering Physician: Deyvi Ramos MDResults: 1 Negative Date of Service: 01/28/25Follow Up: 1 Year From [facility] ina Mammogram Procedure(s): MM tomosynthesis screening BI Accession Number(s): [id number] cc: Deyvi Ramos MD Reason For Exam: screening for breast cancer EXAMINATION: MM SCREENING DIGITAL BREAST TOMOSYNTHESIS, BILATERAL CLINICAL INFORMATION: Screening. Asymptomatic. COMPARISON: Mammography: Comparison is made with available priors TECHNIQUE: Digital breast mammography with tomosynthesis is performed in both the craniocaudal and mediolateral oblique views along with computer-aided detection (CAD). FINDINGS: The breasts are heterogeneously dense, which may obscure small masses (ACR BI-RADS breast composition Category c). There are no significant masses, abnormal calcifications, or other abnormalities. MM/MM tomosynthesis screening BI IMPRESSION: No mammographic evidence of malignancy. ASSESSMENT: BI-RADS BI-RADS 1 - Negative RECOMMENDATION: Routine annual mammography screening. 1 year F/U This examination should not preclude the clinical evaluation of a suspicious palpable abnormality. This patient's information was entered into a reminder system with a target due date for their next mammogram. Electronically signed by: Lydia Mercedes DO 02/02/2025 02:10 PM EDT Dictated By: Lydia Mercedes DO Signed By: <Electronically signed by Lydia Mercedes DO in OV> 02/02/25 1410 DD/ 1400 TD/TT: 01/28/25 1420 Community Relations Specialist: us Deyvi Ramos MD IM BI PROCEDURES Final Res ult * Hepatitis C Antibody with Reflex to HCV, RNA, Quantitative, Real-Time PCR (10/16/2024 11:36 AM EDT) Hepatitis C Antibody Nonreactive Nonreactive [facility] Comment:Antibodies to HCV no t detected; does not exclude early acuteHCV infection. Blood Venous blood specimen / Unknown 10/16/2024 11:36 AM EDT 10/16/2024 2:08 PM EDT us Deyvi Ramos MD LAB BLOOD ORDERABLES Final Result Performing Organization Address [facility]/ZIP Co de Phone Number [facility] [address] [place] [address] [phone] * HIV-1/2 Antigen and Antibodies, Fourth Generation, with Reflexes (10/16/2024 11:36 AM EDT) [facility] HIV AB/AG Nonreactive Nonreactive [facility] Comment:HIV-1 p24 Ag and/or HIV-1/HIV-2 Ab not detected.A test result that is nonreactive does not exclude thepossibility of exposure to or infection with HIV-1 and/orHIV-2. Nonreactive results in this assay for individualswith prior exposure to HIV-1 and/or HIV-2 may be due toantigen and antibody levels that are below the limit ofdetection of this assay.The [employer] HIV Ag/Ab Combo assay result andsupplemental assay results should be interpreted inconjunction with the patient's clinical presentation,history and other laboratory results. If the results areinconsistent with clinical evidence, additional testing issuggested to confirm the result. Blood Venous blood specimen / Unknown 10/16/2024 11:36 AM EDT 10/16/2024 2:08 PM EDT us Deyvi Rmaos MD LAB BLOOD ORDERABLES Final Result Performing Organization Address City/[facility]/ZIP Co de Phone Number [facility] [address] [place] [address] [phone] from Last 3 Months or Most Recently Relevant to Health Maintenance Insurance [facility] C3 Care Teams Air Crew Officer Relationship Specialty Start Date End Date Deyvi Ramos MD [address] [place], [place] [address] [address] PCP - General Internal Medicine 11/22/23 [facility] 04/04/24
== END ==
LOC: HO.HPS 10:12
PROVIDERS: PCP Internal Medicine; Referring Provider Internal Medicine; Visit Provider Physician Assistant Medical
DX: Z87.891 Personal history of nicotine dependence (principal)
CPT/HCPCS: G0296

== ENCOUNTER 2025-02-06 10:46 | Outpatient (REF) | payer MEDICAID, SELFPAY ==
--- NOTE | ~2025-02-06 | CT_ITS ---
EXAMINATION: CT LUNG SCREENING HISTORY: Z87.891 - Personal history of nicotine dependence TECHNIQUE: Low dose axial images were obtained from the sternal notch to upper abdomen without IV contrast per standard departmental protocol. Sagittal and coronal reformatted images were also obtained and reviewed. One or more of the following techniques was used for dose reduction: Automated exposure control, adjustment of the mA and/or kV according to patient size, use of iterative reconstruction technique. DLP: 54 mGy-cm COMPARISON: Comparison is made with the prior examinations dated 09/09/2023 and 09/17/2018. FINDINGS: Lung nodules: Again seen is a spiculated opacity at the right lung apex which is stable and likely represents scarring. Again seen is a 1.3 cm calcified granuloma in the right upper lobe (series 4, image 40). There are tiny nodules in the left upper lobe measuring up to 3 mm (series 4, images 33, 35, 49, and 52). Emphysema: mild Coronary Calcification: mild Aortic Arch Calcification: mild Potentially Significant Incidentals : none Additional Chest Findings: There is no pleural or pericardial effusion. No mediastinal or axillary lymphadenopathy is identified. Visualized upper abdomen: The visualized portions of the liver, spleen, and adrenals have an unremarkable unenhanced appearance. There is a small hiatal hernia. CT/CT lung screening IMPRESSION: No suspicious pulmonary nodules are identified. LUNG-RADS ASSESSMENT: Lung-RADS 2: Benign MANAGEMENT: Continue annual screening with LDCT in 12 months Category S: N/A Electronically signed by: Stephan Cortes MD 02/06/2025 11:55 AM EDT
== END 2025-02-06 10:47 | disposition home or self-care (01) ==
LOC: HO.CT 10:46
PROVIDERS: PCP Internal Medicine; Visit Provider Physician Assistant Medical
DX: Z12.2 Encounter for screening for malignant neoplasm of respiratory organs (principal); F17.211 Nicotine dependence, cigarettes, in remission
CPT/HCPCS: 71271; G0296

== ENCOUNTER → 2025-02-06 10:47 | Outpatient (BNV) | payer MEDICAID, SELFPAY | PROVIDERS: PCP Internal Medicine; Visit Provider Radiology Diagnostic Radiology | DX: Z12.2 Encounter for screening for malignant neoplasm of respiratory organs (principal); Z87.891 Personal history of nicotine dependence | CPT/HCPCS: 71271 ==

== ENCOUNTER 2025-02-11 10:26 | Outpatient (AMB) | payer MEDICAID, SELFPAY ==
--- OUTSIDE RECORDS SUMMARY | 2025-02-09 11:00 | XMS_ITS | Encounter Summary ---
Author Organization [employer] Address [address] [place] [address] [address], [place] [address] Care Team Providers Care Hogshead Hand Name Role Phone Deyvi Ramos MD Primary Care Provider [phone] Reason for Referral * Neurology (Routine) - Authorized Specialty Diagnoses / Procedures Referred By Contsree t Referred To Contact Diagnoses Left leg paresthesias Procedures EMG Deyvi Ramos MD [address] [place] [address] Phone: tel: fax: [address] Phone: tel: fax: Referral ID Status Reason Start Date Expiration Date V isits Requested Visits Authorized [id number] Authorized 02/09/2025 02/09/2026 1 1 Encounter Details Date Type Department Care Team (Latest Contact Info) Description 02/09/2025 11:00 AM EDT Office Visit [facility] [address] [place], [place] [phone] Deyvi Ramos MD [address] [place], [place] [phone] Left leg paresthesias (Primary Dx); Dietary counseling; Exercise counseling; Class 1 obesity due to excess calories with serious comorbidity and body mass index (BMI) of 30.0 to 30.9 in adult; Compression fracture of L1 vertebra, initial encounter ([facility]); Seasonal allergies; Venous insufficiency Social History Tobacco Use Types Packs/Day Years Used Date Smoking Tobacco: Former Cigarettes Smokeless Tobacco: Never Tobacco Cessation:Counseling Given: Yes Comments:I year half Depression Answer Date Recorded Patient Health Questionnaire-9 Score 2 06/26/2024 Patient Health Questionnaire-9 Score 2 06/26/2024 Last PHQ-9: Questionnaire Data Not on file 0 06/26/2024 Housing Stability Answer Date Recorded What is your housing situation today? I have gaurang green 02/09/[address] you li ve. Do you have problems with any of the following? None of the above 02/09/2025 Food Insecurity Answer Date Recorded Within the past 12 months, y ou worried that your food would run out before you got money to buy more: Sometimes True 2024 Within the past 12 months,th e food you bought just didn't last and you didn't have enough money to get more: Sometimes True 02/09/2025 Transportation Answer Date Recorded In the past 12 months, has l ack of transportation kept you from medical appts, meetings, work or from getting things needed for daily living? No 02/09/2025 Utilities Answer Date Recorded In the past 12 months, has t he electric, gas, oil or water company threatened to shut off services in your home? No 02/09/2025 Depression Answer Date Recorded Patient Health Questionnaire-2 Score 2 06/26/2024 Internet Access Answer Date Recorded Internet Access Q1 Yes 02/09/2025 Internet Access Q2 Not on file 02/09/2025 Comments Unknown Sex and Gender Information Value Date Recorded Sex Assigned at Female 03/13/2022 10:22 AM EDT Legal Sex Female 10:22 AM EDT Gender Identity Female 03/13/2022 10:22 AM EDT Sexual Orientation Choose not to disclose 2021 10:22 AM EDT documented as of this encounter Last Filed Vital Signs Vital Sign Reading Time Taken Comments Blood Pressure 147/83 02/09/2025 10:54 AM EDT Pulse 67 02/09/2025 10:54 AM EDT Temperature - - Respiratory Rate 20 02/09/2025 10:54 AM EDT Oxygen Saturation 97% 02/09/2025 10:54 AM EDT Inhaled Oxygen Concentration - - Weight 83.9 kg (185 lb) 02/09/2025 10:54 AM EDT Height 162.6 cm (5' 4 ) 02/09/2025 10:54 AM EDT Body Mass Index 31.76 02/09/2025 10:54 AM EDT documented in this encounter Progress Notes * Rina Sanchez MA - 02/09/2025 11:00 AM EDT Food * Deyvi Ramos MD - 02/09/2025 11:00 AM EDT SUBJECTIVE Adrianna Lucio is a 59 y.o. female who presents for No chief complaint on file.. HPI 1) patient needs multiple refills. They will be done during the visit today. 2) history of paresthesias. Patient was unable to perform the EMG because of fear of needles. A prescription for Ativan was prescribed to use before the procedure. 3) patient has a scheduled follow-up with endocrinology to consider an alternative treatment to alendronate for her history of osteoporosis. 4) history of venous insufficiency. Patient is requesting a refill on her stockings. 5) history of COPD. Follows up with pulmonology. Patient is otherwise stable. Denies any shortness of breath at rest and when moving around inside of her house. Problem List[1] Allergies[2] Medications Ordered Prior to Encounter[3] Review of Systems Constitutional: Negative for appetite change, chills and diaphoresis. HENT: Negative for drooling, ear discharge and ear pain. Respiratory: Negative for cough, choking and shortness of breath. Cardiovascular: Positive for leg swelling. Varicose veins Gastrointestinal: Negative for abdominal pain, anal bleeding and blood in stool. Musculoskeletal: Positive for back pain. OBJECTIVE Vitals: 02/09/25 1054 BP: (!) 147/83 BP Location: Left arm Patient Position: Sitting BP Cuff Size: Adult Pulse: 67 Resp: 20 SpO2: 97% Weight: 185 lb (83.9 kg) Height: 5' 4 (1.626 m) Physical Exam Constitutional: General: She is not in acute distress. Appearance: Normal appearance. She is not ill-appearing, toxic-appearing or diaphoretic. Cardiovascular: Rate and Rhythm: Normal rate. Comments: Varicose veins bilaterally Pulmonary: Effort: Pulmonary effort is normal. Abdominal: Palpations: Abdomen is soft. Musculoskeletal: Right lower le+ Edema present. Left lower le+ Edema present. Neurological: General: No focal deficit present. Mental Status: She is alert. Psychiatric: Mood and Affect: Mood normal. Assessment/Plan Assessment/Plan Diagnoses and all orders for this visit: Left leg paresthesias Comments: A new order for the EMG was placed Patient is to take 0.5 mg Ativan prior to the procedure. Orders: - EMG; Future Dietary counseling Exercise counseling Class 1 obesity due to excess calories with serious comorbidity and body mass index (BMI) of 30.0 to 30.9 in adult Dietary Recommendations: Fruits, vegetables, whole grains, protein foods, and fat-free or low-fat dairy products are healthychoices. Eat different types of protein foods in your diet. This can include seafood, lean meats, poultry, beans, peas, lentils, nuts, seeds, soy products, and eggs. Limit foods and beverages higher in added sugars, saturated fat, and sodium. Exercise Recommendations: To keep as active as tolerated. Fall precautions as discussed. Compression fracture of L1 vertebra, initial encounter ([facility]) Comments: Continue with calcium and vitamin D supplementation Fall precautions discussed Orders: - acetaminophen (Tylenol Extra Strength) 500 MG tablet; Take 1 tablet (500 mg) by mouth every 8 (eight) hours if needed for mild pain. - cholecalciferol (Vitamin D3) 25 MCG (1000 UT) tablet; Take 1 tablet (25 mcg) by mouth Once per day. - Calcium-Vitamin D-Vitamin K (Chewable Calcium) 500-200-40 MG-UNT-MCG chewable tablet; 1 tablet daily. Seasonal allergies Comments: Cetirizine refilled. Orders: - cetirizine (ZyrTEC) 10 MG tablet; Take 1 tablet (10 mg) by mouth in the morning. Venous insufficiency Comments: Leg elevation Compression stockings. Orders: - Compression stockings [1] Patient Active Problem List Diagnosis Alcohol abuse Animal dander allergy Compression fx, lumbar spine ([facility]) COPD, mild ([facility]) Depressive disorder Migraine Osteoporosis Physical deconditioning Senile angioma [2] Allergies Allergen Reactions Amoxicillin Other Reaction(s): EYES SWELLING Pseudoephedrine Unknown Sulfa Antibiotics Swelling [3] Current Outpatient Medications on File Prior to Visit Medication Sig Dispense Refill albuterol (Ventolin HFA) 108 (90 Base) MCG/ACT inhaler INHALE 2 PUFFS BY MOUTH EVERY 6 HOURS NEEDED 18 g 0 D3-1000 25 MCG (1000 UT) capsule TAKE 1 CAPSULE BY MOUTH EVERY DAY Fluocinolone Acetonide Scalp (Standing Pine-Smoothe/FS Scalp) 0.01 % oil To use on the scalp 2 times a week. Cover the head w/ a du rag after 118 mL 3 fluticasone (Flovent HFA) 110 MCG/ACT inhaler INHALE 2 PUFFS BY MOUTH TWICE DAILY 12 g 11 ketoconazole (NIZOral) 2 % shampoo Apply topically 2 (two) times a week. 120 mL 3 LORazepam (Ativan) 0.5 MG tablet To take one tab 30 minutes prior to the procedure, may take another tablet after 30 minutes if no effect. 2 tablet 0 traZODone (Desyrel) 50 MG tablet TAKE 1 TABLET(50 MG) BY MOUTH AT BEDTIME 30 tablet 11 [DISCONTINUED] acetaminophen (Tylenol Extra Strength) 500 MG tablet Take 1 tablet (500 mg) by mouthevery 8 (eight) hours if needed for mild pain. 90 tablet 2 [DISCONTINUED] alendronate (Fosamax) 70 MG tablet Take 1 tablet (70 mg) by mouth every 7 (seven) days. Take in the morning with a full glass of water, on an empty stomach, and do not take anything else by mouth or lie down for the next 30 min. 4 tablet 11 [DISCONTINUED] calcium carbonate 1500 (600 Ca) MG tablet TAKE 1 TABLET BY MOUTH EVERY MORNING 90 tablet 1 [DISCONTINUED] cetirizine (ZyrTEC) 10 MG tablet Take 1 tablet (10 mg) by mouth in the morning. 90 tablet 3 [DISCONTINUED] cholecalciferol (Vitamin D3) 25 MCG (1000 UT) tablet TAKE 1 TABLET BY MOUTH EVERY DAY 90 tablet 1 [DISCONTINUED] Diclofenac Sodium 1 % gel To apply to the affected area 3 times a day 100 g 0 No current facility-administered medications on file prior to visit. documented in this encounter Plan of Treatment Upcoming Encounters Date Type Department Care Team (Late st Contact Info) Description 02/16/2025 10:30 AM EDT Clinical Support [facility] [address] [place] [address] 04/30/2025 10:30 AM EST Office Visit [facility] [address] [place] [address] eDyvi Ramos MD [address] [place] [address] Scheduled Orders Name Type Priority Associated Diagnoses Orde r Schedule EMG Neurology Routine Left leg paresthesias Expected: 02/09/2025, Expires: 08/09/2025 documented as of this encounter Visit Diagnoses Diagnosis Left leg paresthesias- Primary Disturbance of skin sensation Dietary counseling Dietary surveillance and counseling Exercise counseling Class 1 obesity due to excess calories with serious comorbidity and body mass index (BMI) of 30.0 to 30.9 in adult Compression fracture of L1 vertebra, initial encounter ([facility]) ([facility]) Seasonal allergies Allergic rhinitis, cause unspecified Venous insufficiency Unspecified venous (peripheral) insufficiency documented in this encounter Additional Health Concerns Assessment Noted Time PHQ-9 Depression Total Score: 2 06/26/19 25 11:28 AM EST documented as of this encounter Care Teams Hogshead Hand Relationship Specialty Start Date End Date Deyvi Ramos MD [address] [place] [address] PCP - General Internal Medicine 11/22/23 [facility] 04/04/24 documented as of this encounter
--- NOTE | 2025-02-11 10:45 | MHC.OFFVIS ---
Vital Signs 02/11/25 10:46 Height 5 ft 5 in Weight 186 lb BMI 30.9 BP 120/82 Blood Pressure Location Lt brachial Position Sitting Respiration 16 Pulse 88 Pulse Source Pulse Oximeter Pulse Oximetry (%) 97 Oxygen Delivery Method Room Air Intake Visit Reasons: Discuss Bone Density Results Counter Supervisor Required: No Accompanied by: Spouse Allergies amoxicillin (AMOXICILLIN) Allergy (Unknown, Verified 02/11/25 10:48) EYES SWELLING pseudoephedrine (Sudafed) Allergy (Unknown, Verified 02/11/25 10:48) Unknown Sulfa (Sulfonamide Antibiotics) (SULFA (SULFONAMIDE ANTIBIOTICS)) Allergy (Unknown, Verified 02/11/25 10:48) SWELLING Medication List - Last Reconciled 02/11/25 by Laverne Marley, OCLEEN acetaminophen 500 mg PO Q8H PRN albuterol sulfate 90 mcg/actuation (Ventolin HFA) 2 puffs inhalation Q4-6H PRN calcium carbonate 600 mg PO QAM cetirizine 10 mg PO QAM cholecalciferol (vitamin D3) (Vitamin D3) 25 mcg PO DAILY diclofenac sodium 1% topical TID trazodone 50 mg PO BEDTIME HPI HPI Discuss Bone Density Results: Details: History of Present Illness The patient is a 59-year-old female presenting with follow-up after a bone density scan and questions regarding a kyphoplasty. The patient has a history of osteoporotic compression fractures at L2 and L4, with tenderness more pronounced over the L4 spinous process and mild soreness at L2. Imaging reports about 50% height loss at L2, and the fractures are associated with chronic pain that varies in intensity and is exacerbated by certain movements and activities. The patient has had osteoporosis for approximately 10 years, diagnosed following early menopause. She was on alendronate but stopped due to concerns about potential jaw side effects after an abscess of the tooth. She is scheduled to see an early education teacher for further osteoporosis management. The patient reports a tingling sensation in her left leg, associated with an irritated nerve root rather than a pinched nerve. This sensation occurs primarily when touching her leg or abdomen and occasionally affects her right leg. Pain Description - Onset: Chronic pain associated with osteoporotic fractures - Quality: Varies in intensity, exacerbated by movement - Location: More pronounced over L4, mild soreness at L2 - Exacerbating factors: Movement, certain activities - Relieving factors: Not explicitly discussed Physical Exam - Spine: Tenderness more pronounced over the L4 spinous process, mild soreness at L2 Results - Imaging: Bone density scan and MRI discussed, showing osteoporotic fractures at L2 and L4 with 50% height loss at L2 Pain Management - Affect: Chronic pain impacts daily activities and mood - Analgesia: Lidocaine patches discussed for pain relief - Adverse Effects: Concerns about jaw effects from osteoporosis medication - Activities of Daily Living: Pain affects movement and daily activities - Aberrant Drug Related Behaviors: None reported [facility] Medical History (Updated 02/17/25 @ 08:36 by Kiet Bui MD) Pulmonary nodules Personal history of nicotine dependence Compression fx, lumbar spine Alcohol abuse Osteopoikilosis Alcohol use disorder COPD (chronic obstructive pulmonary disease) Surgical History (Updated 02/06/25 @ 10:42 by Maria Alejandra Kennedy PA-C) History of surgery on lower extremity Family History Father No problems noted. Mother No problems noted. Social History (Updated 02/06/25 @ 10:40 by Marai Alejandra Kennedy PA-C) Household Members: Children Household Members Other:: son Housing: Apartment Do you presently have visiting nurse or other home services: No Patient Tobacco Use Status: Former Tobacco user Years Smoked: (onset 16yo, 1/2ppd x 43yrs, 20PYH, quit 2023) service: No Physical Exam Vital Signs: Last Vital Signs Pulse 88 02/11/25 10:46 Resp 16 02/11/25 10:46 BP 120/82 02/11/25 10:46 Pulse Ox 97 02/11/25 10:46 Oxygen Delivery Method Room Air 02/11/25 10:46 BMI result Body Mass Index 30.9 Assessment & Plan Assessment & Plan (1) Osteoporotic compression fracture of spine with delayed healing: Code(s): M80.88XG - Other osteoporosis with current pathological fracture, vertebra(e), subsequent encounter for fracture with delayed healing Category: Medical Plan Plan Patient was informed and verbally consented to the use of an ambient scribe for clinic note documentation during this visit. 1. Osteoporotic Compression Fractures At L2 And L4 - Plan to proceed with kyphoplasty at L2 and L4 to prevent further collapse and reduce pain. - Discussed the procedure's potential to reinforce vertebrae and decrease future collapse risk. 2. Osteoporosis - Patient to follow up with an early education teacher for osteoporosis management. - Discussed the importance of resuming osteoporosis treatment to prevent further fractures. 3. Abscess Tooth - Patient previously had an abscess tooth, which led to discontinuation of alendronate. - Discussed potential jaw side effects from osteoporosis medication. 4. Tingling Sensation In Left Leg - Tingling sensation in left leg associated with an irritated nerve root, not a pinched nerve. - Recommended stretching exercises to alleviate symptoms. Discussion Notes I discussed with the patient the plan to proceed with kyphoplasty at L2 and L4 to prevent further collapse and reduce pain. We reviewed the potential benefits of the procedure, including reinforcing the vertebrae and decreasing the risk of future collapse. I emphasized the importance of resuming osteoporosis treatment to prevent further fractures and advised the patient to follow up with an early education teacher. We also discussed the potential side effects of osteoporosis medications, particularly concerning the jaw, and the patient was advised to consult with the early education teacher for further management. Additionally, I recommended stretching exercises to alleviate the tingling sensation in the left leg, which is associated with an irritated nerve root. Patient Instructions - Proceed with kyphoplasty at L2 and L4 as scheduled. - Follow up with an early education teacher for osteoporosis management. - Resume osteoporosis treatment as advised by the early education teacher. - Perform recommended stretching exercises to alleviate tingling in the left leg. - Monitor for any new or worsening symptoms and report them promptly. Medications: New lidocaine 5% leave on most painful area for up to 12 hrs 1 patch topical DAILY 30 ea 2RF Coding Level of Care Code Est Pt Level 4 (47311) Diagnoses Osteoporotic compression fracture of spine with delayed healing M80.88XG
[2025-02-11 10:46] VITALS: BP 120/82; PULSE 88; RESP 16; O2SAT 97; BMI 30.9
--- OUTSIDE RECORDS SUMMARY | 2025-02-11 11:51 | XMS_ITS | Encounter Summary ---
Author Organization [employer] Address [address] [place] [address] Care Team Providers Care Local Sales Manager Name Role Phone Deyvi Ramos MD Primary Care Provider [phone] Deyvi Ramos MD Primary Care Provider [phone] Reason for Visit * Reason Comments Med Refill Encounter Details Date Type Department Care Team (Late st Contact Info) Description 08/21/2022 Refill [facility] MED & PEDS [address] [place] [address] Deyvi Ramos MD [address] [place], [place] [phone] Social History Tobacco Use Types Packs/Day Years [...] Department Care Team (Late Contact Info) Description 02/16/2025 10:30 AM EDT Clinical Support [facility] MED & PEDS [address] [place] [address] 04/30/2025 10:30 AM EST Office Visit [facility] PED[facility] [address] [place] [address] Deyvi Ramos MD [address] [place] [address] documented as of this encounter Visit Diagnoses Not on filedocumented in this encounter Care Teams Local Sales Manager Relationship Specialty Start Date End Date Deyvi Ramos MD [address] [facility] [place] [address] PCP - General Internal Medicine 06/12/13 06/03/23 Deyvi Ramos MD [address] [place] [address] PCP - General Internal Medicine 11/22/23 [facility] 04/04/24 documented as of this encounter
--- OUTSIDE RECORDS SUMMARY | 2025-02-11 11:52 | XMS_ITS | Encounter Summary ---
Author Organization [employer] Address [address] [facility] 7 [place] [address] Care Team Providers Care Housekeeper Caregiver Name Role Phone Deyvi Ramos MD Primary Care Provider [phone] Reason for Visit * Reason Comments Med Refill Encounter Details Date Type Department Care Team ([facility] st Contact Info) Description 09/10/2024 Refill [facility] [address] [place], [place] [phone] Deyvi Ramos MD [address] [place] [address] Seasonal allergies Social History Tobacco Use Types [...] Description 02/16/2025 10:30 AM EDT Clinical Support [facility] [address] [place] [address] 04/30/2025 10:30 AM EST Office Visit [facility] [address] [place] [address] Deyvi Ramos MD [address] [place] [address] documented as of this encounter Visit Diagnoses Diagnosis Seasonal allergies Allergic rhinitis, cause unspecified documented in this encounter Additional Health Concerns Assessment Noted Time PHQ-9 Depression Total Score: 2 06/26/19 25 11:28 AM EST documented as of this encounter Care Teams Housekeeper Caregiver Relationship Specialty Start Date End Date Deyvi Ramos MD [address] [place] [address] PCP - General Internal Medicine 11/22/23 [facility] 04/04/24 documented as of this encounter
--- OUTSIDE RECORDS SUMMARY | 2025-02-11 11:52 | XMS_ITS | Encounter Summary ---
Author Organization [employer] Address [address] [facility] [address] [place] [address] Care Team Providers Care Board Of Education Secretary Name Role Phone Deyvi Ramos MD Primary Care Provider [phone] Encounter Details Date Type Department Care Team ([facility] Contact Info) Description 02/09/2025 Telephone [facility] [address] [place], [place] [phone] Deyvi Ramos MD [address] [place] [address] Social History Tobacco Use Types Packs/Day Years Used Date Smoking Tobacco: Former Cigarettes Smokeless Tobacco: Never Comments:I year half Depression Answer Date Recorded [...] encounter Miscellaneous Notes * Telephone Encounter - Rina Sanchez [place] - 02/09/2025 1:24 PM EDT Food documented in this encounter Plan of Treatment Upcoming Encounters Date Type Department Care Team (Late st Contact Info) Description 02/16/2025 10:30 AM EDT Clinical Support [facility] [address] [place] [address] 04/30/2025 10:30 AM EST Office Visit [facility] [address] [place] [address] Deyvi Ramos MD [address] [place] [address] documented as of this encounter Visit Diagnoses Not on filedocumented in this encounter Additional Health Concerns Assessment Noted Time PHQ-9 Depression Total Score: 2 06/26/19 25 11:28 AM EST documented as of this encounter Care Teams Board Of Education Secretary Relationship Specialty Start Date End Date Deyvi Ramos MD [address] [place] [address] PCP - General Internal Medicine 11/22/23 [facility] 04/04/24 documented as of this encounter
--- OUTSIDE RECORDS SUMMARY | 2025-02-11 11:52 | XMS_ITS | Encounter Summary ---
Author Organization [employer] Address [address] [place] [address], [place] [address] Care Team Providers Care Owner Operator Tanker Truck Driver Name Role Phone Deyvi Ramos MD Primary Care Provider [phone] Reason for Visit * Reason Comments Med Refill Encounter Details Date Type Department Care Team ([facility] Contact Info) Description 08/09/2023 Refill [facility] MED & PEDS [address] [place] [address] Deyvi Ramos MD [address] [place] [address] Social History Tobacco Use Types Packs/Day Years [...] Upcoming Encounters Date Type Department Care Team ([facility] Contact Info) Description 02/16/2025 10:30 AM EDT Clinical Support [facility] MED [facility] PEDS [address] [place], [place] [phone] 04/30/2025 10:30 AM EST Office Visit [facility] MED & PEDS [address] [place], [place] [phone] Deyvi Ramos MD [address] [place], [place] [phone] documented as of this encounter Visit Diagnoses Not on filedocumented in this encounter Care Teams Owner Operator Tanker Truck Driver Relationship Specialty Start Date End Date Deyvi Ramos MD [address] [place] [address] PCP - General Internal Medicine 11/22/23 [facility] 04/04/24 documented as of this encounter
--- OUTSIDE RECORDS SUMMARY | 2025-02-11 11:52 | XMS_ITS | Encounter Summary ---
Author Organization [employer] Address [address] [facility] 7 [place] [address] Care Team Providers Care Exceptional Children Teacher Name Role Phone Deyvi Ramos MD Primary Care Provider [phone] Reason for Visit * Reason Onset Date Comments Appointment Request 06/17/2024 Encounter Details Date Type Department Care Team ([facility] st Contact Info) Description 06/17/2024 Telephone [facility] MED [facility] PEDS [address] [place] [address] Deyvi Ramos MD [address] [place] [address] Appointment Request Social History Tobacco Use Types [...] Upcoming Encounters Date Type Department Care Team ([facility] st Contact Info) Description 02/16/2025 10:30 AM EDT Clinical Support [facility] [address] [place] [address] 04/30/2025 10:30 AM EST Office Visit [facility] [address] [place] [address] Deyvi Ramos MD [address] [place] [address] documented as of this encounter Visit Diagnoses Not on filedocumented in this encounter Care Teams Exceptional Children Teacher Relationship Specialty Start Date End Date Deyvi Ramos MD [address] [place] [address] PCP - General Internal Medicine 11/22/23 [facility] 04/04/24 documented as of this encounter
--- OUTSIDE RECORDS SUMMARY | 2025-02-11 11:52 | XMS_ITS | Encounter Summary ---
Author Organization [employer] Address [address] [place] [address] [address] [place] [address] Care Team Providers Care Private Mortgage Banker Safe Name Role Phone Deyvi Ramos MD Primary Care Provider [phone] Deyvi Ramos MD Primary Care Provider [phone] Encounter Details Date Type Department Care Team (Latest Contact Info) Description 11/15/2018 Abstract [facility] CONVERSIONS Dental, Provider, DDS Social History [...] Description 02/16/2025 10:30 AM EDT Clinical Support [facility] MED & PEDS [address] [place] [address] 04/30/2025 10:30 AM EST Office Visit [facility] MED [facility] PED[facility] [address] [place] [address] Deyvi Ramos MD [address] [place] [address] documented as of this encounter Visit Diagnoses Not on filedocumented in this encounter Care Teams Private Mortgage Banker Safe Relationship Specialty Start Date End Date Deyvi Ramos MD [address] [place] [address] PCP - General Internal Medicine 06/12/13 06/03/23 Deyvi Ramos MD [address] [place] [address] PCP - General Internal Medicine 11/22/23 [facility] 04/04/24 documented as of this encounter
--- OUTSIDE RECORDS SUMMARY | 2025-02-11 11:52 | XMS_ITS | Encounter Summary ---
Author Organization [employer] Address [address] [facility] [address] [place] [address] Care Team Providers Care Coat Padder Name Role Phone Deyvi Ramos MD Primary Care Provider [phone] Encounter Details Date Type Department Care Team (Latest Contact Info) Description 02/09/2025 Travel Social History Tobacco Use Types Packs/Day [...] ([facility] st Contact Info) Description 02/16/2025 10:30 AM EDT Clinical Support [facility] MED [facility] PED[facility] [address] [place] [address] 04/30/2025 10:30 AM EST Office Visit [facility] [address] [place] [address] Deyvi Ramos MD [address] [place] [address] documented as of this encounter Visit Diagnoses Not on filedocumented in this encounter Additional Health Concerns Assessment Noted Time PHQ-9 Depression Total Score: 2 06/26/19 25 11:28 AM EST documented as of this encounter Care Teams Coat Padder Relationship Specialty Start Date End Date Deyvi Ramos MD [address] [place] [address] PCP - General Internal Medicine 11/22/23 [facility] 04/04/24 documented as of this encounter
--- OUTSIDE RECORDS SUMMARY | 2025-02-11 11:52 | XMS_ITS | Clinical Summary ---
Author Organization [employer] Address [address] [facility] [address] [place] [address] Care Team Providers Care Doughnut Fryer Name Role Phone Deyvi Ramos MD Primary Care Provider [phone] Allergies Active Allergy Reactions Criticality Noted Date [...] BY MOUTH EVERY DAY 05/03/20 22 Active albuterol (Ventolin HFA) 108 (90 Base) MCG/ACT inhalerIndicat ions:Seasonal allergies,COPD , mild (CMS/HCC) (HCC) INHALE 2 PUFFS BY MOUTH EVERY 6 HOURS NEEDED 18 g 06/12/19 25 Active ketoconazole (NIZOral) 2 % shampooIndicat ions:Telogen effluvium Apply topically 2 (two) times a week. 120 mL 3 07/18/19 25 Active Fluocinolone Acetonide Scalp ([place]-Smoothe /FS Scalp) 0.01 % oilIndications :Telogen effluvium To use on the scalp 2 times a week. Cover the head w/ a du rag after 118 mL 3 07/16/19 25 Active traZODone (Desyrel) 50 MG tablet TAKE 1 TABLET(50 MG) BY MOUTH AT BEDTIME 30 tablet 11 12/27/19 25 Active LORazepam (Ativan) 0.5 MG tablet To take one tab 30 minutes prior to the procedure, may take another tablet after 30 minutes if no effect. 2 tablet 02/04/20 25 Active acetaminophen (Tylenol Extra Strength) 500 MG tabletIndicati ons:Compressio n fracture of L1 vertebra, initial encounter (CMS/[facility]) ([facility]) Take 1 tablet (500 mg) by mouth every 8 (eight) hours if needed for mild pain. 90 tablet 2 02/10/20 25 Active cholecalcifero l (Vitamin D3) 25 MCG (1000 UT) tabletIndicati ons:Compressio n fracture of L1 vertebra, initial encounter (CMS/[facility]) ([facility]) Take 1 tablet (25 mcg) by mouth Once per day. 90 tablet 1 02/10/20 25 Active cetirizine (ZyrTEC) 10 MG tabletIndicati ons:Seasonal allergies Take 1 tablet (10 mg) by mouth in the morning. 90 tablet 3 02/10/20 25 Active Calcium-Vitami n D-Vitamin K (Chewable Calcium) 500-200-40 MG-UNT-MCG chewable tabletIndicati ons:Compressio n fracture of L1 vertebra, initial encounter (CMS/[facility]) ([facility]) 1 tablet daily. 90 tablet 3 02/10/20 25 Active calcium carbonate 1500 (600 Ca) MG tabletIndicati ons:Osteoporos is of disuse TAKE 1 TABLET BY MOUTH EVERY MORNING 90 tablet 1 11/30/19 24 025 Discontinued(Th erapy completed) Diclofenac Sodium 1 % gelIndications :Compression fracture of L1 vertebra, initial encounter (CMS/[facility]) ([facility]) To apply to the affected area 3 times a day 100 g 04/07/20 24 025 Discontinued(Th erapy completed) acetaminophen (Tylenol Extra Strength) 500 MG tabletIndicati ons:Compressio n fracture of L1 vertebra, initial encounter (CMS/[facility]) ([facility]) Take 1 tablet (500 mg) by mouth every 8 (eight) hours if needed for mild pain. 90 tablet 2 04/07/20 24 025 Discontinued(Re order (will not trigger notification to Pharmacy)) alendronate (Fosamax) 70 MG tabletIndicati ons:Osteoporos is of disuse Take 1 tablet (70 mg) by mouth every 7 (seven) days. Take in the morning with a full glass of water, on an empty stomach, and do not take anything else by mouth or lie down for the next 30 min. 4 tablet 11 04/07/20 24 025 Discontinued(Th erapy completed) cetirizine (ZyrTEC) 10 MG tabletIndicati ons:Seasonal allergies Take 1 tablet (10 mg) by mouth in the morning. 90 tablet 3 06/26/19 025 Discontinued(Re order (will not trigger notification to Pharmacy)) cholecalcifero l (Vitamin D3) 25 MCG (1000 UT) tabletIndicati ons:Compressio n fracture of L1 vertebra, initial encounter ([facility]) ([facility]) TAKE 1 TABLET BY MOUTH EVERY DAY 90 tablet 1 12/27/19 025 Discontinued(Re order (will not trigger notification to Pharmacy)) Active Problems Problem Noted Date Diagnosed Date Alcohol abuse 11/22/2023 Compression fx, lumbar spine ([facility]) Physical deconditioning 11/22/2023 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 Animal dander allergy 05/24/2017 Depressive disorder 09/28/2016 Migraine 09/28/2016 Osteoporosis 09/28/2016 COPD, mild ([facility]) 01/15/2014 Encounters Date Type Department Care Team Description 02/09/2025 11:00 AM EDT Office Visit [facility] [address], [place] [phone] Deyvi Ramos MD Left leg paresthesias (Primary Dx); Dietary counseling; Exercise counseling; Class 1 obesity due to excess calories with serious comorbidity and body mass index (BMI) of 30.0 to 30.9 in adult; Compression fracture of L1 vertebra, initial encounter ([facility]); Seasonal allergies; Venous insufficiency 02/09/2025 Patient Outreach [facility] [address] [place] [address] Deyvi Ramos MD Care Coordination (CHW outreach for SDNC housing search-LVM ) 02/09/2025 Telephone [facility] [address], [place] [phone] Deyvi Ramos MD 02/09/2025 Travel 02/06/2025 Orders Only [facility] External Provider, [facility] 02/06/2025 Telephone [facility] [address] [place] [address] Deyvi Ramos MD Chart Prep 02/05/2025 Patient Outreach [facility] [address] [place] [address] Deyvi Ramos MD Care Coordination (CHW outreach for SDOH PT-1 and food needs-referral completed /) 02/02/2025 Travel 01/29/2025 Results Follow-Up [facility] [address] [place] [address] Awilda Browning, LORRIE BD DEXA Axial 01/28/2025 Orders Only [facility] [address] [place] [address] Deyvi Ramos MD Anxiety (Primary Dx) 01/28/2025 Orders Only [facility] External Provider, [facility] 12/26/2024 Refill [facility] [address] [place] [address] Deyvi Ramos MD Compression fracture of L1 vertebra, initial encounter ([facility]) 12/26/2024 Refill [facility] [address] [place] [address] Deyvi Ramos MD Compression fracture of L1 vertebra, initial encounter ([facility]) 12/01/2024 Telephone [facility] [address] [place] [address] Deyvi Ramos MD Referral 11/11/2024 Telephone [facility] [address] [place] [address] Deyvi Ramos MD Referral from Last 3 [...] PCV 20 11/22/2023 Pneumococcal Polysaccharide PPSV23 07/17/2017 TD (adult), 2 Lf tetanus tox oid, preservative free, adsorbed 07/17/2002 Td (adult), unspecified 07/17/2002 Tdap 02/25/2015,11/07/2010 Family [...] Pulse 67 02/09/2025 10:54 AM EDT Temperature 36.4 C (97.6 F) 10/16/2024 10:27 AM EDT Respiratory Rate 20 02/09/2025 10:54 AM EDT Oxygen Saturation 97% 02/09/2025 10:54 AM EDT Inhaled Oxygen Concentration - - Weight 83.9 kg (185 lb) 02/09/2025 10:54 AM EDT Height 162.6 cm (5' 4 ) 02/09/2025 10:54 AM EDT Body Mass Index 31.76 02/09/2025 10:54 AM EDT Plan of Treatment Upcoming Encounters Date Type Department Care Team ([facility] st Contact Info) Description 02/16/2025 10:30 AM EDT Clinical Support [facility] [address] [place] [address] 04/30/2025 10:30 AM EST Office Visit [facility] [address] [place] [address] Deyvi Ramos MD [address] [place] [address] Health Maintenance Due Date Last Done Comments CT Colonography 1965 Colonoscopy 1965 Colorectal Cancer Screening 1965 FIT DNA/Cologuard 1965 FIT 1965 FOBT 1965 Sigmoidoscopy 1965 Pap Smear 1986 Cervical Cancer Screening 1995 HPV/Cotest 1995 Zoster Vaccines (1 of 2) 2015 Hepatitis B Vaccines (2 of 3 - 19+ 3-dose series) 11/13/2024 10/16/2024 Influenza Vaccine (#1) 2025 , 03/11/2019, 02/18/2018, Additional history exists DTaP/Tdap/Td Vaccines (3 - Td or Tdap) 02/25/2025 02/25/2015, 11/07/2010, 07/17/2002, Additional history exists Alcohol/Substance Use Screening 06/26/2025 06/26/2024 Depression Screening 06/26/2025 06/26/2024, 06/26/19 Disability Screening 02/09/2026 02/09/2025 SDOH Screening 02/09/2026 02/09/2025 Tobacco Screening 02/09/2026 02/09/2025 Mammogram 01/28/2027 01/28/2025, 10/16/2017 Lipid Panel 04/15/2029 04/15/2024 RSV Patients and Patients Aged 60 years [...] Procedure Name Priority Date/Time Associated Diagnosis Comments LDCT LUNG SCREENING Routine 02/06/2025 1 1:03 AM EDT BD DEXA AXIAL Routine 01/28/2025 2:37 PM EDT BI MAMMOGRAM SCREENING TOMOSYNTHESIS BILATERAL Routine 01/28/2025 2:00 PM EDT Encounter for screening mammogram for malignant neoplasm of breast HEPATITIS C AB W/REFL TO HCV RNA, QN, PCR Routine 10/16/2024 11:36 AM EDT Compression fracture of L5 vertebra, initial encounter (CMS/HCC) HIV 1/2 ANTIGEN/ANTIBODY, FOURTH GENERATION W/RFL Routine 10/16/2024 11:36 AM EDT Compression fracture of L5 vertebra, initial encounter (CMS/HCC) LIPID PANEL, STANDARD Routine 04/15/2024 10:54 AM EST Osteoporosis of disuse from Last 3 Months or Most Recently Relevant to Health Maintenance Results * CT Lung Screening Low dose (02/06/2025 11:03 AM EDT) Anatomical Region Laterality Modality Lung Computed Tomogra phy 02/06/2025 11:0 3 AM EDT Narrative 02/06/2025 12:15 PM EDT [place] [address] [address] Scan Report Signed Patient: Adrianna Lucio MR#: [id number] 144 : 1965 Acct:[id number] Age/Sex: 59 / F ADM Date: 02/06/25 Loc: .CT Attending Dr: Maria Alejandra Kennedy PA-C Ordering Physician: Maria Alejandra Kennedy PA-C Date of Service: 02/06/25 Procedure(s): CT lung screening Accession Number(s): [id number] cc: Deyvi Ramos MD; Maria Alejandra Kennedy PA-C Report Number: [id number]: Total DLP = 54.00 mGy-cm Reason for Exam: Z87.891 - Personal history of nicotine dependence EXAMINATION: CT LUNG SCREENING HISTORY: Z87.891 - Personal history of nicotine dependence TECHNIQUE: Low dose axial images were obtained from the sternal notch to upper abdomen without IV contrast per standard departmental protocol. Sagittal and coronal reformatted images were also obtained and reviewed. One or more of the following techniques was used for dose reduction: Automated exposure control, adjustment of the mA and/or kV according to patient size, use of iterative reconstruction technique. DLP: 54 mGy-cm COMPARISON: Comparison is made with the prior examinations dated 09/09/2023 and 09/17/2018. FINDINGS: Lung nodules: Again seen is a spiculated opacity at the right lung apex which is stable and likely represents scarring. Again seen is a 1.3 cm calcified granuloma in the right upper lobe (series 4, image 40). There are tiny nodules in the left upper lobe measuring up to 3 mm (series 4, images 33, 35, 49, and 52). Emphysema: mild Coronary Calcification: mild Aortic Arch Calcification: mild Potentially Significant Incidentals : none Additional Chest Findings: There is no pleural or pericardial effusion. No mediastinal or axillary lymphadenopathy is identified. Visualized upper abdomen: The visualized portions of the liver, spleen, and adrenals have an unremarkable unenhanced appearance. There is a small hiatal hernia. CT/CT lung screening IMPRESSION: No suspicious pulmonary nodules are identified. LUNG-RADS ASSESSMENT: Lung-RADS 2: Benign MANAGEMENT: Continue annual screening with LDCT in 12 months Category S: N/A Electronically signed by: Stephan Cortes MD 02/06/2025 11:55 AM EDT Dictated By: Stephan Cortes MD Signed By: <Electronically signed by Stephan Cortes MD in OV> 02/06/25 1155 DD/ 1103 TD/TT: 02/06/25 1118 Roasterman: Procedure Note Donotuseinterpreter, Image - 02/06/[address] [address] [address] Scan Report Signed Patient: Adrianna Lucio [facility]#: [id number] 144 : 1965Acct:[id number] Age/Sex: 59 / FADM Date: 02/06/25 Loc: HO.CT Attending Dr: Maria Alejandra Kennedy PA-C Ordering Physician: Maria Alejandra Kennedy PA-C Date of Service: 02/06/25 Procedure(s): CT lung screening Accession Number(s): [id number] cc: Deyvi Ramos MD; Maria Alejandra Kennedy PA-C Report Number: [id number]: Total DLP = 54.00 mGy-cm Reason for Exam: Z87.891 - Personal history of nicotine dependence EXAMINATION: CT LUNG SCREENING HISTORY: Z87.891 - Personal history of nicotine dependence TECHNIQUE: Low dose axial images were obtained from the sternal notch to upper abdomen without IV contrast per standard departmental protocol. Sagittal and coronal reformatted images were also obtained and reviewed. One or more of the following techniques was used for dose reduction: Automated exposure control, adjustment of the mA and/or kV according to patient size, use of iterative reconstruction technique. DLP: 54 mGy-cm COMPARISON: Comparison is made with the prior examinations dated 09/09/2023 and 09/17/2018. FINDINGS: Lung nodules: Again seen is a spiculated opacity at the right lung apex which is stable and likely represents scarring. Again seen is a 1.3 cm calcified granuloma in the right upper lobe (series 4, image 40). There are tiny nodules in the left upper lobe measuring up to 3 mm (series 4, images 33, 35, 49, and 52). Emphysema: mild Coronary Calcification: mild Aortic Arch Calcification: mild Potentially Significant Incidentals : none Additional Chest Findings: There is no pleural or pericardial effusion. No mediastinal or axillary lymphadenopathy is identified. Visualized upper abdomen: The visualized portions of the liver, spleen, and adrenals have an unremarkable unenhanced appearance. There is a small hiatal hernia. CT/CT lung screening IMPRESSION: No suspicious pulmonary nodules are identified. LUNG-RADS ASSESSMENT: Lung-RADS 2: Benign MANAGEMENT: Continue annual screening with LDCT in 12 months Category S: N/A Electronically signed by: Stephan Cortes MD 02/06/2025 11:55 AM EDT Dictated By: Stephan Cortes MD Signed By: <Electronically signed by Stephan Cortes MD in OV> 02/06/25 1155 DD/ 1103 TD/TT: 02/06/25 1118 Roasterman: [facility] External Provider IMG CT PROCEDURES Final Result * BD DEXA Axial (01/28/2025 2:37 PM EDT) Anatomical Region Laterality Modality Body Radiographic Rebecca ging 01/28/2025 2:37 PM EDT Narrative 01/28/2025 3:21 PM EDT [address] [place] [address] Mammography Report Signed Patient: Adrianna Lucio MR#: [id number] 144 : 1965 Acct:[id number] Age/Sex: 59 / F ADM Date: 01/28/25 Loc: HO.MAMMO Attending Dr: Deyvi Ramos MD Ordering Physician: Kiet Bui MD Results: Date of Service: 01/28/25 Follow Up: Procedure(s): XR DEXA axial skeleton Accession Number(s): [id number] cc: Deyvi Ramos MD; Kiet Bui MD Reason For Exam: S32.000A - Wedge compression fracture of unspecified lumbar vertebra, in... EXAMINATION: DXA BONE DENSITY AXIAL HISTORY: S32.000A - Wedge compression fracture of unspecified lumbar vertebra... TECHNIQUE: [employer] Dual energy absorptiometry (DEXA) of the lumbar [...] is a trademark of the [employer]'s [place] for Metabolic Bone Disease, a World Health Organization (WHO) Collaborating Center. Electronically signed by: Stephan Cortes MD 01/28/2025 03:18 PM EDT Dictated By: Stephan Cortes MD Signed By: <Electronically signed by Stephan Cortes MD in OV> 01/28/25 1518 DD/ 1437 TD/TT: 01/28/25 1500 Roasterman: Procedure Note Donotuseinterpreter, Image - [facility]/28/20[facility] [address] [place] [address] Mammography Report Signed Patient: Adrianna Lucio [facility]#: [id number] 144 : 1965Acct:[id number] Age/Sex: 59 / FADM Date: 01/28/25 Loc: HO.MAMMO Attending Dr: Deyvi Ramos MD Ordering Physician: Kiet Bui MDResults: Date of Service: 01/28/25Follow Up: Procedure(s): XR DEXA axial skeleton Accession Number(s): [id number] cc: Deyvi Ramos MD; Kiet Bui MD Reason For Exam: S32.000A - Wedge compression fracture of unspecifiedlumbar vertebra, in... EXAMINATION: DXA BONE DENSITY AXIAL HISTORY: S32.000A - Wedge compression fracture of unspecified lumbar vertebra... TECHNIQUE: [employer] Dual energy absorptiometry (DEXA) of the lumbar [...] of the [employer] [place] for Metabolic Bone Disease, a World Health Organization (WHO) Collaborating Center. Electronically signed by: Stephan Cortes MD 01/28/2025 03:18 PM EDT Dictated By: Stephan Cortes MD Signed By: <Electronically signed by Stephan Cortes MD in OV> 01/28/25 1518 DD/ 1437 TD/TT: 01/28/25 1500 Roasterman: [facility] External Provider IMG DXA PROCEDURES Edited Result - Final * BI Mammogram Screening Tomosynthesis Bilateral (01/28/2025 2:00 PM EDT) Anatomical Region Laterality Modality Breast Bilateral Mammography 01/28/2025 2:00 PM EDT Narrative 02/02/2025 2:13 PM EDT [address] [place] [address] Mammography Report Signed Patient: Adrianna Lucio MR#: [id number] 144 : 1965 Acct:[id number] Age/Sex: 59 / F ADM Date: 01/28/25 Loc: HO.MAMMO Attending Dr: Deyvi Ramos MD Ordering Physician: Deyvi Ramos MD Results: 1 Negative Date of Service: 01/28/25 Follow Up: 1 Year From Orig inal Mammogram Procedure(s): MM tomosynthesis screening BI Accession Number(s): [id number] cc: Deyvi Ramos MD Reason For Exam: [...] Lydia Mercedes DO 02/02/2025 02:10 PM EDT RP Dictated By: Lydia Mercedes DO Signed By: <Electronically signed by Lydia Mercedes DO in OV> 02/02/25 1410 DD/ 1400 TD/TT: 01/28/25 1420 Roasterman: Procedure Note Donotuseinterpreter, Image - 02/02/2025 [facility] [address] [place] [address] Mammography Report Signed Patient: Adrianna Lucio [facility]#: [id number] 144 : 1965Acct:[id number] Age/Sex: 59 / FADM Date: 01/28/25 Loc: HO.MAMMO Attending Dr: Deyvi Ramos MD Ordering Physician: Deyvi Ramos MDResults: 1 Negative Date of Service: 01/28/25Follow Up: 1 Year From Orig inal Mammogram Procedure(s): MM tomosynthesis screening BI Accession Number(s): [id number] cc: Deyvi Ramos MD Reason For Exam: [...] Lydia Mercedes DO 02/02/2025 02:10 PM EDT RP Dictated By: Lydia Mercedes DO Signed By: <Electronically signed by Lydia Mercedes DO in OV> 02/02/25 1410 DD/ 1400 TD/TT: 01/28/25 1420 Roasterman: us Deyvi Ramos MD IMG BI PROCEDURES Final Res ult * Hepatitis C Antibody with Reflex to HCV, RNA, Quantitative, Real-Time PCR (10/16/2024 11:36 AM EDT) Hepatitis C Antibody Nonreactive Nonreactive [facility] Comment:Antibodies to HCV no t detected; does not exclude early acuteHCV infection. Blood Venous blood specimen / Unknown 10/16/2024 11:36 AM EDT 10/16/2024 2:08 PM EDT us Deyvi Ramos MD LAB BLOOD ORDERABLES Final Result [facility] [address] [place] [phone] * HIV-1/2 Antigen and Antibodies, Fourth Generation, with Reflexes (10/16/2024 11:36 AM EDT) HIV AB/AG Nonreactive Nonreactive [facility] Comment:HIV-1 p24 Ag and/or HIV-1/HIV-2 Ab not detected.A test result that is nonreactive does not exclude thepossibility of exposure to or infection with HIV-1 and/orHIV-2. Nonreactive results in this assay for individualswith prior exposure to HIV-1 and/or HIV-2 may be due toantigen and antibody levels that are below the limit ofdetection of this assay.The [employer] HIV Ag/Ab Combo assay result andsupplemental assay results should be interpreted inconjunction with the patient's clinical presentation,history and other laboratory results. If the results areinconsistent with clinical evidence, additional testing issuggested to confirm the result. Blood Venous blood specimen / Unknown 10/16/2024 11:36 AM EDT 10/16/2024 2:08 PM EDT us Deyvi Ramos MD LAB BLOOD ORDERABLES Final Result Performing Organization Address [facility] Co de Phone Number [facility] [address] [place] [phone] * (ABNORMAL) Lipid Panel, Standard (04/15/2024 10:54 AM EST) Triglycerides 120 <150 mg/dL [facility] Comment:Desirable Triglyceri de: less than 150 mg/dLBorderline High Triglyceride 150-199 mg/dLHigh Triglyceride: 200-499 mg/dLVery High Triglyceride: greater than or equal to 5OO mg/dL Cholesterol 197 <200 mg/dL [facility] Comment:Desirable Cholestero l: less than 200 mg/dLBorderline High Cholesterol: 200-239 mg/dLHigh Cholesterol: greater than 239 mg/dL LDL Cholesterol Calculated 126(H) <100 mg/dL [facility] Comment:Desirable LDL: less than 100 mg/dLNear Optimal/Above Optimal LDL: 110- 129 mg/dLBorderline High LDL: 130-159 mg/dLHigh LDL: 160-189 mg/dLVery High LDL: greater than or equal to 190 mg/dL HDL Cholesterol 47 >40 mg/dL [facility] Comment:Desirable HDL: great er than 40 mg/dL Note: This HDL assay may give artificially low results in patients with liver disease. Blood Venous blood specimen / Unknown 04/15/2024 10:54 AM EST 04/15/2024 1:22 PM EST us Deyvi Ramos MD LAB BLOOD ORDERABLES Final Result Performing Organization Address [facility] Co de Phone Number [facility] [address] [place] [phone] from Last 3 Months or Most Recently Relevant to Health Maintenance Insurance [facility] [id number] Care Teams Doughnut Fryer Relationship Specialty Start Date End Date Deyvi Ramos MD [address] [facility] [place] [address] PCP - General Internal Medicine 11/22/23 [facility] 04/04/24
--- OUTSIDE RECORDS SUMMARY | 2025-02-11 11:52 | XMS_ITS | Clinical Summary ---
Author Organization [address] [facility] Address [address] [place] [address] Phone Care Team Providers Care Division Officer [employer]apons [employer] Name Role Phone Deyvi Ramos MD Primary Care Provider [phone] Allergies Active Allergy Reactions Criticality Noted Date [...] 11/07/2010 COPD (chronic obstructive pu lmonary disease) ([facility] V24, [facility] V28) 11/04/2010 Overview (07/16/2024): Moderate-severe without reversibility on PFTs 10/2010 Tobacco use disorder 08/30/2010 Depression 01/25/2006 Upper GI bleed 01/25/2006 Overview (07/16/2024): 1994, ulcer IMO update Immunizations Immunization Administration Dates Next Due Influenza trivalent, with [...] Upcoming Encounters Date Type Department Care Team ([facility] st Contact Info) Description 02/19/2025 9:15 AM EDT Office Visit Orth[facility] [place] [address] [phone] Yunier Gaytan, DPM [address] [phone] Health Maintenance Due Date Last Done Comments Colorectal Cancer Screening: Colonoscopy 1965 Hepatitis A Vaccines (1 of 2 - Risk 2-dose series) 1984 Hepatitis B Vaccines (1 of 3 - 19+ 3-dose series) 1984 Cervical Cancer Screening: Pap Smear 02/01/2010 02/01/2007, 02/01/2007 Zoster Vaccines (1 of 2) 2015 Breast Cancer Screening 10/17/2019 10/16/2017 Cholesterol Screening (Lipid Panel) 12/04/2023 11/07/2010 HIV Screening 12/04/2023 Hepatitis C Screening 12/04/2023 [...] Maintenance Insurance MEDICAID - [place] Care Teams Division Officer Weapons Department Relationship Specialty Start Date End Date Deyvi Ramos MD [address] [place] [address] PCP - General Internal Medicine 07/14/24
--- OUTSIDE RECORDS SUMMARY | 2025-02-11 11:52 | XMS_ITS | Encounter Summary ---
Author Organization [employer] Address [address] [place] [address] 7 [place] [address] Care Team Providers Care Plant Physiologist Name Role Phone Deyvi Ramos MD Primary Care Provider [phone] Reason for Referral * Consultation (Routine) - Authorized Specialty Diagnoses / Procedures Referred By Contac t Referred To Contact Endocrinology Diagnoses Left leg paresthesias Osteoporosis of disuse Compression fracture of L5 vertebra, initial encounter ([facility]) ([facility]) Deyvi Raoms MD [address] [place] [address] Phone: tel: fax: [facility] Endocrinology [address] [place] [address] Phone: tel: fax: Referral ID Status Reason Start Date Expiration Date Visits Requested Visits Authorized [id number] Authorized Specialty Services Required 11/10/2024 11/10/2025 1 1 * Neurology (Routine) - Closed Specialty Diagnoses / Procedures Referred By Contsree t Referred To Contact Diagnoses Left leg paresthesias Procedures Nerve conduction test Deyvi Ramos MD [address] [place] [address] Phone: tel: fax: [facility] [address] [place] [address] Phone: tel: fax: Referral ID Status Reason Start Date Expiration Date Visits Re quested Visits Authorized [id number] Closed 10/28/2024 10/28/2025 1 1 Encounter Details Date Type Department Care Team (Late st Contact Info) Description 10/28/2024 Orders Only [facility] CHC MED & PEDS [address] [place] [address] Deyvi Ramos MD [address] [place] [address] Left leg paresthesias (Primary Dx); Osteoporosis of disuse; Compression fracture of L5 vertebra, initial encounter ([facility]) Social History Tobacco Use Types Packs/Day [...] Description 02/16/2025 10:30 AM EDT Clinical Support [facility] MED & PEDS [address] [place] [address] 04/30/2025 10:30 AM EST Office Visit [facility] MED & PEDS [address] [place] [address] Deyvi Ramos MD [address] [place] [address] Scheduled Orders Name Type Priority Associated Diagnoses Orde r Schedule Nerve conduction test Neurology Routine Left leg paresthesias Expected: 10/28/2024 (Approximate), Expires: 10/28/2025 Scheduled Referrals Name Type Priority Associated Diagnoses Order Schedule Referral to Endocrinology Outpatient Referral Routine Left leg paresthesias Osteoporosis of disuse Compression fracture of L5 vertebra, initial encounter ([facility]) Expected: 11/10/2024 (Approximate), Expires: 11/10/2025 documented as of this encounter Visit Diagnoses Diagnosis Left leg paresthesias- Primary Disturbance of skin sensation Osteoporosis of disuse Disuse osteoporosis Compression fracture of L5 vertebra, initial encounter ([facility]) ([facility]) documented in this encounter Additional Health Concerns Assessment Noted Time PHQ-9 Depression Total Score: 2 06/26/19 25 11:28 AM EST documented as of this encounter Care Teams Plant Physiologist Relationship Specialty Start Date End Date Deyvi Ramos MD [address] [place] [address] PCP - General Internal Medicine 11/22/23 [facility] 04/04/24 documented as of this encounter
--- OUTSIDE RECORDS SUMMARY | 2025-02-11 11:52 | XMS_ITS | Encounter Summary ---
Author Organization [employer] Address [address] [place] [address] [address] [address] Care Team Providers Care Glove Parts Cutter Name Role Phone Deyvi Ramos MD Primary Care Provider [phone]- [phone] Reason for Visit * Reason Comments Med Refill Encounter Details Date Type Department Care Team ([facility] Contact Info) Description 08/13/2023 Refill [facility] MED & PEDS [address] [place] [address] Deyvi Ramos MD [address] [place] [address] Osteoporosis of disuse Social History Tobacco Use [...] Upcoming Encounters Date Type Department Care Team ([facility] Contact Info) Description 02/16/2025 10:30 AM EDT Clinical Support [facility] MED & PEDS 505 [place] [address] 04/30/2025 10:30 AM EST Office Visit [facility] MED & PEDS [address] [place] [address] Deyvi Ramos MD [address] [place] [address] documented as of this encounter Visit Diagnoses Diagnosis Osteoporosis of disuse Disuse osteoporosis documented in this encounter Care Teams Glove Parts Cutter Relationship Specialty Start Date End Date Deyvi Ramos MD [address] [place] [address] PCP - General Internal Medicine 11/22/23 [facility] 04/04/24 documented as of this encounter
--- OUTSIDE RECORDS SUMMARY | 2025-02-11 11:52 | XMS_ITS | Encounter Summary ---
Author Organization [email or web address] Address [address] [facility] 7 [place] [address] Care Team Providers Care Accounts Payable Administrator Name Role Phone Deyvi Ramos MD Primary Care Provider [phone]- [phone] Reason for Visit * Reason Comments Care Coordination CHW outreach for SDO H housing search-LVM Encounter Details Date Type Department Care Team (Latest Contact Info) Description 02/09/2025 Patient Outreach [facility] MEDICINE [address] [place] [address] Deyvi Ramos MD [address] [place] [address] Care Coordination (CHW outreach for SDOH housing search-LVM ) Social History Tobacco Use Types Packs/Day Years Used Date Smoking Tobacco: Former Cigarettes Smokeless Tobacco: Never Comments:I year half Depression Answer Date Recorded Patient Health Questionnaire-9 Score 2 06/26/2024 Patient Health Questionnaire-9 Score 2 06/26/2024 Last PHQ-9: Questionnaire Data Not on file 0 06/26/2024 Housing Stability Answer Date Recorded What is your housing situation today? I have [facility] 02/09/[address] you [...] encounter Progress Notes * Kris Low - 02/09/2025 2:52 PM EDT CHW Kris Low, placed outbound call to patient for assistance with SDOH as a referral was placed by the provider. Patient had screened positive for the following SDOH housing insecurities. Patient did not answer at this time. Patient's name and were not confirmed. CHW left detailed message and provided contact information requesting return call for more assistance. documented in this encounter Plan of Treatment Upcoming Encounters Date Type Department Care Team ([facility] Contact Info) Description 02/16/2025 10:30 AM EDT Clinical Support [facility] MED & PEDS [address] [place] [address] 04/30/2025 10:30 AM EST Office Visit [facility] MED & PEDS [address] [place] [address] Deyvi Ramos MD [address] [place] [address] documented as of this encounter Visit Diagnoses Not on filedocumented in this encounter Additional Health Concerns Assessment Noted Time PHQ-9 Depression Total Score: 2 02/13/20 25 11:28 AM EST documented as of this encounter Care Teams Accounts Payable Administrator Relationship Specialty Start Date End Date Deyvi Ramos MD [address] [place] [address] PCP - General Internal Medicine 11/22/23 [facility] 04/04/24 documented as of this encounter
--- OUTSIDE RECORDS SUMMARY | 2025-02-11 11:52 | XMS_ITS | Encounter Summary ---
Author Organization [employer] Address [address] [facility] 7t [place] [address] Care Team Providers Care Automobile Inspector Name Role Phone Deyvi Ramos MD Primary Care Provider [phone] Reason for Visit * Reason Onset Date Comments Results 01/29/2025 Encounter Details Date Type Department Care Team ([facility] st Contact Info) Description 01/29/2025 Results Follow-Up [facility] MEDICINE [address] [place] [address] Awilda Browning, LORRIE BD DEXA Axial Social [...] also advised by pt should see a cryptographic center specialist. Pt reports they did not go through with the nerve conduction test and EMG as they were not aware of what the test would entail. Pt reports they were advised by [facility] that the test would include inse rting needles. Pt reports [facility] advised pt that PCP should prescribe medications for anxiety, pain, and to loosen the body. Pt reports they will do the test and EMG if the provider is able to prescribemedication for test. Pt reports per [facility], they will need a new referral placed for the nerve conduction test and EMG. Pt reports they received a call from a nurse at [facility] that they should disregard the kit received [...] PCP for review. Deyvi Ramos MD to [facility] P[facility] 01/28/25 8:38 [...] Description 02/16/2025 10:30 AM EDT Clinical Support [facility] MED & PEDS [address] [place] [address] 04/30/2025 10:30 AM EST Office Visit [facility] MED & PEDS [address] [place] [address] Deyvi Ramos MD [address] [place] [address] documented as of this encounter Visit Diagnoses Diagnosis Screening for colon cancer- Primary Special screening for malignant neoplasms, colon documented in this encounter Additional Health Concerns Assessment Noted Time PHQ-9 Depression Total Score: 2 06/26/19 25 11:28 AM EST documented as of this encounter Care Teams Automobile Inspector Relationship Specialty Start Date End Date Deyvi Ramos MD [address] [place] [address] PCP - General Internal Medicine 11/22/23 [facility] 04/04/24 documented as of this encounter
--- OUTSIDE RECORDS SUMMARY | 2025-02-11 11:52 | XMS_ITS | Encounter Summary ---
Author Organization [employer] Address [address] [place] [address] [address] [address] Care Team Providers Care Scrap Collector Name Role Phone Deyvi Ramos MD Primary Care Provider [phone]- [phone] Reason for Visit * Reason Comments Med Refill Encounter Details Date Type Department Care Team ([facility] Contact Info) Description 06/26/2023 Refill [facility] MED & PEDS [address] [place] [address] Deyvi Ramos MD [address] [place] [address] Social History Tobacco Use Types Packs/Day Years [...] Upcoming Encounters Date Type Department Care Team ([facility] Contact Info) Description 02/16/2025 10:30 AM EDT Clinical Support [facility] MED & PEDS [address] [place], [place] [phone] 04/30/2025 10:30 AM EST Office Visit [facility] MED & PEDS [address] [place] [address] Deyvi Ramos MD [address] [place], [place] [phone] documented as of this encounter Visit Diagnoses Not on filedocumented in this encounter Care Teams Scrap Collector Relationship Specialty Start Date End Date Deyvi Ramos MD [address] [place] [address] PCP - General Internal Medicine 11/22/23 [facility] 04/04/24 documented as of this encounter
--- OUTSIDE RECORDS SUMMARY | 2025-02-11 11:52 | XMS_ITS | Encounter Summary ---
Author Organization [employer] Address [address] [facility] 7t [place] [address] Care Team Providers Care Mandarin Chinese Teacher Name Role Phone Deyvi Ramos MD Primary Care Provider [phone] Encounter Details Date Type Department Care Team ([facility] st Contact Info) Description 05/16/2024 Orders Only [facility] CHC MED & PEDS [address] [place], [place] [phone] Deyvi Ramos MD [address] [place] [address] Social History Tobacco Use Types Packs/Day Years [...] Clinical Support [facility] MED & PEDS [address] [place] [address] 04/30/2025 10:30 AM EST Office Visit [facility] MED & PEDS [address] [place] [address] Deyvi Ramos MD [address] [place] [address] documented as of this encounter Visit Diagnoses Not on filedocumented in this encounter Care Teams Mandarin Chinese Teacher Relationship Specialty Start Date End Date Deyvi Ramos MD [address] [place] [address] PCP - General Internal Medicine 11/22/23 [facility] 04/04/24 documented as of this encounter
--- OUTSIDE RECORDS SUMMARY | 2025-02-11 11:52 | XMS_ITS | Encounter Summary ---
Author Organization [employer] Address [address] [place] [address] 7 [place] [address] Care Team Providers Care Band Leader Name Role Phone Deyvi Ramos MD Primary Care Provider [phone] Deyvi Ramos MD Primary Care Provider [phone]- [phone] Reason for Visit * Reason Onset Date Comments New Script 09/20/2022 Encounter Details Date Type Department Care Team ([facility] Contact Info) Description 09/20/2022 Telephone [facility] CHC MED & PEDS [address] [place], [place] [phone] Deyvi Ramos MD [address] [place], [place] [phone] New Script Social History Tobacco Use Types [...] - 09/20/2022 11:17 AM EDT Tc from [facility] requesting a new script for calcium carbonate 1500 (600 Ca) MG tablet for a 90 day's supply due to insurance not covering other script. Please contact pharmacy at [phone] documented in this encounter Plan of Treatment Upcoming Encounters Date Type Department Care Team (Late st Contact Info) Description 02/16/2025 10:30 AM EDT Clinical Support [facility] MED & PEDS [address] [place] [address] 04/30/2025 10:30 AM EST Office Visit [facility] MED & PEDS [address] [place] [address] Deyvi Ramos MD [address] [place] [address] documented as of this encounter Visit Diagnoses Not on filedocumented in this encounter Care Teams Band Leader Relationship Specialty Start Date End Date Deyvi Ramos MD [address] [place] [address] PCP - General Internal Medicine 06/12/13 06/03/23 Deyvi Ramos MD [address] [place] [address] PCP - General Internal Medicine 11/22/23 [facility] 04/04/24 documented as of this encounter
--- OUTSIDE RECORDS SUMMARY | 2025-02-11 11:52 | XMS_ITS | Encounter Summary ---
Author Organization [employer] Address [address] [facility] 7 [place] [address] Care Team Providers Care Supervisor Cereal Name Role Phone Deyvi Ramos MD Primary Care Provider [phone]- [phone] Reason for Visit * Reason Comments Med Refill Encounter Details Date Type Department Care Team ([facility] st Contact Info) Description 12/26/2024 Refill [facility] CHC MED & PEDS [address] [place], [place] [phone] Deyvi Ramos MD [address] [place] [address] Compression fracture of L1 vertebra, initial encounter ([facility]) Social History Tobacco Use Types [...] Upcoming Encounters Date Type Department Care Team ([facility] st Contact Info) Description 02/16/2025 10:30 AM EDT Clinical Support [facility] MED & PEDS [address] [place] [address] 04/30/2025 10:30 AM EST Office Visit [facility] MED & PEDS [address] [place] [address] Deyvi Ramos MD [address] [place] [address] documented as of this encounter Visit Diagnoses Diagnosis Compression fracture of L1 vertebra, initial encounter ([facility]) ([facility]) documented in this encounter Additional Health Concerns Assessment Noted Time PHQ-9 Depression Total Score: 2 06/26/19 25 11:28 AM EST documented as of this encounter Care Teams Supervisor Cereal Relationship Specialty Start Date End Date Deyvi Ramos MD [address] [place] [address] PCP - General Internal Medicine 11/22/23 [facility] 04/04/24 documented as of this encounter
--- OUTSIDE RECORDS SUMMARY | 2025-02-11 11:52 | XMS_ITS | Clinical Summary ---
Author Organization [facility] Address [address] [place] [address] Care Team Providers Care Metal Bonding Press Operator Name Role Phone Deyvi Ramos MD Primary Care Provider [phone] Allergies Active Allergy Reactions Criticality Noted Date [...] 2 (two) times a day. 120 mL Active ibuprofen (MOTRIN) 400 MG tabletIndicatio ns:Periapical abscess Take 1 tablet (400 mg total) by mouth 3 times daily (every 8 hours) as needed for moderate pain. 30 tablet 5 Active Active Problems Problem Noted Date Diagnosed Date Abscess 08/26/2024 Social History Tobacco Use Types Packs/Day Years Used Date Smoking Tobacco: Never Assessed [facility] Utilities Answer Date Recorded In the past 12 months has th e [employer], oil, or water [employer] threatened to shut off services in your [...] any time in the past 12 m [facility], were you homeless or living in a [facility] (including now)? Patient declined 08/27/2024 Comments Unknown [...] Inactivated Comments 08/26/2024 10:59 AM Care Teams Metal Bonding Press Operator Relationship Specialty Start Date End Date Deyvi Ramos MD [address] [place] [address] PCP - General General Medicine 08/26/24
--- OUTSIDE RECORDS SUMMARY | 2025-02-11 11:52 | XMS_ITS | Encounter Summary ---
Author Organization [employer] Address [address] [facility] 7 [place] [address] Care Team Providers Care Prefabricated Houses Trimmer Name Role Phone Deyvi Ramos MD Primary Care Provider [phone]- [phone] Reason for Visit * Reason Onset Date Comments Chart Prep 02/06/2025 Encounter Details Date Type Department Care Team ([facility] st Contact Info) Description 02/06/2025 Telephone [facility] CHC MED & PEDS [address] [place] [address] Deyvi Ramos MD [address] [place] [address] Chart Prep Social History Tobacco Use Types Packs/Day Years [...] encounter Miscellaneous Notes * Telephone Encounter - Madyson De La Cruz [place] - 02/06/2025 11:48 AM EDT Chart Prep Labs: not done Images: done Referrals: appointment pending Vaccines due: Flu, Tdap, and Hep B Screenings: colonoscopy, pap smear, and LMP Overdue care gaps: SDOH, Oral health screening, Disability screen, and Tobacco documented in this encounter Plan of Treatment Upcoming Encounters Date Type Department Care Team ([facility] st Contact Info) Description 02/16/2025 10:30 AM EDT Clinical Support [facility] MED & PEDS [address] [place] [address] 04/30/2025 10:30 AM EST Office Visit [facility] MED & PEDS [address] [place] [address] Deyvi Ramos MD [address] [place] [address] documented as of this encounter Visit Diagnoses Not on filedocumented in this encounter Additional Health Concerns Assessment Noted Time PHQ-9 Depression Total Score: 2 06/26/19 25 11:28 AM EST documented as of this encounter Care Teams Prefabricated Houses Trimmer Relationship Specialty Start Date End Date Deyvi Ramos MD [address] [place] [address] PCP - General Internal Medicine 11/22/23 [facility] 04/04/24 documented as of this encounter
--- OUTSIDE RECORDS SUMMARY | 2025-02-11 11:52 | XMS_ITS | Encounter Summary ---
Author Organization [facility] Address [address] [place] [address] [address] [address] Care Team Providers Care Disc Pad Grinding Machine Feeder Name Role Phone Deyvi Ramos MD Primary Care Provider [phone]- [phone] Deyvi Ramos MD Primary Care Provider [phone]- [phone] Encounter Details Date Type Department Care Team (Late Contact Info) Description 09/19/2022 Orders Only [facility] MED & PEDS [address] [place] [address] Judith Britton LPN Social History Tobacco Use [...] Date Type Department Care Team ([facility] Contact Info) Description 02/16/2025 10:30 AM EDT Clinical Support [facility] MED & PEDS [address] [place] [address] 04/30/2025 10:30 AM EST Office Visit [facility] MED & PEDS [address] [place] [address] Deyvi Ramos MD [address] [place] [address] documented as of this encounter Visit Diagnoses Not on filedocumented in this encounter Care Teams Disc Pad Grinding Machine Feeder Relationship Specialty Start Date End Date Deyvi Ramos MD 505 [facility] [place] [address] PCP - General Internal Medicine 06/12/13 06/03/23 Deyvi Ramos MD [address] [facility] [place] [address] PCP - General Internal Medicine 11/22/23 [facility] 04/04/24 documented as of this encounter
--- OUTSIDE RECORDS SUMMARY | 2025-02-11 11:52 | XMS_ITS | Encounter Summary ---
Author Organization [employer] Address [address] [place] [address] Care Team Providers Care Senior Technical Program Manager Name Role Phone Deyvi Ramos MD Primary Care Provider [phone] Reason for Referral * Consultation (Routine) - Canceled Specialty Diagnoses / Procedures Referred By Juan mcdonald Referred To Contact Podiatry Diagnoses Onychogryphosis Deyvi Ramos MD [address] [place] [address] Phone: tel: fax: Referral ID Status Reason Start Date Expiration Date Visits Requested Visits Authorized [id number] Canceled Specialty Services Required 06/18/2024 06/18/2025 1 1 Encounter Details Date Type Department Care Team ([facility] Contact Info) Description 06/18/2024 Orders Only [facility] CHC MED & PEDS [address] [place] [address] Deyvi Ramos MD [address] [place] [address] Onychogryphosis (Primary Dx) Social History Tobacco Use [...] ([facility] st Contact Info) Description 02/16/2025 10:30 AM EDT Clinical Support [facility] MED & PEDS [address] [place] [address] 04/30/2025 10:30 AM EST Office Visit [facility] MED & PEDS [address] [place] [address] Deyvi Ramos MD [address] [place] [address] Scheduled Referrals Name Type Priority Associated Diagnoses Orde r Schedule Referral to Podiatry Outpatient Referral Routine Onychogryphosis Expected: 06/18/2024 (Approximate), Expires: 06/18/2025 documented as of this encounter Visit Diagnoses Diagnosis Onychogryphosis- Primary Other specified disease of nail documented in this encounter Care Teams Senior Technical Program Manager Relationship Specialty Start Date End Date Deyvi Ramos MD [address] [place] [address] PCP - General Internal Medicine 11/22/23 [facility] 04/04/24 documented as of this encounter
--- OUTSIDE RECORDS SUMMARY | 2025-02-11 11:52 | XMS_ITS | Encounter Summary ---
Author Organization [employer] Address [address] [facility] 7 [place] [address] Care Team Providers Care Human Resources Project Coordinator Name Role Phone Deyvi Ramos MD Primary Care Provider [phone]- [phone] Reason for Visit * Reason Onset Date Comments Durable Medical Equipment 03/27/2024 Encounter Details Date Type Department Care Team ([facility] Contact Info) Description 03/27/2024 Telephone [facility] CHC MED & PEDS [address] [place], [place] [phone] Deyvi Ramos MD [address] [place] [address] Durable Medical Equipment Social History Tobacco Use [...] Description 02/16/2025 10:30 AM EDT Clinical Support [facility] MED & PEDS [address] [place] [address] 04/30/2025 10:30 AM EST Office Visit [facility] MED & PEDS [address] [place] [address] Deyvi Ramos MD [address] [place] [address] documented as of this encounter Visit Diagnoses Not on filedocumented in this encounter Care Teams Human Resources Project Coordinator Relationship Specialty Start Date End Date Deyvi Ramos MD [address] [place] [address] PCP - General Internal Medicine 11/22/23 [facility] 04/04/24 documented as of this encounter
--- OUTSIDE RECORDS SUMMARY | 2025-02-11 11:52 | XMS_ITS | Encounter Summary ---
Author Organization [employer] Address [address] [place] [address] 7 [place] [address] Care Team Providers Care Financial Services Auditor Name Role Phone Deyvi Ramos MD Primary Care Provider +1- [phone] Deyvi Ramos MD Primary Care Provider +1- [phone] Encounter Details Date Type Department Care Team (Late Contact Info) Description 11/16/2022 Orders Only [facility] MED & PEDS [address] [place] [address] Evette Senior LPN Social History Tobacco Use [...] Upcoming Encounters Date Type Department Care Team ([facility] Contact Info) Description 02/16/2025 10:30 AM EDT Clinical Support [facility] MED [facility] PED[facility] [address] [place] [address] 04/30/2025 10:30 AM EST Office Visit [facility] [address] [place] [address] Deyvi Ramos MD [address] [place] [address] documented as of this encounter Visit Diagnoses Not on filedocumented in this encounter Care Teams Financial Services Auditor Relationship Specialty Start Date End Date Deyvi Ramos MD [address] [place] [address] PCP - General Internal Medicine 06/12/13 06/03/23 Deyvi Ramos MD [address] [place] [address] PCP - General Internal Medicine 11/22/23 [facility] 04/04/24 documented as of this encounter
--- OUTSIDE RECORDS SUMMARY | 2025-02-11 11:52 | XMS_ITS | Encounter Summary ---
Author Organization [employer] Address 75 [facility] 7 [place] [address] Care Team Providers Care Hockey Scout Name Role Phone Deyvi Ramos MD Primary Care Provider [phone] Reason for Visit * Reason Onset Date Comments Referral 06/17/2024 Encounter Details Date Type Department Care Team ([facility] st Contact Info) Description 06/17/2024 Telephone [facility] CHC MED & PEDS [address] [place], [place] [phone] Deyvi Ramos MD 505 [place] [address] Referral Social History Tobacco Use Types Packs/Day [...] 10:30 AM EDT Clinical Support [facility] MED & PEDS [address] [place] [address] 04/30/2025 10:30 AM EST Office Visit [facility] MED & PEDS [address] [place] [address] Deyvi Ramos MD [address] [place] [address] documented as of this encounter Visit Diagnoses Not on filedocumented in this encounter Care Teams Hockey Scout Relationship Specialty Start Date End Date Deyvi Ramos MD [address] [place] [address] PCP - General Internal Medicine 11/22/23 [facility] 04/04/24 documented as of this encounter
--- OUTSIDE RECORDS SUMMARY | 2025-02-11 11:52 | XMS_ITS | Encounter Summary ---
Author Organization [facility] Address [address] [place] [address] Care Team Providers Care Nurse Head Name Role Phone Deyvi aRmos MD Primary Care Provider [phone] Encounter Details Date Type Department Care Team ([facility] st Contact Info) Description 11/07/2024 Telephone [facility] [address] [place] [address] Deyvi Ramos MD [address] [place] [address] Social History Tobacco Use Types Packs/Day Years Used Date Smoking Tobacco: Never Assessed [facility] Utilities Answer Date Recorded In [...] any time in the past 12 m [facility], were you homeless or living in a [...] on filedocumented in this encounter Care Teams Nurse Head Relationship Specialty Start Date End Date Deyvi Ramos MD [address] [place] [address] PCP - General General Medicine 08/26/24 documented as of this encounter
--- OUTSIDE RECORDS SUMMARY | 2025-02-11 11:52 | XMS_ITS | Encounter Summary ---
Author Organization [employer] Address 75 [facility] 7t [place] [address] Care Team Providers Care Leather Cartridge Belt Maker Name Role Phone Deyvi Ramos MD Primary Care Provider [phone] Encounter Details Date Type Department Care Team (Late st Contact Info) Description 02/06/2025 Orders Only [facility] External Provider, [facility] Social History Tobacco Use Types Packs/Day Years [...] Description 02/16/2025 10:30 AM EDT Clinical Support [facility] MED & PEDS [address] [place] [address] 04/30/2025 10:30 AM EST Office Visit [facility] MED & PEDS [address] [place] [address] Deyvi Ramos MD 505 [place] [address] documented as of this encounter Procedures Procedure Name Priority Date/Time Associated Diagnosis Comments LDCT LUNG SCREENING Routine 02/06/2025 1 1:03 AM EDT documented in this encounter Results * CT Lung Screening Low dose (02/06/2025 11:03 AM EDT) Anatomical Region Laterality Modality Lung Computed Tomogra phy 02/06/2025 11:0 3 AM EDT Narrative 02/06/2025 12:15 PM EDT [address] [address] [address] Scan Report Signed Patient: Adrianna Lucio MR#: [id number] : 1965 Acct:[id number] Age/Sex: 59 / F ADM Date: 02/06/25 Loc: .CT Attending Dr: Maria Alejandra Kennedy PA-C Ordering Physician: Maria Alejandra Kennedy PA-C Date of Service: 02/06/25 Procedure(s): CT lung screening Accession Number(s): [id number] cc: Deyvi Ramos MD; Maria Alejandra Kennedy PA-C Report Number: [id number]: Total DLP = 54.00 mGy-cm Reason for [...] 02/06/25 1155 DD/ 1103 TD/TT: 02/06/25 1118 Beef Splitter: Procedure Note Donotuseinterpreter, Image - 02/06/[address] [address] [address] Scan Report Signed Patient: Adrianna Lucio AMR#: [id number] : 1965Acct:[id number] Age/Sex: 59 / FADM Date: 02/06/25 Loc: HO.CT Attending Dr: Maria Alejandra Kennedy PA-C Ordering Physician: Maria Alejandra Kennedy PA-C Date of Service: 02/06/25 Procedure(s): CT lung screening Accession Number(s): [id number] cc: Deyvi Ramos MD; Maria Alejandra Kennedy PA-C Report Number: [id number]: Total DLP = 54.00 mGy-cm Reason for [...] Stephan Cortes MD 02/06/2025 11:55 AM EDT RP Dictated By: Stephan Cortes MD Signed By: <Electronically signed by Stephan Cortes MD in OV> 02/06/25 1155 DD/ 1103 TD/TT: 02/06/25 1118 Beef Splitter: [facility] External Provider IMG CT PROCEDURES Final Result documented in this encounter Visit Diagnoses Not on filedocumented in this encounter Additional Health Concerns Assessment Noted Time PHQ-9 Depression Total Score: 2 06/26/19 25 11:28 AM EST documented as of this encounter Care Teams Leather Cartridge Belt Maker Relationship Specialty Start Date End Date Deyvi Ramos MD [address] [place] [address] PCP - General Internal Medicine 11/22/[address] [facility] 04/04/24 documented as of this encounter
--- OUTSIDE RECORDS SUMMARY | 2025-02-11 11:52 | XMS_ITS | Encounter Summary ---
Author Organization [employer] Address 75 [facility] 7t [place] [address] Care Team Providers Care Residential Director Name Role Phone Deyvi Ramos MD Primary Care Provider [phone] Encounter Details Date Type Department Care Team ([facility] st Contact Info) Description 01/28/2025 Orders Only [facility] CHC MED & PEDS [address] [place], [place] [phone] Deyvi Ramos MD 505 [place] [address] Anxiety (Primary Dx) Social History Tobacco Use [...] Upcoming Encounters Date Type Department Care Team ([facility] st Contact Info) Description 02/16/2025 10:30 AM EDT Clinical Support [facility] MED & PEDS [address] [place] [address] 04/30/2025 10:30 AM EST Office Visit [facility] MED & PEDS [address] [place] [address] Deyvi Ramos MD [address] [place] [address] Scheduled Orders Name Type Priority Associated Diagnoses Orde r Schedule Cologuard colon cancer screening Lab Routine Anxiety Expected: 02/03/2025 (Approximate), Expires: 02/03/2026 documented as of this encounter Visit Diagnoses Diagnosis Anxiety- Primary Anxiety state, unspecified documented in this encounter Additional Health Concerns Assessment Noted Time PHQ-9 Depression Total Score: 2 06/26/19 25 11:28 AM EST documented as of this encounter Care Teams Residential Director Relationship Specialty Start Date End Date Deyvi Ramos MD 505 [place] [address] PCP - General Internal Medicine 11/22/23 [facility] 04/04/24 documented as of this encounter
--- OUTSIDE RECORDS SUMMARY | 2025-02-11 11:52 | XMS_ITS | Encounter Summary ---
Author Organization [employer] Address [address] [place] [address] Care Team Providers Care Regulatory Compliance Engineer Name Role Phone Deyvi Ramos MD Primary Care Provider [phone]- [phone] Deyvi Ramos MD Primary Care Provider +1- [phone] Reason for Visit * Reason Comments Med Refill Encounter Details Date Type Department Care Team (Late st Contact Info) Description 04/17/2023 Refill [facility] MED & PEDS [address] [place] [address] Deyvi Ramos MD [address] [place], [place] [phone] Social History Tobacco Use Types Packs/Day Years [...] AM EDT Clinical Support [facility] MED & PEDS [address] [place] [address] 04/30/2025 10:30 AM EST Office Visit [facility] MED & PEDS [address] [place] [address] Deyvi Ramos MD [address] [place] [address] documented as of this encounter Visit Diagnoses Not on filedocumented in this encounter Care Teams Regulatory Compliance Engineer Relationship Specialty Start Date End Date Deyvi Ramos MD 505 [facility] [place] [address] PCP - General Internal Medicine 06/12/13 06/03/23 Deyvi Ramos MD 505 [place] [address] PCP - General Internal Medicine 11/22/23 [facility] 04/04/24 documented as of this encounter
== END 2025-02-11 11:44 | disposition home or self-care (01) ==
PROVIDERS: PCP Internal Medicine; Referring Provider Internal Medicine; Visit Provider Internal Medicine
DX: M80.88XG Other osteoporosis with current pathological fracture, vertebra(e), subsequent encounter for fracture with delayed healing (principal)
CPT/HCPCS: 99214

== ENCOUNTER → 2025-02-11 10:26 | Outpatient (BNVA) | payer MEDICAID, SELFPAY | PROVIDERS: PCP Internal Medicine; Visit Provider Internal Medicine | DX: Z71.2 Person consulting for explanation of examination or test findings (principal); M80.88XG Other osteoporosis with current pathological fracture, vertebra(e), subsequent encounter for fracture with delayed healing | CPT/HCPCS: 99212 ==

== ENCOUNTER 2025-03-11 09:50 | Day surgery (SDC) | payer MEDICAID, SELFPAY ==
--- OUTSIDE RECORDS SUMMARY | 2025-02-26 15:17 | XMS_ITS | Encounter Summary ---
Author Organization [employer] Address [address] [place] [address] [address], [place] [address] Care Team Providers Care Asphalt Screed Operator Name Role Phone Deyvi Ramos MD Primary Care Provider [phone]- [phone] Deyvi Ramos MD Primary Care Provider +1- [phone] Encounter Details Date Type Department Care Team ([facility] Contact Info) Description 09/19/2022 Orders Only [facility] MED & PEDS [address] [place] [address] Judith Britton LPN Social History Tobacco Use [...] Department Care Team ([facility] [address] Contact Info) Description 2025 1:00 PM EDT Immunization [facility] MED & PEDS [address] [place] [address] 04/30/2025 10:30 AM EST Office Visit [facility] MED & PED[facility] [address] [place] [address] Deyvi Ramos MD 505 [place] [address] documented as of this encounter Visit Diagnoses Not on filedocumented in this encounter Care Teams Asphalt Screed Operator Relationship Specialty Start Date End Date Deyvi Ramos MD 505 [facility] [place] [address] PCP - General Internal Medicine 06/12/13 06/03/23 Deyvi Ramos MD 505 [facility] [place] [address] PCP - General Internal Medicine 11/22/23 [facility] 04/04/24 documented as of this encounter
--- OUTSIDE RECORDS SUMMARY | 2025-02-26 15:17 | XMS_ITS | Encounter Summary ---
Author Organization [employer] Address [address] [place] [address] Care Team Providers Care Coffee Sommelier Name Role Phone Deyvi Ramos MD Primary Care Provider [phone]- [phone] Deyvi Ramos MD Primary Care Provider +1- [phone] Reason for Visit * Reason Comments Med Refill Encounter Details Date Type Department Care Team (Late st Contact Info) Description 08/21/2022 Refill [facility] MED & PEDS [address] [place] [address] Deyvi Ramos MD [address] [place], [place] [phone] Social History Tobacco Use Types Packs/Day Years [...] Department Care Team (Late Contact Info) Description 2025 1:00 PM EDT Immunization [facility] MED & PEDS [address] [place] [address] 04/30/2025 10:30 AM EST Office Visit [facility] MED & PEDS [address] [place] [address] Deyvi Ramos MD [address] [place] [address] documented as of this encounter Visit Diagnoses Not on filedocumented in this encounter Care Teams Coffee Sommelier Relationship Specialty Start Date End Date Deyvi Ramos MD 505 [facility] [place] [address] PCP - General Internal Medicine 06/12/13 06/03/23 Deyvi Ramos MD 505 [place] [address] PCP - General Internal Medicine 11/22/23 [facility] 04/04/24 documented as of this encounter
--- OUTSIDE RECORDS SUMMARY | 2025-02-26 15:17 | XMS_ITS | Clinical Summary ---
Author Organization [facility] Address [address] [place] [address] Care Team Providers Care Revenue Specialist Name Role Phone Deyvi Ramos MD Primary Care Provider [phone] Allergies Active Allergy Reactions Criticality Noted Date [...] Years Used Date Smoking Tobacco: Never Assessed [facility] Utilities Answer Date Recorded In the past 12 months has th e [employer], [employer], oil, or water [employer] threatened to shut off services in your [...] any time in the past 12 m [facility], were you homeless or living in a [...] 12/12/2024 04/07/2024, , 02/18/2018, Additional history exists RSV Vaccine 50 years and old er and Patients (1 - 1-dose 75+ series) 2040 COVID-19 Vaccine Completed 04/07/2024 Insurance [employer] Advance Directives * Full Code (Latest Code Status on File) Date Activated Date Inactivated Comments 08/26/2024 10:59 AM Care Teams Revenue Specialist Relationship Specialty Start Date End Date Deyvi Ramos MD [address] [place] [address] PCP - General General Medicine 08/26/24
--- OUTSIDE RECORDS SUMMARY | 2025-02-26 15:17 | XMS_ITS | Encounter Summary ---
Author Organization [employer] Address [address] [place] [address] 7 [place] [address] Care Team Providers Care Cath Lab Name Role Phone Deyvi Ramos MD Primary Care Provider [phone]- [phone] Deyvi Ramos MD Primary Care Provider +1- [phone] Reason for Visit * Reason Onset Date Comments New Script 09/20/2022 Encounter Details Date Type Department Care Team ([facility] Contact Info) Description 09/20/2022 Telephone [facility] CHC MED & PEDS [address] [place], [place] [phone] Deyvi Ramos MD [address] [place], [place] [phone] New Script Social History Tobacco Use Types [...] - 09/20/2022 11:17 AM EDT Tc from [facility] requesting a new script for calcium carbonate 1500 (600 Ca) MG tablet for a 90 day's supply due to insurance not covering other script. Please contact pharmacy at [phone] documented in this encounter Plan of Treatment Upcoming Encounters Date Type Department Care Team (Late st Contact Info) Description 2025 1:00 PM EDT Immunization [facility] MED & PEDS [address] [place] [address] 04/30/2025 10:30 AM EST Office Visit [facility] MED & PEDS [address] [place] [address] Deyvi Ramos MD [address] [place] [address] documented as of this encounter Visit Diagnoses Not on filedocumented in this encounter Care Teams Cath Lab Relationship Specialty Start Date End Date Deyvi Ramos MD 505 [place] [address] PCP - General Internal Medicine 06/12/13 06/03/23 Deyvi Ramos MD [address] [place] [address] PCP - General Internal Medicine 11/22/23 [facility] 04/04/24 documented as of this encounter
--- OUTSIDE RECORDS SUMMARY | 2025-02-26 15:17 | XMS_ITS | Encounter Summary ---
Author Organization [employer] Address [address] [place] [address] 7 [place] [address] Care Team Providers Care Engine Builder Name Role Phone Deyvi Ramos MD Primary Care Provider +[phone]- [phone] Deyvi Ramos MD Primary Care Provider +[phone]- [phone] Encounter Details Date Type Department Care Team (Late Contact Info) Description 11/16/2022 Orders Only [facility] MED & PEDS [address] [place] [address] Evette Senior LPN Social History Tobacco Use [...] Date Type Department Care Team ([facility] Contact Info) Description 2025 1:00 PM EDT Immunization [facility] MED & PEDS [address] [place] [address] 04/30/2025 10:30 AM EST Office Visit [facility] MED & PEDS [address] [place] [address] Deyvi Ramos MD [address] [place] [address] documented as of this encounter Visit Diagnoses Not on filedocumented in this encounter Care Teams Engine Builder Relationship Specialty Start Date End Date Deyvi Ramos MD 505 [place] [address] PCP - General Internal Medicine 06/12/13 06/03/23 Deyvi Ramos MD 505 [facility] [place] [address] PCP - General Internal Medicine 11/22/23 [facility] 04/04/24 documented as of this encounter
--- OUTSIDE RECORDS SUMMARY | 2025-02-26 15:18 | XMS_ITS | Encounter Summary ---
Author Organization [employer] Address [address] [place] [address] Care Team Providers Care Grain Trader Name Role Phone Deyvi Ramos MD Primary Care Provider +[phone]- [phone] Deyvi Ramos MD Primary Care Provider +1- [phone] Encounter Details Date Type Department Care Team (Latest Contact Info) Description 11/15/2018 Abstract [facility] CONVERSIONS Dental, Provider, DDS Social [...] Info) Description 2025 1:00 PM EDT Immunization [facility] MED & PEDS [address] [place] [address] 04/30/2025 10:30 AM EST Office Visit [facility] MED & PEDS [address] [place] [address] Deyvi Ramos MD 505 [place] [address] documented as of this encounter Visit Diagnoses Not on filedocumented in this encounter Care Teams Grain Trader Relationship Specialty Start Date End Date Deyvi Ramos MD [address] [place] [address] PCP - General Internal Medicine 06/12/13 06/03/23 Deyvi Ramos MD [address] [place] [address] PCP - General Internal Medicine 11/22/23 [facility] 04/04/24 documented as of this encounter
--- OUTSIDE RECORDS SUMMARY | 2025-02-26 15:18 | XMS_ITS | Encounter Summary ---
Author Organization [employer] Address 75 [facility] 7t [place] [address] Care Team Providers Care Ward Attendant Name Role Phone Deyvi Ramos MD Primary Care Provider [phone]- [phone] Reason for Visit * Reason Onset Date Comments Call back 02/18/2025 Encounter Details Date Type Department Care Team ([facility] st Contact Info) Description 02/18/2025 Telephone [facility] [address] [place] [address] Deyvi Ramos MD [address] [place], [place] [phone] Call back Social History Tobacco Use Types Packs/Day Years [...] encounter Miscellaneous Notes * Telephone Encounter - Giovanna Call - 02/18/2025 8:41 AM EDT Tc from [facility] requesting a call back in regard of a lab order receive on 02/03. [facility] stated they would like to ship an Cologuard to the pt. For clarification please contact [facility] at [phone] documented in this encounter Plan of Treatment Upcoming Encounters Date Type Department Care Team ([facility] st Contact Info) Description 2025 1:00 PM EDT Immunization [facility] MED & PEDS [address] [place] [address] 04/30/2025 10:30 AM EST Office Visit [facility] MED & PEDS [address] [place] [address] Deyvi Ramos MD [address] [place] [address] documented as of this encounter Visit Diagnoses Not on filedocumented in this encounter Additional Health Concerns Assessment Noted Time PHQ-9 Depression Total Score: 2 06/26/19 25 11:28 AM EST documented as of this encounter Care Teams Ward Attendant Relationship Specialty Start Date End Date Deyvi Ramos MD [address] [place] [address] PCP - General Internal Medicine 11/22/23 [facility] 04/04/24 documented as of this encounter
--- OUTSIDE RECORDS SUMMARY | 2025-02-26 15:18 | XMS_ITS | Encounter Summary ---
Author Organization [employer] Address 75 [facility] 7 [place] [address] Care Team Providers Care Buttoner Name Role Phone Deyvi Ramos MD Primary Care Provider [phone]- [phone] Reason for Visit * Reason Onset Date Comments Durable Medical Equipment 03/27/2024 Encounter Details Date Type Department Care Team ([facility] Contact Info) Description 03/27/2024 Telephone [facility] CHC MED & PEDS [address] [place], [place] [phone] Deyvi Ramos MD [address] [place] [address] Durable Medical Equipment Social History Tobacco Use [...] Info) Description 2025 1:00 PM EDT Immunization [facility] MED & PEDS [address] [place] [address] 04/30/2025 10:30 AM EST Office Visit [facility] MED & PEDS [address] [place] [address] Deyvi Ramos MD [address] [place] [address] documented as of this encounter Visit Diagnoses Not on filedocumented in this encounter Care Teams Buttoner Relationship Specialty Start Date End Date Deyvi Ramos MD [address] [place] [address] PCP - General Internal Medicine 11/22/23 [facility] 04/04/24 documented as of this encounter
--- OUTSIDE RECORDS SUMMARY | 2025-02-26 15:18 | XMS_ITS | Encounter Summary ---
Author Organization [employer] Address [address] [place] [address] Care Team Providers Care Real Estate Administrator Name Role Phone Deyvi Ramos MD Primary Care Provider [phone] Encounter Details Date Type Department Care Team ([facility] st Contact Info) Description 11/07/2024 Telephone [facility] [address] [place] [address] Deyvi Ramos MD [address] [place] [address] Social History Tobacco Use Types Packs/Day Years Used Date Smoking Tobacco: Never Assessed [facility] Utilities Answer Date Recorded In the [...] any time in the past 12 m [facility], were you homeless or living in a long-term (including now)? Patient declined 08/27/2024 Comments Unknown [...] on filedocumented in this encounter Care Teams Real Estate Administrator Relationship Specialty Start Date End Date Deyvi Ramos MD [address] [place] [address] PCP - General General Medicine 08/26/24 documented as of this encounter
--- OUTSIDE RECORDS SUMMARY | 2025-02-26 15:18 | XMS_ITS | Encounter Summary ---
Author Organization [employer] Address 75 [facility] 7t [place] [address] Care Team Providers Care Hydrant Setter Name Role Phone Deyvi Ramos MD Primary Care Provider [phone] Encounter Details Date Type Department Care Team ([facility] st Contact Info) Description 01/28/2025 Orders Only [facility] CHC MED & PEDS [address] [place], [place] [phone] Deyvi Ramos MD [address] [place] [address] Anxiety (Primary Dx) Social History Tobacco Use [...] Upcoming Encounters Date Type Department Care Team ([facility] st Contact Info) Description 2025 1:00 PM EDT Immunization [facility] MED & PEDS [address] [place] [address] 04/30/2025 10:30 AM EST Office Visit [facility] MED & PEDS [address] [place] [address] Deyvi Ramos MD [address] [place] [address] Scheduled Orders Name Type Priority Associated Diagnoses Orde r Schedule Cologuard colon cancer screening Lab Routine Anxiety Expected: 02/03/2025 (Approximate), Expires: 02/03/2026 documented as of this encounter Visit Diagnoses Diagnosis Anxiety- Primary Anxiety state, unspecified documented in this encounter Additional Health Concerns Assessment Noted Time PHQ-9 Depression Total Score: 2 06/26/19 25 11:28 AM EST documented as of this encounter Care Teams Hydrant Setter Relationship Specialty Start Date End Date Deyvi Ramos MD [address] [place] [address] PCP - General Internal Medicine 11/22/23 [facility] 04/04/24 documented as of this encounter
--- OUTSIDE RECORDS SUMMARY | 2025-02-26 15:18 | XMS_ITS | Encounter Summary ---
Author Organization [employer] Address 75 [facility] 7 [place] [address] Care Team Providers Care Sampler First Name Role Phone Deyvi Ramos MD Primary Care Provider [phone] Reason for Visit * Reason Onset Date Comments Appointment Request 06/17/2024 Encounter Details Date Type Department Care Team ([facility] st Contact Info) Description 06/17/2024 Telephone [facility] MED & PEDS [address] [place] [address] Deyvi Ramos MD [address] [place] [address] Appointment Request Social History Tobacco Use Types [...] [facility] st Contact Info) Description 2025 1:00 PM EDT Immunization [facility] MED & PEDS [address] [place] [address] 04/30/2025 10:30 AM EST Office Visit [facility] MED [facility] PED[facility] [address] [place] [address] Deyvi Ramos MD [address] [place] [address] documented as of this encounter Visit Diagnoses Not on filedocumented in this encounter Care Teams Sampler First Relationship Specialty Start Date End Date Deyvi Ramos MD [address] [place] [address] PCP - General Internal Medicine 11/22/23 [facility] 04/04/24 documented as of this encounter
--- OUTSIDE RECORDS SUMMARY | 2025-02-26 15:18 | XMS_ITS | Encounter Summary ---
Author Organization [employer] Address [address] [place] [address] Care Team Providers Care Prop And Scenery Maker Name Role Phone Deyvi Ramos MD Primary Care Provider [phone] Reason for Visit * Reason Comments Med Refill Encounter Details Date Type Department Care Team ([facility] Contact Info) Description 06/26/2023 Refill [facility] [address] [place] [address] Deyvi Ramos MD [address] [place] [address] Social History Tobacco Use Types Packs/Day Years [...] Encounters Date Type Department Care Team ([facility] Contact Info) Description 2025 1:00 PM EDT Immunization [facility] [address] [place] [address] 04/30/2025 10:30 AM EST Office Visit [facility] [address] [place] [address] Deyvi Ramos MD [address] [place] [address] documented as of this encounter Visit Diagnoses Not on filedocumented in this encounter Care Teams Prop And Scenery Maker Relationship Specialty Start Date End Date Deyvi Ramos MD [address] [place] [address] PCP - General Internal Medicine 11/22/23 [facility] 04/04/24 documented as of this encounter
--- OUTSIDE RECORDS SUMMARY | 2025-02-26 15:18 | XMS_ITS | Encounter Summary ---
Author Organization [employer] Address 75 [facility] 7t [place] [address] Care Team Providers Care Track Surfacing Machine Operator Name Role Phone Deyvi Ramos MD Primary Care Provider [phone] Encounter Details Date Type Department Care Team ([facility] st Contact Info) Description 05/16/2024 Orders Only [facility] CHC MED & PEDS [address] [place], [place] [phone] Deyvi Ramos MD [address] [place] [address] Social History Tobacco Use Types Packs/Day Years [...] Description 2025 1:00 PM EDT Immunization [facility] [address] [place] [address] 04/30/2025 10:30 AM EST Office Visit [facility] [address] [place] [address] Deyvi Ramos MD [address] [place] [address] documented as of this encounter Visit Diagnoses Not on filedocumented in this encounter Care Teams Track Surfacing Machine Operator Relationship Specialty Start Date End Date Deyvi Ramos MD [address] [place] [address] PCP - General Internal Medicine 11/22/23 [facility] 04/04/24 documented as of this encounter
--- OUTSIDE RECORDS SUMMARY | 2025-02-26 15:18 | XMS_ITS | Clinical Summary ---
Author Organization [employer] Address [address] [facility] 7t [place] [address] Care Team Providers Care Transport Assistant Name Role Phone Deyvi Ramos MD Primary Care Provider [phone] Allergies Active Allergy Reactions Criticality Noted Date [...] 3 07/18/19 25 Active Fluocinolone Acetonide Scalp (Absecon-Smoothe /FS Scalp) 0.01 % oilIndications :Telogen effluvium [...] n fracture of L1 vertebra, initial encounter ([facility]) ([facility]) Take 1 tablet (500 mg) by mouth every 8 (eight) hours if needed for mild pain. 90 tablet 2 02/10/20 25 Active cholecalcifero l (Vitamin D3) 25 MCG (1000 UT) tabletIndicati ons:Compressio n fracture of L1 vertebra, initial encounter ([facility]) ([facility]) Take 1 tablet (25 mcg) by mouth Once per day. 90 tablet 1 02/10/20 25 Active cetirizine (ZyrTEC) 10 MG tabletIndicati ons:Seasonal allergies Take 1 tablet (10 mg) by mouth in the morning. 90 tablet 3 02/10/20 25 Active Calcium-Vitami n D-Vitamin K (Chewable Calcium) 500-200-40 MG-UNT-MCG chewable tabletIndicati ons:Compressio n fracture of L1 vertebra, initial encounter ([facility]) ([facility]) 1 tablet daily. 90 tablet 3 02/10/20 25 Active calcium carbonate 1500 (600 Ca) MG tabletIndicati ons:Osteoporos is of disuse TAKE 1 TABLET BY MOUTH EVERY MORNING 90 tablet 1 11/30/19 24 025 Discontinued(Th erapy completed) Diclofenac Sodium 1 % gelIndications :Compression fracture of L1 vertebra, initial encounter ([facility]) ([facility]) To apply to the affected area 3 times a day 100 g 04/07/20 24 025 Discontinued(Th erapy completed) acetaminophen (Tylenol Extra Strength) 500 MG tabletIndicati ons:Compressio n fracture of L1 vertebra, initial encounter ([facility]) ([facility]) Take 1 tablet (500 mg) by mouth [...] n fracture of L1 vertebra, initial encounter ([facility]) ([facility]) TAKE 1 TABLET BY MOUTH EVERY DAY 90 tablet 1 12/27/19 025 Discontinued(Re order (will not trigger notification to Pharmacy)) Active Problems Problem Noted Date Diagnosed Date Alcohol abuse 11/22/2023 Compression fx, lumbar spine ([facility]) Physical deconditioning 11/22/2023 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 MED[facility] [address] [place] [address] Deyvi Ramos MD Call back 02/09/2025 11:00 AM EDT Office Visit [facility] CHC MED & PEDS [address] [place] [address] Deyvi Ramos MD Left leg paresthesias (Primary Dx); Dietary counseling; Exercise counseling; Class 1 obesity due to excess calories with serious comorbidity and body mass index (BMI) of 30.0 to 30.9 in adult; Compression fracture of L1 vertebra, initial encounter ([facility]); Seasonal allergies; Venous insufficiency 02/09/2025 Patient Outreach [facility] [address] [place] [address] Deyvi Ramos MD Care Coordination (CHW outreach for SDOH housing search-LVM ) 02/09/2025 Telephone [facility] MED & PEDS [address] [place] [address] Deyvi Ramos MD 02/09/2025 Travel 02/06/2025 Orders Only [facility] External Provider, [facility] 02/06/2025 Telephone [facility] MED [facility] PED[facility] [address] [place] [address] Deyvi Ramos MD Chart Prep 02/05/2025 Patient Outreach [facility] [address] [place] [address] Deyvi Ramos MD Care Coordination ([facility] outreach for SDOH PT-1 and food needs-referral completed /) 02/02/2025 Travel 01/29/2025 Results Follow-Up [facility] [address] [place] [address] Awilda Browning, RN BD DEXA Axial 01/28/2025 Orders Only [facility] PED[facility] [address] [place] [address] Deyvi Ramos MD Anxiety (Primary Dx) 01/28/2025 Orders Only [facility] External Provider, [facility] 12/26/2024 Refill [facility] PED[facility] [address] [place] [address] Deyvi Ramos MD Compression fracture of L1 vertebra, initial encounter ([facility]) 12/26/2024 Refill [facility] [address] [place] [address] Deyvi Ramos MD Compression fracture of L1 vertebra, initial encounter ([facility]) 12/01/2024 Telephone [facility] MED [facility] PED[facility] [address] [place] [address] Deyvi Ramos MD Referral from Last 3 [...] Description 2025 1:00 PM EDT Immunization [facility] PED[facility] [address] [place] [address] 04/30/2025 10:30 AM EST Office Visit [facility] PED[facility] [address] [place] [address] Deyvi Ramos MD [address] [place] [address] Health Maintenance Due Date Last Done Comments [...] this topic Meningococcal Vaccine Aged Out No launa gianni eligible based on patient's age to [...] AM EDT Narrative 02/06/2025 12:15 PM EDT [place] [address] CT Scan Report Signed Patient: Adrianna Lucio MR#: [id number] 144 : 1965 Acct:[id number] Age/Sex: 59 / F ADM Date: 02/06/25 Loc: .CT Attending Dr: Maria Alejandra Kennedy PA-C Ordering Physician: Maria Alejandra Kennedy PA-C Date of Service: 02/06/25 Procedure(s): CT lung screening Accession Number(s): [id number] cc: Deyvi Ramos MD; Maria Alejandra Kennedy PA-C Report Number: [id number]: Total DLP = 54.00 mGy-cm Reason for [...] 02/06/25 1155 DD/ 1103 TD/TT: 02/06/25 1118 Single Stayer Operator: Procedure Note Donotuseinterpreter, Image - 02/06/[address] [address] [address] Scan Report Signed Patient: Adrianna Lucio [facility]#: [id number] 144 : 1965Acct:[id number] Age/Sex: 59 / FADM Date: 02/06/25 Loc: HO.CT Attending Dr: Maria Alejandra Kennedy PA-C Ordering Physician: Maria Alejandra Kennedy PA-C Date of Service: 02/06/25 Procedure(s): CT lung screening Accession Number(s): [id number] cc: Deyvi Ramos MD; Maria Alejandra Kennedy PA-C Report Number: [id number]: Total DLP = 54.00 mGy-cm Reason for [...] 02/06/25 1155 DD/ 1103 TD/TT: 02/06/25 1118 Single Stayer Operator: [facility] External Provider IMG CT PROCEDURES Final Result * BD DEXA Axial (01/28/2025 2:37 PM EDT) Anatomical Region Laterality Modality Body Radiographic Rebecca ging 01/28/2025 2:37 PM EDT Narrative 01/28/2025 3:21 PM EDT [address] [place], [place] [address] Mammography Report Signed Patient: Adrianna Lucio MR#: [id number] 144 : 1965 Acct:[id number] Age/Sex: 59 / F ADM Date: 01/28/25 Loc: HO.MAMMO Attending Dr: Deyvi Ramos MD Ordering Physician: Kiet Bui MD Results: Date of Service: 01/28/25 Follow Up: Procedure(s): XR DEXA axial skeleton Accession Number(s): [id number] cc: Deyvi Ramos MD; Kiet Bui MD Reason For Exam: S32.000A - Wedge compression fracture of unspecified lumbar vertebra, in... EXAMINATION: DXA BONE DENSITY AXIAL HISTORY: S32.000A - Wedge compression fracture of unspecified lumbar vertebra... TECHNIQUE: [employer] Dual energy absorptiometry (DEXA) of the lumbar [...] of the [employer] [place] for Metabolic Bone Disease, a World Health Organization (WHO) Collaborating Center. Electronically signed by: Stephan Cortes MD 01/28/2025 03:18 PM EDT Dictated By: Stephan Cortes MD Signed By: <Electronically signed by Stephan Cortes MD in OV> 01/28/25 1518 DD/ 1437 TD/TT: 01/28/25 1500 Single Stayer Operator: Procedure Note Donotuseinterpreter, Image - 01/28/2025 [facility]'s [address] [place] [address] Mammography Report Signed Patient: Adrianna Lucio [facility]#: [id number] 144 : 1965Acct:[id number] Age/Sex: 59 / FADM Date: 01/28/25 Loc: SINO Attending Dr: Deyvi Ramos MD Ordering Physician: Kiet Bui MDResults: Date of Service: 01/28/25Follow Up: Procedure(s): XR DEXA axial skeleton Accession Number(s): [id number] cc: Deyvi Ramos MD; Kiet Bui MD Reason For Exam: S32.000A - Wedge compression fracture of unspecifiedlumbar vertebra, in... EXAMINATION: DXA BONE DENSITY AXIAL HISTORY: S32.000A - Wedge compression fracture of unspecified lumbar vertebra... TECHNIQUE: [employer] Dual energy absorptiometry (DEXA) of the lumbar [...] is a trademark of the [employer]'s [place] for Metabolic Bone Disease, a World Health Organization (WHO) Collaborating Center. Electronically signed by: Stephan Cortes MD 01/28/2025 03:18 PM EDT Dictated By: Stephan Cortes MD Signed By: <Electronically signed by Stephan Cortes MD in OV> 01/28/25 1518 DD/ 1437 TD/TT: 01/28/25 1500 Single Stayer Operator: [facility] External Provider IMG DXA PROCEDURES Edited Result - Final * BI Mammogram Screening Tomosynthesis Bilateral (01/28/2025 2:00 PM EDT) Anatomical Region Laterality Modality Breast Bilateral Mammography 01/28/2025 2:00 PM EDT Narrative 02/02/2025 2:13 PM EDT [address] [place] [address] Mammography Report Signed Patient: Adrianna Lucio MR#: [id number] 144 : 1965 Acct:[id number] Age/Sex: 59 / F ADM Date: 01/28/25 Loc: HO.MAMMO Attending Dr: Deyvi Ramos MD Ordering Physician: Deyvi Ramos MD Results: 1 Negative Date of Service: 01/28/25 Follow Up: 1 Year From Orig ina Mammogram Procedure(s): MM tomosynthesis screening BI Accession Number(s): [id number] cc: Deyvi Ramos MD Reason For Exam: [...] 02/02/25 1410 DD/ 1400 TD/TT: 01/28/25 1420 Single Stayer Operator: Procedure Note Donotuseinterpreter, Image - [facility]/02/20[facility] [address] [place] [address] Mammography Report Signed Patient: Adrianna Lucio [facility]#: [id number] 144 : 1965Acct:[id number] Age/Sex: 59 / FADM Date: 01/28/25 Loc: HO.MAMMO Attending Dr: Deyvi Ramos MD Ordering Physician: Deyvi Ramos MDResults: 1 Negative Date of Service: 01/28/25Follow Up: 1 Year From Orig ina Mammogram Procedure(s): MM tomosynthesis screening BI Accession Number(s): [id number] cc: Deyvi Ramos MD Reason For Exam: [...] 02/02/25 1410 DD/ 1400 TD/TT: 01/28/25 1420 Single Stayer Operator: us Deyvi Ramos MD IMG BI PROCEDURES Final Res ult * Hepatitis C Antibody with Reflex to HCV, RNA, Quantitative, Real-Time PCR (10/16/2024 11:36 AM EDT) Hepatitis C Antibody Nonreactive Nonreactive [facility] Comment:Antibodies to HCV no t detected; does not exclude early acuteHCV infection. Blood Venous blood specimen / Unknown 10/16/2024 11:36 AM EDT 10/16/2024 2:08 PM EDT us Deyvi Ramos MD LAB BLOOD ORDERABLES Final Result [facility] [address] [place] [phone] * HIV-1/2 Antigen and Antibodies, Fourth Generation, with Reflexes (10/16/2024 11:36 AM EDT) HIV AB/AG Nonreactive Nonreactive [facility] Comment:HIV-1 p24 Ag and/or HIV-1/HIV-2 Ab not detected.A test result that is nonreactive does not exclude thepossibility of exposure to or infection with HIV-1 and/orHIV-2. Nonreactive results in this assay for individualswith prior exposure to HIV-1 and/or HIV-2 may be due toantigen and antibody levels that are below the limit ofdetection of this assay.The [employer] HIV Ag/Ab Combo assay result andsupplemental assay results should be interpreted inconjunction with the patient's clinical presentation,history and other laboratory results. If the results areinconsistent with clinical evidence, additional testing issuggested to confirm the result. Blood Venous blood specimen / Unknown 10/16/2024 11:36 AM EDT 10/16/2024 2:08 PM EDT us Deyvi Ramos MD LAB BLOOD ORDERABLES Final Result Performing Organization Address [facility] Co de Phone Number [facility] [address] [place] [phone] * (ABNORMAL) Lipid Panel, Standard (04/15/2024 10:54 AM EST) Triglycerides 120 <150 mg/dL [facility] Comment:Desirable Triglyceri de: less than 150 mg/dLBorderline High Triglyceride 150-199 mg/dLHigh Triglyceride: 200-499 mg/dLVery High Triglyceride: greater than or equal to 5OO mg/dL Cholesterol 197 <200 mg/dL [facility] Comment:Desirable Cholestero l: less than 200 mg/dLBorderline High Cholesterol: 200-239 mg/dLHigh Cholesterol: greater than 239 mg/dL LDL Cholesterol Calculated 126(H) <100 mg/dL [facility] Comment:Desirable LDL: less than 100 mg/dLNear Optimal/Above Optimal LDL: 110- 129 mg/dLBorderline High LDL: 130-159 mg/dLHigh LDL: 160-189 mg/dLVery High LDL: greater than or equal to 190 mg/dL HDL Cholesterol 47 >40 mg/dL [facility] Comment:Desirable HDL: great er than 40 mg/dL Note: This HDL assay may give artificially low results in patients with liver disease. Blood Venous blood specimen / Unknown 04/15/2024 10:54 AM EST 04/15/2024 1:22 PM EST us Deyvi Ramos MD LAB BLOOD ORDERABLES Final Result Performing Organization Address [facility]/ZIP Co de Phone Number [facility] [address] [place] [phone] from Last 3 Months or Most Recently Relevant to Health Maintenance Insurance [address] Care Teams Transport Assistant Relationship Specialty Start Date End Date Deyvi Ramos MD [address] [place] [phone] PCP - General Internal Medicine 11/22/[address] [facility] 04/04/24
--- OUTSIDE RECORDS SUMMARY | 2025-02-26 15:18 | XMS_ITS | Encounter Summary ---
Author Organization [employer] Address [address] [place] [address] Care Team Providers Care Police Magistrate Name Role Phone Deyvi Ramos MD Primary Care Provider [phone] Reason for Visit * Reason Comments Med Refill Encounter Details Date Type Department Care Team ([facility] Contact Info) Description 08/13/2023 Refill [facility] & PEDS [address] [place] [address] Deyvi Ramos MD [address] [place] [address] Osteoporosis of disuse Social History Tobacco Use [...] Upcoming Encounters Date Type Department Care Team ([facility] Contact Info) Description 2025 1:00 PM EDT Immunization [facility] [address] [place] [address] 04/30/2025 10:30 AM EST Office Visit [facility] [address] [place] [address] Deyvi Ramos MD [address] [place] [address] documented as of this encounter Visit Diagnoses Diagnosis Osteoporosis of disuse Disuse osteoporosis documented in this encounter Care Teams Police Magistrate Relationship Specialty Start Date End Date Deyvi Ramos MD [address] [place] [address] PCP - General Internal Medicine 11/22/23 [facility] 04/04/24 documented as of this encounter
--- OUTSIDE RECORDS SUMMARY | 2025-02-26 15:18 | XMS_ITS | Encounter Summary ---
Author Organization [employer] Address 75 [facility] 7 [place] [address] Care Team Providers Care Thermodynamicist Name Role Phone Deyvi Ramos MD Primary Care Provider [phone]- [phone] Reason for Visit * Reason Onset Date Comments Referral 06/17/2024 Encounter Details Date Type Department Care Team ([facility] st Contact Info) Description 06/17/2024 Telephone [facility] CHC MED & PEDS [address] [place], [place] [phone] Deyvi Ramos MD [address] [place] [address] Referral Social History Tobacco Use Types Packs/Day [...] Info) Description 2025 1:00 PM EDT Immunization [facility] MED & PEDS [address] [place] [address] 04/30/2025 10:30 AM EST Office Visit [facility] P[facility] [address] [place] [address] Deyvi Ramos MD [address] [place] [address] documented as of this encounter Visit Diagnoses Not on filedocumented in this encounter Care Teams Thermodynamicist Relationship Specialty Start Date End Date Deyvi Ramos MD [address] [place] [address] PCP - General Internal Medicine 11/22/23 [facility] 04/04/24 documented as of this encounter
--- OUTSIDE RECORDS SUMMARY | 2025-02-26 15:18 | XMS_ITS | Encounter Summary ---
Author Organization [employer] Address 75 [facility] 7 [place] [address] Care Team Providers Care Scale Adjuster Name Role Phone Deyvi Ramos MD Primary Care Provider [phone] Reason for Visit * Reason Comments Med Refill Encounter Details Date Type Department Care Team ([facility] st Contact Info) Description 12/26/2024 Refill [facility]C MED & PEDS [address] [place], [place] [phone] Deyvi Ramos MD [address] [place] [address] Compression fracture of L1 vertebra, initial encounter ([facility]) Social History Tobacco Use Types Packs/Day Years [...] [facility] Contact Info) Description 2025 1:00 PM EDT Immunization [facility] MED & PEDS [address] [place] [address] 04/30/2025 10:30 AM EST Office Visit [facility] MED & PEDS [address] [place] [address] Deyvi Ramos MD [address] [place] [address] documented as of this encounter Visit Diagnoses Diagnosis Compression fracture of L1 vertebra, initial encounter ([facility]) ([facility]) documented in this encounter Additional Health Concerns Assessment Noted Time PHQ-9 Depression Total Score: 2 06/26/19 25 11:28 AM EST documented as of this encounter Care Teams Scale Adjuster Relationship Specialty Start Date End Date Deyvi Ramos MD [address] [place] [address] PCP - General Internal Medicine 11/22/23 [facility] 04/04/24 documented as of this encounter
--- OUTSIDE RECORDS SUMMARY | 2025-02-26 15:18 | XMS_ITS | Encounter Summary ---
Author Organization [employer] Address [address] [place] [address] 7 [place] [address] Care Team Providers Care Goring Cutter Name Role Phone Deyvi Ramos MD Primary Care Provider [phone] Reason for Referral * Consultation (Routine) - Authorized Specialty Diagnoses / Procedures Referred By Contac t Referred To Contact Endocrinology Diagnoses Left leg paresthesias Osteoporosis of disuse Compression fracture of L5 vertebra, initial encounter ([facility] ([facility]) Deyvi Ramos MD [address] [place] [address] Phone: tel: fax: [facility] Endocrinology [address] [place] [address] Phone: tel: fax: Referral ID Status Reason Start Date Expiration Date Visits Requested Visits Authorized [id number] Authorized Specialty Services Required 11/10/2024 11/10/2025 1 1 * Neurology (Routine) - Closed Specialty Diagnoses / Procedures Referred By Contsree t Referred To Contact Diagnoses Left leg paresthesias Procedures Nerve conduction test Deyvi Ramos MD [address] [place] [address] Phone: tel: fax: [facility] [address] [place] [address] Phone: tel: fax: Referral ID Status Reason Start Date Expiration Date Visits Re quested Visits Authorized [id number] Closed 10/28/2024 10/28/2025 1 1 Encounter Details Date Type Department Care Team (Late st Contact Info) Description 10/28/2024 Orders Only [facility] MED & PEDS [address] [place] [address] Deyvi Ramos MD [address] [place] [address] Left leg paresthesias (Primary Dx); Osteoporosis of disuse; Compression fracture of L5 vertebra, initial encounter ([facility]) Social History Tobacco Use Types Packs/Day Years [...] Description 2025 1:00 PM EDT Immunization [facility] MED & PEDS [address] [place] [address] 04/30/2025 10:30 AM EST Office Visit [facility] MED & PEDS [address] [place] [address] Deyvi Ramos MD [address] [place] [address] Scheduled Orders Name Type Priority Associated Diagnoses Orde r Schedule Nerve conduction test Neurology Routine Left leg paresthesias Expected: 10/28/2024 (Approximate), Expires: 10/28/2025 Scheduled Referrals Name Type Priority Associated Diagnoses Order Schedule Referral to Endocrinology Outpatient Referral Routine Left leg paresthesias Osteoporosis of disuse Compression fracture of L5 vertebra, initial encounter ([facility]) Expected: 11/10/2024 (Approximate), Expires: 11/10/2025 documented as of this encounter Visit Diagnoses Diagnosis Left leg paresthesias- Primary Disturbance of skin sensation Osteoporosis of disuse Disuse osteoporosis Compression fracture of L5 vertebra, initial encounter ([facility] ([facility]) documented in this encounter Additional Health Concerns Assessment Noted Time PHQ-9 Depression Total Score: 2 06/26/19 25 11:28 AM EST documented as of this encounter Care Teams Goring Cutter Relationship Specialty Start Date End Date Deyvi Ramos MD [address] [place] [address] PCP - General Internal Medicine 11/22/23 [facility] 04/04/24 documented as of this encounter
--- OUTSIDE RECORDS SUMMARY | 2025-02-26 15:18 | XMS_ITS | Encounter Summary ---
Author Organization [employer] Address [address] [place] [address] Care Team Providers Care Finish Molder Name Role Phone Deyvi Ramos MD Primary Care Provider [phone] Encounter Details Date Type Department Care Team (Latest Contact Info) Description 02/26/2025 Travel Social History Tobacco Use Types Packs/Day [...] Upcoming Encounters Date Type Department Care Team ([facility] st Contact Info) Description 2025 1:00 PM EDT Immunization [facility] MED & PEDS [address] [place] [address] 04/30/2025 10:30 AM EST Office Visit [facility] MED & PEDS [address] [place] [address] Deyvi Ramos MD [address] [place] [address] documented as of this encounter Visit Diagnoses Not on filedocumented in this encounter Additional Health Concerns Assessment Noted Time PHQ-9 Depression Total Score: 2 06/26/19 25 11:28 AM EST documented as of this encounter Care Teams Finish Molder Relationship Specialty Start Date End Date Deyvi Ramos MD [address] [place] [address] PCP - General Internal Medicine 11/22/23 [facility] 04/04/24 documented as of this encounter
--- OUTSIDE RECORDS SUMMARY | 2025-02-26 15:18 | XMS_ITS | Encounter Summary ---
Author Organization [email or web address] Address [address] [place] [address] Care Team Providers Care Rail Signal Mechanic Name Role Phone Deyvi Ramos MD Primary Care Provider [phone] Reason for Referral * Consultation (Routine) - Canceled Specialty Diagnoses / Procedures Referred By Juan mcdonald Referred To Contact Podiatry Diagnoses Onychogryphosis Deyvi Ramos MD [address] [place] [address] Phone: tel: fax: Referral ID Status Reason Start Date Expiration Date Visits Requested Visits Authorized [id number] Canceled Specialty Services Required 06/18/2024 06/18/2025 1 1 Encounter Details Date Type Department Care Team ([facility] Contact Info) Description 06/18/2024 Orders Only [facility] CHC MED & PEDS [address] [place] [address] Deyvi Ramos MD [address] [place] [address] Onychogryphosis (Primary Dx) Social History Tobacco Use [...] Upcoming Encounters Date Type Department Care Team ([facility] st Contact Info) Description 2025 1:00 PM EDT Immunization [facility] MED & PEDS [address] [place] [address] 04/30/2025 10:30 AM EST Office Visit [facility] MED & PEDS [address] [place] [address] Deyvi Ramos MD [address] [place] [address] Scheduled Referrals Name Type Priority Associated Diagnoses Orde r Schedule Referral to Podiatry Outpatient Referral Routine Onychogryphosis Expected: 06/18/2024 (Approximate), Expires: 06/18/2025 documented as of this encounter Visit Diagnoses Diagnosis Onychogryphosis- Primary Other specified disease of nail documented in this encounter Care Teams Rail Signal Mechanic Relationship Specialty Start Date End Date Deyvi Ramos MD [address] [place] [address] PCP - General Internal Medicine 11/22/23 [facility] 04/04/24 documented as of this encounter
--- OUTSIDE RECORDS SUMMARY | 2025-02-26 15:18 | XMS_ITS | Encounter Summary ---
Author Organization [employer] Address [address] [place] [address] Care Team Providers Care Surface Grinder Name Role Phone Deyvi Ramos MD Primary Care Provider [phone] Deyvi Ramos MD Primary Care Provider [phone] Reason for Visit * Reason Comments Med Refill Encounter Details Date Type Department Care Team (Late st Contact Info) Description 04/17/2023 Refill [facility] MED & PEDS [address] [place] [address] Deyvi Ramos MD [address] [place], [place] [id number] Social History Tobacco Use Types Packs/Day Years [...] [facility] [address] [place] [address] 04/30/2025 10:30 AM EST Office Visit [facility] MED & PEDS [address] [place] [address] Deyvi Ramos MD [address] [place] [address] documented as of this encounter Visit Diagnoses Not on filedocumented in this encounter Care Teams Surface Grinder Relationship Specialty Start Date End Date Deyvi Ramos MD [address] [place] [address] PCP - General Internal Medicine 06/12/13 06/03/23 Deyvi Ramos MD [address] [facility] [place] [address] PCP - General Internal Medicine 11/22/23 [facility] 04/04/24 documented as of this encounter
--- OUTSIDE RECORDS SUMMARY | 2025-02-26 15:18 | XMS_ITS | Encounter Summary ---
Author Organization [employer] Address [address] [facility] 7 [place] [address] Care Team Providers Care Director Report Name Role Phone Deyvi Ramos MD Primary Care Provider [phone] Reason for Visit * Reason Comments Med Refill Encounter Details Date Type Department Care Team ([facility] st Contact Info) Description 09/10/2024 Refill [facility] CHC MED & PEDS [address] [place], [place] [id number] Deyvi Ramos MD [address] [place] [address] Seasonal allergies Social History Tobacco Use Types [...] Upcoming Encounters Date Type Department Care Team ([facility] st Contact Info) Description 2025 1:00 PM EDT Immunization [facility] MED & PEDS [address] [place] [address] 04/30/2025 10:30 AM EST Office Visit [facility] MED & PEDS [address] [place] [address] Deyvi Ramos MD [address] [place] [address] documented as of this encounter Visit Diagnoses Diagnosis Seasonal allergies Allergic rhinitis, cause unspecified documented in this encounter Additional Health Concerns Assessment Noted Time PHQ-9 Depression Total Score: 2 06/26/19 25 11:28 AM EST documented as of this encounter Care Teams Director Report Relationship Specialty Start Date End Date Deyvi Ramos MD [address] [place] [address] PCP - General Internal Medicine 11/22/[address] [facility] 04/04/24 documented as of this encounter
--- OUTSIDE RECORDS SUMMARY | 2025-02-26 15:18 | XMS_ITS | Encounter Summary ---
Author Organization [employer] Address [address] [place] [address] Care Team Providers Care Commercial Director Name Role Phone Deyvi Ramos MD Primary Care Provider [phone] Reason for Visit * Reason Comments Med Refill Encounter Details Date Type Department Care Team ([facility] Contact Info) Description 08/09/2023 Refill [facility] MED & PEDS [address] [place] [address] Deyvi Ramos MD [address] [place] [address] Social History Tobacco Use Types Packs/Day Years [...] Upcoming Encounters Date Type Department Care Team ([facility] Contact Info) Description 2025 1:00 PM EDT Immunization [facility] MED & PEDS [address] [place] [address] 04/30/2025 10:30 AM EST Office Visit [facility] MED & PEDS [address] [place] [address] Deyvi Ramos MD [address] [place] [address] documented as of this encounter Visit Diagnoses Not on filedocumented in this encounter Care Teams Commercial Director Relationship Specialty Start Date End Date Deyvi Ramos MD [address] [place] [address] PCP - General Internal Medicine 11/22/23 [facility] 04/04/24 documented as of this encounter
--- NOTE | 2025-03-09 10:17 | HO.ANESPROP2 ---
Documented by User: Tana Neff NP 03/09/25 10:18 HPI - Anesthesia Eval Consult details Narrative: 60yo F for L2 and L4 Kyphoplasty Hx ETOH dependance with acute withdrawal during 2023 admission PMFSH Active Problems Active Problems: All Active Problems Osteoporotic compression fracture of spine with delayed healing (Acute) Pulmonary nodules (Acute) Personal history of nicotine dependence (Acute) Compression fx, lumbar spine (Acute) COPD (chronic obstructive pulmonary disease) (Acute) Physical deconditioning (Acute) Macrocytosis (Acute) Past Medical History Medical History Arrhythmia Pulmonary nodules Personal history of nicotine dependence Compression fx, lumbar spine Osteopoikilosis Alcohol use disorder COPD (chronic obstructive pulmonary disease) Family History Family History Father No problems noted. Mother No problems noted. Surgical History Surgical History History of mandibular surgery History of surgery on lower extremity Social History Social History Household Members: Children Household Members Other:: son Housing: Apartment Do you presently have visiting nurse or other home services: No Patient Tobacco Use Status: Former Tobacco user Years Smoked: (onset 16yo, 1/2ppd x 43yrs, 20PYH, quit 2023) Use of substances other than those prescribed or required for medical reasons: No Are you DNR?: No Advance Directives: No Advance Directives Information Provided: Yes Patient : No : No service: No Meds Allergies Allergy/AdvReac Type Severity Reaction Status Date / Time pseudoephedrine (Sudafed) Allergy Severe Anaphylaxis Verified 03/11/25 10:29 amoxicillin (AMOXICILLIN) Allergy Intermediate EYES Verified 03/09/25 12:49 SWELLING Sulfa (Sulfonamide Allergy Intermediate SWELLING Verified 03/09/25 12:49 Antibiotics) (SULFA (SULFONAMIDE ANTIBIOTICS)) Home Medications ?Medication ?Instructions ?Recorded ?Confirmed ?Last Taken ?Type calcium carbonate 600 mg PO QAM 09/09/23 03/09/25 Unknown History cetirizine 10 mg tablet 10 mg PO QAM 09/09/23 03/09/25 Unknown History cholecalciferol (vitamin D3) 25 25 mcg PO DAILY 09/09/23 03/09/25 Unknown History mcg (1,000 unit) capsule (Vitamin D3) trazodone 50 mg tablet 50 mg PO BEDTIME 09/09/23 03/09/25 Unknown History acetaminophen 500 mg tablet 500 mg PO Q8H PRN Pain 05/15/24 03/09/25 Unknown History diclofenac sodium 1 % topical gel 1 ea topical TID 05/15/24 03/09/25 Unknown History Assessment and Plan Assessment Anesthesia Assessment: Chart Reviewed Documented by User: Rachel Ballard MD 03/11/25 11:39 PMFSH Past Medical History Medical History Arrhythmia Pulmonary nodules Personal history of nicotine dependence Compression fx, lumbar spine Osteopoikilosis Alcohol use disorder COPD (chronic obstructive pulmonary disease) Family History Family History Father No problems noted. Mother No problems noted. Family history of problems with anesthesia: No Surgical History Surgical History History of mandibular surgery History of surgery on lower extremity History of Problems with Anesthesia: No Social History Social History Household Members: Children Household Members Other:: son Housing: Apartment Do you presently have visiting nurse or other home services: No Patient Tobacco Use Status: Former Tobacco user Years Smoked: (onset 16yo, 1/2ppd x 43yrs, 20PYH, quit 2023) Use of substances other than those prescribed or required for medical reasons: No Are you DNR?: No Advance Directives: No Advance Directives Information Provided: Yes Patient : No : No service: No Meds Allergies Allergy/AdvReac Type Severity Reaction Status Date / Time pseudoephedrine (Sudafed) Allergy Severe Anaphylaxis Verified 03/11/25 10:29 amoxicillin (AMOXICILLIN) Allergy Intermediate EYES Verified 03/09/25 12:49 SWELLING Sulfa (Sulfonamide Allergy Intermediate SWELLING Verified 03/09/25 12:49 Antibiotics) (SULFA (SULFONAMIDE ANTIBIOTICS)) Home Medications ?Medication ?Instructions ?Recorded ?Confirmed ?Last Taken ?Type calcium carbonate 600 mg PO QAM 09/09/23 03/09/25 Unknown History cetirizine 10 mg tablet 10 mg PO QAM 09/09/23 03/09/25 Unknown History cholecalciferol (vitamin D3) 25 25 mcg PO DAILY 09/09/23 03/09/25 Unknown History mcg (1,000 unit) capsule (Vitamin D3) trazodone 50 mg tablet 50 mg PO BEDTIME 09/09/23 03/09/25 Unknown History acetaminophen 500 mg tablet 500 mg PO Q8H PRN Pain 05/15/24 03/09/25 Unknown History diclofenac sodium 1 % topical gel 1 ea topical TID 05/15/24 03/09/25 Unknown History Exam Airway Mallampati Class: II TM Dist: >3cm Neck ROM: Full Heart: rrr Lungs: cta Assessment and Plan Assessment Anesthesia Assessment: Anesthesia Plan Discussed Final Anesthetic Review Family History of Problems with Anesthesia: No History of Problems with Anesthesia: No NPO: Yes ASA Class: III Final Preanesthetic Review: No Changes in Pt Med Stat, Meds/Allgs Chart Reviewed, Consent Obtained/Reviewed and Anes Risks/Benef Reviewed Patient Risk: Intermediate Procedure Risk: Low Anesthetic Plan Anesthetic Plan: GA, MAC: and Agree w/ Assess. and Plan Disposition: Standard PACU
[2025-03-09 12:56] VITALS: BMI 30.9
[2025-03-11] VITALS (15 sets, daily range): BP systolic 94–121; BP diastolic 49–92; PULSE 59–90; RESP 10–20; TEMP 36.2–36.6; O2SAT 95–100; BMI 31.7
--- NOTE | ~2025-03-11 | FL_ITS ---
EXAMINATION: FLUOROSCOPY GUIDANCE FOR NEEDLE PLACEMENT CLINICAL INFORMATION: L2 L4 KYPHOPLASTY COMPARISON: Lumbar spine MRI May 2024 TECHNIQUE: Fluoroscopic guidance provided for kyphoplasty FINDINGS: Bilateral pedicle access and cement placement in the L2 and L4 vertebral bodies for kyphoplasty. Satisfactory appearance of cement. See procedure note for detailed findings. FLUOROSCOPY TIME: 2 minutes 39 seconds. 11 submitted images. DOSE AREA PRODUCT: 34 uGy-m2 (microgray-meter squared) FL/FL guidance in OR IMPRESSION: Fluoroscopy guidance for two level lumbar spine kyphoplasty. Electronically signed by: Alethea Esteban MD 03/11/2025 03:31 PM EDT
[2025-03-11] MEDS: Lactated Ringers 1,000 ML 100 ML IVCONT (11:07)
[2025-03-11 12:15] LABS: MRSA Nasal PCR NEGATIVE (Negative); SA Nasal PCR NEGATIVE (Negative)
--- NOTE | 2025-03-11 12:33 | MHC.SHP ---
Pre-Procedural Eval Section A - 24 Hr Update-Section A only Date of Service: 03/11/25 The patient is an INPATIENT: No Changes since office visit: Yes Patient answered all questions The patient has been examined within 24 hours of the surgical procedure. The History & Physical has been completed within 30 days and I have reviewed it.: No Section B - Complete if H&P > 30 days Chief Complaint: Other osteoporosis with current pathological fx Relevant Family History (Specify if Yes): No Relevant Social History: None Present Medications: see Short Stay Collaborative assessment Medical History: No relevant PMH History of Previous Operations: No relevant previous surgery Allergies: Allergies Allergy/AdvReac Type Severity Reaction Status Date / Time pseudoephedrine (Sudafed) Allergy Severe Anaphylaxis Verified 03/11/25 10:29 amoxicillin (AMOXICILLIN) Allergy Intermediate EYES Verified 03/09/25 12:49 SWELLING Sulfa (Sulfonamide Allergy Intermediate SWELLING Verified 03/09/25 12:49 Antibiotics) (SULFA (SULFONAMIDE ANTIBIOTICS)) Review of Systems Sugical H&P ROS: Negative: Constitution, Cardiovascular and Respiratory Exam Surgical H&P Exam: Normal: HEENT, Normal: Heart and Normal: Lungs Plan Diagnosis/Plan: Unchanged I have reviewed the history and physical and performed a pertinent physical examination on my patient. No changes have occurred unless specified. Time Spent With Patient Time: Total time managing care of this patient today ____ minutes.
--- NOTE | 2025-03-11 14:26 | P.BOP_ITS ---
Brief Operative Note Date of Service: 03/11/25 Pre-op diagnosis: Osteoporotic vertebral compression fracture L2, L4 Procedure: Kyphon Balloon Kyphoplasty with Insertion of HV-R Bone Cement, L2 and L4 Vertebral Bodies Surgeon: Kiet Bui MD Was an Irrigation District Manager used for this Procedure?: No Estimated blood loss (mL): 75 Pathology: none sent Condition: stable Disposition: PACU
--- NOTE | 2025-03-11 14:31 | P.OP_ITS ---
Operative Note Operative Note Date of Service: 03/11/25 Narrative: Preoperative diagnosis: Osteoporotic vertebral compression fracture Postoperative diagnosis: Same Procedure: Kyphon Balloon Kyphoplasty with Insertion of HV-R Bone Cement, L2 & L4 Vertebral Bodies The patient was brought to the operating room and sedated. The patient was positioned prone on the table. The back was prepped and draped. Two image intensifiers (C-arms) were brought into the AP and lateral positions and the L2 pedicles were identified and marked with a skin marker. A transpedicular approach to the vertebral body was deemed appropriate. A spinal needle was advanced along the expected course of the introducer up to the pedicle and the tract was anesthetized with 0.25% bupivacaine with epinephrine. A stab incision was made 5 cm lateral to the pedicle with a 15 blade. A 10-gauge bevel introducer was advanced through the L2 pedicle to the junction of the pedicle and vertebral body on the left side first. Positioning was confirmed on the AP and lateral plane at regular intervals to ensure bevel position within the cortical boundaries of the pedicle until the body of the vertebra was accessed. Following satisfactory placement of the osteointroducer, the bevel tip was removed, leaving the cannula in place, positioned approximately 1 cm past the posterior vertebral body wall. Through the cannula, a drill was advanced into the vertebral body under fluoroscopic guidance toward the anterior cortex to create a channel, stopping approximately 3-5 mm posterior to the anterior cortical wall in the lateral view and approaching the ipsilateral edge of the spinous process in the AP view. The anterior cortex was probed with the guide pin to ensure no perforations in the anterior cortex. After completing the entry into the vertebral body, a 15 mm inflatable bone tamp was inserted through the cannula and advanced under fluoroscopic guidance into the vertebral body near the anterior cortex. The radiopaque marker bands on the bone tamp were identi fied using AP and lateral images and confirmed to be within the anterior 2/3rd of the body. . The above sequence of instrument placement was then repeated on the right side. Once both bone tamps were in position, they were inflated sequentially in increments of 0.25 to 0.5 cc of contrast, with careful attention being paid to the inflation pressures and balloon position. The inflation was monitored with AP and lateral imaging. The final balloon volume was 1.5 cc on the left and 1.5 cc on the right side. Maximum pressure applied on either side was approximately 250-300 psi. There was no breach of the lateral wall or anterior cortex of the vertebral body. Direct reduction of the fracture was achieved and end plate movement was noted. Under fluoroscopic imaging, and the use of the bone void fillers, internal fixation was achieved through a low-pressure injection of appropriately cured KYPHON HV-R methylmethacrylate bone cement. The cavity was filled with a total volume of 3.2 cc on the left side and 2.2 cc on the right side. No vascular, disc or spinal extravasation of the cement was noted. Once the bone cement had hardened, the bevel tip was reinserted into each of the cannulas to clear it and they were were then removed. The image intensifiers were then moved caudad to focus on the L4 vertebral body. Stab incisions were made 7 cm lateral to the L4 pedicles on either side with a 15 blade. The rest of the steps were repeated as above. A balloon tamp was placed through the left cannula and 4 cc of contrast fluid was used to inflate the balloon in the midline position. 4.6 cc of cement was then filled in the cavity through the left Kenalog. 1.2 cc was injected through the right side. No vascular, disc or spinal extravasation of the cement was noted. Once the bone cement had hardened, the bevel tip was reinserted into each of the cannulas to clear it and they were were then removed. Post-procedure, the incisions were closed with Steri-Strips and op-site dressings were placed. The patient was kept in the prone position for approximately 10 minutes post cement injection. She was then turned supine and brought to the PACU where she reported minimal back pain. She was able to move both her lower extremities at this time. She was kept in the supine position for 2.5 hours postprocedure. She was subsequently discharged with postprocedure and follow-up instructions. Estimated blood loss was rougly 75 mL.
[2025-03-11] MEDS: oxyCODONE HCl Immed Release 5 MG TABLET PO (17:29)
== END 2025-03-11 17:32 | disposition home or self-care (01) ==
PROVIDERS: Registered Nurse Emergency; PCP Internal Medicine; Visit Provider Internal Medicine
PROC: (CPT 22514; principal; 2025-03-11 11:30)
DX: M80.88XA Other osteoporosis with current pathological fracture, vertebra(e), initial encounter for fracture (principal); G89.29 Other chronic pain; Q78.8 Other specified osteochondrodysplasias; R20.0 Anesthesia of skin; R91.8 Other nonspecific abnormal finding of lung field; J44.9 Chronic obstructive pulmonary disease, unspecified; F10.10 Alcohol abuse, uncomplicated; Z87.891 Personal history of nicotine dependence; Z79.899 Other long term (current) drug therapy; Z88.1 Allergy status to other antibiotic agents; Z88.2 Allergy status to sulfonamides; Z88.8 Allergy status to other drugs, medicaments and biological substances; Z98.890 Other specified postprocedural states
CPT/HCPCS: 22514; 22515; 87640; 87641; C1713; J0736; J2003; J2704; J3010; Q9967

== ENCOUNTER → 2025-03-11 09:50 | Outpatient (BNV) | payer MEDICAID, SELFPAY | PROVIDERS: PCP Internal Medicine; Visit Provider Internal Medicine | DX: M80.08XA Age-related osteoporosis with current pathological fracture, vertebra(e), initial encounter for fracture (principal) | CPT/HCPCS: 22514; 22515 ==

== ENCOUNTER 2025-04-13 23:47 | Emergency (ER) | payer MEDICAID, SELFPAY ==
--- NOTE | ~2025-04-13 | CT_ITS ---
CLINICAL HISTORY: L2 L4 kyphoplasty , infection?? CT abdomen and pelvis with contrast Comparison: None provided Findings: The lung bases are clear. The liver, gallbladder, spleen, adrenal glands and pancreas are unremarkable. Small hiatal hernia. Kidneys, ureters and bladder are unremarkable. Normal appendix. No bowel obstruction or free air. Mild fecal retention in the rectosigmoid. No pneumatosis, free fluid or abscess. Moderate atherosclerotic disease. L2 and L4 kyphoplasty cement noted. No evidence of complication at these levels. Mild compression deformities at L1 and L5. Age-indeterminate. Impression: No evidence of complication of the kyphoplasty levels. There are age-indeterminate mild compression deformities at L1 and L5. No definite acute process This document has been electronically signed by: Sudheer Fields MD on 04/14/2025 04:50:14
--- NOTE | ~2025-04-13 | XR_ITS ---
CLINICAL HISTORY: tachy 1 view chest x-ray Comparison: CT/REG/AR/SR - CT ANGIO CHEST PE PROTOCOL - 09/09/23 21:00 EDT Findings: No consolidation or effusion. Normal size heart. No acute fracture. IMPRESSION: 1. No acute findings. This document has been electronically signed by: Chad Agee MD on 04/14/2025 01:41:27
[2025-04-13 23:53] VITALS: BP 129/70; BP 162/88; PULSE 180; PULSE 97; RESP 16; TEMP 36.5; O2SAT 96; BMI 32.2
--- NOTE | 2025-04-13 23:53 | ECG_ITS ---
Test Reason : TACHY Blood Pressure : */* mmHG Vent. Rate : 187 BPM Atrial Rate : * BPM P-R Int : * ms QRS Dur : 88 ms QT Int : 240 ms P-R-T Axes : * 35 99 degrees QTcB Int : 423 ms Atrial fibrillation with rapid ventricular response with premature ventricular or aberrantly conducted complexes Nonspecific ST and T wave abnormality Abnormal ECG No previous ECGs available Referred By: Generic ED Physician Electronically Signed By: CAIO HURLEY
--- NOTE | 2025-04-13 23:56 | ED_ITS ---
HPI - General Adult General Chief complaint: Arrhythmia/Palpitations Stated complaint: weakness hx of spinal surgery 2 weeks ago, anxious Time Seen by Provider: 04/13/25 23:55 Source: patient Limitations: no limitations History of Present Illness ED Provider: Wen Olivera PA-C HPI narrative: 60-year-old female with a history of alcohol use disorder, chronic low back pain now status post kyphoplasty at L2 and L4 secondary to compression fractures related to underlying osteoarthritis/osteoporosis on 03/11/2025 Dr. Bui , paroxysmal AFib per the patient's report, anxiety and asthma who presents with worsening weakness of lower extremities over the past 3 weeks. Patient states she has had underlying gait instability since her procedure, she has been using a walker to ambulate at home. The patient has not had physical therapy since her procedure. Patient has a paresthesia of left lower extremity at baseline, she has since developed radiation of pain down the right lower extremity with the underlying paresthesia. Denies inability to ambulate, saddle anesthesia, urinary retention or bowel incontinence. Patient states she is actually constipated. Denies fever. Related Data Home Medications ?Medication ?Instructions ?Recorded ?Confirmed calcium carbonate 600 mg PO DAILY 09/09/2307/08 cetirizine 10 mg tablet 10 mg PO DAILY 09/09/2307/08 cholecalciferol (vitamin D3) 25 25 mcg PO DAILY 04/14/25 mcg (1,000 unit) capsule (Vitamin D3) trazodone 50 mg tablet 50 mg PO BEDTIME 09/09/23 acetaminophen 500 mg tablet 500 mg PO Q8H PRN Pain 07/0804/14/25 lidocaine 5 % topical patch 1 patch topical DAILY PRN Pain 04/14/25 04/14/25 Previous Rx's ?Medication ?Instructions ?Recorded albuterol sulfate 90 mcg/actuation 2 puff inhalation Q 4-6H PRN 12/31/24 aerosol inhaler (Ventolin HFA) shortness of breath or wheezing #8.5 grams oxycodone 5 mg tablet 5 mg PO Q8H PRN pain #9 tabs 04/15/25 Allergies Allergy/AdvReac Type Severity Reaction Status Date / Time pseudoephedrine (Sudafed) Allergy Severe Anaphylaxis Verified 04/14/25 00:05 amoxicillin (AMOXICILLIN) Allergy Intermediate EYES Verified 04/14/25 00:05 SWELLING Sulfa (Sulfonamide Allergy Intermediate SWELLING Verified 04/14/25 00:05 Antibiotics) (SULFA (SULFONAMIDE ANTIBIOTICS)) Review of Systems 2 Review of Systems: Yes all other systems are reviewed and are negative Constitutional: Constitutional: Denies fatigue and Denies fever(s) Cardiovascular: Cardiovascular: Denies chest pain and Denies dyspnea Respiratory: Respiratory: Denies cough and Denies dyspnea Gastrointestinal: Gastrointestinal: Denies abdominal pain, Reports constipation, Denies diarrhea, Denies nausea and Denies vomiting Genitourinary: Genitourinary: Denies dysuria and Denies flank pain Musculoskeletal: Musculoskeletal: Reports back pain, Reports muscle weakness, Denies numbness, Reports radiating pain into limb and Reports tingling Neurologic: Denies numbness and Reports tingling Endocrine: Endocrine: Denies fatigue PMFSH Past Medical History Attestation statement: The following information was validated with the patient. Medical History Arrhythmia Pulmonary nodules Personal history of nicotine dependence Compression fx, lumbar spine Osteopoikilosis Alcohol use disorder COPD (chronic obstructive pulmonary disease) Surgical History History of mandibular surgery History of surgery on lower extremity Family History Family History Father No problems noted. Mother No problems noted. Social History Social History Household Members: Children Household Members Other:: son Housing: Apartment Do you presently have visiting nurse or other home services: No Patient Tobacco Use Status: Former Tobacco user Years Smoked: (onset 16yo, 1/2ppd x 43yrs, 20PYH, quit 2023) Smoked in Last 30 Days: No Use of substances other than those prescribed or required for medical reasons: No Advance Directives: No Advance Directives Information Provided: Yes service: No Physical Exam ED Vital Signs: Vital Signs - 24 hr 04/15/25 02:30 04/15/25 09:15 04/15/25 13:02 Temperature 97.8 F 97.7 F 97.8 F Pulse Rate 72 80 74 Respiratory Rate 18 18 20 Blood Pressure 138/72 130/62 138/73 Pulse Oximetry 98 97 97 Oxygen Delivery Method Room Air Room Air Room Air BMI result Body Mass Index 32.2 Const Other: Alert, appears older than stated age, extremely anxious Orientation/consciousness: patient oriented x3 Resp Effort & Inspection: normal respiratory effort Cardio Other: Normal peripheral perfusion GI Other: Generalized tenderness to palpation, no regions of focal pain, guarding against my exam with a minimal palpation of the abdomen Other: Sensation over perineum intact, rectal tone intact Back/Spine/Pelvis Other: No swelling or erythema over any of the incision sites in the lumbar region from recent procedure, no palpable tenderness Skin Other: Warm dry no rash Neuro Other: Antalgic gait General: patient oriented x3, no focal motor deficits and CN's II-XI intact bilaterally Extrem Other: Strength 5/5 bilateral lower extremities with resistance in dorsiflexion, plantar flexion, abduction and adduction. Minimal straight leg raise bilaterally, approximately 30? Psych Other: Uncooperative at times, very anxious, yelling often Course Reevaluation(s) Reevaluation #1: At 12:30 a.m. on April 14, there was concern for a sepsis. I in turn performed a sepsis focused exam. The patient was tachycardic, she refused a rectal temp, her oral temp was not elevated, I added on blood cultures and a lactic. Started weight based IV fluid therapy, giving empiric ceftriaxone and IV Toradol, on the presumption that she is febrile. Time: 00:30 Reevaluation #2: The patient will be held for PT case management, I ordered cephalexin to treat her urinary tract infection, all orders are placed. Time: 06:11 Date: 04/14/25 Provider: XIANG Tan Patient in physician observation for case management needs. No acute events reported overnight.? No current issues or complaints. VS stable. Patient is pending placement at facility/pending PT/CM eval. Will continue to monitor. Time: 14:38 Date: 04/15/25 Provider: Brett Solomon PA-C Patient in physician observation for case management needs. No acute events reported overnight.? No current issues or complaints. VS stable. [facility] at 330 today. Medications Administered Discontinued Medications Generic Name Dose Route Start Last Admin Trade Name Thaq PRN Reason Stop Dose Admin Acetaminophen 975 mg 04/15/25 02:13 04/15/25 02:29 Acetaminophen 325 Mg Tablet PO 04/15/25 02:14 975 mg ONCE ONE Administration Acetaminophen 650 mg 04/15/25 02:19 04/15/25 12:52 Acetaminophen 325 Mg Tablet PO 650 mg Q8H PRN Administration Pain Calcium Carbonate 500 mg 04/15/25 09:00 04/15/25 08:18 Calcium Oyster Shell Elemental 500 Mg Tablet PO Not Given DAILY JEMMA Cephalexin HCl 500 mg 04/14/25 09:00 04/15/25 08:16 Cephalexin 500 Mg Capsule PO 500 mg BID JEMMA Administration Diltiazem HCl 10 mg 04/14/25 00:05 04/14/25 00:09 Diltiazem Hcl 50 Mg/10 Ml Vial IVPUSH 04/14/25 00:06 10 mg ONCE ONE Administration Sodium Chloride 1,000 mls @ 999 mls/hr 04/14/25 00:15 04/14/25 01:38 Ns IV 04/14/25 01:15 Infused .Q1H1M JEMMA Infusion Ceftriaxone Sodium 2 gm/ 50 mls @ 100 mls/hr 04/14/25 00:30 04/14/25 01:13 Sodium Chloride IV 04/14/25 00:59 Infused ONCE ONE Infusion Lactated Ringer's 1,000 mls @ 600 mls/hr 04/14/25 01:00 04/14/25 03:22 Lr IV 04/14/25 02:39 Infused .Q1H40M JEMMA Infusion Iohexol 100 ml 04/14/25 04:17 04/14/25 04:24 Iohexol 350 Mg/Ml 100 Ml Infus..Btl IV 04/14/25 04:18 100 ml ONCE ONE Administration Ketorolac Tromethamine 15 mg 04/14/25 00:24 04/14/25 00:30 Ketorolac Tromethamine 15 Mg/Ml Vial IVPUSH 04/14/25 00:25 15 mg ONCE ONE Administration Loratadine 10 mg 04/15/25 09:00 04/15/25 08:16 Loratadine 10 Mg Tablet PO 10 mg DAILY JEMMA Administration Midazolam HCl 3 mg 04/14/25 00:06 04/14/25 00:15 Midazolam Hcl 2 Mg/2 Ml Vial IVPUSH 04/14/25 00:07 3 mg ONCE ONE Administration Oxycodone HCl 5 mg 04/15/25 14:49 04/15/25 14:59 Oxycodone Hcl Immed Release 5 Mg Tablet PO 04/15/25 14:50 5 mg ONCE ONE Administration Vitamin D 25 mcg 04/15/25 09:00 04/15/25 08:16 Cholecalciferol (Vitamin D3) 25 Mcg Tablet PO 25 mcg DAILY JEMMA Administration Medical Decision Making Medical Decision Making [facility] Narrative: 60-year-old female with a history of alcohol use disorder, chronic low back pain now status post kyphoplasty at L2 and L4 secondary to compression fractures related to underlying osteoarthritis/osteoporosis on 03/11/2025 Dr. Bui , anxiety and asthma who presents with worsening weakness of lower extremities over the past 3 weeks. Patient states she has had underlying gait instability since her procedure, she has been using a walker to ambulate at home. The patient has not had physical therapy since her procedure. Patient has a paresthesia of left lower extremity at baseline, she has since developed radiation of pain down the right lower extremity with the underlying paresthesia. Denies inability to ambulate, saddle anesthesia, urinary retention or bowel incontinence. Patient states she is actually constipated. Denies fever. Problem: Recent surgery, alcohol use disorder, chronic pain, anxiety History: Per patient I have considered the following differential diagnoses: Lumbar radiculopathy, cauda equina, failed back syndrome, SEA, sepsis, pneumonia, urinary tract infection, acute intra-abdominal pathology, AFib RVR, ACS, anxiety with panic attack Plan: When patient arrived, she was in AFib RVR with a rate of 187. The patient refused a rectal temperature, sepsis was on my differential, in addition to screening labs, blood cultures and lactic acid were obtained. I attempted to explain to the patient that medical management of her tachycardia would very if she truly had a fever, she still refuses. We will start weight based IV fluid resuscitation, give Toradol and start ceftriaxone. She could have development of epidural abscess given recent procedure, she is having radicular symptoms, without objective red flag signs symptoms concerning for cord compression at this time. We are unable to obtain an MRI overnight, she does not meet criteria at this time, we will obtain a CT scan abdomen and pelvis with contrast. We will also check for other sources, as sepsis is on my differential, adding chest x-ray, viral panel, urinalysis. Also adding troponin, unclear how long she has been tachycardic. To note I do not think this presentation is consistent with a ACS, I feel there are other factors driving her heart rate. She is extremely anxious, she is panicking with any intervention I tried to implement. She is moving her lower extremities readily in bed, she can roll to either side, perform all range of motion activities, she was able to sit up in bed move her legs to the side of the bed and stand and hold a walker, she began to panic and yell when she was taking steps. Giving 10 mg of diltiazem and 3 mg of Versed. I have independently reviewed the following tests: Labs: No leukocytosis, not anemic, no electrolyte abnormality, troponin 5.3, delta troponin 6.6, lactic 2.9, repeat 2.1, urine is infected EKG: AFib RVR with a rate of 187, PVCs noted, nonspecific ST and T-wave abnormality, QTC 423 Chest x-ray:Findings: No consolidation or effusion. Normal size heart. No acute fracture. IMPRESSION: 1. No acute findings. CT abdomen and pelvis:Comparison: None provided Findings: The lung bases are clear. The liver, gallbladder, spleen, adrenal glands and pancreas are unremarkable. Small hiatal hernia. Kidneys, ureters and bladder are unremarkable. Normal appendix. No bowel obstruction or free air. Mild fecal retention in the rectosigmoid. No pneumatosis, free fluid or abscess. Moderate atherosclerotic disease. L2 and L4 kyphoplasty cement noted. No evidence of complication at these levels. Mild compression deformities at L1 and L5. Age-indeterminate. Impression: No evidence of complication of the kyphoplasty levels. There are age-indeterminate mild compression deformities at L1 and L5. No definite acute process Differential Diagnosis Differential Diagnoses: The differential diagnosis associated with the presentation includes See MDM Admission/Observation Consideration of admission/observation: Escalation of care including admission/observation considered Consult Healthcare Provider Management of the patient was discussed with: Production Department Supervisor PT case management Lab Data [facility] Lab Attestation statement: I reviewed the patient's lab results. 04/14/25 00:19 04/14/25 00:19 Labs: Lab Results 04/14/25 04/14/25 04/14/25 Range/Units 00:18 00:19 02:43 WBC 10.3 (4.8-10.8) X10*3/uL RBC 4.57 (4.20-5.50) X10*6/uL Hgb 13.7 (12.0-16.0) g/dl Hct 41.5 (37.0-47.0) % MCV 90.8 (80.0-98.0) fL MCH 30.0 (27.0-33.0) pg MCHC 33.0 (31.0-35.0) g/dl RDW 15.5 (11.0-16.0) % Plt Count 334 (160-400) X10*3/uL MPV 9.3 L (9.4-12.3) fL Immature Gran % (Auto) 0.6 H (0.0-0.4) % Neut % (Auto) 63.2 (45-73) % Lymph % (Auto) 27.6 (20-40) % [place] % (Auto) 7.7 (2-11) % Eos % (Auto) 0.4 (0-4) % Baso % (Auto) 0.5 (0-2) % Lymph # (Auto) 2.9 (1.2-4.9) X10*3/uL [place] # (Auto) 0.8 (0.1-1.2) X10*3/uL Eos # (Auto) 0.0 (0.0-0.4) X10*3/uL Baso # (Auto) 0.1 (0.0-0.2) X10*3/uL Abs Immat Gran (auto) 0.06 H (0.00-0.03) X10*3/uL Absolute Neuts (auto) 6.5 (2.0-8.3) x10*3/uL Absolute Nucleated RBC 0.000 (0.0-0.012) X10*3/uL Nucleated RBC % (auto) 0.0 (0.0-0.2) /100WBC Hold Purple Top SEE NOTE Hold Blue Top SEE NOTE Sodium 144 (135-145) mmol/L Potassium 3.7 (3.3-5.1) mmol/L Chloride 105 (96-108) mmol/L Carbon Dioxide 18 L (22-29) mmol/L Anion Gap 25 H (12-20) BUN 6 L (9-16) mg/dL Creatinine 0.56 (0.5-1.4) mg/dL Estim Creat Clear Calc 112.7 Estimated GFR > 60 Random Glucose 144 H (60-115) mg/dL Lactic Acid 2.9 H* (0.5-2.0) mmol/L Lactic Acid F/U @ 2Hr (0.5-2.0) mmol/L Calcium 8.6 D (8.4-10.2) mg/dL Magnesium 1.7 (1.6-2.6) mg/dL Total Bilirubin 0.6 (0.0-1.0) mg/dL AST 32 H (5-31) U/L ALT 12 (0-31) U/L Alkaline Phosphatase 134 H (39-117) U/L Troponin I High Sens 5.3 (<3.5-17.0) ng/L Total Protein 7.0 (6.5-8.0) g/dL Albumin 4.2 (3.5-5.0) g/dL Urine Color Urine Appearance Urine pH (5.0-9.0) Ur Specific [place] (1.005-1.025) Urine Protein (Neg-Trace) mg/dL Urine Glucose (UA) (Negative) mg/dL Urine Ketones (Negative) mg/dL Urine Blood (Negative) Urine Nitrite (Negative) Ur Leukocyte Esterase (Negative) Urine RBC (0-2) /HPF Urine WBC (0-5) /HPF Ur Squamous Epith Cells (0-2) /HPF Urine Bacteria (None Seen) Hyaline Casts (0-2) /LPF Influenza Type A (PCR) NEGATIVE (Negative) Influenza Type B (PCR) NEGATIVE (Negative) RSV RNA Qual (PCR) NEGATIVE (Negative) SARS-CoV-2 RNA (RT-PCR) NEGATIVE (Negative) 04/14/25 04/14/25 04/14/25 Range/Units 02:46 02:58 03:09 WBC (4.8-10.8) X10*3/uL RBC (4.20-5.50) X10*6/uL Hgb (12.0-16.0) g/dl Hct (37.0-47.0) % MCV (80.0-98.0) fL MCH (27.0-33.0) pg MCHC (31.0-35.0) g/dl RDW (11.0-16.0) % Plt Count (160-400) X10*3/uL MPV (9.4-12.3) fL Immature Gran % (Auto) (0.0-0.4) % Neut % (Auto) (45-73) % Lymph % (Auto) (20-40) % [place] % (Auto) (2-11) % Eos % (Auto) (0-4) % Baso % (Auto) (0-2) % Lymph # (Auto) (1.2-4.9) X10*3/uL [place] # (Auto) (0.1-1.2) X10*3/uL Eos # (Auto) (0.0-0.4) X10*3/uL Baso # (Auto) (0.0-0.2) X10*3/uL Abs Immat Gran (auto) (0.00-0.03) X10*3/uL Absolute Neuts (auto) (2.0-8.3) x10*3/uL Absolute Nucleated RBC (0.0-0.012) X10*3/uL Nucleated RBC % (auto) (0.0-0.2) /100WBC Hold Purple Top Hold Blue Top Sodium (135-145) mmol/L Potassium (3.3-5.1) mmol/L Chloride (96-108) mmol/L Carbon Dioxide (22-29) mmol/L Anion Gap (12-20) BUN (9-16) mg/dL Creatinine (0.5-1.4) mg/dL Estim Creat Clear Calc Estimated GFR Random Glucose (60-115) mg/dL Lactic Acid 2.1 H* (0.5-2.0) mmol/L Lactic Acid F/U @ 2Hr (0.5-2.0) mmol/L Calcium (8.4-10.2) mg/dL Magnesium (1.6-2.6) mg/dL Total Bilirubin (0.0-1.0) mg/dL AST (5-31) U/L ALT (0-31) U/L Alkaline Phosphatase (39-117) U/L Troponin I High Sens 6.6 (<3.5-17.0) ng/L Total Protein (6.5-8.0) g/dL Albumin (3.5-5.0) g/dL Urine Color Yellow Urine Appearance Hazy Urine pH 6.0 (5.0-9.0) Ur Specific [place] 1.025 (1.005-1.025) Urine Protein Negative (Neg-Trace) mg/dL Urine Glucose (UA) Negative (Negative) mg/dL Urine Ketones >=80 (Negative) mg/dL Urine Blood Trace (Negative) Urine Nitrite Positive H (Negative) Ur Leukocyte Esterase Moderate (2+) H (Negative) Urine RBC 0-2 (0-2) /HPF Urine WBC >50 H (0-5) /HPF Ur Squamous Epith Cells 3-5 (0-2) /HPF Urine Bacteria 4+ (None Seen) Hyaline Casts 3-5 (0-2) /LPF Influenza Type A (PCR) (Negative) Influenza Type B (PCR) (Negative) RSV RNA Qual (PCR) (Negative) SARS-CoV-2 RNA (RT-PCR) (Negative) 04/14/25 Range/Units 08:38 WBC (4.8-10.8) X10*3/uL RBC (4.20-5.50) X10*6/uL Hgb (12.0-16.0) g/dl Hct (37.0-47.0) % MCV (80.0-98.0) fL MCH (27.0-33.0) pg MCHC (31.0-35.0) g/dl RDW (11.0-16.0) % Plt Count (160-400) X10*3/uL MPV (9.4-12.3) fL Immature Gran % (Auto) (0.0-0.4) % Neut % (Auto) (45-73) % Lymph % (Auto) (20-40) % [place] % (Auto) (2-11) % Eos % (Auto) (0-4) % Baso % (Auto) (0-2) % Lymph # (Auto) (1.2-4.9) X10*3/uL [place] # (Auto) (0.1-1.2) X10*3/uL Eos # (Auto) (0.0-0.4) X10*3/uL Baso # (Auto) (0.0-0.2) X10*3/uL Abs Immat Gran (auto) (0.00-0.03) X10*3/uL Absolute Neuts (auto) (2.0-8.3) x10*3/uL Absolute Nucleated RBC (0.0-0.012) X10*3/uL Nucleated RBC % (auto) (0.0-0.2) /100WBC Hold Purple Top Hold Blue Top Sodium (135-145) mmol/L Potassium (3.3-5.1) mmol/L Chloride (96-108) mmol/L Carbon Dioxide (22-29) mmol/L Anion Gap (12-20) BUN (9-16) mg/dL Creatinine (0.5-1.4) mg/dL Estim Creat Clear Calc Estimated GFR Random Glucose (60-115) mg/dL Lactic Acid (0.5-2.0) mmol/L Lactic Acid F/U @ 2Hr 0.9 (0.5-2.0) mmol/L Calcium (8.4-10.2) mg/dL Magnesium (1.6-2.6) mg/dL Total Bilirubin (0.0-1.0) mg/dL AST (5-31) U/L ALT (0-31) U/L Alkaline Phosphatase (39-117) U/L Troponin I High Sens (<3.5-17.0) ng/L Total Protein (6.5-8.0) g/dL Albumin (3.5-5.0) g/dL Urine Color Urine Appearance Urine pH (5.0-9.0) Ur Specific [place] (1.005-1.025) Urine Protein (Neg-Trace) mg/dL Urine Glucose (UA) (Negative) mg/dL Urine Ketones (Negative) mg/dL Urine Blood (Negative) Urine Nitrite (Negative) Ur Leukocyte Esterase (Negative) Urine RBC (0-2) /HPF Urine WBC (0-5) /HPF Ur Squamous Epith Cells (0-2) /HPF Urine Bacteria (None Seen) Hyaline Casts (0-2) /LPF Influenza Type A (PCR) (Negative) Influenza Type B (PCR) (Negative) RSV RNA Qual (PCR) (Negative) SARS-CoV-2 RNA (RT-PCR) (Negative) Independent Interpretation I performed an independent interpretation of an: EKG Radiology Impression Discussion of test interpretation with radiology: I have reviewed the radiologist's reading. Critical Care Time Critical Care Time Critical Care Time: Yes Total Critical Care Time: 45 Attestation: I Wen Olivera PA-C have personally performed 45 minutes of critical care time not including lines and procedures; sepsis, AFib RVR Discharge Plan Discharge Clinical Impression: Bilateral lumbar radiculopathy, Urinary tract infection Patient Disposition: Xfer Inpatient Rehab Fac Additional Instructions: Patient currently on 500mg keflex BID for UTI. Patient needs 11 more doses to complete the course. Patient is being given 9 tablets of 5mg oxycodone for breakthrough pain. Prescriptions: New oxycodone 5 mg tablet 5 mg PO Q8H PRN (Reason: pain) Qty: 9 0RF Rx Instructions: Partial Fill upon patient request. No Action albuterol sulfate [Ventolin HFA] 90 mcg/actuation HFA aerosol inhaler 2 puff inhalation Q4-6H PRN (Reason: shortness of breath or wheezing) Qty: 8.5 4RF trazodone 50 mg tablet 50 mg PO BEDTIME cetirizine 10 mg tablet 10 mg PO DAILY calcium carbonate 600 mg calcium (1,500 mg) tablet 600 mg PO DAILY cholecalciferol (vitamin D3) [Vitamin D3] 25 mcg (1,000 unit) capsule 25 mcg PO DAILY lidocaine 5 % adhesive patch,medicated 1 patch topical DAILY PRN (Reason: Pain) Rx Instructions: leave on most painful area for up to 12 hrs acetaminophen 500 mg tablet 500 mg PO Q8H PRN (Reason: Pain) Discharge Date/Time: 04/15/25 16:44 Print Language: [place]azight
[2025-04-14 00:09] VITALS: PULSE 191
[2025-04-14 00:23] VITALS: BP 112/75; PULSE 155; RESP 22; TEMP 36.7; O2SAT 93
[2025-04-14 00:27] LABS: MANUAL DIFF FLAG NO
[2025-04-14 00:32] LABS: Hematocrit 41.5 % (37.0-47.0); Hemoglobin 13.7 g/dl (12.0-16.0); Imm Gran Abs Auto 0.06 X10*3/uL (0.00-0.03); Imm Gran Pct Auto 0.6 % (0.0-0.4); Lymphocytes Absolute Auto 2.9 X10*3/uL (1.2-4.9); Mean Corpuscular HGB Conc 33.0 g/dl (31.0-35.0); Mean Corpuscular Hemoglobin 30.0 pg (27.0-33.0); Mean Corpuscular Volume 90.8 fL (80.0-98.0); NRBC Abs Auto 0.000 X10*3/uL (0.0-0.012); NRBC Pct Auto 0.0 /100WBC (0.0-0.2); Platelet Count 334 X10*3/uL (160-400); Red Blood Count 4.57 X10*6/uL (4.20-5.50); White Blood Count 10.3 X10*3/uL (4.8-10.8)
[2025-04-14 00:47] LABS: Alanine Aminotransferase 12 U/L (0-31); Albumin Level 4.2 g/dL (3.5-5.0); Alkaline Phosphatase 134 U/L (39-117); Anion Gap 25 (12-20); Aspartate Amino Transferase 32 U/L (5-31); Blood Urea Nitrogen 6 mg/dL (9-16); Calcium 8.6 mg/dL (8.4-10.2); Carbon Dioxide 18 mmol/L (22-29); Chloride 105 mmol/L (96-108); Creatinine Clr Calc Pharmacy 112.7; Estimated Glomerular Filt Rate > 60; Magnesium 1.7 mg/dL (1.6-2.6); Potassium 3.7 mmol/L (3.3-5.1); Sodium 144 mmol/L (135-145); Total Protein 7.0 g/dL (6.5-8.0)
[2025-04-14 00:52] LABS: Troponin-I High Sensitivity 5.3 ng/L (<3.5-17.0)
[2025-04-14 01:13] VITALS: BP 126/60; PULSE 99; RESP 14; O2SAT 96
[2025-04-14] MEDS: Lactated Ringers 1,000 ML 600 ML IV (01:39)
--- NOTE | 2025-04-14 01:41 | PC.NURSE ---
Pt arrived by EMS from home, reporting increased weakness in lower extremities. She reports having a spinal fusion 4 weeks ago, went home and was able to ambulate with a walker and over the past 3 weeks the weakness increased and now she is unable to get out of bed on her own. EMS reported patient was very anxious and her HR was in the 160s when they arrived to her home, then decreased to 90s. When patient arrived to ED, in addition to the weakness she reported dizziness. Her HR was found to be in the 180-200s. She denied having chest pain, palpitations or shortness of breath. EKG obtained. She reports feeling like she could have a viral illness such as flu. Pt declining rectal temperature and nasal swab. XIANG Simms at bedside and aware. 20g IV placed in right forearm. Pt given 10mg of diltiazem IV @ 0009. She also received 1L NS and ceftriaxone as charted. Pt currently NSR on tele, HR in 90s. She reports feeling a little better and less anxious. Plan of care ongoing. Call arriola within reach, family at bedside.
[2025-04-14 02:26] LABS: Reflex Lactate? Lactic Acid Added
[2025-04-14 03:14] LABS: Troponin-I High Sensitivity 6.6 ng/L (<3.5-17.0)
[2025-04-14 03:18] LABS: Appearance Urine Hazy; Glucose Urine UA Negative (Negative); PH 6.0 (5.0-9.0); Specific Gravity - Urine 1.025 (1.005-1.025); UMIC TRIGGER UACC YES
[2025-04-14 03:36] LABS: Resp Syncy Virus RNA Qual PCR NEGATIVE (Negative); SARS COV2 PCR INHOUSE NEGATIVE (Negative)
[2025-04-14 03:42] LABS: UACC Culture Trigger YES
[2025-04-14] MEDS: iohexoL 350 MG/ML 100 ML INFUS..BTL IV (04:24)
--- OUTSIDE RECORDS SUMMARY | 2025-04-14 04:40 | XMS_ITS | Encounter Summary ---
Author Organization [employer] Address [address] [place] [address] 7 [place] [address] Care Team Providers Care Tool Sharpener Name Role Phone Deyvi Ramos MD Primary Care Provider [phone] Reason for Referral * Consultation (Routine) - Closed Specialty Diagnoses / Procedures Referred By Juan mcdonald Referred To Contact Endocrinology Diagnoses Left leg paresthesias Osteoporosis of disuse Compression fracture of L5 vertebra, initial encounter (CMS/[facility]) ([facility]) Deyvi Ramos MD [address] [place] [address] Phone: tel: fax: [facility] [place] [facility] [address] [place] [address] Phone: tel: fax: Referral ID Status Reason Start Date Expiration Date V isits Requested Visits Authorized [id number] Closed Specialty Services Required 11/10/2024 11/10/2025 1 1 * Neurology (Routine) - Closed Specialty Diagnoses / Procedures Referred By Juan mcdonald Referred To Contact Diagnoses Left leg paresthesias Procedures Nerve conduction test Deyvi Ramos MD [address] [place] [address] Phone: tel: fax: [facility] [address] [place] [address] Phone: tel: fax: Referral ID Status Reason Start Date Expiration Date Visits Re quested Visits Authorized [id number] Closed 10/28/2024 10/28/2025 1 1 Encounter Details Date Type Department Care Team ([facility] st Contact Info) Description 10/28/2024 Orders Only [facility] CHC MED & PEDS [address] [place] [address] Deyvi Ramos MD [address] [place] [address] Left leg paresthesias (Primary Dx); Osteoporosis of disuse; Compression fracture of L5 vertebra, initial encounter (CMS/[facility]) Social History Tobacco Use Types Packs/Day Years [...] 10:30 AM EST Office Visit [facility] MED & PEDS [address] [place] [address] Deyvi Ramos MD [address] [place] [address] 05/19/2025 9:00 AM EST Office Visit [facility] MED & PEDS [address] [place] [address] Deyvi Ramos MD [address] [place] [address] Scheduled Orders Name Type Priority Associated Diagnoses Orde r Schedule Nerve conduction test Neurology Routine Left leg paresthesias Expected: 10/28/2024 (Approximate), Expires: 10/28/2025 Scheduled Referrals Name Type Priority Associated Diagnoses Order Schedule Referral to Endocrinology Outpatient Referral Routine Left leg paresthesias Osteoporosis of disuse Compression fracture of L5 vertebra, initial encounter ([facility]) Expected: 11/10/2024 (Approximate), Expires: 11/10/2025 documented as of this encounter Visit Diagnoses Diagnosis Left leg paresthesias- Primary Disturbance of skin sensation Osteoporosis of disuse Disuse osteoporosis Compression fracture of L5 vertebra, initial encounter ([facility]) ([facility]) documented in this encounter Additional Health Concerns Assessment Noted Time PHQ-9 Depression Total Score: 2 06/26/19 25 11:28 AM EST documented as of this encounter Care Teams Tool Sharpener Relationship Specialty Start Date End Date Deyvi Ramos MD [address] [place] [address] PCP - General Internal Medicine 11/22/23 [facility] 04/04/24 documented as of this encounter
--- OUTSIDE RECORDS SUMMARY | 2025-04-14 04:40 | XMS_ITS | Encounter Summary ---
Author Organization [employer] Address [address] [facility] 7 [place] [address] Care Team Providers Care Tank Truck Operator Name Role Phone Deyvi Ramos MD Primary Care Provider [phone]- [phone] Reason for Visit * Reason Onset Date Comments Appointment Request 06/17/2024 Encounter Details Date Type Department Care Team ([facility] st Contact Info) Description 06/17/2024 Telephone [facility] CHC MED & PEDS [address] [place] [address] Deyvi Ramos MD [address] [place] [address] Appointment Request Social History Tobacco Use Types [...] 10:30 AM EST Office Visit [facility] MED & PEDS [address] [place] [address] Deyvi Ramos MD [address] [place] [address] 05/19/2025 9:00 AM EST Office Visit [facility] MED & PEDS [address] [place] [address] Deyvi Ramos MD [address] [place] [address] documented as of this encounter Visit Diagnoses Not on filedocumented in this encounter Care Teams Tank Truck Operator Relationship Specialty Start Date End Date Deyvi Ramos MD [address] [place] [address] PCP - General Internal Medicine 11/22/23 [facility] 04/04/24 documented as of this encounter
--- OUTSIDE RECORDS SUMMARY | 2025-04-14 04:40 | XMS_ITS | Encounter Summary ---
Author Organization [employer] Address [address] [place] [address] Care Team Providers Care Ssis Architect Name Role Phone Deyvi Ramos MD Primary Care Provider [phone] Deyvi Ramos MD Primary Care Provider [phone]- [phone] Reason for Visit * Reason Comments Med Refill Encounter Details Date Type Department Care Team (Late st Contact Info) Description 04/17/2023 Refill [facility] MED & PEDS [address] [place] [address] Deyvi Ramos MD [address] [place] [address] Social History Tobacco Use Types Packs/Day Years [...] [facility] [address] [place] [address] Deyvi Ramos MD [address] [place] [address] 05/19/2025 9:00 AM EST Office Visit [facility] MED & PEDS [address] [place] [address] Deyvi Ramos MD [address] [place] [address] documented as of this encounter Visit Diagnoses Not on filedocumented in this encounter Care Teams Ssis Architect Relationship Specialty Start Date End Date Deyvi Ramos MD [address] [place] [address] PCP - General Internal Medicine 06/12/13 06/03/23 Deyvi Ramos MD [address] [place] [address] PCP - General Internal Medicine 11/22/23 [facility] 04/04/24 documented as of this encounter
--- OUTSIDE RECORDS SUMMARY | 2025-04-14 04:40 | XMS_ITS | Clinical Summary ---
Author Organization [address] [facility] Address [address] [place] [address] Phone Care Team Providers Care Veneer Sheet Repairer Name Role Phone Deyvi Ramos MD Primary Care Provider [phone] Allergies Active Allergy Reactions Criticality Noted Date [...] 11/07/2010 COPD (chronic obstructive pu lmonary disease) ([facility] V24, [facility] V28) 11/04/2010 Overview (07/16/2024): Moderate-severe without reversibility on PFTs 10/2010 Tobacco use disorder 08/30/2010 Depression 01/25/2006 Upper GI bleed 01/25/2006 Overview (07/16/2024): 1994, ulcer IMO update Encounters Date Type Department Care Team Description 03/06/2025 9:52 AM EDT - 03/06/2025 11:59 PM EDT Hospital Encounter [facility] PET Scan [address] [place] [id number] Pulmonary nodule Discharge Disposition: Home or Self Care 02/19/2025 9:15 AM EDT Office Visit Orthopedic Surgery [facility] [address] [facility] [address] [place] [phone] Yunier Gaytan, DPM Tinea pedis of both feet (Primary Dx); Dermatophytosis of nail; Pain in toe of right foot; Pain in toe of left foot; Bilateral femoral artery stenosis ([facility] V24) from Last 3 Months Immunizations Immunization [...] AM EST Office Visit Orthopedic Surgery - [place] [address] [address] Yunier Gaytan, DPM [address] [address] Health Maintenance Due Date Last Done Comments Colorectal Cancer Screening: Colonoscopy 1965 Hepatitis A Vaccines (1 of 2 - Risk 2-dose series) 1984 Cervical Cancer Screening: Pap Smear 02/01/2010 02/01/2007 RSV Immunization Adult Patients (1 - [...] Pulmonary nodule LIPID PANEL Routine 11/07/2010 HM PAP SMEAR Routine 02/01/2007 from Last 3 Months or [...] Signed Date: 03/12/2025 16:30 ET Workstation ID: [id number] Transcribed By: Self Edit Transcribed Date: 03/12/2025 [...] No abnormal FDG activity. Procedure Note Brian oLngo MD - 03/12/2025 INDICATION: Pulmonary nodule, initial [...] Signed Date: 03/12/2025 16:30 ET Workstation ID: [id number] Transcribed By: Self Edit Transcribed Date: 03/12/2025 [...] LAB BLOOD ORDERABLES Renée l Result * Pap Smear (02/01/2007) Pathologist [facility] Pap smear negative, abstracted Historical Provider HEALTH MAINTENANCE Final Result from Last 3 Months or Most Recently Relevant to Health Maintenance Insurance [place] Member Subscriber Plan / Payer (Ef fective 2024-Present) Name:ADRIANNA AVILA Relation to Subscriber:Self Name:Adrianna Avila Payer ID:[id number] Group ID:Not on file Type:Not on file Address: [facility] [employer] ATTN:CLAIMS [address] [place] [address] Care Teams Veneer Sheet Repairer Relationship Specialty Start Date End Date Deyvi Ramos MD [address] [place] [address] PCP - General Internal Medicine 07/14/24
--- OUTSIDE RECORDS SUMMARY | 2025-04-14 04:40 | XMS_ITS | Clinical Summary ---
Author Organization [facility] Address [address] [place] [address] Care Team Providers Care Axminster Weaver Name Role Phone Deyvi Ramos MD Primary Care Provider [phone] Allergies Active Allergy Reactions Criticality Noted Date [...] Years Used Date Smoking Tobacco: Never Assessed [facility] Utilities Answer Date Recorded In the past 12 months has th e [employer], oil, or water [employer] threatened to shut off services in your [...] any time in the past [address] [facility] [place], were you homeless or living in a assisted (including now)? Patient declined 08/27/2024 Comments Unknown [...] age to complete this topic Insurance [facility] Advance Directives * Full Code (Latest Code Status on File) Date Activated Date Inactivated Comments 08/26/2024 10:59 AM Care Teams Axminster Weaver Relationship Specialty Start Date End Date Deyvi Ramos MD [address] [place] [address] PCP - General General Medicine 08/26/24
--- OUTSIDE RECORDS SUMMARY | 2025-04-14 04:40 | XMS_ITS | Encounter Summary ---
Author Organization [employer] Address [address] [facility] 7 [place] [address] Care Team Providers Care Obstetrics Scrub Nurse Name Role Phone Deyvi Ramos MD Primary Care Provider [phone]- [phone] Reason for Visit * Reason Comments Med Refill Encounter Details Date Type Department Care Team ([facility] st Contact Info) Description 12/26/2024 Refill [facility] CHC MED & PEDS [address] [place], [place] [phone] Deyvi Ramos MD [address] [place] [address] Compression fracture of L1 vertebra, initial encounter (CMS/[facility]) Social History Tobacco Use Types Packs/Day Years [...] 04/30/2025 10:30 AM EST Office Visit [facility] MED & PEDS [address] [place] [address] Deyvi Ramos MD [address] [place] [address] 05/19/2025 9:00 AM EST Office Visit [facility] MED & PEDS [address] [place] [address] Deyvi Ramos MD [address] [place] [address] documented as of this encounter Visit Diagnoses Diagnosis Compression fracture of L1 vertebra, initial encounter (CMS/HCC) ([facility]) documented in this encounter Additional Health Concerns Assessment Noted Time PHQ-9 Depression Total Score: 2 06/26/19 25 11:28 AM EST documented as of this encounter Care Teams Obstetrics Scrub Nurse Relationship Specialty Start Date End Date Deyvi Ramos MD [address] [place] [address] PCP - General Internal Medicine 11/22/23 [facility] 04/04/24 documented as of this encounter
--- OUTSIDE RECORDS SUMMARY | 2025-04-14 04:40 | XMS_ITS | Encounter Summary ---
Author Organization [employer] Address [address] [place] [address] Care Team Providers Care Head Counselor Name Role Phone Deyvi Ramos MD Primary Care Provider [phone]- [phone] Deyvi Ramos MD Primary Care Provider [phone]- [phone] Reason for Visit * Reason Comments Med Refill Encounter Details Date Type Department Care Team (Late st Contact Info) Description 08/21/2022 Refill [facility] MED & PEDS [address] [place] [address] Deyvi Ramos MD [address] [place] [address] Social History Tobacco Use Types Packs/Day Years [...] Description 04/30/2025 10:30 AM EST Office Visit [facility] MED & PEDS [address] [place] [address] Deyvi Ramos MD [address] [place] [address] 05/19/2025 9:00 AM EST Office Visit [facility] MED & PEDS [address] [place] [address] Deyvi Ramos MD [address] [place] [address] documented as of this encounter Visit Diagnoses Not on filedocumented in this encounter Care Teams Head Counselor Relationship Specialty Start Date End Date Deyvi Ramos MD [address] [place] [address] PCP - General Internal Medicine 06/12/13 06/03/23 Deyvi Ramos MD [address] [place] [address] PCP - General Internal Medicine 11/22/23 [facility] 04/04/24 documented as of this encounter
--- OUTSIDE RECORDS SUMMARY | 2025-04-14 04:40 | XMS_ITS | Encounter Summary ---
Author Organization [employer] Address [address] [facility] 7 [place] [address] Care Team Providers Care Counterintelligence Agent Name Role Phone Deyvi Ramos MD Primary Care Provider [phone]- [phone] Reason for Visit * Reason Onset Date Comments Durable Medical Equipment 03/27/2024 Encounter Details Date Type Department Care Team ([facility] Contact Info) Description 03/27/2024 Telephone [facility] CHC MED & PEDS [address] [place], [place] [phone] Deyvi Ramos MD [address] [place] [address] Durable Medical Equipment Social History Tobacco Use [...] AM EST Office Visit [facility] MED & PEDS [address] [place] [address] Deyvi Ramos MD [address] [place] [address] 05/19/2025 9:00 AM EST Office Visit [facility] MED & PEDS [address] [place] [address] Deyvi Ramos MD [address] [place] [address] documented as of this encounter Visit Diagnoses Not on filedocumented in this encounter Care Teams Counterintelligence Agent Relationship Specialty Start Date End Date Deyvi Ramos MD [address] [place] [address] PCP - General Internal Medicine 11/22/23 [facility] 04/04/24 documented as of this encounter
--- OUTSIDE RECORDS SUMMARY | 2025-04-14 04:40 | XMS_ITS | Encounter Summary ---
Author Organization [employer] Address [address] [facility] 7t [place] [address] Care Team Providers Care Supervisor Adult Education Name Role Phone Deyvi Ramos MD Primary Care Provider [phone] Encounter Details Date Type Department Care Team ([facility] st Contact Info) Description 05/16/2024 Orders Only [facility] CHC MED & PEDS [address] [place], [place] [phone] Deyvi Ramos MD [address] [place] [address] Social History Tobacco Use Types Packs/Day Years [...] [facility] MED & PEDS [address] [place] [address] Deyvi Ramos MD [address] [place] [address] 05/19/2025 9:00 AM EST Office Visit [facility] MED & PEDS [address] [place] [address] Deyvi Ramos MD [address] [place] [address] documented as of this encounter Visit Diagnoses Not on filedocumented in this encounter Care Teams Supervisor Adult Education Relationship Specialty Start Date End Date Deyvi Ramos MD [address] [place] [address] PCP - General Internal Medicine 11/22/23 [facility] 04/04/24 documented as of this encounter
--- OUTSIDE RECORDS SUMMARY | 2025-04-14 04:40 | XMS_ITS | Encounter Summary ---
Author Organization [employer] Address [address] [place] [address] [address] [address] Care Team Providers Care Locker Room Clerk Name Role Phone Deyvi Ramos MD Primary Care Provider [phone]- [phone] Deyvi Ramos MD Primary Care Provider [phone]- [phone] Encounter Details Date Type Department Care Team (Latest Contact Info) Description 11/15/2018 Abstract [facility] CONVERSIONS Dental, Provider, DDS Social [...] 10:30 AM EST Office Visit [facility] MED & PEDS [address] [place] [address] Deyvi Ramos MD [address] [place] [address] 05/19/2025 9:00 AM EST Office Visit [facility] MED & PEDS [address] [place] [address] Deyvi Ramos MD [address] [place] [address] documented as of this encounter Visit Diagnoses Not on filedocumented in this encounter Care Teams Locker Room Clerk Relationship Specialty Start Date End Date Deyvi Ramos MD [address] [place] [address] PCP - General Internal Medicine 06/12/13 06/03/23 Deyvi Ramos MD [address] [place] [address] PCP - General Internal Medicine 11/22/23 [facility] 04/04/24 documented as of this encounter
--- OUTSIDE RECORDS SUMMARY | 2025-04-14 04:40 | XMS_ITS | Encounter Summary ---
Author Organization [employer] Address [address] [place] [address] 7 [place] [address] Care Team Providers Care Careers Adviser Name Role Phone Deyvi Ramos MD Primary Care Provider [phone] Deyvi Ramos MD Primary Care Provider [phone]- [phone] Reason for Visit * Reason Onset Date Comments New Script 09/20/2022 Encounter Details Date Type Department Care Team ([facility] Contact Info) Description 09/20/2022 Telephone [facility] CHC MED & PEDS [address] [place], [place] [phone] Deyvi Ramos MD [address] [place], [place] [phone] New Script Social History Tobacco Use Types [...] Thank you. * Telephone Encounter - Linda Cuh - 09/20/2022 11:17 AM EDT [facility] requesting a new script for calcium carbonate 1500 (600 Ca) MG tablet for a 90 day's supply due to insurance not covering other script. Please contact pharmacy at [phone] documented in this encounter Plan of Treatment Upcoming Encounters Date Type Department Care Team (Late st Contact Info) Description 04/30/2025 10:30 AM EST Office Visit [facility] MED & PEDS [address] [place] [address] Deyvi Ramos MD [address] [place] [address] 05/19/2025 9:00 AM EST Office Visit [facility] MED & PEDS [address] [place] [address] Deyvi Ramos MD [address] [place] [address] documented as of this encounter Visit Diagnoses Not on filedocumented in this encounter Care Teams Careers Adviser Relationship Specialty Start Date End Date Deyvi Ramos MD [address] [place] [address] PCP - General Internal Medicine 06/12/13 06/03/23 Deyvi Ramos MD [address] [place] [address] PCP - General Internal Medicine 11/22/[address] [facility] 04/04/24 documented as of this encounter
--- OUTSIDE RECORDS SUMMARY | 2025-04-14 04:40 | XMS_ITS | Encounter Summary ---
Author Organization [employer] Address [address] [place] [address] Care Team Providers Care Manager Cleaning Name Role Phone Deyvi Ramos MD Primary Care Provider [phone] Deyvi Ramos MD Primary Care Provider [phone]- [phone] Encounter Details Date Type Department Care Team (Late Contact Info) Description 09/19/2022 Orders Only [facility] MED & PEDS [address] [place] [address] Judith Britton LPN Social History Tobacco Use [...] Description 04/30/2025 10:30 AM EST Office Visit [facility] MED & PEDS [address] [place] [address] Deyvi Ramos MD [address] [place] [address] 05/19/2025 9:00 AM EST Office Visit [facility] MED & PEDS [address] [place] [address] Deyvi Ramos MD [address] [place] [address] documented as of this encounter Visit Diagnoses Not on filedocumented in this encounter Care Teams Manager Cleaning Relationship Specialty Start Date End Date Deyvi Ramos MD [address] [facility] [place] [address] PCP - General Internal Medicine 06/12/13 06/03/23 Deyvi Ramos MD [address] [place] [address] PCP - General Internal Medicine 11/22/23 [facility] 04/04/24 documented as of this encounter
--- OUTSIDE RECORDS SUMMARY | 2025-04-14 04:40 | XMS_ITS | Encounter Summary ---
Author Organization [employer] Address [address] [place] [address] Care Team Providers Care Flame Cutting Machine Operator Helper Name Role Phone Deyvi Ramos MD Primary Care Provider [phone]- [phone] Reason for Visit * Reason Comments Med Refill Encounter Details Date Type Department Care Team ([facility] Contact Info) Description 08/13/2023 Refill [facility] MED & PEDS [address] [place] [address] Deyvi Ramos MD [address] [place] [address] Osteoporosis of disuse Social History Tobacco Use [...] Upcoming Encounters Date Type Department Care Team ([facility] Contact Info) Description 04/30/2025 10:30 AM EST Office Visit [facility] CHC MED & PEDS [address] [place] [address] Deyvi Ramos MD [address] [place] [address] 05/19/2025 9:00 AM EST Office Visit [facility] MED & PEDS [address] [place] [address] Deyvi Ramos MD [address] [facility] [place] [address] documented as of this encounter Visit Diagnoses Diagnosis Osteoporosis of disuse Disuse osteoporosis documented in this encounter Care Teams Flame Cutting Machine Operator Helper Relationship Specialty Start Date End Date Deyvi Ramos MD 505 [facility] [place] [address] PCP - General Internal Medicine 11/22/23 [facility] 04/04/24 documented as of this encounter
--- OUTSIDE RECORDS SUMMARY | 2025-04-14 04:40 | XMS_ITS ---
Author Organization [facility] an d Nursing Care Team Providers Care Tow Operator Name Role Phone Kyle Lowe Unavailable Unavailable Jina Gray Unavailable Unavailable Allergies and adverse reactions Code CodeSystem Substance Reaction Severity StartDate Concern Status Sulfa Unknown 01/05/2024 active Care Team Name Role Address Phone Organization Dates Jina Gray PCP [address], [address], [place] (Office): : [facility]ab and Nursing 01/05/2024 - 04/03/2024 Kyle Lowe [address], [place], [address], [place] (Office): : : [facility] 01/05/2024 - 04/03/2024 Immunizations Immunization [...] PHQ-9 02 minimal depress ion Insurance Providers Coverage Status Coverage Type Relationship to Subscriber Member Identifier Subscriber Identifier Group Identifier Payer Identifier and Other information Code: 2 Code System OID:[id number] .[id number]. 221.5 Code System Name: Source of Payment Typology (PHDSC) Display: Medicaid Translation: Code: 48 Code System: OID:2.16.840 .1.385861.6. 255.1336 Code System Name: Insurance Type Code ([id number]) Display Name: Medicaid Code: 81 Code System OID:2.16.840 .1.092000.3. 221.5 Code System Name: Source of Payment Typology (PHDCO) Display: Self Pay Translation: Code: 09 Code System: OID:2.16.840 .1.510662.6. 255.1336 Code System Name: Insurance Type Code ([id number]) Display Name: Self-pay Code: 349 Code System OID:2.16.840 .1.541894.3. 221.5 Code System Name: Source of Payment Typology (PHDCO) Display: Other Translation: Code: C1 Code System: OID:2.16.840 .1.645264.6. 255.1336 Code System Name: Insurance Type Code ([id number]) Display Name: Commercial Insurance Problems Problem # Description Date of onset Resolved Date Code CodeSystem Concern Status 1 INSOMNIA, UNSPECIFIED 01/07/[address] active 2 ADULT FAILURE TO THRIVE 01/05/[address] active 3 AGE-RELATED OSTEOPOROSIS WITHOUT CURRENT PATHOLOGICAL FRACTURE 01/05/[address] active 4 CHRONIC OBSTRUCTIVE PULMONARY DISEASE, UNSPECIFIED 01/05/[address] active 5 DIFFICULTY IN WALKING, NOT ELSEWHERE CLASSIFIED 01/05/[address] active 6 HYPO-OSMOLALITY AND HYPONATREMIA 01/05/[address] active 7 HYPOKALEMIA 01/05/[address] active 8 MUSCLE WEAKNESS (GENERALIZED) 01/05/[address] active 9 OTHER LACK OF COORDINATION 01/05/[address] active 10 REPEATED FALLS 01/05/[address] ac tive 11 TACHYCARDIA, UNSPECIFIED 01/05/[address] active 12 UNSPECIFIED FALL, SUBSEQUENT ENCOUNTER 01/05/[address] active 13 WEAKNESS 01/05/[address] active 14 WEDGE COMPRESSION FRACTURE OF UNSPECIFIED LUMBAR VERTEBRA, SUBSEQUENT ENCOUNTER FOR FRACTURE WITH ROUTINE HEALING 01/05/[address] active Reason for Referral No Reasons for Referral Entered Social History Social History Observation Description Start Date End Date Code Code System Current Smoking Status Tobacco smoking consumption unknown 760566687 SNOMED CT Sex Assigned At Female 1965 85160-2 [facility] Gender Identity Sexual Orientation Vital Signs Code Code System Vitals Name Values and Units Timing Information 8867-4 [facility] Heart rate Value=72.0 Units=/min 9279-1 [facility] Respiratory Rate Value=18.0 Units=/m in 04/03/2024 91156-4 [facility] O2 % BldC Oximetry Value=96.0 Units= % 04/03/2024 90791-5 [facility] Pain Level Value=0.0 03/31/2024 37491-9 [facility] Weight Aydlr=041.0 Units=Lbs 11/2023 8310-5 [facility] Body Temperature Value=97.6 Units= F 03/18/2024 8302-2 [facility] Height Value=66.0 Units=Inches 01/08/2024 8462-4 [facility] Blood Pressure-Diastolic Value=63 Un its=mmHg 01/08/2024 8480-6 [facility] Blood Pressure-Systolic Zxahh=275 Un its=mmHg 01/08/2024
--- OUTSIDE RECORDS SUMMARY | 2025-04-14 04:40 | XMS_ITS | Encounter Summary ---
Author Organization [employer] Address [address] [facility] 7 [place] [address] Care Team Providers Care Radiologist Physician Name Role Phone Deyvi Ramos MD Primary Care Provider [phone]- [phone] Reason for Visit * Reason Onset Date Comments Referral 06/17/2024 Encounter Details Date Type Department Care Team ([facility] st Contact Info) Description 06/17/2024 Telephone [facility] [address] [place], [place] [phone] Deyvi Ramos MD [address] [place] [address] Referral Social History Tobacco Use Types Packs/Day [...] [facility] [address] [place] [address] Deyvi Ramos MD [address] [place] [address] 05/19/2025 9:00 AM EST Office Visit [facility] [address] [place] [address] Deyvi Ramos MD [address] [place] [address] documented as of this encounter Visit Diagnoses Not on filedocumented in this encounter Care Teams Radiologist Physician Relationship Specialty Start Date End Date Deyvi Ramos MD [address] [place] [address] PCP - General Internal Medicine 11/22/23 [facility] 04/04/24 documented as of this encounter
--- OUTSIDE RECORDS SUMMARY | 2025-04-14 04:40 | XMS_ITS | Encounter Summary ---
Author Organization [employer] Address [address] [facility] 7t [place] [address] Care Team Providers Care Civil Engineer In Training Name Role Phone Deyvi Ramos MD Primary Care Provider [phone] Encounter Details Date Type Department Care Team ([facility] st Contact Info) Description 01/28/2025 Orders Only [facility] PEDS [address] [place], [place] [phone] Deyvi Ramos MD [address] [place] [address] Anxiety (Primary Dx) Social History Tobacco Use [...] Upcoming Encounters Date Type Department Care Team ([facility] st Contact Info) Description 04/30/2025 10:30 AM EST Office Visit [facility] MED [facility] PEDS [address] [place] [address] Deyvi Ramos MD [address] [place] [address] 05/19/2025 9:00 AM EST Office Visit [facility] [address] [place] [address] Deyvi Ramos MD [address] [place] [address] Scheduled Orders Name Type Priority Associated Diagnoses Orde r Schedule Cologuard colon cancer screening Lab Routine Anxiety Expected: 02/03/2025 (Approximate), Expires: 02/03/2026 documented as of this encounter Visit Diagnoses Diagnosis Anxiety- Primary Anxiety state, unspecified documented in this encounter Additional Health Concerns Assessment Noted Time PHQ-9 Depression Total Score: 2 06/26/19 25 11:28 AM EST documented as of this encounter Care Teams Civil Engineer In Training Relationship Specialty Start Date End Date Deyvi Ramos MD [address] [place] [address] PCP - General Internal Medicine 11/22/23 [facility] 04/04/24 documented as of this encounter
--- OUTSIDE RECORDS SUMMARY | 2025-04-14 04:40 | XMS_ITS | Encounter Summary ---
Author Organization [employer] Address [address] [facility] 7 [place] [address] Care Team Providers Care Director Industrial Nursing Name Role Phone Deyvi Ramos MD Primary Care Provider [phone] Reason for Visit * Reason Comments Med Refill Encounter Details Date Type Department Care Team ([facility] st Contact Info) Description 09/10/2024 Refill [facility] [address] [place], [place] [phone] Deyvi Ramos MD [address] [place] [address] Seasonal allergies Social History Tobacco Use Types [...] EST Office Visit [facility] [address] [place] [address] Deyvi Ramos MD [address] [place] [address] 05/19/2025 9:00 AM EST Office Visit [facility] [address] [place] [address] Deyvi Ramos MD [address] [place] [address] documented as of this encounter Visit Diagnoses Diagnosis Seasonal allergies Allergic rhinitis, cause unspecified documented in this encounter Additional Health Concerns Assessment Noted Time PHQ-9 Depression Total Score: 2 06/26/19 25 11:28 AM EST documented as of this encounter Care Teams Director Industrial Nursing Relationship Specialty Start Date End Date Deyvi Ramos MD [address] [place] [address] PCP - General Internal Medicine 11/22/[address] [facility] 04/04/24 documented as of this encounter
--- OUTSIDE RECORDS SUMMARY | 2025-04-14 04:40 | XMS_ITS | Encounter Summary ---
Author Organization [employer] Address [address] [facility] 7t [place] [address] Care Team Providers Care Executive Receptionist Name Role Phone Deyvi Ramos MD Primary Care Provider [phone] Encounter Details Date Type Department Care Team ([facility] st Contact Info) Description 03/13/2025 Orders Only [facility] MED & PEDS [address] [place], [place] [phone] Provider, MD Emilia Social History Tobacco Use [...] [facility] [address] [place] [address] Deyvi Ramos MD [address] [place] [address] 05/19/2025 9:00 AM EST Office Visit [facility] [address] [place] [address] Deyvi Ramos MD [address] [place] [address] documented as of this encounter Procedures Procedure [...] documented as of this encounter Care Teams Executive Receptionist Relationship Specialty Start Date End Date Deyvi Ramos MD [address] [place] [address] PCP - General Internal Medicine 11/22/23 [facility] 04/04/24 documented as of this encounter
--- OUTSIDE RECORDS SUMMARY | 2025-04-14 04:40 | XMS_ITS | Encounter Summary ---
Author Organization [employer] Address [address] [facility] [address] [place] [address] Care Team Providers Care Sheeter Helper Name Role Phone Deyvi Ramos MD Primary Care Provider [phone] Reason for Visit * Reason Onset Date Comments Call back 02/18/2025 Encounter Details Date Type Department Care Team ([facility] st Contact Info) Description 02/18/2025 Telephone [facility] [address] [place] [address] Deyvi Ramos MD [address] [place], [place] [phone] Call back Social History Tobacco Use Types [...] pt. For clarification please contact [employer] at [phone] documented in this encounter Plan of Treatment Upcoming Encounters Date Type Department Care Team ([facility] st Contact Info) Description 04/30/2025 10:30 AM EST Office Visit [facility] [address] [place] [address] Deyvi Ramos MD [address] [place] [address] 05/19/2025 9:00 AM EST Office Visit [facility] [address] [place] [address] Deyvi Ramos MD [address] [place] [address] documented as of this encounter Visit Diagnoses Not on filedocumented in this encounter Additional Health Concerns Assessment Noted Time PHQ-9 Depression Total Score: 2 06/26/19 25 11:28 AM EST documented as of this encounter Care Teams Sheeter Helper Relationship Specialty Start Date End Date Deyvi Ramos MD [address] [place] [address] PCP - General Internal Medicine 11/22/23 [facility] 04/04/24 documented as of this encounter
--- OUTSIDE RECORDS SUMMARY | 2025-04-14 04:40 | XMS_ITS | Data Portability ---
Author Organization [facility] [employer] [facility], Main Office Address [address] [place] [address] Care Team Providers Care Quality Control Technician Name Role Phone BALA PASCAL - 2ND FLOOR OTHER LISSETTE HOWARD Primary Care Provider [phone] Assessment No assessment recorded. Plan of Treatment [...] Details Recorded Time Chronic obstructive pulmonary disease 88218244 Active 2023 JULIAN BAUER NP [address], [address], [place], [address], [facility] [employer] 4 09:47:06 Osteoporosis 15581154 Active 2023 JULIAN BAUER NP [address], [address], [place], [address], [facility] [employer] 4 09:47:16 Compression fracture of lumbar spine 354778261 Active 2023 JULIAN BAUER NP [address] , [address], [place], [address], [facility] [employer] 4 09:47:46 Retention of urine 381466259 Active 2023 JULIAN BAUER NP [address], [address], [place], [address], [employer] 4 10:04:54 Asthenia 59931017 Active 2023 JULIAN BAUER NP [address], [address], [place], [address], [facility] [employer] [facility] 4 10:05:08 Alcoholism 2947291 Active 2023 JULIAN BAUER NP [address], [address], [place], [address], [facility] 4 10:08:16 Insomnia 249111027 Active 2023 JULIAN BAUER NP [address], [address], [place], [address], [facility] 4 10:45:49 Constipation 17787334 Active 2023 Trudi Deleon NP [address], [address], [place], [address], [facility] 4 14:07:28 Problem Notes None recorded. Medical Equipment None Reported. Allergies Allergen ID Allergen Name Allergen Category Reaction Reaction Severity Criticality Documentation Date Start Date Code Code System Note Provider Name and Address Organization Details Recorded Time 04611 Amoxil medicatio n Not available Not available Not available 09/13/2023 92998 9 RxNorm eye swell ing JULIAN BAUER NP [address], [facility] [address], [place], [address], [facility] 4 09:43:16 51678 pseudoeph edrine Not available Not available Not available Not available 09/13/2023 8896 RxNorm JULIAN BAUER NP [address], [facility] [address], [place], [address], [facility] 4 09:43:28 57154 Substance with sulfonami de structure and antibacte rial mechanism of action (substanc e) medicatio n Not available Not available Not available 09/13/2023 77563 8003 SNOMED swell ing JULIAN BAUER NP [address], [facility] [address], [place], [address], [facility] 4 09:43:42 Medications Name Sig Start [...] Address Organization Details Last Updated DateTime 4 93840.7 8 g 100 /min 18 /min 98.2 [degF] 98 % 107/68 mm[Hg] Trudi Deleon NP [address], [address], [place], [address], [facility] 4 13:48:40 Date Recorded Body weight Heart rate Respiratory rate Body temperature Oxygen saturation Systolic And Diastolic Provider Name and Address Organization Details Last Updated DateTime 4 86536.2 2 g 99 /min 18 /min 97.6 [degF] 96 % 106/60 mm[Hg] Trudi Deleon NP [address], [address], [place], [address], [facility] 4 09:15:48 Date Recorded Body weight Heart rate Respiratory rate Body temperature Oxygen saturation Systolic And Diastolic Provider Name and Address Organization Details Last Updated DateTime 4 44799.4 5 g 108 /min 18 /min 98 [degF] 96 % 149/95 mm[Hg] Trudi Deleon NP [address], [address], [place], [address], [facility] 4 17:32:25 Date Recorded Body weight Heart rate Respiratory rate Body temperature Oxygen saturation Systolic And Diastolic Provider Name and Address Organization Details Last Updated DateTime 4 71530.6 3 g 80 /min 18 /min 97.7 [degF] 94 % 122/60 mm[Hg] Trudi Deleon NP [address], [address], [place], [address], [facility] 4 10:06:03 Date Recorded Body weight Heart rate Respiratory rate Body temperature Oxygen saturation Systolic And Diastolic Provider Name and Address Organization Details Last Updated DateTime 4 26168.6 3 g 88 /min 18 /min 97.1 [degF] 97 % 128/68 mm[Hg] Trudi Deleon NP [address], [address], [place], [address], [place] - [facility] 10:32:34 Social History Question Answer Notes LastModified by Organiz[employer] Details LastModified Time Tobacco Smoking Status Current Some Day Smoker reports she quit a few yrs ago, smoked about 1/4 ppd. No just smokes once in a while, mostly if stressed. JULIAN BAUER NP [address], [address], [place], [address], [facility] 09/13/2023 11:00:19 Do You Have An Advance Directive? No [email or web address] Information not available 09/13/2023 What Is Your Code Status? Full Code [email or web address] Information not available 09/13/2023 Where Do You Live? Apartment Lives Alone, Kids Nearby And Helpful, Few Steps To Enter Apt. [email or web address] Information not available 09/13/2023 What Was The Date Of Your Most Recent Tobacco Screening? 09/13/2023 [email or web address] Information not available 09/13/2023 Do You Have An Out Of Hospital DNR? No [email or web address] Information not available 09/13/2023 Have You Ever Been Counseled For Unhealthy Alcohol Use? Yes Recently In Hosp. [email or web address] Information not available 09/13/2023 Has Tobacco Cessation Counseling Been Provided? Yes [email or web address] Information not available 09/13/2023 On What Date Was Tobacco Cessation Counseling Provided? 09/13/2023 [email or web address] Information not available 09/13/2023 Sex: Unknown Functional Status Question Answer Note LastModified by [employer] Details LastModified Time How many times per week do you consume alcohol? 5-7 times per week [email or web address] Information not available 09/13/2023 Do you use any illicit or recreational drugs? No Information not available 09/13/2023 Do you or have you ever used any other forms of tobacco or nicotine? No [email or web address] Information not available 09/13/2023 What is your level of alcohol consumption? Heavy [facility] paperwork reporting >2 beers per day, pt. says she dtarted drinking in July to help with pain mgmt. [email or web address] Information not available 09/13/2023 Mental Status None recorded. Family History Relationship Description Onset Age of this Age Resolved Age Notes LastModified by Organization Details LastModified Time Father Malignant neoplasm of lung Not available 2023 10:57:57 Mother Malignant neoplasm of lung [email or web address] Not available 2023 10:57:58 Medical History No medical history recorded. Gynecological HistoryNo gynecological history recorded. Obstetrics History GPAL:G 0 P 0 0 0 0 Immunizations Vaccine Type Date Status Note Provider Nam e and Address Organization Details Recorded Time Tdap 1 completed [facility] 09/14/2023 11:08:39 Tdap 5 completed [facility] 09/14/2023 11:08:46 Td(adult) unspecified formulation 3 completed [facility] 09/14/2023 11:08:59 pneumococcal polysaccharide PPV23 8 completed [facility] 09/14/2023 11:09:17 SARS-COV-2 (COVID-19) vaccine, UNSPECIFIED 1 completed [facility] 09/14/2023 11:09:33 SARS-COV-2 (COVID-19) vaccine, UNSPECIFIED 1 completed [facility] 09/14/2023 11:09:40 SARS-COV-2 (COVID-19) vaccine, UNSPECIFIED 2 completed [facility] 09/14/2023 11:09:47 Past Encounters Encounter ID Performer Location Encounter Start Date Encounter Closed Date Diagnosis/Indication Diagnosis SNOMED-CT Code Diagnosis ICD10 Code Diagnosis IMO Codes Diagnosis Note [id number] JULIAN BAUER NP [place] [address] [place] [address] 09/13/2023 09:38:33 09/19/2023 07:38:06 Compression fracture of lumbar spine 836115522 M48.56XA Back pain worsening x 1 month.X [...] opioid use.Goal is to return home. Asthenia 71497480 R53.1 Deconditio rudy from hospitaliz ation, unsure of baseline level of functionin g but suspect its not optimal.PT OT eval and tx.Goal is to return home. Retention of urine 68097 4002 R33.9 Lopez present upon exam, no mention of this in available [facility] paperwork sent.Pt. said it was placed due because she couldn't pee.Will remove early am, start bladder scan q shift and cath if >300 ml. Chronic ob structive pulmonary disease 19260716 J44.9 Continue home meds:zyrte c 10 mg qdalbutero l MDI prnflutica sone inhaler 2 inh bidMonitor resp. status Osteoporosis 05463812 M8 1.0 Continue home meds:fosam ax 70 mh q wkCa 600 mg qdVit D 1000 iu qd Alcoholism 2712278 F10.2 0 Active drinkerPhe nobarb started due to concern of withdrawal in hosp.Ru ine startedEnc ourage abstinence - discussed, jennifer. with use of oxycodone Insomnia 188151749 G47.0 9 Reports this is why she takes trazodone at [facility] suspect underlying anxiety/de pression. [id number] [facility] [address] 09/16/2023 12:12:28 09/19/2023 08:35:02 Recurrent falls 178512597 R29.6 PT OT eval and treatmonit or fall risk and need for increased support in community Compressio n fracture of lumbar spine 787397979 M48.56XA see HPIL1 and L5 comp fxmonitor for pain controlthe rapy to eval and followmoni tor need for vertebropl astystart flexeril 10 mg q 8 prn Retention of urine 45533 4002 R33.8 lopez since removedmon itor post void residuals Chronic ob structive pulmonary disease 11844356 J41.1 continue out patient medsmonito r respirator y function Alcoholism 5105231 F10.2 0 required phenobarbi shawna in hospitalpa aniya denalfredo states at most 2 beers per dayencoura ge support in community if needed [id number] Tr[facility] [address] [place] [address] 09/20/2023 13:51:02 09/25/2023 07:58:06 Compression fracture of lumbar spine 827672752 M48.56XA L1 and L5 comp fxmonitor for pain controlthe rapy to eval and followmoni tor need for vertebropl astyoxycod one 5 mg po q 6 hours prn mod/severe pain(only uses 1-2 times a day for pain)flexe ril 10 mg q 8 prn ( has not used yet, will today)09/19 start lidocaine patch to right lower back/hip dailymonit or Recurrent falls 79127706 2 R29.6 PT OT eval and treatmonit or fall risk and need for increased support in community Retention of urine 11884 4002 R33.8 lopez since removedmon itor post void residuals Asthenia 06100107 R53.1 Deconditio rudy from hospitaliz ation, unsure of baseline level of functionin g but suspect its not optimal.PT OT eval and tx.Goal is to return home. Osteoporosis 77624503 M8 1.0 Continue home meds:fosam ax 70 mh q wkCa 600 mg qdVit D 1000 iu qd Alcoholism 5817247 F10.2 0 Active drinker, stopped since hospitalPh enobarb started due to concern of withdrawal in hosp.cont thiamineEn courage abstinence - discussed, jennifer. with use of oxycodone Constipation 29629200 K5 9.00 pt is constipate d and has not had bm in 1 weekstartm om 30 cc nowbisacod yl 10 mg po nowstart senna s dailymonit or closely for bm [id number] [facility] [address] [place] [address] 09/21/2023 13:47:34 09/25/2023 09:43:12 Compression fracture of lumbar spine 250381490 M48.56XA L1 and L5 comp fxmonitor for [...] patch to right lower back/hip dailymonit or [id number] Trudi Deleon NP [facility] [address] 09/24/2023 09:15:11 09/26/2023 11:57:50 Compression fracture of lumbar spine 071377302 M48.56XA L1 and L5 comp fxmonitor for [...] it is available as neededmoni tor Constipation 18126076 K5 9.00 resolvedco ntsenna s dailymonit or closely for bm Recurrent falls 14847985 2 R29.6 PT OT eval and treatmonit or fall risk and need for increased support in community Asthenia 48185730 R53.1 [facility], unsure of baseline level of functionin g but suspect its not optimal.PT OT eval and tx.Goal is to return home. Osteoporosis 29581655 M8 1.0 Continue home meds:fosam ax 70 mh q wkCa 600 mg qd, she reports taking a pill instead of tums and changed todayVit D 1000 iu qd Alcoholism 0238772 F10.2 0 Active drinker, stopped since hospitalPh enobarb started due to concern of withdrawal in hosp.cont thiamineEn courage abstinence - discussed, jennifer. with use of oxycodone [id number] Trudi Deleon NP [facility] [address] [address] 09/26/2023 15:12:59 10/01/2023 10:29:14 Compression fracture of lumbar spine 753804686 M48.56XA L1 and L5 comp fxmonitor for [...] is available as neededmoni tor Recurrent falls 98778649 2 R29.6 PT OT eval and treatmonit or fall risk and need for increased support in community Asthenia 78789533 R53.1 Deconditio rudy from [facility] e of baseline level of functionin gPT OT eval and tx.Goal is to return home. Osteoporosis 58373080 M8 1.0 Continue home meds:fosam ax 70 mh q wkCa 600 mg qd, she reports taking a pill instead of tums and changed todayVit D 1000 iu qd Alcoholism 4081083 F10.2 0 Active drinker, stopped since hospitalPh enobarb started due to concern of withdrawal in hosp.cont thiamineEn courage abstinence - discussed, jennifer. with use of oxycodone Tachycardia 8152783 R00. 0 hr 120-140s on palp and 101-108 on recheck with high bp09/25 start metoprolol tartate 12. 5mg po now and then dailymonit or hr/vitals q shift x 5 days then daily [id number] Trudi Deleon NP [facility] [address] [address] 09/28/2023 09:39:42 10/03/2023 08:37:24 Tachycardia 1653296 R00.0 resolving this am HR 80 after metorpolol 12.5 mgcontmeto prolol tartate 12. 5mg po daily(star néstor on 09/25 here)monit or hr/vitals q shift x 5 days then daily Compressio n fracture of lumbar spine 636748162 M48.56XA L1 and L5 comp fxmonitor for [...] is available as neededmoni tor Recurrent falls 67797711 2 R29.6 PT OT eval and treatmonit or fall risk and need for increased support in community Asthenia 67994579 R53.1 Deconditio rudy from [facility] e of baseline level of functionin gPT OT eval and tx.Goal is to return home. Osteoporosis 50410984 M8 1.0 Continue home meds:fosam ax 70 mh q wkCa 600 mg qd, she reports taking a pill instead of tums and changed todayVit D 1000 iu qd Alcoholism 0442087 F10.2 0 Active drinker, stopped since hospitalPh enobarb started due to concern of withdrawal in hosp.cont thiamineEn courage abstinence - discussed, jennifer. with use of oxycodone Edema of l ower extremity 183493972 R60.0 edema to lower extremitie s and thigheleva te intermitte ntly throughout day09/27 she is willing to try one dose 09/28 in am 0800 lasix 20 mg po and will reeval from theremonit or [id number] Trudi [facility] [address] 10/03/2023 08:11:07 10/16/2023 12:56:05 Edema of lower extremity 379553730 R60.0 edema to lower extremitie s and thigh resolvinge levate intermitte ntly throughout dayon 09/28 lasix 20 mg po x 1 dose given with good effect and will reeval with pcp outpt Tachycardia 8227234 R00. 0 resolving this am HR 80 after metorpolol 12.5 mgcontmeto prolol tartate 12. 5mg po daily(star néstor on 09/25 here)monit or outpt with pcp and nsg Compressio n fracture of lumbar spine 106775134 M48.56XA L1 and L5 comp fxtherapy to [...] dailymonit or outpt with pcp Recurrent falls 78497971 2 R29.6 PT OT eval and treat outptmonit or fall risk and need for increased support in community Asthenia 94719704 R53.1 [facility], improved hereunsure of baseline level of functionin gPT OT eval and tx outptGoal is to return home with outpt services and [facility] Osteoporosis 07845927 M8 1.0 Continue home meds:fosam ax 70 mh q wkCa 600 mg qdVit D 1000 iu qdmonitor outpt with pcp Alcoholism 1518311 F10.2 0 Active drinker, stopped since hospitalPh enobarb started due to concern of withdrawal in hosp.does not have obvious s/s of withdrawal herecont thiamineEn courage abstinence - discussed, jennifer. with use of oxycodonef u outpt with pcp Constipation 57283938 K5 9.00 resolvedco ntsenna s dailymonit or closely for bm outpt with pcp Health Concerns Section Related Observation LastModified by Organization Detai ls LastModified Time None Recorded Concern Status LastModified by Organization Details LastModified Time None Recorded Advance Directives Directive N: Payers Insurance Date Sequence Insurance Name Policy Number Policy Jung Covered Member ID Jung Member ID Guarantor Name 10/16/2023 1 [place] [employer] Adrianna Lucio [id number] Adrianna Lucio Notes Date Note Type Note Provider Name and Address Organization Details Recorded Time 09/21/2023 text/html Adrianna is seen today for an acute rounding visit today. PMH: COPD, OP, ETOH abuse, insomnia Adrianna is a 58 yo woman admitted to [facility] 09/12/23 from [facility] after a brief hosp. related to back pain due to VCF and ETOH withdrawal.'She was seen by Dr. mcdonald recommending she start on tinazadine instead of flexeril as pt is worried about drowsiness wtih flexeril. On exam Adrianna is lying in bed states her back remains with spasms. She is agreeable to try the new medication. note: She presented to [facility] 09/09/23 due to worsening LBP x 1 [...] assumed full code Trudi Deleon, JANELLE [address], [address], [place], [address], [place] - [facility] 09/21/2023 13:52:18 09/24/2023 text/html Adrianna is seen today for an acute rounding visit today. PMH: COPD, OP, ETOH abuse, insomnia Adrianna is a 58 yo woman admitted to [facility] 09/12/23 from [facility] after a brief hosp. related to back [...] to tab form. note: She presented to [facility] 09/09/23 due to worsening LBP x 1 [...] assumed full code Trudi Deleon, JANELLE [address], [address], [place], [address], [facility] [employer] 09/24/2023 09:37:36 09/26/2023 text/html Adrianna is seen today for an acute rounding visit today. PMH: COPD, OP, ETOH abuse, insomnia Bri is a 58 yo woman admitted to [facility] 09/12/23 from [facility] after a brief hosp. related to back pain due to VCF and ETOH withdrawal.'Since at [facility] she was seen by Dr. [...] brief period also. note: She presented to [facility] 09/09/23 due to worsening LBP x 1 [...] assumed full code Trudi Deleon, JANELLE [address], [address], [place], [address], [facility] - [facility] 09/26/2023 17:49:53 09/28/2023 text/html Adrianna is seen today for an acute visit. PMH: COPD, OP, ETOH abuse, insomnia Adrianna is a 58 yo woman admitted to [facility] 09/12/23 from [facility] after a brief hosp. related to back [...] in the same day.'of note: Since at [facility] she was seen by Dr. [...] the other day. note: She presented to [facility] 09/09/23 due to worsening LBP x 1 [...] assumed full code Trudi Deleon, JANELLE [address], [address], [place], [address], [facility] - [employer] [facility] 09/28/2023 10:18:22 10/03/2023 text/html Adrianna is seen today for a discharge visit. PMH: COPD, OP, ETOH abuse, insomnia Adrianna is a 58 yo woman admitted to [facility] on 09/12/23 from [facility] after a brief hosp. related to back pain due to VCF and ETOH withdrawal. She presented to [facility] 09/09/23 due to worsening LBP x 1 [...] Chest CTA neg. PE While here at [facility]:She was recently started on metoprolol 12.5 mg [...] assumed full code Trudi Deleon NP [address], [address], [place], [address], [facility] - [facility] [facility] 10/03/2023 11:28:52 OBGyn Episode No OBEpisode recorded.
--- OUTSIDE RECORDS SUMMARY | 2025-04-14 04:40 | XMS_ITS | Encounter Summary ---
Author Organization [employer] Address [address] [place] [address] Care Team Providers Care Activities Manager Name Role Phone Deyvi Ramos MD Primary Care Provider [phone] Reason for Visit * Reason Comments Med Refill Encounter Details Date Type Department Care Team ([facility] Contact Info) Description 08/09/2023 Refill [facility] [address] [place] [address] Deyvi Ramos MD [address] [place] [address] Social History Tobacco Use Types Packs/Day Years [...] Upcoming Encounters Date Type Department Care Team ([facility] Contact Info) Description 04/30/2025 10:30 AM EST Office Visit [facility] [address] [place] [address] Deyvi Ramos MD [address] [place] [address] 05/19/2025 9:00 AM EST Office Visit [facility] [address] [place] [address] Deyvi Ramos MD [address] [place] [address] documented as of this encounter Visit Diagnoses Not on filedocumented in this encounter Care Teams Activities Manager Relationship Specialty Start Date End Date Deyvi Ramos MD [address] [place] [address] PCP - General Internal Medicine 11/22/23 [facility] 04/04/24 documented as of this encounter
--- OUTSIDE RECORDS SUMMARY | 2025-04-14 04:40 | XMS_ITS | Encounter Summary ---
Author Organization [employer] Address [address] [place] [address] Care Team Providers Care Impregnator Name Role Phone Deyvi Ramos MD Primary Care Provider [phone] Reason for Visit * Reason Comments Med Refill Encounter Details Date Type Department Care Team ([facility] Contact Info) Description 06/26/2023 Refill [facility] [address] [place] [address] Deyvi Ramos MD [address] [place] [address] Social History Tobacco Use Types Packs/Day Years [...] Upcoming Encounters Date Type Department Care Team ([facility] Contact Info) Description 04/30/2025 10:30 AM EST Office Visit [facility] PEDS [address] [place] [address] Deyvi Ramos MD [address] [place] [address] 05/19/2025 9:00 AM EST Office Visit [facility] MED & PEDS [address] [place] [address] Deyvi Ramos MD [address] [place] [address] documented as of this encounter Visit Diagnoses Not on filedocumented in this encounter Care Teams Impregnator Relationship Specialty Start Date End Date Deyvi Ramos MD [address] [place] [address] PCP - General Internal Medicine 11/22/23 [facility] 04/04/24 documented as of this encounter
--- OUTSIDE RECORDS SUMMARY | 2025-04-14 04:40 | XMS_ITS | Encounter Summary ---
Author Organization [employer] Address [address] [facility] 7t [place] [address] Care Team Providers Care Target Aircraft Controller Name Role Phone Deyvi Ramos MD Primary Care Provider +1- [phone] Encounter Details Date Type Department Care Team ([facility] Contact Info) Description 2025 Orders Only [facility] MED & PEDS [address] [place], [place] [phone] Deyvi Ramos MD [address] [place] [address] Screen for colon cancer (Primary Dx) Social [...] Upcoming Encounters Date Type Department Care Team ([facility] Contact Info) Description 04/30/2025 10:30 AM EST Office Visit [facility] [address] [place] [address] Deyvi Ramos MD [address] [place] [address] 05/19/2025 9:00 AM EST Office Visit [facility] [address] [place] [address] Deyvi Ramos MD [address] [place] [address] Scheduled Orders Name Type Priority Associated Diagnoses [...] documented as of this encounter Care Teams Target Aircraft Controller Relationship Specialty Start Date End Date Deyvi Ramos MD [address] [place] [address] PCP - General Internal Medicine 11/22/23 [facility] 04/04/24 documented as of this encounter
--- OUTSIDE RECORDS SUMMARY | 2025-04-14 04:40 | XMS_ITS | Clinical Summary ---
Author Organization [employer] Address [address] [facility] 7t [place] [address] Care Team Providers Care Boat Oar Maker Name Role Phone Deyvi Ramos MD Primary Care Provider +1- [phone] Allergies Active Allergy Reactions Criticality Noted Date [...] mL 3 5 Active Fluocinolone Acetonide Scalp ([place]oot[place]/ FS Scalp) 0.01 % oilIndications: Telogen effluvium [...] ns:Compression fracture of L1 vertebra, initial encounter ([facility]) ([facility]) Take 1 tablet (500 mg) by mouth every 8 (eight) hours if needed for mild pain. 90 tablet 2 5 Active cholecalciferol (Vitamin D3) 25 MCG (1000 UT) tabletIndicatio ns:Compression fracture of L1 vertebra, initial encounter ([facility]) ([facility]) Take 1 tablet (25 mcg) by mouth Once per day. 90 tablet 1 5 Active cetirizine (ZyrTEC) 10 MG tabletIndicatio ns:Seasonal allergies Take 1 tablet (10 mg) by mouth in the morning. 90 tablet 3 5 Active Calcium-Vitamin D-Vitamin K (Chewable Calcium) 500-200-40 MG-UNT-MCG chewable tabletIndicatio ns:Compression fracture of L1 vertebra, initial encounter ([facility]) ([facility]) 1 tablet daily. 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/24/2017 Depressive disorder 09/28/2016 Migraine 09/28/2016 Osteoporosis 09/28/2016 COPD, mild (CMS/[facility]) 01/15/2014 Encounters Date Type Department Care Team Description 03/13/2025 Orders Only [facility] MED [facility] PED[facility] [address] [place] [address] Provider, MD Emilia 03/11/2025 Orders Only GENERIC EXTERNAL DATA DEPARTMENT Provider, Generic External Data 2025 1:00 PM EDT Immunization [facility] [address] [place] [address] Kavitha Green RN Encounter for immunization 2025 Orders Only [facility] [address] [place] [address] Deyvi Ramos MD Screen for colon cancer (Primary Dx) 2025 Travel 03/02/2025 Patient Outreach [facility] [address] [place] [address] Deyvi Ramos MD Care Coordination ([facility] outreach for SDOH PT-1 needs-referral completed /) 02/26/2025 Travel 02/18/[address] [address] Deyvi Ramos MD Call back 02/09/2025 11:00 AM EDT Office Visit [facility] [address] [place] [address] Deyvi Ramos MD Left leg paresthesias (Primary Dx); Dietary counseling; Exercise counseling; Class 1 obesity due to excess calories with serious comorbidity and body mass index (BMI) of 30.0 to 30.9 in adult; Compression fracture of L1 vertebra, initial encounter ([facility]); Seasonal allergies; Venous insufficiency 02/09/2025 Patient Outreach [address] [address] Deyvi Ramos MD Care Coordination ([facility] outreach for SDOH housing search-LVM ) 02/09/2025 Telephone [facility] [address] [place] [address] Deyvi Ramos MD 02/09/2025 Travel 02/06/2025 Orders Only [facility] External Provider, [facility] 02/06/2025 Telephone [facility] [address] [place] [address] Deyvi Ramos MD Chart Prep 02/05/2025 Patient Outreach [address] [address] Deyvi Ramos MD Care Coordination ([facility] outreach for SDOH PT-1 and food needs-referral completed /) 02/02/2025 Travel 01/29/2025 Results Follow-Up [facility] [address] [place] [address] Awilda Browning, LORRIE BD DEXA Axial 01/28/2025 Orders Only [facility] MED & PEDS [address] [place] [address] Deyvi Ramos MD Anxiety (Primary Dx) 01/28/2025 Orders Only [facility] External Provider, [facility] from Last 3 Months Immunizations Immunization [...] Visit [facility] [address] [place] [address] Deyvi Ramos MD [address] [place] [address] 05/19/2025 9:00 AM EST Office Visit [facility] [address] [place] [address] Deyvi Ramos MD [address] [place] [address] Health Maintenance Due Date Last Done Comments [...] PM EDT Narrative 03/11/2025 3:35 PM EDT [address] [address] Fluoroscopy Report Signed Patient: Adrianna Lucio MR#: [id number] 144 : 1965 Acct:[id number] Age/Sex: 60 / F ADM Date: 03/11/25 Loc: HO.SSS Attending Dr: Kiet Bui MD Ordering Physician: Kiet Bui MD Date of Service: 03/11/25 Procedure(s): FL guidance in OR Accession Number(s): [id number] cc: Deyvi Ramos MD; Kiet Bui MD [...] 03/11/25 1531 DD/ 1309 TD/TT: 03/11/25 1424 Pi/Senior Research Associate: DIPTI Procedure Note Donotuseinterpreter, Image - 03/11/[address] [address] Fluoroscopy Report Signed Patient: Adrianna Lucio AMR#: [id number] 144 : 1965Acct:[id number] Age/Sex: 60 / FADM Date: 03/11/25 Loc: HO.SSS Attending Dr: Kiet Bui MD Ordering Physician: Kiet Bui MD Date of Service: 03/11/25 Procedure(s): FL guidance in OR Accession Number(s): [id number] cc: Deyvi Ramos MD; Kiet Bui MD [...] 03/11/25 1531 DD/ 1309 TD/TT: 03/11/25 1424 Pi/Senior Research Associate: DIPTI [facility] External Provider IMG IR PROCEDURES Final Result * MRSA Nasal Screen (03/11/2025 10:45 AM EDT) MRSA Nasal PCR NEGATIVE Negative [facility] SA Nasal PCR NEGATIVE Negative [facility] MRSA Interpretation SEE NOTE [facility] Comment:MRSA target DNA not detected; SA target DNA not detected.A MRSA NEGATIVE, SA NEGATIVE test result does not precludeMRSA or SA nasal colonization. 03/11/2025 10:4 5 AM EDT 03/11/2025 10:58 AM EDT Generic External Data Provider LAB MICROBIOLOGY - GENERAL ORDERABLES Final Result [facility] [address] [place] [phone] * PET/CT FDG Skull Base To Mid-Thigh (03/06/2025 8:56 AM EDT) Anatomical Region Laterality Modality Computed Tomogra phy us Historical Provider MD JONES CT PROCEDURES Final R esult * CT Lung Screening Low dose (02/06/2025 11:03 AM EDT) Anatomical Region Laterality Modality Lung Computed Tomogra phy 02/06/2025 11:0 3 AM EDT Narrative 02/06/2025 12:15 PM EDT [address] [address] [address] Scan Report Signed Patient: Adrianna Lucio MR#: [id number] 144 : 1965 Acct:[id number] Age/Sex: 59 / F ADM Date: 02/06/25 Loc: HO.CT Attending Dr: Maria Alejandra Kennedy PA-C Ordering Physician: Maria Alejandra Kennedy PA-C Date of Service: 02/06/25 Procedure(s): CT lung screening Accession Number(s): [id number] cc: Deyvi Ramos MD; Maria Alejandra Kennedy PA-C Report Number: [id number]: Total DLP = 54.00 mGy-cm Reason for [...] 02/06/25 1155 DD/ 1103 TD/TT: 02/06/25 1118 Pi/Senior Research Associate: Procedure Note Donotuseinterpreter, Image - 02/06/[address] [place] [address] [address] Scan Report Signed Patient: Adrianna Lucio [facility]#: [id number] 144 : 1965Acct:[id number] Age/Sex: 59 / FADM Date: 02/06/25 Loc: HO.CT Attending Dr: Maria Alejandra Kennedy PA-C Ordering Physician: Maria Alejandra Kennedy PA-C Date of Service: 02/06/25 Procedure(s): CT lung screening Accession Number(s): [id number] cc: Deyvi Ramos MD; Maria Alejandra Kennedy PA-C Report Number: [id number]: Total DLP = 54.00 mGy-cm Reason for [...] 02/06/25 1155 DD/ 1103 TD/TT: 02/06/25 1118 Pi/Senior Research Associate: [facility] External Provider IMG CT PROCEDURES Final Result * BD DEXA Axial (01/28/2025 2:37 PM EDT) Anatomical Region Laterality Modality Body Radiographic Rebecca ging 01/28/2025 2:37 PM EDT [facility] 01/28/2025 3:21 PM EDT [place] [facility] [address] [place] [address] Mammography Report Signed Patient: Adrianna Lucio MR#: [id number] 144 : 1965 Acct:[id number] Age/Sex: 59 / F ADM Date: 01/28/25 Loc: HO.MAMMO Attending Dr: Deyvi Ramos MD Ordering Physician: Kiet Bui MD Results: Date of Service: 01/28/25 Follow Up: Procedure(s): XR DEXA axial skeleton Accession Number(s): [id number] cc: Deyvi Ramos MD; Kiet Bui MD Reason For Exam: S32.000A - Wedge compression fracture of unspecified lumbar vertebra, in... EXAMINATION: DXA BONE DENSITY AXIAL HISTORY: S32.000A - Wedge compression fracture of unspecified lumbar vertebra... TECHNIQUE: basestone Dual energy absorptiometry (DEXA) of the lumbar [...] of the [employer] [place] for Metabolic Bone Disease, a World Health Organization (WHO) Collaborating Center. Electronically signed by: Stephan Cortes MD 01/28/2025 03:18 PM EDT RP Dictated By: Stephan Cortes MD Signed By: <Electronically signed by Stephan Cortes MD in OV> 01/28/25 1518 DD/ 1437 TD/TT: 01/28/25 1500 Pi/Senior Research Associate: Procedure Note Donotuseinterpreter, Image - 01/28/2025 [facility] [address] [place] [address] Mammography Report Signed Patient: Adrianna Lucio AMR#: [id number] 144 : 1965Acct:[id number] Age/Sex: 59 / FADM Date: 01/28/25 Loc: HO.MAMMO Attending Dr: Deyvi Ramos MD Ordering Physician: Kiet Bui MDResults: Date of Service: 01/28/25Follow Up: Procedure(s): XR DEXA axial skeleton Accession Number(s): [id number] cc: Deyvi Ramos MD; Kiet Bui MD Reason For Exam: S32.000A - Wedge compression fracture of unspecifiedlumbar vertebra, in... EXAMINATION: DXA BONE DENSITY AXIAL HISTORY: S32.000A - Wedge compression fracture of unspecified lumbar vertebra... TECHNIQUE: basestone Dual energy absorptiometry (DEXA) of the lumbar [...] of the [employer] [place] for Metabolic Bone Disease, a World Health Organization (WHO) Collaborating Center. Electronically signed by: Stephan Cortes MD 01/28/2025 03:18 PM EDT Dictated By: Stephan Cortes MD Signed By: <Electronically signed by Stephan Cortes MD in OV> 01/28/25 1518 DD/ 1437 TD/TT: 01/28/25 1500 Pi/Senior Research Associate: [facility] External Provider IMG DXA PROCEDURES Edited Result - Final * BI Mammogram Screening Tomosynthesis Bilateral (01/28/2025 2:00 PM EDT) Anatomical Region Laterality Modality Breast Bilateral Mammography 01/28/2025 2:00 PM EDT Narrative 02/02/2025 2:13 PM EDT [place] [facility] [address] [place] [address] Mammography Report Signed Patient: Adrianna Lucio MR#: [id number] 144 : 1965 Acct:[id number] Age/Sex: 59 / F ADM Date: 01/28/25 Loc: HO.MAMMO Attending Dr: Deyvi Ramos MD Ordering Physician: Deyvi Ramos MD Results: 1 Negative Date of Service: 01/28/25 Follow Up: 1 Year From Orig ina Mammogram Procedure(s): MM tomosynthesis screening BI Accession Number(s): [id number] cc: Deyvi Ramos MD Reason For Exam: [...] 02/02/25 1410 DD/ 1400 TD/TT: 01/28/25 1420 Pi/Senior Research Associate: Procedure Note Donotuseinterpreter, Image - 02/02/2025 [place] [facility] [address] [place], [place] [address] Mammography Report Signed Patient: Adrianna Lucio AMR#: [id number] 144 : 1965Acct:[id number] Age/Sex: 59 / FADM Date: 01/28/25 Loc: HO.MAMMO Attending Dr: Deyvi Ramos MD Ordering Physician: Deyvi Ramos MDResults: 1 Negative Date of Service: 01/28/25Follow Up: 1 Year From Orig inal Mammogram Procedure(s): MM tomosynthesis screening BI Accession Number(s): [id number] cc: Deyvi Ramos MD Reason For Exam: [...] 02/02/25 1410 DD/ 1400 TD/TT: 01/28/25 1420 Pi/Senior Research Associate: us Deyvi Ramos MD IMG BI PROCEDURES Final Res ult * Hepatitis C Antibody with Reflex to HCV, RNA, Quantitative, Real-Time PCR (10/16/2024 11:36 AM EDT) Hepatitis C Antibody Nonreactive Nonreactive [facility] Comment:Antibodies to HCV no t detected; does not exclude early acuteHCV infection. Blood Venous blood specimen / Unknown 10/16/2024 11:36 AM EDT 10/16/2024 2:08 PM EDT us Deyvi Ramos MD LAB BLOOD ORDERABLES Final Result Performing Organization Address [facility] Co de Phone Number [facility] [address] [place] [phone] * HIV-1/2 Antigen and Antibodies, Fourth Generation, with Reflexes (10/16/2024 11:36 AM EDT) Pathologist [facility] HIV AB/AG Nonreactive Nonreactive [facility] Comment:HIV-1 p24 Ag and/or HIV-1/HIV-2 Ab not detected.A test result that is nonreactive does not exclude thepossibility of exposure to or infection with HIV-1 and/orHIV-2. Nonreactive results in this assay for individualswith prior exposure to HIV-1 and/or HIV-2 may be due toantigen and antibody levels that are below the limit ofdetection of this assay.The [employer] HIV Ag/Ab Combo assay result andsupplemental assay results should be interpreted inconjunction with the patient's clinical presentation,history and other laboratory results. If the results areinconsistent with clinical evidence, additional testing issuggested to confirm the result. Blood Venous blood specimen / Unknown 10/16/2024 11:36 AM EDT 10/16/2024 2:08 PM EDT us Deyvi Ramos MD LAB BLOOD ORDERABLES Final Result Performing Organization Address [facility] Co de Phone Number [facility] [address] [place] [address] [phone] * (ABNORMAL) Lipid Panel, Standard (04/15/2024 10:54 AM EST) Triglycerides 120 <150 mg/dL [facility] Comment:Desirable Triglyceri de: less than 150 mg/dLBorderline High Triglyceride 150-199 mg/dLHigh Triglyceride: 200-499 mg/dLVery High Triglyceride: greater than or equal to 5OO mg/dL Cholesterol 197 <200 mg/dL [facility] Comment:Desirable Cholestero l: less than 200 mg/dLBorderline High Cholesterol: 200-239 mg/dLHigh Cholesterol: greater than 239 mg/dL LDL Cholesterol Calculated 126(H) <100 mg/dL [facility] Comment:Desirable LDL: less than 100 mg/dLNear Optimal/Above Optimal LDL: 110- 129 mg/dLBorderline High LDL: 130-159 mg/dLHigh LDL: 160-189 mg/dLVery High LDL: greater than or equal to 190 mg/dL HDL Cholesterol 47 >40 mg/dL [facility] Comment:Desirable HDL: great er than 40 mg/dL Note: This HDL assay may give artificially low results in patients with liver disease. Blood Venous blood specimen / Unknown 04/15/2024 10:54 AM EST 04/15/2024 1:22 PM EST us Deyvi Ramos MD LAB BLOOD ORDERABLES Final Result [facility] [address] [place] [address] [phone] from Last 3 Months or Most Recently Relevant to Health Maintenance [facility] Care Teams Boat Oar Maker Relationship Specialty Start Date End Date Deyvi Ramos MD [address] [place] [address] PCP - General Internal Medicine 11/22/23 [facility] 04/04/24
--- OUTSIDE RECORDS SUMMARY | 2025-04-14 04:40 | XMS_ITS | Encounter Summary ---
Author Organization [employer] Address [address] [place] [address] Care Team Providers Care Bath Steward/Stewardess Name Role Phone Deyvi Ramos MD Primary Care Provider +1- [phone] Reason for Referral * Consultation (Routine) - Canceled Specialty Diagnoses / Procedures Referred By Juan mcdonald Referred To Contact Podiatry Diagnoses Onychogryphosis Deyvi Ramos MD [address] [place] [address] Phone: tel: fax: Referral ID Status Reason Start Date Expiration Date Visits Requested Visits Authorized [id number] Canceled Specialty Services Required 06/18/2024 06/18/2025 1 1 Encounter Details Date Type Department Care Team ([facility] Contact Info) Description 06/18/2024 Orders Only [facility] & PEDS [address] [place] [address] Deyvi Ramos MD [address] [place] [address] Onychogryphosis (Primary Dx) Social History Tobacco Use [...] 04/30/2025 10:30 AM EST Office Visit [facility] [address] [place] [address] Deyvi Ramos MD [address] [place] [address] 05/19/2025 9:00 AM EST Office Visit [facility] [address] [place] [address] Deyvi Ramos MD [address] [place] [address] Scheduled Referrals Name Type Priority Associated Diagnoses Orde r Schedule Referral to Podiatry Outpatient Referral Routine Onychogryphosis Expected: 06/18/2024 (Approximate), Expires: 06/18/2025 documented as of this encounter Visit Diagnoses Diagnosis Onychogryphosis- Primary Other specified disease of nail documented in this encounter Care Teams Bath Steward/Stewardess Relationship Specialty Start Date End Date Deyvi Ramos MD [address] [place] [phone] PCP - General Internal Medicine 11/22/23 [facility] 04/04/24 documented as of this encounter
--- OUTSIDE RECORDS SUMMARY | 2025-04-14 04:40 | XMS_ITS | Encounter Summary ---
Author Organization [employer] Address [address] [place] [address] [address], [place] [address] Care Team Providers Care Funeral Director/Embalmer Name Role Phone Deyvi Ramos MD Primary Care Provider [phone]- [phone] Devyi Ramos MD Primary Care Provider +1- [phone] Encounter Details Date Type Department Care Team (Late Contact Info) Description 11/16/[address] [facility] MED & PEDS [address] [place] [address] Evette Senior LPN Social History Tobacco Use [...] Upcoming Encounters Date Type Department Care Team ([facility] Contact Info) Description 04/30/2025 10:30 AM EST Office Visit [facility] [address] [place] [address] Deyvi Ramos MD [address] [place] [address] 05/19/2025 9:00 AM EST Office Visit [facility] [address] [place] [address] Deyvi Ramos MD [address] [place] [address] documented as of this encounter Visit Diagnoses Not on filedocumented in this encounter Care Teams Funeral Director/Embalmer Relationship Specialty Start Date End Date Deyvi Ramos MD [address] [facility] [address] PCP - General Internal Medicine 06/12/13 06/03/23 Deyvi Ramos MD [address] [place] [address] PCP - General Internal Medicine 11/22/23 [facility] 04/04/24 documented as of this encounter
[2025-04-14 04:41] VITALS: BP 129/67; PULSE 85; RESP 13; TEMP 36.7; O2SAT 95
[2025-04-14 05:15] LABS: Reflex Lactate? Lactic Acid Added
--- NOTE | 2025-04-14 07:39 | PC.NURSE ---
assumed care of patient at 0715. report received from Marta ANDREW.
--- NOTE | 2025-04-14 08:45 | MHC.EDTECH ---
Patient lactid acid done at 08:45. Staff told AM nurse that patient refused at the time it was due
[2025-04-14 09:11] LABS: ~Lactic Acid-LAB USE ONLY 0.9 mmol/L (0.5-2.0)
--- NOTE | 2025-04-14 09:30 | PC.NURSE ---
Patient assisted out of bed to bedside commode. Patient is anxious but cooperative with staff. Used walker, stand/pivot with gait belt to bedside commode. Had bowel movement, assisted back to bed. Recently seen by Shivani Orta (case management) and reported wanting to find a STR that is 'closer' than originally requested [facility] or [facility]. Shivani aware. Cardiac monitoring remained in place.
--- NOTE | 2025-04-14 10:32 | MHC.CM.ED ---
Addendum entered by Shivani Orta 04/14/25 15:14: [facility] is able to offer a bed. Level 1 submitted to [facility]. MDS will be completed. [facility] Addendum entered by Shivani Orta 04/14/25 13:50: [facility]. [facility], [facility] and [facility] are still reviewing. Met with patient to discuss d/c plan. Choices: 1)[facility] 2) [facility]. Addendum entered by Shivani Orta 04/14/25 11:15: [facility] is unable to offer a bed. Met with patient in regards to discharge planning. [facility] would not be choice. Referral sent to [facility], [facility] and [facility]. Original Note: Received case management consult from Naya OTOOLE. Patient came to the ER d/t weakness. Patient had back surgery 2 weeks ago. Work up essentially negative. Physical therapy eval completed. Short term rehab is recommended. Patient reported to physical therapist that she has been to [facility] in the past and requesting referral there. Referral made to [facility]. [facility]. Met with patient, son and daughter in regards to d/c planning. Patient lives with her son, ambulates with a walker and had no services prior to coming to the ER. PCP verified. Copy of HCP verifed to be on file. Patient states she would like to stay closer to [place]. Offered to make referrals to [facility], [facility] and [place] [facility] via [facility]. Continue to monitor for d/c needs.
[2025-04-14 11:15] VITALS: BP 130/68; PULSE 78; RESP 14; TEMP 36.7; O2SAT 96
[2025-04-14 15:50] VITALS: BP 121/71; PULSE 81; RESP 14; TEMP 36.7; O2SAT 96
--- NOTE | 2025-04-14 17:16 | PHA.MEDREC ---
Addendum entered by Sen Lucas RPh 04/14/25 17:33: MED REC REVIEWED BY [facility] Original Note: Pharmacy Consult ? Medication Reconciliation Pharmacy has completed the medication reconciliation. Spoke with pt and she confirmed her medications.
--- NOTE | 2025-04-14 20:43 | PC.NURSE ---
pt assisted to bedside commode, with walker and this RN, pt felt shaky but was able to tolerate well.
--- NOTE | 2025-04-14 21:06 | PC.NURSE ---
pt medicated per MAR.
[2025-04-15 02:30] VITALS: BP 138/72; PULSE 72; RESP 18; TEMP 36.6; O2SAT 98
[2025-04-15 09:15] VITALS: BP 130/62; PULSE 80; RESP 18; TEMP 36.5; O2SAT 97
[2025-04-15 13:02] VITALS: BP 138/73; PULSE 74; RESP 20; TEMP 36.6; O2SAT 97
--- NOTE | 2025-04-15 14:18 | MHC.CM.ED ---
Patient remains in ER. Per Tana at [facility], [facility] approval obtained. Tana will speak to Pili at [facility]. Alyx BOYKIN booked. Med [facility] with chart. Patient, Corina ANDREW and Brett OTOOLE aware. Continue to monitor for d/c needs.
[2025-04-15] MEDS: oxyCODONE HCl Immed Release 5 MG TABLET PO (14:59)
--- NOTE | 2025-04-15 15:28 | PC.NURSE ---
Called [facility] with no answer for nurse to nurse report
== END 2025-04-15 16:44 ==
PROVIDERS: Physician Assistant Medical; Emergency Provider Emergency Medicine; PCP Internal Medicine
DX: M54.16 Radiculopathy, lumbar region (principal); N39.0 Urinary tract infection, site not specified; R00.2 Palpitations; R53.1 Weakness; R00.0 Tachycardia, unspecified; R94.31 Abnormal electrocardiogram [ECG] [EKG]; Z03.818 Encounter for observation for suspected exposure to other biological agents ruled out; J44.9 Chronic obstructive pulmonary disease, unspecified
CPT/HCPCS: 36415; 71045; 74177; 80053; 81001; 83605; 83735; 84484; 85025; 87040; 87086; 87637; 93005; 96361; 96365; 96375; 97162; 99285; J0696; J1163; J1885; J2250; J7120; Q9967

== ENCOUNTER → 2025-04-13 23:53 | Outpatient (BNV) | payer MEDICAID, SELFPAY | PROVIDERS: Emergency Provider Emergency Medicine; Visit Provider Internal Medicine | DX: I48.91 Unspecified atrial fibrillation (principal) | CPT/HCPCS: 93010 ==

== ENCOUNTER → 2025-04-14 00:01 | Outpatient (BNV) | payer MEDICAID, SELFPAY | PROVIDERS: Emergency Provider Emergency Medicine; Visit Provider Radiology Diagnostic Radiology | DX: Z03.89 Encounter for observation for other suspected diseases and conditions ruled out (principal); R00.0 Tachycardia, unspecified | CPT/HCPCS: 71045; 74177 ==

== ENCOUNTER 2025-04-27 11:40 | Day surgery (SDC) | payer MEDICAID, SELFPAY ==
--- OUTSIDE RECORDS SUMMARY | 2025-04-08 14:54 | XMS_ITS | Encounter Summary ---
Author Organization [employer] Address [address] [place] [address] Care Team Providers Care Chief Lending Officer Name Role Phone Deyvi Ramos MD Primary Care Provider [phone]- [phone] Deyvi Ramos MD Primary Care Provider +1- [phone] Encounter Details Date Type Department Care Team (Late Contact Info) Description 09/19/2022 Orders Only [facility] MED & PEDS [address] [place] [address] Judith Britton LPN Social History Tobacco Use [...] Department Care Team (Late Contact Info) Description 04/30/2025 10:30 AM EST Office Visit [facility] MED & PEDS [address] [place] [address] Deyvi Ramos MD 505 [place] [address] 05/19/2025 9:00 AM EST Office Visit [facility] MED & PEDS [address] [place] [address] Deyvi Ramos MD [address] [place] [address] documented as of this encounter Visit Diagnoses Not on filedocumented in this encounter Care Teams Chief Lending Officer Relationship Specialty Start Date End Date Deyvi Ramos MD 505 [place] [address] PCP - General Internal Medicine 06/12/13 06/03/23 Deyvi Ramos MD 505 [place] [address] PCP - General Internal Medicine 11/22/23 [facility] 04/04/24 documented as of this encounter
--- OUTSIDE RECORDS SUMMARY | 2025-04-08 14:54 | XMS_ITS | Encounter Summary ---
Author Organization [employer] Address [address] [place] [address] 7 [place] [address] Care Team Providers Care Drafter Directional Survey Name Role Phone Deyvi Ramos MD Primary Care Provider [phone]- [phone] Deyvi Ramos MD Primary Care Provider +1- [phone] Reason for Visit * Reason Onset Date Comments New Script 09/20/2022 Encounter Details Date Type Department Care Team ([facility] Contact Info) Description 09/20/[address] [facility] CHC MED & PEDS [address] [place], [place] [phone] Deyvi Ramos MD [address] [place], [place] [phone] New Script Social History Tobacco Use Types [...] - 09/20/2022 11:17 AM EDT [facility] a new script for calcium carbonate 1500 (600 Ca) MG tablet for a 90 day's supply due to insurance not covering other script. Please contact pharmacy at [phone] documented in this encounter Plan of Treatment Upcoming Encounters Date Type Department Care Team (Late st Contact Info) Description 04/30/2025 10:30 AM EST Office Visit [facility] MED & PEDS [address] [place] [address] Deyvi Ramos MD [address] [place] [address] 05/19/2025 9:00 AM EST Office Visit [facility] MED & PEDS [address] [place] [address] Deyvi Ramos MD [address] [place] [address] documented as of this encounter Visit Diagnoses Not on filedocumented in this encounter Care Teams Drafter Directional Survey Relationship Specialty Start Date End Date Deyvi Ramos MD [address] [place] [address] PCP - General Internal Medicine 06/12/13 06/03/23 Deyvi Ramos MD [address] [place] [address] PCP - General Internal Medicine 11/22/23 [facility] 04/04/24 documented as of this encounter
--- OUTSIDE RECORDS SUMMARY | 2025-04-08 14:54 | XMS_ITS ---
Author Organization [facility] an d Nursing Care Team Providers Care Dispatch Specialist Name Role Phone Kyle Lowe Unavailable Unavailable Jina Gray Unavailable Unavailable Allergies and adverse reactions Code CodeSystem Substance Reaction Severity StartDate Concern Status Sulfa Unknown 01/05/2024 active Care Team Name Role Address Phone Organization Dates Jina Gray PCP [address], [address], [place] (Office): : [facility] 01/05/2024 - 04/03/2024 Kyle Lowe [address] [facility] [address], [place], [address], [place] (Office): : : [facility] 01/05/2024 - 04/03/2024 Immunizations Immunization Status Vaccine Details Vaccine Code CodeSystem Duane e Notes Influenza cancelled Influenza, high-dose, split virus, quadrivalent, injectable, preservative free 197 CVX created date: 03/31/2024 consent date: 01/18/2024 Mental Status Section Date Assessment Total Score Description 04/03/2024 BIMS 15 cognitively int act CAM 0 No delirium ind icated PHQ-9 00 01/07/2024 BIMS 15 cognitively int act CAM 0 No delirium ind icated PHQ-9 02 minimal depress ion Insurance Providers Problems Problem # Description Date of onset Resolved Date Code CodeSystem Concern Status 1 INSOMNIA, UNSPECIFIED 01/07/[address] active 2 ADULT FAILURE TO THRIVE 01/05/[address] active 3 AGE-RELATED OSTEOPOROSIS WITHOUT CURRENT PATHOLOGICAL FRACTURE 01/05/[address] active 4 CHRONIC OBSTRUCTIVE PULMONARY DISEASE, UNSPECIFIED 01/05/[address] active 5 DIFFICULTY IN WALKING, NOT ELSEWHERE CLASSIFIED 01/05/[address] active 6 HYPO-OSMOLALITY AND HYPONATREMIA 01/05/[address] active 7 HYPOKALEMIA 01/05/[address] active 8 MUSCLE WEAKNESS (GENERALIZED) 01/05/[address] active 9 OTHER LACK OF COORDINATION 01/05/[address] active 10 REPEATED FALLS 01/05/[address] ac tive 11 TACHYCARDIA, UNSPECIFIED 01/05/[address] active 12 UNSPECIFIED FALL, SUBSEQUENT ENCOUNTER 01/05/[address] active 13 WEAKNESS 01/05/[address] active 14 WEDGE COMPRESSION FRACTURE OF UNSPECIFIED LUMBAR VERTEBRA, SUBSEQUENT ENCOUNTER FOR FRACTURE WITH ROUTINE HEALING 01/05/[address] active Reason for Referral No Reasons for Referral Entered Social History Social History Observation Description Start Date End Date Code Code System Current Smoking Status Tobacco smoking consumption unknown 115479897 SNOMED CT Sex Assigned At Female 1965 58809-7 [facility] Gender Identity Sexual Orientation Vital Signs Code Code System Vitals Name Values and Units Timing Information 8867-4 LOINC Heart rate Value=72.0 Units=/min 9279-1 LOINC Respiratory Rate Value=18.0 Units=/m in 04/03/2024 25678-4 [facility] O2 % BldC Oximetry Value=96.0 Units= % 04/03/2024 43754-8 [facility] Pain Level Value=0.0 03/31/2024 75656-3 [facility] Weight Dkgij=191.0 Units=Lbs 11/2023 8310-5 [facility] Body Temperature Value=97.6 Units= F 03/18/2024 8302-2 [facility] Height Value=66.0 Units=Inches 01/08/2024 8462-4 [facility] Blood Pressure-Diastolic Value=63 Un its=mmHg 01/08/2024 8480-6 [facility] Blood Pressure-Systolic Xnfnq=300 Un its=mmHg 01/08/2024
--- OUTSIDE RECORDS SUMMARY | 2025-04-08 14:54 | XMS_ITS | Encounter Summary ---
Author Organization [employer] Address [address] [place] [address] Care Team Providers Care Blood Bank Attendant Name Role Phone Deyvi Ramos MD Primary Care Provider [phone] Reason for Referral * Consultation (Routine) - Canceled Specialty Diagnoses / Procedures Referred By Juan mcdonald Referred To Contact Podiatry Diagnoses Onychogryphosis Deyvi Ramos MD [address] [place] [address] Phone: tel: fax: Referral ID Status Reason Start Date Expiration Date Visits Requested Visits Authorized [id number] Canceled Specialty Services Required 06/18/2024 06/18/2025 1 1 Encounter Details Date Type Department Care Team ([facility] Contact Info) Description 06/18/2024 Orders Only [facility] MED & PEDS [address] [place] [address] Deyvi Ramos MD [address] [place] [address] Onychogryphosis (Primary Dx) Social History Tobacco Use [...] Description 04/30/2025 10:30 AM EST Office Visit [facility] MED & PEDS [address] [place] [address] Deyvi Ramos MD [address] [place] [address] 05/19/2025 9:00 AM EST Office Visit [facility] MED & PEDS [address] [place] [address] Deyvi Ramos MD [address] [place] [address] Scheduled Referrals Name Type Priority Associated Diagnoses Orde r Schedule Referral to Podiatry Outpatient Referral Routine Onychogryphosis Expected: 06/18/2024 (Approximate), Expires: 06/18/2025 documented as of this encounter Visit Diagnoses Diagnosis Onychogryphosis- Primary Other specified disease of nail documented in this encounter Care Teams Blood Bank Attendant Relationship Specialty Start Date End Date Deyvi Ramos MD [address] [place] [address] PCP - General Internal Medicine 11/22/23 [facility] 04/04/24 documented as of this encounter
--- OUTSIDE RECORDS SUMMARY | 2025-04-08 14:54 | XMS_ITS | Encounter Summary ---
Author Organization [employer] Address [address] [place] [address] [address] [address] Care Team Providers Care Salvage Repairer Name Role Phone Deyvi Ramos MD Primary Care Provider [phone]- [phone] Deyvi Ramos MD Primary Care Provider +1- [phone] Encounter Details Date Type Department Care Team (Late Contact Info) Description 11/16/2022 Orders Only [facility] CHC MED & PEDS [address] [place] [address] Evette Senior LPN Social History Tobacco Use [...] Upcoming Encounters Date Type Department Care Team ([facility] Contact Info) Description 04/30/2025 10:30 AM EST Office Visit [facility] MED & PEDS [address] [place] [address] Deyvi Ramos MD 505 [place] [address] 05/19/2025 9:00 AM EST Office Visit [facility] MED & PEDS [address] [place] [address] Deyvi Ramos MD [address] [place] [address] documented as of this encounter Visit Diagnoses Not on filedocumented in this encounter Care Teams Salvage Repairer Relationship Specialty Start Date End Date Deyvi Ramos MD 505 [place] [address] PCP - General Internal Medicine 06/12/13 06/03/23 Deyvi Ramos MD [address] [place] [address] PCP - General Internal Medicine 11/22/23 [facility] 04/04/24 documented as of this encounter
--- OUTSIDE RECORDS SUMMARY | 2025-04-08 14:54 | XMS_ITS | Encounter Summary ---
Author Organization [employer] Address [address] [facility] [employer] 7 [place] [address] Care Team Providers Care Manager Lsw Name Role Phone Deyvi Ramos MD Primary Care Provider +1- [phone] Reason for Visit * Reason Comments Med Refill Encounter Details Date Type Department Care Team ([facility] st Contact Info) Description 12/26/2024 Refill [facility] CHC MED & PEDS [address] [place], [place] [phone] Deyvi Ramos MD [address] [place] [address] Compression fracture of L1 vertebra, initial encounter (CMS/[facility]) [...] [facility] [place] [address] [place] [address] Deyvi Ramos MD [address] [place] [address] 05/19/2025 9:00 AM EST Office Visit [facility] MED & PEDS [address] [place] [address] Deyvi Ramos MD [address] [place] [address] documented as of this encounter Visit Diagnoses Diagnosis Compression fracture of L1 vertebra, initial encounter (CMS/HCC) ([facility]) documented in this encounter Additional Health Concerns Assessment Noted Time PHQ-9 Depression Total Score: 2 06/26/19 25 11:28 AM EST documented as of this encounter Care Teams Manager Lsw Relationship Specialty Start Date End Date Deyvi Ramos MD [address] [place] [address] PCP - General Internal Medicine 11/22/23 [facility] 04/04/24 documented as of this encounter
--- OUTSIDE RECORDS SUMMARY | 2025-04-08 14:54 | XMS_ITS | Encounter Summary ---
Author Organization [employer] Address [address] [place] [address] Care Team Providers Care Film Color Tester Name Role Phone Deyvi Ramos MD Primary Care Provider +1- [phone] Deyvi Ramos MD Primary Care Provider +1- [phone] Reason for Visit * Reason Comments Med Refill Encounter Details Date Type Department Care Team (Late st Contact Info) Description 08/21/2022 Refill [facility] MED & PEDS [address] [place] [address] Deyvi Ramos MD [address] [place] [address] Social History Tobacco Use Types Packs/Day Years [...] Description 04/30/2025 10:30 AM EST Office Visit [facility] MED & PEDS [address] [place] [address] Deyvi Ramos MD [address] [place] [address] 05/19/2025 9:00 AM EST Office Visit [facility] MED & PEDS [address] [place] [address] Deyvi Ramos MD [address] [place] [address] documented as of this encounter Visit Diagnoses Not on filedocumented in this encounter Care Teams Film Color Tester Relationship Specialty Start Date End Date Deyvi Ramos MD [address] [place] [address] PCP - General Internal Medicine 06/12/13 06/03/23 Deyvi Ramos MD [address] [place] [address] PCP - General Internal Medicine 11/22/23 [facility] 04/04/24 documented as of this encounter
--- OUTSIDE RECORDS SUMMARY | 2025-04-08 14:54 | XMS_ITS | Encounter Summary ---
Author Organization [employer] Address [address] [facility] 7t [place] [address] Care Team Providers Care Web Ui Software Engineer Name Role Phone Deyvi Ramos MD Primary Care Provider [phone] Encounter Details Date Type Department Care Team ([facility] Contact Info) Description 2025 Orders Only [facility] CHC MED & PEDS [address] [place], [place] [phone] Deyvi Ramos MD [address] [place] [address] Screen for colon cancer (Primary Dx) Social History Tobacco Use Types [...] Team ([facility] Contact Info) Description 04/30/2025 10:30 AM EST Office Visit [facility] MED & PEDS [address] [place] [address] Deyvi Ramos MD [address] [place] [address] 05/19/2025 9:00 AM EST Office Visit [facility] MED & PEDS [address] [place] [address] Deyvi Ramos MD [address] [place] [address] Scheduled Orders Name Type Priority Associated Diagnoses Orde r Schedule Cologuard colon cancer screening Lab Routine Screen for colon cancer Expected: 2025 (Approximate), Expires: 2026 documented as of this encounter Visit Diagnoses Diagnosis Screen for colon cancer- Primary Special screening for malignant neoplasms, colon documented in this encounter Additional Health Concerns Assessment Noted Time PHQ-9 Depression Total Score: 2 06/26/19 25 11:28 AM EST documented as of this encounter Care Teams Web Ui Software Engineer Relationship Specialty Start Date End Date Deyvi Ramos MD [address] [place] [address] PCP - General Internal Medicine 11/22/23 [facility] 04/04/24 documented as of this encounter
--- OUTSIDE RECORDS SUMMARY | 2025-04-08 14:54 | XMS_ITS | Clinical Summary ---
Author Organization [facility] Address [address] [place] [address] Care Team Providers Care Deliverer Outside Name Role Phone Deyvi Ramos MD Primary Care Provider [phone] Allergies Active Allergy Reactions Criticality Noted Date [...] Years Used Date Smoking Tobacco: Never Assessed [facility] Utilities Answer Date Recorded In the past 12 months has th e [employer], oil, or water [employer] threatened to shut off services in your [...] any time in the past 12 m [facility], were you homeless or living in a alf (including now)? Patient declined 08/27/2024 Comments Unknown [...] 1978 DTaP/Tdap/Td Vaccines (1 - Tdap) 1984 Pneumococcal Vaccines 50+ (1 of 2 - PCV) 1984 Pap Smear (Ages 21-65) 1986 Mammogram 2005 Colonoscopy 2010 Zoster (Shingles) Vaccine (1 of 2) 2015 Influenza Vaccine 12/12/2024 04/07/2024, , 02/18/2018, Additional history exists RSV Vaccine 50 years and older and Patients (1 - 1-dose 75+ series) 2040 COVID-19 Vaccine Completed 04/07/2024 Hepatitis B Vaccines Aged Out No long er eligible based on patient's age to complete this topic Insurance [facility] Advance Directives * Full Code (Latest Code Status on File) Date Activated Date Inactivated Comments 08/26/2024 10:59 AM Care Teams Deliverer Outside Relationship Specialty Start Date End Date Deyvi Ramos MD [address] [place] [address] PCP - General General Medicine 08/26/24
--- OUTSIDE RECORDS SUMMARY | 2025-04-08 14:54 | XMS_ITS | Encounter Summary ---
Author Organization [employer] Address [address] [facility] 7t [place] [address] Care Team Providers Care Circuit Board Repair Technician Name Role Phone Deyvi Ramos MD Primary Care Provider [phone] Encounter Details Date Type Department Care Team ([facility] st Contact Info) Description 05/16/2024 Orders Only [facility] CHC MED & PEDS [address] [place], [place] [phone] Deyvi Ramos MD [address] [place] [address] Social History Tobacco Use Types Packs/Day Years [...] Description 04/30/2025 10:30 AM EST Office Visit [facility] MED & PEDS [address] [place] [address] Deyvi Ramos MD [address] [place] [address] 05/19/2025 9:00 AM EST Office Visit [facility] MED & PEDS [address] [place] [address] Deyvi Ramos MD [address] [place] [address] documented as of this encounter Visit Diagnoses Not on filedocumented in this encounter Care Teams Circuit Board Repair Technician Relationship Specialty Start Date End Date Deyvi Ramos MD [address] [place] [address] PCP - General Internal Medicine 11/22/23 [facility] 04/04/24 documented as of this encounter
--- OUTSIDE RECORDS SUMMARY | 2025-04-08 14:54 | XMS_ITS | Encounter Summary ---
Author Organization [employer] Address [address] [place] [address] 7 [place] [address] Care Team Providers Care Registered Dental Hygienist Name Role Phone Deyvi Ramos MD Primary Care Provider [phone] Reason for Referral * Consultation (Routine) - Closed Specialty Diagnoses / Procedures Referred By Juan mcdonald Referred To Contact Endocrinology Diagnoses Left leg paresthesias Osteoporosis of disuse Compression fracture of L5 vertebra, initial encounter ([facility]) ([facility]) Deyvi Ramos MD [address] [place] [address] Phone: tel: fax: [facility] Endocrinology [address] [place] [address] Phone: tel: fax: Referral ID Status Reason Start Date Expiration Date V isits Requested Visits Authorized [id number] Closed Specialty Services Required 11/10/2024 11/10/2025 1 1 * Neurology (Routine) - Closed Specialty Diagnoses / Procedures Referred By Juan mcdonald Referred To Contact Diagnoses Left leg paresthesias Procedures Nerve conduction test Deyvi Ramos MD [address] [place] [address] Phone: tel: fax: [facility] [address] [place] [phone] Phone: tel: fax: Referral ID Status Reason Start Date Expiration Date Visits Re quested Visits Authorized [id number] Closed 10/28/2024 10/28/2025 1 1 Encounter Details Date Type Department Care Team ([facility] st Contact Info) Description 10/28/2024 Orders Only [facility] MED & PEDS [address] [place] [address] Deyvi Raoms MD [address] [place] [address] Left leg paresthesias (Primary Dx); Osteoporosis of disuse; Compression fracture of L5 vertebra, initial encounter ([facility] [place]) Social History Tobacco Use Types Packs/Day Years [...] [facility] [place] [facility] [address] [place] [address] Deyvi Ramos MD [address] [place] [address] 05/19/2025 9:00 AM EST Office Visit [facility] MED & PEDS [address] [place] [address] Deyvi Ramos MD [address] [place] [address] Scheduled Orders Name Type Priority Associated Diagnoses Orde r Schedule Nerve conduction test Neurology Routine Left leg paresthesias Expected: 10/28/2024 (Approximate), Expires: 10/28/2025 Scheduled Referrals Name Type Priority Associated Diagnoses Order Schedule Referral to Endocrinology Outpatient Referral Routine Left leg paresthesias Osteoporosis of disuse Compression fracture of L5 vertebra, initial encounter ([facility]) Expected: 11/10/2024 (Approximate), Expires: 11/10/2025 documented as of this encounter Visit Diagnoses Diagnosis Left leg paresthesias- Primary Disturbance of skin sensation Osteoporosis of disuse Disuse osteoporosis Compression fracture of L5 vertebra, initial encounter ([facility] [place]) ([facility]) documented in this encounter Additional Health Concerns Assessment Noted Time PHQ-9 Depression Total Score: 2 06/26/19 25 11:28 AM EST documented as of this encounter Care Teams Registered Dental Hygienist Relationship Specialty Start Date End Date Deyvi Ramos MD [address] [place] [address] PCP - General Internal Medicine 11/22/[address] [facility] 04/04/24 documented as of this encounter
--- OUTSIDE RECORDS SUMMARY | 2025-04-08 14:54 | XMS_ITS | Encounter Summary ---
Author Organization [employer] Address [address] [facility] 7 [place] [address] Care Team Providers Care Milled Rubber Tender Name Role Phone Deyvi Ramos MD Primary Care Provider [phone] Reason for Visit * Reason Comments Med Refill Encounter Details Date Type Department Care Team ([facility] st Contact Info) Description 09/10/2024 Refill [facility] CHC MED & PEDS [address] [place], [place] [phone] Deyvi Ramos MD [address] [place] [address] Seasonal allergies Social History Tobacco Use Types [...] [facility] [address] [place] [address] Deyvi Ramos MD [address] [place] [address] 05/19/2025 9:00 AM EST Office Visit [facility] MED & PEDS [address] [place] [address] Deyvi Ramos MD [address] [place] [address] documented as of this encounter Visit Diagnoses Diagnosis Seasonal allergies Allergic rhinitis, cause unspecified documented in this encounter Additional Health Concerns Assessment Noted Time PHQ-9 Depression Total Score: 2 06/26/19 25 11:28 AM EST documented as of this encounter Care Teams Milled Rubber Tender Relationship Specialty Start Date End Date Deyvi Ramos MD [address] [place] [address] PCP - General Internal Medicine 11/22/23 [facility]Note 2] 04/04/24 documented as of this encounter
--- OUTSIDE RECORDS SUMMARY | 2025-04-08 14:54 | XMS_ITS | Encounter Summary ---
Author Organization [email or web address] Address [address] [facility] 7 [place] [address] Care Team Providers Care Thoracic Medicine Specialist Name Role Phone Deyvi Ramos MD Primary Care Provider [phone] Reason for Visit * Reason Onset Date Comments Durable Medical Equipment 03/27/2024 Encounter Details Date Type Department Care Team ([facility] Contact Info) Description 03/27/2024 Telephone [facility] CHC MED & PEDS [address] [place] [address] Deyvi Ramos MD [address] [place] [address] Durable Medical Equipment Social History Tobacco Use [...] Description 04/30/2025 10:30 AM EST Office Visit [facility] MED & PEDS [address] [place] [address] Deyvi Ramos MD [address] [place] [address] 05/19/2025 9:00 AM EST Office Visit [facility] MED & PEDS [address] [place] [address] Deyvi Ramos MD [address] [place] [address] documented as of this encounter Visit Diagnoses Not on filedocumented in this encounter Care Teams Thoracic Medicine Specialist Relationship Specialty Start Date End Date Deyvi Ramos MD [address] [place] [address] PCP - General Internal Medicine 11/22/23 [facility] 04/04/24 documented as of this encounter
--- OUTSIDE RECORDS SUMMARY | 2025-04-08 14:54 | XMS_ITS | Encounter Summary ---
Author Organization [employer] Address [address] [facility] 7[address] [place] [address] Care Team Providers Care Desktop Specialist Name Role Phone Deyvi Ramos MD Primary Care Provider [phone] Encounter Details Date Type Department Care Team ([facility] st Contact Info) Description 03/13/2025 Orders Only [facility] PEDS [address] [place], [place] [id number] Provider, MD Emilia Social History Tobacco Use Types Packs/Day Years [...] [facility] [place] [facility] [address] [place] [address] Deyvi Ramos MD [address] [place] [address] 05/19/2025 9:00 AM EST Office Visit [facility] [address] [place] [address] Deyvi Ramos MD [address] [place] [address] documented as of this encounter Procedures Procedure Name Priority Date/Time Associated Diagnosis Comments PET CT SKULL TO MID THIGH W FDG Routine 03/06/2025 8:56 AM EDT documented in this encounter Results * PET/CT FDG Skull Base To Mid-Thigh (03/06/2025 8:56 AM EDT) Anatomical Region Laterality Modality Computed Tomogra phy us Historical Provider MD JONES CT PROCEDURES Final R esult documented in this encounter Visit Diagnoses Not on filedocumented in this encounter Additional Health Concerns Assessment Noted Time PHQ-9 Depression Total Score: 2 06/26/19 25 11:28 AM EST documented as of this encounter Care Teams Desktop Specialist Relationship Specialty Start Date End Date Deyvi Ramos MD [address] [place] [address] PCP - General Internal Medicine 11/22/23 [facility] 04/04/24 documented as of this encounter
--- OUTSIDE RECORDS SUMMARY | 2025-04-08 14:54 | XMS_ITS | Encounter Summary ---
Author Organization [employer] Address [address] [facility] 7 [place] [address] Care Team Providers Care Medical Scientist Name Role Phone Deyvi Ramos MD Primary Care Provider [phone]- [phone] Reason for Visit * Reason Onset Date Comments Referral 06/17/2024 Encounter Details Date Type Department Care Team ([facility] st Contact Info) Description 06/17/2024 Telephone [facility] MED & PEDS [address] [place], [place] [phone] Deyvi Ramos MD [address] [place] [address] Referral Social History Tobacco Use Types Packs/Day [...] Description 04/30/2025 10:30 AM EST Office Visit [facility] MED [facility] PEDS [address] [place] [address] Deyvi Ramos MD [address] [place] [address] 05/19/2025 9:00 AM EST Office Visit [facility]ED[facility] [address] [place] [address] Deyvi Ramos MD [address] [place] [address] documented as of this encounter Visit Diagnoses Not on filedocumented in this encounter Care Teams Medical Scientist Relationship Specialty Start Date End Date Deyvi Ramos MD [address] [place] [address] PCP - General Internal Medicine 11/22/23 [facility] 04/04/24 documented as of this encounter
--- OUTSIDE RECORDS SUMMARY | 2025-04-08 14:54 | XMS_ITS | Clinical Summary ---
Author Organization [address] [facility] Address [address] [place] [address] Phone Care Team Providers Care Quality Tech Name Role Phone Deyvi Ramos MD Primary Care Provider [phone] Allergies Active Allergy Reactions Criticality Noted Date Comments Sulfacetamide Sodium 01/25/2006 Sulfa swelling Medications albuterol HFA (PROAIR HFA ; PROVENTIL HFA ; VENTOLIN HFA) 90 mcg/actuation inhaler ALBUTEROL SULFATE 108 (90 BASE) MCG/ACT AERS Inhale 2 Puffs into the lungs 4 times daily as needed for Cough, Wheezing or Shortness of Breath 1 Active acetaminophen (TYLENOL) 500 mg tablet Take 1 tablet (500 mg total) by mouth every 8 hours as needed. 5 Active calcium-vitamin D3-vitamin K 500 mg-200 unit -40 mcg tablet,chewable 1 tablet daily. 5 Active cetirizine (ZyrTEC) 10 mg tablet Take 1 tablet (10 mg total) by mouth. 4 Active cholecalciferol (VITAMIN D-3) 25 mcg (1,000 unit) tablet Take 1 tablet (1,000 Units total) by mouth daily. 5 Active fluocinolone and shower cap 0.01 % oil USE DIRECTED ON THE SCALP 2 TIMES WEEKLYCOVER HEAD WITH DU RAG AFTER USE Active ketoconazole (NIZORAL) 2 % shampoo APPLY TOPICALLY 2 TIMES A WEEK Active lidocaine (LIDODERM) 5 % patch APPLY 1 PATCH TOPICALLY TO THE SKIN DAILY. LEAVE ON MOST PAINFUL AREA FOR UP TO 12 HOURS 5 Active LORazepam (ATIVAN) 0.5 mg tablet To take one tab 30 minutes prior to the procedure, may take another tablet after 30 minutes if no effect. 5 Active traZODone (DESYREL) 50 mg tablet Take 1 tablet (50 mg total) by mouth once daily as needed. 5 Active clotrimazole (LOTRIMIN) 1 % cream Apply 1 Application topically 2 (two) times a day. apply to the affected area(s) 30 g 2 5 Active Active Problems Problem Noted Date Diagnosed Date Hypercholesteremia 11/07/2010 COPD (chronic obstructive pu lmonary disease) ([facility] V24, [facility] V28) 11/04/2010 Overview (07/16/2024): Moderate-severe without reversibility on PFTs 10/2010 Tobacco use disorder 08/30/2010 Depression 01/25/2006 Upper GI bleed 01/25/2006 Overview (07/16/2024): 1994, ulcer IMO update Encounters Date Type Department Care Team Description 03/06/2025 9:52 AM EDT - 03/06/2025 11:59 PM EDT Hospital Encounter [facility] PET Scan [address] [place] [id number] Pulmonary nodule Discharge Disposition: Home or Self Care 02/19/2025 9:15 AM EDT Office Visit Orthopedic Surgery [facility] [address] [facility] [address] [place] [phone] Yunier Gaytan, DPM Tinea pedis of both feet (Primary Dx); Dermatophytosis of nail; Pain in toe of right foot; Pain in toe of left foot; Bilateral femoral artery stenosis ([facility] V24) from Last 3 Months Immunizations Immunization Administration Dates Next Due Influenza [...] Care Team (Late st Contact Info) Description 05/21/2025 9:15 AM EST Office Visit Orthopedic Surgery - [place] [address] [address] Yunier Gaytan, DPM [address] [address] Health Maintenance Due Date Last Done Comments Colorectal Cancer Screening: Colonoscopy 1965 Hepatitis A Vaccines (1 of 2 - Risk 2-dose series) 1984 Cervical Cancer Screening: Pap Smear 02/01/2010 02/01/2007, 02/01/2007 RSV Immunization Adult Patients (1 - Risk 50-74 years 1-dose series) 2015 Zoster Vaccines (1 of 2) 2015 Breast Cancer Screening 10/17/2019 10/16/2017 Social Influencers of Health Screening 12/04/2023 Depression Screening 05/14/2024 COVID-19 Vaccine ( season) 2025 04/07/2024, 11/28/2021, 09/27/2020, Additional history exists Hepatitis B Vaccines (3 of 3 - 19+ 3-dose series) 04/30/2025 2025, 10/16/2024 Cholesterol Screening (Lipid Panel) 04/15/2029 04/15/2024, 11/07/2010 Osteoporosis Screening (Bone Density Screening) 01/28/2035 01/28/2025 DTaP,Tdap,and Td Vaccines (5 - Td or Tdap) 2035 2025, 02/25/2015, 11/07/2010, Additional history exists Pneumococcal Vaccine: 50+ Years Completed 11/22/2023, 07/17/2017 HIV Screening Completed 10/16/2024 Hepatitis C Screening Completed 10/16/2024 Influenza Vaccine Completed 2025, , 03/11/2019, Additional history exists HIB Vaccines Aged Out [...] Comments PET CT SKULL TO MID THIGH INITIAL Routine 03/06/2025 12:12 PM EDT Pulmonary nodule LIPID PANEL Routine 11/07/2010 HM HPV Routine 02/01/2007 from Last 3 Months or Most Recently Relevant to Health Maintenance Results * PET CT Skull to Mid Thigh Initial (03/06/2025 12:12 PM EDT) Anatomical Region Laterality Modality Body Radiographic Rebecca ging 03/12/2025 4:11 PM EDT Impressions 03/12/2025 4:30 PM EDT Mild metabolic activity associated with calcified peripheral nodule in the right upper lobe as well as small scarlike process within the right lung apex likely representing inflammatory change. Metabolically active nonenlarged right axillary, intrathoracic, abdominal inguinal nodes is nonspecific. If clinically warranted biopsy can be attempted of the 1 cm right axillary node. Splenic flexure focal metabolically active lesion is nonspecific and most likely physiological without abnormality noted on CT imaging. Consider correlation with colonoscopy. -------- FINAL REPORT -------- Dictated By: Brian Longo Dictated Date: 03/12/2025 16:11 ET Assigned Physician: Brian Longo Reviewed and Electronically Signed By: Brian Longo Signed Date: 03/12/2025 16:30 ET Workstation ID: [id number] Transcribed By: Self Edit Transcribed Date: 03/12/2025 16:11 ET Narrative 03/12/2025 4:30 PM EDT INDICATION: Pulmonary nodule, initial treatment strategy Prior relevant studies: Low-dose CT scan of the chest from February 06, 2025 reviewed. Radiopharmaceutical: 10.9 mCi of F-18 FDG IV. Blood glucose: 110 mg/dl. PROCEDURE: Routine body FDG PET-CT imaging was performed from the skull base to the mid thighs and reconstructed in axial, coronal, and sagittal planes at the computer workstation with fused data from both the PET imaging study and attenuation correction CT. The CT portion of the examination was done strictly for attenuation correction and is not a true diagnostic CT examination. CTDI: 59 mGy FINDINGS: HEAD AND NECK: No abnormal FDG activity. THORAX: Mild FDG activity associated with peripheral calcified nodule in the right upper lobe posterior laterally with SUV max of 1.8. Mild FDG activity associated with scarlike attenuation within the right lung apex with SUV max of 1.5. FDG avid focus within small, nonenlarged right axillary node SUV max of 3.9. FDG avid small bilateral hilar and subcarinal nodes with SUV max of 3.9 the subcarinal region and 3.8 within the right hilar region. ABDOMEN/PELVIS: Nonenlarged FDG avid para-aortic retroperitoneal node located along the anterior aspect of the aorta just to the left of midline and below level of the left renal artery with FDG max of 4.3. Multiple adjacent mildly FDG avid mesenteric nodes with SUV max up to 3.3. Mild activity within nonenlarged inguinal nodes with SUV max up to 2.3. No abnormal activity within the liver or adrenal glands. Focal intense activity noted along the splenic flexure of the colon with FDG max of 7.1. No focal abnormality noted on CT imaging. MUSCULOSKELETAL: No abnormal FDG activity. Procedure Note Brian Longo MD - 03/12/2025 INDICATION: Pulmonary nodule, initial treatment strategy Prior relevant studies: Low-dose CT scan of the chest from January reviewed. Radiopharmaceutical: 10.9 mCi of F-18 FDG IV. Blood glucose: 110 mg/dl. PROCEDURE: Routine body FDG PET-CT imaging was performed from the skullbase to the mid thighs and reconstructed in axial, coronal, and sagittalplanes at the computer workstation with fused data from both the PETimaging study and attenuation correction CT. The CT portion of theexamination was done strictly for attenuation correction and is not a truediagnostic CT examination. CTDI: 59 mGy FINDINGS: HEAD AND NECK: No abnormal FDG activity. THORAX: Mild FDG activity associated with peripheral calcified nodule inthe right upper lobe posterior laterally with SUV max of 1.8. Mild FDG activity associated with scarlike attenuation within the rightlung apex with SUV max of 1.5. FDG avid focus within small, nonenlarged right axillary node SUV max of3.9. FDG avid small bilateral hilar and subcarinal nodes with SUV max of 3.9the subcarinal region and 3.8 within the right hilar region. ABDOMEN/PELVIS: Nonenlarged FDG avid para-aortic retroperitoneal nodelocated along the anterior aspect of the aorta just to the left of midlineand below level of the left renal artery with FDG max of 4.3. Multiple adjacent mildly FDG avid mesenteric nodes with SUV max up to3.3. Mild activity within nonenlarged inguinal nodes with SUV max up to 2.3. No abnormal activity within the liver or adrenal glands. Focal intense activity noted along the splenic flexure of the colon withFDG max of 7.1. No focal abnormality noted on CT imaging. MUSCULOSKELETAL: No abnormal FDG activity. IMPRESSION: Mild metabolic activity associated with calcified peripheral nodule in theright upper lobe as well as small scarlike process within the right lungapex likely representing inflammatory change. Metabolically active nonenlarged right axillary, intrathoracic, abdominalinguinal nodes is nonspecific. If clinically warranted biopsy can beattempted of the 1 cm right axillary node. Splenic flexure focal metabolically active lesion is nonspecific and mostlikely physiological without abnormality noted on CT imaging. Considercorrelation with colonoscopy. -------- FINAL REPORT -------- Dictated By: Brian Longo Dictated Date: 03/12/2025 16:11 ET Assigned Physician: Brian Longo Reviewed and Electronically Signed By: Brian Longo Signed Date: 03/12/2025 16:30 ET Workstation ID: [id number] Transcribed By: Self Edit Transcribed Date: 03/12/2025 16:11 ET Callum Adams IM NM PROCEDURES Final Result * Lipid panel (11/07/2010) LDL/HDL Ratio 3 0 - 4 Triglycerides 103 0 - 150 mg/dL Cholesterol 190 0 - 200 mg/dL HDL 76 >=40 mg/dL LDL Cholesterol 94 0 - 100 mg/dL Blood Venous blood specimen / Unknown Historical Provider LAB BLOOD ORDERABLES Renée l Result * Cervical Cancer Screening: HPV (02/01/2007) Pathologist [facility] Cervical Cancer Screening: HPV no interpretation , abstracted Historical Provider HEALTH MAINTENANCE Final Result from Last 3 Months or Most Recently Relevant to Health Maintenance Insurance MEDICAID - [place] Care Teams Quality Tech Relationship Specialty Start Date End Date Deyvi Ramos MD [address] [place] [id number] PCP - General Internal Medicine 07/14/24
--- OUTSIDE RECORDS SUMMARY | 2025-04-08 14:54 | XMS_ITS | Encounter Summary ---
Author Organization [employer] Address [address] [facility] 7 [place] [address] Care Team Providers Care Size Cutter Name Role Phone Deyvi Ramos MD Primary Care Provider [phone] Reason for Visit * Reason Onset Date Comments Appointment Request 06/17/2024 Encounter Details Date Type Department Care Team ([facility] st Contact Info) Description 06/17/2024 Telephone [facility] CHC MED & PEDS [address] [place] [address] Deyvi Ramos MD [address] [place] [address] Appointment Request Social History Tobacco Use Types [...] 10:30 AM EST Office Visit [facility] MED & PEDS [address] [place] [address] Deyvi Ramos MD [address] [place] [address] 05/19/2025 9:00 AM EST Office Visit [facility] MED [facility] PEDS [address] [place] [address] Deyvi Ramos MD [address] [place] [address] documented as of this encounter Visit Diagnoses Not on filedocumented in this encounter Care Teams Size Cutter Relationship Specialty Start Date End Date Deyvi Ramos MD [address] [place] [address] PCP - General Internal Medicine 11/22/[address] [facility] 04/04/24 documented as of this encounter
--- OUTSIDE RECORDS SUMMARY | 2025-04-08 14:54 | XMS_ITS | Clinical Summary ---
Author Organization [employer] Address [address] [facility] 7[address] [place] [address] Care Team Providers Care Mud Engineer Name Role Phone Deyvi Ramos MD Primary Care Provider [phone]- [phone] Allergies Active Allergy Reactions Criticality Noted Date [...] CAPSULE BY MOUTH EVERY DAY 2 Active albuterol (Ventolin HFA) 108 (90 Base) MCG/ACT inhalerIndicati ons:Seasonal allergies,COPD, mild (CMS/HCC) (HCC) INHALE 2 PUFFS BY MOUTH EVERY 6 HOURS NEEDED 18 g 5 Active ketoconazole (NIZOral) 2 % shampooIndicati ons:Telogen effluvium Apply topically 2 (two) times a week. 120 mL 3 5 Active Fluocinolone Acetonide Scalp ([place]-Smoothe/ FS Scalp) 0.01 % oilIndications: Telogen effluvium To use on the scalp 2 times a week. Cover the head w/ a du rag after 118 mL 3 5 Active traZODone (Desyrel) 50 MG tablet TAKE 1 TABLET(50 MG) BY MOUTH AT BEDTIME 30 tablet 11 5 Active LORazepam (Ativan) 0.5 MG tablet To take one tab 30 minutes prior to the procedure, may take another tablet after 30 minutes if no effect. 2 tablet 5 Active acetaminophen (Tylenol Extra Strength) 500 MG tabletIndicatio ns:Compression fracture of L1 vertebra, initial encounter (CMS/[facility]) ([facility]) Take 1 tablet (500 mg) by mouth every 8 (eight) hours if needed for mild pain. 90 tablet 2 5 Active cholecalciferol (Vitamin D3) 25 MCG (1000 UT) tabletIndicatio ns:Compression fracture of L1 vertebra, initial encounter (CMS/[facility]) ([facility]) Take 1 tablet (25 mcg) by mouth Once per day. 90 tablet 1 5 Active cetirizine (ZyrTEC) 10 MG tabletIndicatio ns:Seasonal allergies Take 1 tablet (10 mg) by mouth in the morning. 90 tablet 3 5 Active Calcium-Vitamin D-Vitamin K (Chewable Calcium) 500-200-40 MG-UNT-MCG chewable tabletIndicatio ns:Compression fracture of L1 vertebra, initial encounter ([facility]) ([facility]) 1 tablet daily. 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 Depressive disorder 09/28/2016 Migraine 09/28/2016 Osteoporosis 09/28/2016 COPD, mild (CMS/[facility]) 01/15/2014 Encounters Date Type Department Care Team Description 03/13/2025 Orders Only [facility] [address] [place] [address] Provider, MD Emilia 03/11/2025 Orders Only GENERIC EXTERNAL DATA DEPARTMENT Provider, Generic External Data 2025 1:00 PM EDT Immunization [facility] [address] [place] [address] Kavitha Green RN Encounter for immunization 2025 Orders Only [facility] [address] [place] [address] Deyvi Ramos MD Screen for colon cancer (Primary Dx) 2025 Travel 03/02/2025 Patient Outreach [facility] [address] [place] [address] Deyvi Ramos MD Care Coordination ([facility] outreach for SDOH PT-1 needs-referral completed /) 02/26/2025 Travel 02/18/[address] [address] Deyvi Ramos MD Call back 02/09/2025 11:00 AM EDT Office Visit [facility] [address] [place] [address] Deyvi Ramos MD Left leg paresthesias (Primary Dx); Dietary counseling; Exercise counseling; Class 1 obesity due to excess calories with serious comorbidity and body mass index (BMI) of 30.0 to 30.9 in adult; Compression fracture of L1 vertebra, initial encounter ([facility]); Seasonal allergies; Venous insufficiency 02/09/2025 Patient Outreach [address] [address] Deyvi Ramos MD Care Coordination ([facility] outreach for SDOH housing search-LVM ) 02/09/2025 Telephone [facility] [address] [place] [address] Deyvi Ramos MD 02/09/2025 Travel 02/06/2025 Orders Only [facility] External Provider, [facility] 02/06/2025 Telephone [facility] [address] [place] [address] Deyvi Ramos MD Chart Prep 02/05/2025 Patient Outreach [address] [address] Deyvi Ramos MD Care Coordination ([facility] outreach for SDOH PT-1 and food needs-referral completed /) 02/02/2025 Travel 01/29/2025 Results Follow-Up [facility] [address] [place] [address] Awilda Browning, LORRIE BD DEXA Axial 01/28/2025 Orders Only [facility] [address] [place] [address] Deyvi Ramos MD Anxiety (Primary Dx) 01/28/2025 Orders Only [facility] External Provider, [facility] from Last 3 Months Immunizations Immunization Administration Dates Next Due Hep B, adult 2025,10/16/2024 Influenza injectable quadriv alent IIV4 with preservative 02/18/2018 Influenza injectable quadriv alent preservative free 03/11/2019 Influenza, IIV3, injectable 03/27/2013, 9 Influenza, Injectable, MDCK, preservative free 01/08/2015 Influenza, seasonal, injecta ble, preservative free 2025,04/07/2024 Pfizer Covid-19 Vaccine 12+ 04/07/2024 Pneumococcal Conjugate PCV 20 11/22/2023 Pneumococcal Polysaccharide PPSV23 07/17/2017 TD (adult), 2 Lf tetanus tox oid, preservative free, adsorbed 07/17/2002 Td (adult), unspecified 07/17/2002 Tdap 2025,02/25/2015,11/07/2010 Family History Medical History Relation Name Comments [...] Description 04/30/2025 10:30 AM EST Office Visit [facility] [address] [place] [address] Deyvi Ramos MD [address] [place] [address] 05/19/2025 9:00 AM EST Office Visit [facility] [address] [place] [address] Deyvi Ramos MD [address] [place] [address] Health Maintenance Due Date Last Done Comments CT Colonography 1965 Colonoscopy 1965 Colorectal Cancer Screening 1965 FIT DNA/Cologuard 1965 FIT 1965 FOBT 1965 Sigmoidoscopy 1965 Pap Smear 1986 Cervical Cancer Screening 1995 HPV/Cotest 1995 RSV Patients and Patients Aged 60 years or older (1 - Risk 50-74 years 1-dose series) 2015 Zoster Vaccines (1 of 2) 2015 COVID-19 Vaccine ( season) 2025 04/07/2024, 11/28/2021, 09/27/2020, Additional history exists Hepatitis B Vaccines (3 of 3 - 19+ 3-dose series) 04/30/2025 2025, 10/16/2024 Alcohol/Substance Use Screening 06/26/2025 06/26/2024 Depression Screening 06/26/2025 06/26/2024, 06/26/19 25 Disability Screening 02/09/2026 02/09/2025 SDOH Screening 02/09/2026 02/09/2025 Tobacco Screening 02/09/2026 02/09/2025 Mammogram 01/28/2027 01/28/2025, 10/16/2017 Lipid Panel 04/15/2029 04/15/2024 DTaP/Tdap/Td Vaccines (4 - Td or Tdap) 2035 2025, 02/25/2015, [...] Procedure Name Priority Date/Time Associated Diagnosis Comments FL GUIDANCE IN OR Routine 03/11/2025 1:0 9 PM EDT MRSA NASAL SCREEN Routine 03/11/2025 10: [address] SKULL TO MID THIGH W FDG Routine 03/06/2025 8:56 AM EDT LDCT LUNG SCREENING Routine 02/06/2025 1 1:03 [...] Recently Relevant to Health Maintenance Results * FL Guidance in OR (03/11/2025 1:09 PM EDT) Anatomical Region Laterality Modality X-Ray Angiograph y 03/11/2025 1:09 PM EDT Narrative 03/11/2025 3:35 PM EDT [address] [address] Fluoroscopy Report Signed Patient: Adrianna Lucio MR#: [id number] 144 : 1965 Acct:[id number] Age/Sex: 60 / F ADM Date: 03/11/25 Loc: HO.SSS Attending Dr: Kiet Bui MD Ordering Physician: Kiet Bui MD Date of Service: 03/11/25 Procedure(s): FL guidance in OR Accession Number(s): [id number] cc: Deyvi Ramos MD; Kiet Bui MD Reason for Exam: L2 L4 KYPHOPLASTY EXAMINATION: FLUOROSCOPY GUIDANCE FOR NEEDLE PLACEMENT CLINICAL INFORMATION: L2 L4 KYPHOPLASTY COMPARISON: Lumbar spine MRI May 2024 TECHNIQUE: Fluoroscopic guidance provided for kyphoplasty FINDINGS: Bilateral pedicle access and cement placement in the L2 and L4 vertebral bodies for kyphoplasty. Satisfactory appearance of cement. See procedure note for detailed findings. FLUOROSCOPY TIME: 2 minutes 39 seconds. 11 submitted images. DOSE AREA PRODUCT: 34 uGy-m2 (microgray-meter squared) FL/FL guidance in OR IMPRESSION: Fluoroscopy guidance for two level lumbar spine kyphoplasty. Electronically signed by: Alethea Esteban MD 03/11/2025 03:31 PM EDT Dictated By: Alethea Esteban MD Signed By: <Electronically signed by Alethea Esteban MD in OV> 03/11/25 1531 DD/ 1309 TD/TT: 03/11/25 1424 Aerospace Assembler: DIPTI Procedure Note Donotuseinterpreter, Image - 03/11/[address] [address] Fluoroscopy Report Signed Patient: Adrianna Lucio AMR#: [id number] 144 : 1965Acct:[id number] Age/Sex: 60 / FADM Date: 03/11/25 Loc: HO.SSS Attending Dr: Kiet Bui MD Ordering Physician: Kiet Bui MD Date of Service: 03/11/25 Procedure(s): FL guidance in OR Accession Number(s): [id number] cc: Deyvi Ramos MD; Kiet Bui MD Reason for Exam: L2 L4 KYPHOPLASTY EXAMINATION: FLUOROSCOPY GUIDANCE FOR NEEDLE PLACEMENT CLINICAL INFORMATION: L2 L4 KYPHOPLASTY COMPARISON: Lumbar spine MRI May 2024 TECHNIQUE: Fluoroscopic guidance provided for kyphoplasty FINDINGS: Bilateral pedicle access and cement placement in the L2 and L4 vertebral bodies for kyphoplasty. Satisfactory appearance of cement. See procedure note for detailed findings. FLUOROSCOPY TIME: 2 minutes 39 seconds. 11 submitted images. DOSE AREA PRODUCT: 34 uGy-m2 (microgray-meter squared) FL/FL guidance in OR IMPRESSION: Fluoroscopy guidance for two level lumbar spine kyphoplasty. Electronically signed by: Alethea Esteban MD 03/11/2025 03:31 PM EDT Dictated By: Alethea Esteban MD Signed By: <Electronically signed by Alethea Esteban MD in OV> 03/11/25 1531 DD/ 1309 TD/TT: 03/11/25 1424 Aerospace Assembler: DIPTI [facility] External Provider IMG IR PROCEDURES Final Result * MRSA Nasal Screen (03/11/2025 10:45 AM EDT) MRSA Nasal PCR NEGATIVE Negative [facility] SA Nasal PCR NEGATIVE Negative [facility] MRSA Interpretation SEE NOTE [facility] Comment:MRSA target DNA not detected; SA target DNA not detected.A MRSA NEGATIVE, SA NEGATIVE test result does not precludeMRSA or SA nasal colonization. 03/11/2025 10:4 5 AM EDT 03/11/2025 10:58 AM EDT Generic External Data Provider LAB MICROBIOLOGY - GENERAL ORDERABLES Final Result [facility] [address] [place] [phone] * PET/CT FDG Skull Base To Mid-Thigh (03/06/2025 8:56 AM EDT) Anatomical Region Laterality Modality Computed Tomogra phy us Historical Provider MD JONES CT PROCEDURES Final R esult * CT Lung Screening Low dose (02/06/2025 11:03 AM EDT) Anatomical Region Laterality Modality Lung Computed Tomogra phy 02/06/2025 11:0 3 AM EDT Narrative 02/06/2025 12:15 PM EDT [address] [address] [address] Scan Report Signed Patient: Adrianna Lucio MR#: [id number] 144 : 1965 Acct:[id number] Age/Sex: 59 / F ADM Date: 02/06/25 Loc: HO.CT Attending Dr: Maria Alejandra Kennedy PA-C Ordering Physician: Maria Alejandra Kennedy PA-C Date of Service: 02/06/25 Procedure(s): CT lung screening Accession Number(s): [id number] cc: Deyvi Ramos MD; Maria Alejandra Kennedy PA-C Report Number: [id number]: Total DLP = 54.00 mGy-cm Reason for [...] 02/06/25 1155 DD/ 1103 TD/TT: 02/06/25 1118 Aerospace Assembler: Procedure Note Donotuseinterpreter, Image - 02/06/[address] [place] [address] [address] Scan Report Signed Patient: Adrianna Lucio [facility]#: [id number] 144 : 1965Acct:[id number] Age/Sex: 59 / FADM Date: 02/06/25 Loc: HO.CT Attending Dr: Maria Alejandra Kennedy PA-C Ordering Physician: Maria Alejandra Kennedy PA-C Date of Service: 02/06/25 Procedure(s): CT lung screening Accession Number(s): [id number] cc: Deyvi Ramos MD; Maria Alejandra Kennedy PA-C Report Number: [id number]: Total DLP = 54.00 mGy-cm Reason for [...] 02/06/25 1155 DD/ 1103 TD/TT: 02/06/25 1118 Aerospace Assembler: [facility] External Provider IMG CT PROCEDURES Final Result * BD DEXA Axial (01/28/2025 2:37 PM EDT) Anatomical Region Laterality Modality Body Radiographic Rebecca ging 01/28/2025 2:37 PM EDT [facility] 01/28/2025 3:21 PM EDT [place] [facility] [address] [place] [address] Mammography Report Signed Patient: Adrianna Lucio MR#: [id number] 144 : 1965 Acct:[id number] Age/Sex: 59 / F ADM Date: 01/28/25 Loc: HO.MAMMO Attending Dr: Deyvi Ramos MD Ordering Physician: Kiet Bui MD Results: Date of Service: 01/28/25 Follow Up: Procedure(s): XR DEXA axial skeleton Accession Number(s): [id number] cc: Deyvi Ramos MD; Kiet Bui MD Reason For Exam: S32.000A - Wedge compression fracture of unspecified lumbar vertebra, in... EXAMINATION: DXA BONE DENSITY AXIAL HISTORY: S32.000A - Wedge compression fracture of unspecified lumbar vertebra... TECHNIQUE: [employer] Dual energy absorptiometry (DEXA) of the lumbar [...] is a trademark of the [employer]'s [place] for Metabolic Bone Disease, a World Health Organization (WHO) Collaborating Center. Electronically signed by: Stephan Cortes MD 01/28/2025 03:18 PM EDT RP Dictated By: Stephan Cortes MD Signed By: <Electronically signed by Stephan Cortes MD in OV> 01/28/25 1518 DD/ 1437 TD/TT: 01/28/25 1500 Aerospace Assembler: Procedure Note Donotuseinterpreter, Image - 01/28/2025 [facility] [address] [place] [address] Mammography Report Signed Patient: Adrianna Lucio AMR#: [id number] 144 : 1965Acct:[id number] Age/Sex: 59 / FADM Date: 01/28/25 Loc: HO.MAMMO Attending Dr: Deyvi Ramos MD Ordering Physician: Kiet Bui MDResults: Date of Service: 01/28/25Follow Up: Procedure(s): XR DEXA axial skeleton Accession Number(s): [id number] cc: Deyvi Ramos MD; Kiet Bui MD Reason For Exam: S32.000A - Wedge compression fracture of unspecifiedlumbar vertebra, in... EXAMINATION: DXA BONE DENSITY AXIAL HISTORY: S32.000A - Wedge compression fracture of unspecified lumbar vertebra... TECHNIQUE: [employer] Dual energy absorptiometry (DEXA) of the lumbar [...] of the [employer] [place] [employer] Metabolic Bone Disease, a World Health Organization (WHO) Collaborating Center. Electronically signed by: Stephan Cortes MD 01/28/2025 03:18 PM EDT Dictated By: Stephan Cortes MD Signed By: <Electronically signed by Stephan Cortes MD in OV> 01/28/25 1518 DD/ 1437 TD/TT: 01/28/25 1500 Aerospace Assembler: [facility] External Provider IMG DXA PROCEDURES Edited Result - Final * BI Mammogram Screening Tomosynthesis Bilateral (01/28/2025 2:00 PM EDT) Anatomical Region Laterality Modality Breast Bilateral Mammography 01/28/2025 2:00 PM EDT Narrative 02/02/2025 2:13 PM EDT [facility] [address] [place] [address] Mammography Report Signed Patient: Adrianna Lucio MR#: [id number] 144 : 1965 Acct:[id number] Age/Sex: 59 / F ADM Date: 01/28/25 Loc: HO.MAMMO Attending Dr: Deyvi Ramos MD Ordering Physician: Deyvi Ramos MD Results: 1 Negative Date of Service: 01/28/25 Follow Up: 1 Year From Orig ina Mammogram Procedure(s): MM tomosynthesis screening BI Accession Number(s): [id number] cc: Deyvi Ramos MD Reason For Exam: [...] 02/02/25 1410 DD/ 1400 TD/TT: 01/28/25 1420 Aerospace Assembler: Procedure Note Donotuseinterpreter, Image - 02/02/2025 [place] [facility] [address] [place], [place] [address] Mammography Report Signed Patient: Adrianna Lucio AMR#: [id number] 144 : 1965Acct:[id number] Age/Sex: 59 / FADM Date: 01/28/25 Loc: HO.MAMMO Attending Dr: Deyvi Ramos MD Ordering Physician: Deyvi Ramos MDResults: 1 Negative Date of Service: 01/28/25Follow Up: 1 Year From Orig inal Mammogram Procedure(s): MM tomosynthesis screening BI Accession Number(s): [id number] cc: Deyvi Ramos MD Reason For Exam: [...] 02/02/25 1410 DD/ 1400 TD/TT: 01/28/25 1420 Aerospace Assembler: us Deyvi Ramos MD IMG BI PROCEDURES Final Res ult * Hepatitis C Antibody with Reflex to HCV, RNA, Quantitative, Real-Time PCR (10/16/2024 11:36 AM EDT) Hepatitis C Antibody Nonreactive Nonreactive [facility] Comment:Antibodies to HCV no t detected; does not exclude early acuteHCV infection. Blood Venous blood specimen / Unknown 10/16/2024 11:36 AM EDT 10/16/2024 2:08 PM EDT us Deyvi Ramos MD LAB BLOOD ORDERABLES Final Result Performing Organization Address [facility] Co de Phone Number [facility] [address] [place] [phone] * HIV-1/2 Antigen and Antibodies, Fourth Generation, with Reflexes (10/16/2024 11:36 AM EDT) Pathologist [facility] HIV AB/AG Nonreactive Nonreactive [facility] Comment:HIV-1 p24 Ag and/or HIV-1/HIV-2 Ab not detected.A test result that is nonreactive does not exclude thepossibility of exposure to or infection with HIV-1 and/orHIV-2. Nonreactive results in this assay for individualswith prior exposure to HIV-1 and/or HIV-2 may be due toantigen and antibody levels that are below the limit ofdetection of this assay.The [employer] HIV Ag/Ab Combo assay result andsupplemental assay results should be interpreted inconjunction with the patient's clinical presentation,history and other laboratory results. If the results areinconsistent with clinical evidence, additional testing issuggested to confirm the result. Blood Venous blood specimen / Unknown 10/16/2024 11:36 AM EDT 10/16/2024 2:08 PM EDT us Deyvi Ramos MD LAB BLOOD ORDERABLES Final Result Performing Organization Address City/[facility] Co de Phone Number [facility] [address] [place] [phone] * (ABNORMAL) Lipid Panel, Standard (04/15/2024 10:54 AM EST) Triglycerides 120 <150 mg/dL [facility] Comment:Desirable Triglyceri de: less than 150 mg/dLBorderline High Triglyceride 150-199 mg/dLHigh Triglyceride: 200-499 mg/dLVery High Triglyceride: greater than or equal to 5OO mg/dL Cholesterol 197 <200 mg/dL [facility] Comment:Desirable Cholestero l: less than 200 mg/dLBorderline High Cholesterol: 200-239 mg/dLHigh Cholesterol: greater than 239 mg/dL LDL Cholesterol Calculated 126(H) <100 mg/dL [facility] Comment:Desirable LDL: less than 100 mg/dLNear Optimal/Above Optimal LDL: 110- 129 mg/dLBorderline High LDL: 130-159 mg/dLHigh LDL: 160-189 mg/dLVery High LDL: greater than or equal to 190 mg/dL HDL Cholesterol 47 >40 mg/dL [facility] Comment:Desirable HDL: great er than 40 mg/dL Note: This HDL assay may give artificially low results in patients with liver disease. Blood Venous blood specimen / Unknown 04/15/2024 10:54 AM EST 04/15/2024 1:22 PM EST us Deyvi Ramos MD LAB BLOOD ORDERABLES Final Result [facility] [address] [place] [phone] from Last 3 Months or Most Recently Relevant to Health Maintenance Insurance [facility] Care Teams Mud Engineer Relationship Specialty Start Date End Date Deyvi Ramos MD [address] [place] [phone] PCP - General Internal Medicine 11/22/23 [facility] 04/04/24
--- OUTSIDE RECORDS SUMMARY | 2025-04-08 14:54 | XMS_ITS | Encounter Summary ---
Author Organization [employer] Address [address] [facility] [address]t [place] [address] Care Team Providers Care Solar Sales Representative And Assessor Name Role Phone Deyvi Ramos MD Primary Care Provider [phone]- [phone] Reason for Visit * Reason Onset Date Comments Call back 02/18/2025 Encounter Details Date Type Department Care Team ([facility] st Contact Info) Description 02/18/2025 Telephone [facility] [address] [place] [address] Deyvi Ramos MD [address] [place], [place] [phone] Call back Social History Tobacco Use Types [...] pt. For clarification please contact [employer] at [phone] documented in this encounter Plan of Treatment Upcoming Encounters Date Type Department Care Team ([facility] st Contact Info) Description 04/30/2025 10:30 AM EST Office Visit [facility] [address] [place] [address] Deyvi Ramos MD [address] [place] [address] 05/19/2025 9:00 AM EST Office Visit [facility] [address] [place] [address] Deyvi Ramos MD [address] [place] [address] documented as of this encounter Visit Diagnoses Not on filedocumented in this encounter Additional Health Concerns Assessment Noted Time PHQ-9 Depression Total Score: 2 06/26/19 25 11:28 AM EST documented as of this encounter Care Teams Solar Sales Representative And Assessor Relationship Specialty Start Date End Date Deyvi Ramos MD [address] [place] [address] PCP - General Internal Medicine 11/22/23 [facility] 04/04/24 documented as of this encounter
--- OUTSIDE RECORDS SUMMARY | 2025-04-08 14:54 | XMS_ITS | Encounter Summary ---
Author Organization [employer] Address [address] [facility] [address] [place] [address] Care Team Providers Care Hedis Nurse Name Role Phone Deyvi Ramos MD Primary Care Provider [phone] Encounter Details Date Type Department Care Team ([facility] st Contact Info) Description 01/28/[address] [facility] [address] [place], [place] [phone] Deyvi Ramos MD [address] [place] [address] Anxiety (Primary Dx) Social History Tobacco Use [...] Upcoming Encounters Date Type Department Care Team ([facility] st Contact Info) Description 04/30/2025 10:30 AM EST Office Visit [facility] P[facility] [address] [place] [address] Deyvi Ramos MD [address] [place] [address] 05/19/2025 9:00 AM EST Office Visit [facility] [address] [place] [address] Devyi Ramos MD [address] [place] [address] Scheduled Orders Name Type Priority Associated Diagnoses Orde r Schedule Cologuard colon cancer screening Lab Routine Anxiety Expected: 02/03/2025 (Approximate), Expires: 02/03/2026 documented as of this encounter Visit Diagnoses Diagnosis Anxiety- Primary Anxiety state, unspecified documented in this encounter Additional Health Concerns Assessment Noted Time PHQ-9 Depression Total Score: 2 06/26/19 25 11:28 AM EST documented as of this encounter Care Teams Hedis Nurse Relationship Specialty Start Date End Date Deyvi Ramos MD [address] [place] [address] PCP - General Internal Medicine 11/22/23 [facility] 04/04/24 documented as of this encounter
--- OUTSIDE RECORDS SUMMARY | 2025-04-08 14:55 | XMS_ITS | Encounter Summary ---
Author Organization [employer] Address [address] [place] [phone] Care Team Providers Care Superintendent Concrete Mixing [employer] Name Role Phone Deyvi Ramos MD Primary Care Provider [phone]- [phone] Deyvi Ramos MD Primary Care Provider +1- [phone] Reason for Visit * Reason Comments Med Refill Encounter Details Date Type Department Care Team (Late st Contact Info) Description 04/17/[address] [facility] & PEDS [address] [place] [address] Deyvi Ramos MD [address] [place] [address] Social History Tobacco Use Types Packs/Day Years [...] Description 04/30/2025 10:30 AM EST Office Visit [facility] [address] [place] [address] Deyvi Ramos MD [address] [place] [address] 05/19/2025 9:00 AM EST Office Visit [facility] [address] [place] [address] Deyvi Ramos MD [address] [place] [address] documented as of this encounter Visit Diagnoses Not on filedocumented in this encounter Care Teams Superintendent [employer]ing [employer] Relationship Specialty Start Date End Date Deyvi Ramos MD [address] [place] [address] PCP - General Internal Medicine 06/12/13 06/03/23 Deyvi Ramos MD [address] [place] [address] PCP - General Internal Medicine 11/22/23 [facility] 04/04/24 documented as of this encounter
--- OUTSIDE RECORDS SUMMARY | 2025-04-08 14:55 | XMS_ITS | Data Portability ---
Author Organization [facility] [employer] [facility], Main Office Address [address], [address] [place] [address] Care Team Providers Care Tile Erector Name Role Phone BALA [place]ASC[place] - 2ND FLOOR OTHER LISSETTE HOWARD Primary Care Provider [phone] Assessment No assessment recorded. Plan of Treatment [...] Details Recorded Time Chronic obstructive pulmonary disease 38516341 Active 2023 JULIAN BAUER NP [address], [address], [place], [address], [facility] 4 09:47:06 Osteoporosis 45592123 Active 2023 JULIAN BAUER NP [address], [address], [place], [address], [facility] 4 09:47:16 Compression fracture of lumbar spine 485667419 Active 2023 JULIAN BAUER NP [address] , [address], [place], [address], [facility] 4 09:47:46 Retention of urine 023862351 Active 2023 JULIAN BAUER NP [address], [address], [place], [address], [facility] 4 10:04:54 Asthenia 31601147 Active 2023 JULIAN BAUER NP [address], [address], [place], [address], [facility] [employer] [facility] 4 10:05:08 Alcoholism 5265241 Active 2023 JULIAN BAUER NP [address], [address], [place], [address], [facility] 4 10:08:16 Insomnia 589032555 Active 2023 JULIAN BAUER NP [address], [address], [place], [address], [facility] 4 10:45:49 Constipation 31953769 Active 2023 Trudi Deleon NP [address], [address], [place], [address], [facility] 4 14:07:28 Problem Notes None recorded. Medical Equipment None Reported. Allergies Allergen ID Allergen Name Allergen Category Reaction Reaction Severity Criticality Documentation Date Start Date Code Code System Note Provider Name and Address Organization Details Recorded Time 73876 Amoxil medicatio n Not available Not available Not available 09/13/2023 27349 9 RxNorm eye swell ing JULIAN BAUER NP [address] [facility] [facility], [facility] [address], [place], [address], [facility] 4 09:43:16 19693 pseudoeph edrine Not available Not available Not available Not available 09/13/2023 8896 RxNorm JULIAN BAUER NP [address] [facility], [facility] [address], [place], [address], [facility] 4 09:43:28 88267 Substance with sulfonami de structure and antibacte rial mechanism of action (substanc e) medicatio n Not available Not available Not available 09/13/2023 69909 8003 SNOMED swell ing JULIAN BAUER NP [address] [facility] [facility], [facility] [address], [place], [address], [facility] 4 09:43:42 Medications Name Sig Start Date Stop Date Status Note LastModified by Organization Details LastModified Time oxycodone 5 mg tablet Take 1 tablet every 6 hours by oral route. 05/09/2 024 active Not Available Not Available Not Avai lable Vitals Date Recorded Body weight Heart rate Respiratory rate Body temperature Oxygen saturation Systolic And Diastolic Provider Name and Address Organization Details Last Updated DateTime 4 54876.7 8 g 100 /min 18 /min 98.2 [degF] 98 % 107/68 mm[Hg] Trudi Deleon NP [address], [address], [place], [address], [facility] 4 13:48:40 Date Recorded Body weight Heart rate Respiratory rate Body temperature Oxygen saturation Systolic And Diastolic Provider Name and Address Organization Details Last Updated DateTime 4 47460.2 2 g 99 /min 18 /min 97.6 [degF] 96 % 106/60 mm[Hg] Trudi Deleon NP [address], [address], [place], [address], [facility] 4 09:15:48 Date Recorded Body weight Heart rate Respiratory rate Body temperature Oxygen saturation Systolic And Diastolic Provider Name and Address Organization Details Last Updated DateTime 4 27361.4 5 g 108 /min 18 /min 98 [degF] 96 % 149/95 mm[Hg] Trudi Deleon NP [address] [facility] [address] [facility], [address], [place], [address], [facility] 4 17:32:25 Date Recorded Body weight Heart rate Respiratory rate Body temperature Oxygen saturation Systolic And Diastolic Provider Name and Address Organization Details Last Updated DateTime 4 39810.6 3 g 80 /min 18 /min 97.7 [degF] 94 % 122/60 mm[Hg] Trudi Deleon NP [address] [facility] [address] [facility], [address], [place], [address], [facility] 4 10:06:03 Date Recorded Body weight Heart rate Respiratory rate Body temperature Oxygen saturation Systolic And Diastolic Provider Name and Address Organization Details Last Updated DateTime 4 87313.6 3 g 88 /min 18 /min 97.1 [degF] 97 % 128/68 mm[Hg] Trudi Deleon NP [address], [address], [place], [address], [place] [facility] 10:32:34 Social History Question Answer Notes LastModified by Organ[employer]at [employer] Details LastModified Time Tobacco Smoking Status Current Some Day Smoker reports she quit a few yrs ago, smoked about 1/4 ppd. No just smokes once in a while, mostly if stressed. JULIAN BAUER NP [address], [address], [place], [address], [facility] 09/13/2023 11:00:19 Do You Have An Advance Directive? No Information not available 09/13/2023 What Is Your Code Status? Full Code Information not available 09/13/2023 Where Do You Live? Apartment Lives Alone, Kids Nearby And Helpful, Few Steps To Enter Apt. [email or web address] Information not available 09/13/2023 What Was The Date Of Your Most Recent Tobacco Screening? 09/13/2023 [email or web address] Information not available 09/13/2023 Do You Have An Out Of Hospital DNR? No [email or web address] Information not available 09/13/2023 Have You Ever Been Counseled For Unhealthy Alcohol Use? Yes Recently In Hosp. [email or web address] Information not available 09/13/2023 Has Tobacco Cessation Counseling Been Provided? Yes [email or web address] Information not available 09/13/2023 On What Date Was Tobacco Cessation Counseling Provided? 09/13/2023 [email or web address] Information not available 09/13/2023 Sex: Unknown Functional Status Question Answer Note LastModified by [employer] Details LastModified Time How many times per week do you consume alcohol? 5-7 times per week [email or web address] Information not available 09/13/2023 Do you use any illicit or recreational drugs? No [email or web address] Information not available 09/13/2023 Do you or have you ever used any other forms of tobacco or nicotine? No Information not available 09/13/2023 What is your level of alcohol consumption? Heavy [facility] paperwork reporting >2 beers per day, pt. says she dtarted drinking in July to help with pain mgmt. [email or web address] Information not available 09/13/2023 Mental Status None recorded. Family History Relationship Description Onset Age of this Age Resolved Age Notes LastModified by Organization Details LastModified Time Father Malignant neoplasm of lung [email or web address] Not available 2023 10:57:57 Mother Malignant neoplasm of lung [email or web address] Not available 2023 10:57:58 Medical History No medical history recorded. Gynecological HistoryNo gynecological history recorded. Obstetrics History GPAL:G 0 P 0 0 0 0 Immunizations Vaccine Type Date Status Note Provider Nam e and Address Organization Details Recorded Time Tdap 1 completed [facility] 09/14/2023 11:08:39 Tdap 5 completed [facility] 09/14/2023 11:08:46 Td(adult) unspecified formulation 3 completed [facility] 09/14/2023 11:08:59 pneumococcal polysaccharide PPV23 8 completed [facility] 09/14/2023 11:09:17 SARS-COV-2 (COVID-19) vaccine, UNSPECIFIED 1 completed [facility] 09/14/2023 11:09:33 SARS-COV-2 (COVID-19) vaccine, UNSPECIFIED 1 completed [facility] 09/14/2023 11:09:40 SARS-COV-2 (COVID-19) vaccine, UNSPECIFIED 2 completed [facility] 09/14/2023 11:09:47 Past Encounters Encounter ID Performer Location Encounter Start Date Encounter Closed Date Diagnosis/Indication Diagnosis SNOMED-CT Code Diagnosis ICD10 Code Diagnosis IMO Codes Diagnosis Note [id number] JULIAN BAUER NP [place] [address] [place] [address] 09/13/2023 09:38:33 09/19/2023 07:38:06 Compression fracture of lumbar spine 091337807 M48.56XA Back pain worsening x 1 month.X [...] opioid use.Goal is to return home. Asthenia 00430565 R53.1 Deconditio rudy from hospitaliz ation, unsure of baseline level of functionin g but suspect its not optimal.PT OT eval and tx.Goal is to return home. Retention of urine 64923 4002 R33.9 Lopez present upon exam, no mention of this in available [facility] paperwork sent.Pt. said it was placed due because she couldn't pee.Will remove early am, start bladder scan q shift and cath if >300 ml. Chronic ob structive pulmonary disease 98225222 J44.9 Continue home meds:zyrte c 10 mg qdalbutero l MDI prnflutica sone inhaler 2 inh bidMonitor resp. status Osteoporosis 44513596 M8 1.0 Continue home meds:fosam ax 70 mh q wkCa 600 mg qdVit D 1000 iu qd Alcoholism 6940053 F10.2 0 Active drinkerPhe nobarb started due to concern of withdrawal in hosp.Ru ine startedEnc ourage abstinence - discussed, jennifer. with use of oxycodone Insomnia 191013022 G47.0 9 Reports this is why she takes trazodone at [facility] suspect underlying anxiety/de pression. [id number] [facility] [address] 09/16/2023 12:12:28 09/19/2023 08:35:02 Recurrent falls 489715136 R29.6 PT OT eval and treatmonit or fall risk and need for increased support in community Compressio n fracture of lumbar spine 290710216 M48.56XA see HPIL1 and L5 comp fxmonitor for pain controlthe rapy to eval and followmoni tor need for vertebropl astystart flexeril 10 mg q 8 prn Retention of urine 48320 4002 R33.8 lopez since removedmon itor post void residuals Chronic ob structive pulmonary disease 85501996 J41.1 continue out patient medsmonito r respirator y function Alcoholism 3759600 F10.2 0 required phenobarbi shawna in hospitalpa aniya denalfredo states at most 2 beers per dayencoura ge support in community if needed [id number] [facility] [address] [place] [address] 09/20/2023 13:51:02 09/25/2023 07:58:06 Compression fracture of lumbar spine 403226795 M48.56XA L1 and L5 comp fxmonitor for pain controlthe rapy to eval and followmoni tor need for vertebropl astyoxycod one 5 mg po q 6 hours prn mod/severe pain(only uses 1-2 times a day for pain)flexe ril 10 mg q 8 prn ( has not used yet, will today)09/19 start lidocaine patch to right lower back/hip dailymonit or Recurrent falls 12128231 2 R29.6 PT OT eval and treatmonit or fall risk and need for increased support in community Retention of urine 41283 4002 R33.8 lopez since removedmon itor post void residuals Asthenia 60149127 R53.1 Deconditio rudy from hospitaliz ation, unsure of baseline level of functionin g but suspect its not optimal.PT OT eval and tx.Goal is to return home. Osteoporosis 15586136 M8 1.0 Continue home meds:fosam ax 70 mh q wkCa 600 mg qdVit D 1000 iu qd Alcoholism 3091736 F10.2 0 Active drinker, stopped since hospitalPh enobarb started due to concern of withdrawal in hosp.cont thiamineEn courage abstinence - discussed, jennifer. with use of oxycodone Constipation 99392697 K5 9.00 pt is constipate d and has not had bm in 1 weekstartm om 30 cc nowbisacod yl 10 mg po nowstart senna s dailymonit or closely for bm [id number] [facility] [address] [place] [address] 09/21/2023 13:47:34 09/25/2023 09:43:12 Compression fracture of lumbar spine 370882982 M48.56XA L1 and L5 comp fxmonitor for [...] patch to right lower back/hip dailymonit or [id number] Trudi Deleon NP [facility] [address] 09/24/2023 09:15:11 09/26/2023 11:57:50 Compression fracture of lumbar spine 903241325 M48.56XA L1 and L5 comp fxmonitor for [...] it is available as neededmoni tor Constipation 29260790 K5 9.00 resolvedco ntsenna s dailymonit or closely for bm Recurrent falls 53918442 2 R29.6 PT OT eval and treatmonit or fall risk and need for increased support in community Asthenia 61705014 R53.1 [facility] unsure of baseline level of functionin g but suspect its not optimal.PT OT eval and tx.Goal is to return home. Osteoporosis 84538752 M8 1.0 Continue home meds:fosam ax 70 mh q wkCa 600 mg qd, she reports taking a pill instead of tums and changed todayVit D 1000 iu qd Alcoholism 0884040 F10.2 0 Active drinker, stopped since hospitalPh enobarb started due to concern of withdrawal in hosp.cont thiamineEn courage abstinence - discussed, jennifer. with use of oxycodone [id number] Trudi Deleon NP [facility] [address] [address] 09/26/2023 15:12:59 10/01/2023 10:29:14 Compression fracture of lumbar spine 093350488 M48.56XA L1 and L5 comp fxmonitor for [...] is available as neededmoni tor Recurrent falls 03898174 2 R29.6 PT OT eval and treatmonit or fall risk and need for increased support in community Asthenia 80646050 R53.1 Deconditio rudy from [facility] e of baseline level of functionin gPT OT eval and tx.Goal is to return home. Osteoporosis 46580480 M8 1.0 Continue home meds:fosam ax 70 mh q wkCa 600 mg qd, she reports taking a pill instead of tums and changed todayVit D 1000 iu qd Alcoholism 1561404 F10.2 0 Active drinker, stopped since hospitalPh enobarb started due to concern of withdrawal in hosp.cont thiamineEn courage abstinence - discussed, jennifer. with use of oxycodone Tachycardia 8263445 R00. 0 hr 120-140s on palp and 101-108 on recheck with high bp09/25 start metoprolol tartate 12. 5mg po now and then dailymonit or hr/vitals q shift x 5 days then daily [id number] Trudi Deleon NP [facility] [address] [address] 09/28/2023 09:39:42 10/03/2023 08:37:24 Tachycardia 5533346 R00.0 resolving this am HR 80 after metorpolol 12.5 mgcontmeto prolol tartate 12. 5mg po daily(star néstor on 09/25 here)monit or hr/vitals q shift x 5 days then daily Compressio n fracture of lumbar spine 856460818 M48.56XA L1 and L5 comp fxmonitor for [...] is available as neededmoni tor Recurrent falls 87938182 2 R29.6 PT OT eval and treatmonit or fall risk and need for increased support in community Asthenia 17516124 R53.1 Deconditio rudy from [facility] e of baseline level of functionin gPT OT eval and tx.Goal is to return home. Osteoporosis 44527576 M8 1.0 Continue home meds:fosam ax 70 mh q wkCa 600 mg qd, she reports taking a pill instead of tums and changed todayVit D 1000 iu qd Alcoholism 5033375 F10.2 0 Active drinker, stopped since hospitalPh enobarb started due to concern of withdrawal in hosp.cont thiamineEn courage abstinence - discussed, jennifer. with use of oxycodone Edema of l ower extremity 579074321 R60.0 edema to lower extremitie s and thigheleva te intermitte ntly throughout day09/27 she is willing to try one dose 09/28 in am 0800 lasix 20 mg po and will reeval from theremonit or [id number] Trudi [facility] [address] 10/03/2023 08:11:07 10/16/2023 12:56:05 Edema of lower extremity 052872075 R60.0 edema to lower extremitie s and thigh resolvinge levate intermitte ntly throughout dayon 09/28 lasix 20 mg po x 1 dose given with good effect and will reeval with pcp outpt Tachycardia 4797762 R00. 0 resolving this am HR 80 after metorpolol 12.5 mgcontmeto prolol tartate 12. 5mg po daily(star néstor on 09/25 here)monit or outpt with pcp and nsg Compressio n fracture of lumbar spine 419354442 M48.56XA L1 and L5 comp fxtherapy to [...] dailymonit or outpt with pcp Recurrent falls 56058963 2 R29.6 PT OT eval and treat outptmonit or fall risk and need for increased support in community Asthenia 03739103 R53.1 [facility], improved hereunsure of baseline level of functionin gPT OT eval and tx outptGoal is to return home with outpt services and [facility] Osteoporosis 44939872 M8 1.0 Continue home meds:fosam ax 70 mh q wkCa 600 mg qdVit D 1000 iu qdmonitor outpt with pcp Alcoholism 3531622 F10.2 0 Active drinker, stopped since hospitalPh enobarb started due to concern of withdrawal in hosp.does not have obvious s/s of withdrawal herecont thiamineEn courage abstinence - discussed, jennifer. with use of oxycodonef u outpt with pcp Constipation 08715198 K5 9.00 resolvedco ntsenna s dailymonit or closely for bm outpt with pcp Health Concerns Section Related Observation LastModified by Organization Detai ls LastModified Time None Recorded Concern Status LastModified by Organization Details LastModified Time None Recorded Advance Directives Directive N: Payers Insurance Date Sequence Insurance Name Policy Number Policy Jung Covered Member ID Jung Member ID Guarantor Name 10/16/2023 1 [place] [facility] Adrinana Lucio [id number] Adrianna Lucio Notes Date Note Type Note Provider Name and Address Organization Details Recorded Time 09/21/2023 text/html Adrianna is seen today for an acute rounding visit today. PMH: COPD, OP, ETOH abuse, insomnia Adrianna is a 58 yo woman admitted to [facility] 09/12/23 from [facility] after a brief hosp. related to back pain due to VCF and ETOH withdrawal.'She was seen by Dr. mcdonald recommending she start on tinazadine instead of flexeril as pt is worried about drowsiness wtih flexeril. On exam Adrianna is lying in bed states her back remains with spasms. She is agreeable to try the new medication. note: She presented to [facility] 09/09/23 due to worsening LBP x 1 [...] assumed full code Trudi Deleon, JANELLE [address], [address], [place], [address], [place] [facility] 09/21/2023 13:52:18 09/24/2023 text/html Adrianna is seen today for an acute rounding visit today. PMH: COPD, OP, ETOH abuse, insomnia Adrianna is a 58 yo woman admitted to [facility] 09/12/23 from [facility] after a brief hosp. related to back [...] to tab form. note: She presented to [facility] 09/09/23 due to worsening LBP x 1 [...] assumed full code Trudi Deleon, JANELLE [address], [address], [place], [address], [facility] - [facility] 09/24/2023 09:37:36 09/26/2023 text/html Adrianna is seen today for an acute rounding visit today. PMH: COPD, OP, ETOH abuse, insomnia Bri is a 58 yo woman admitted to [facility] 09/12/23 from [facility] after a brief hosp. related to back pain due to VCF and ETOH withdrawal.'Since at [facility] she was seen by Dr. mcdonald recommending [...] brief period also. note: She presented to [facility] 09/09/23 due to worsening LBP x 1 [...] assumed full code Trudi Deleon, JANELLE [address], [address], [place], [address], [facility] - [facility] 09/26/2023 17:49:53 09/28/2023 text/html Adrianna is seen today for an acute visit. PMH: COPD, OP, ETOH abuse, insomnia Adrianna is a 58 yo woman admitted to [facility] 09/12/23 from [facility] after a brief hosp. related to back [...] in the same day.'of note: Since at [facility] she was seen by Dr. mcdonald recommending [...] the other day. note: She presented to [facility] 09/09/23 due to worsening LBP x 1 [...] assumed full code Trudi Deleon, JANELLE [address], [address], [place], [address], [facility] - [employer] [facility] 09/28/2023 10:18:22 10/03/2023 text/html Adrianna is seen today for a discharge visit. PMH: COPD, OP, ETOH abuse, insomnia Adrianna is a 58 yo woman admitted to [facility] on 09/12/23 from [facility] after a brief hosp. related to back pain due to VCF and ETOH withdrawal. She presented to [facility] 09/09/23 due to worsening LBP x 1 [...] Chest CTA neg. PE While here at [facility]:She was recently started on metoprolol 12.5 mg [...] She will go home with services today. JULIAN completed, low fall riskMOLST: none, assumed full code Trudi Deleon NP [address], [address], [place], [address], [facility] 10/03/2023 11:28:52 OBGyn Episode No OBEpisode recorded.
--- OUTSIDE RECORDS SUMMARY | 2025-04-08 14:55 | XMS_ITS | Encounter Summary ---
Author Organization [employer] Address [address] [place] [address] Care Team Providers Care Nursery Technician Name Role Phone Deyvi Ramos MD Primary Care Provider [phone] Reason for Visit * Reason Comments Med Refill Encounter Details Date Type Department Care Team ([facility] Contact Info) Description 06/26/2023 Refill [facility] MED & PEDS [address] [place] [address] Deyvi Ramos MD [address] [place] [address] Social History Tobacco Use Types Packs/Day Years [...] Team ([facility] Contact Info) Description 04/30/2025 10:30 AM EST Office Visit [facility] MED [facility] PEDS [address] [place] [address] Deyvi Ramos MD [address] [place] [address] 05/19/2025 9:00 AM EST Office Visit [facility] MED & PEDS [address] [place] [address] Deyvi Ramos MD [address] [place] [address] documented as of this encounter Visit Diagnoses Not on filedocumented in this encounter Care Teams Nursery Technician Relationship Specialty Start Date End Date Deyvi Ramos MD [address] [place] [address] PCP - General Internal Medicine 11/22/23 [facility] 04/04/24 documented as of this encounter
--- OUTSIDE RECORDS SUMMARY | 2025-04-08 14:55 | XMS_ITS | Encounter Summary ---
Author Organization [employer] Address [address] [place] [address], [place] [address] Care Team Providers Care Recoater Name Role Phone Deyvi Ramos MD Primary Care Provider [phone]- [phone] Deyvi Ramos MD Primary Care Provider [phone]- [phone] Encounter Details Date Type Department Care Team (Latest Contact Info) Description 11/15/2018 Abstract [facility] CONVERSIONS Dental, Provider, DDS Social History [...] [facility] MED & PEDS [address] [place] [address] Deyvi Ramos MD [address] [place] [address] 05/19/2025 9:00 AM EST Office Visit [facility] MED & PEDS [address] [place] [address] Deyvi Ramos MD [address] [place] [address] documented as of this encounter Visit Diagnoses Not on filedocumented in this encounter Care Teams Recoater Relationship Specialty Start Date End Date Deyvi Ramos MD [address] [place] [address] PCP - General Internal Medicine 06/12/13 06/03/23 Deyvi Ramos MD [address] [place] [address] PCP - General Internal Medicine 11/22/23 [facility] 04/04/24 documented as of this encounter
--- OUTSIDE RECORDS SUMMARY | 2025-04-08 14:55 | XMS_ITS | Encounter Summary ---
Author Organization [employer] Address [address] [place] [id number] Care Team Providers Care Chuck Wagon Driver Name Role Phone Deyvi Ramos MD Primary Care Provider [phone]- [phone] Reason for Visit * Reason Comments Med Refill Encounter Details Date Type Department Care Team ([facility] Contact Info) Description 08/13/2023 Refill [facility] MED & PEDS [address] [place] [address] Deyvi Ramos MD [address] [place] [address] Osteoporosis of disuse Social History Tobacco Use [...] Upcoming Encounters Date Type Department Care Team ([facility] Contact Info) Description 04/30/2025 10:30 AM EST Office Visit [facility] MED [facility] PEDS [address] [place] [address] Deyvi Ramos MD [address] [place] [address] 05/19/2025 9:00 AM EST Office Visit [facility] MED & PEDS [address] [place] [address] Deyvi Ramos MD [address] [facility] [place] [address] documented as of this encounter Visit Diagnoses Diagnosis Osteoporosis of disuse Disuse osteoporosis documented in this encounter Care Teams Chuck Wagon Driver Relationship Specialty Start Date End Date Deyvi Ramos MD 505 [facility] [place] [address] PCP - General Internal Medicine 11/22/23 [facility] 04/04/24 documented as of this encounter
--- OUTSIDE RECORDS SUMMARY | 2025-04-08 14:55 | XMS_ITS | Encounter Summary ---
Author Organization [employer] Address [address] [place] [id number] Care Team Providers Care Site Identification Specialist Name Role Phone Deyvi Ramos MD Primary Care Provider [phone]- [phone] Reason for Visit * Reason Comments Med Refill Encounter Details Date Type Department Care Team ([facility] Contact Info) Description 08/09/2023 Refill [facility] MED & PEDS [address] [place] [address] Deyvi Ramos MD [address] [place] [address] Social History Tobacco Use Types Packs/Day Years [...] Upcoming Encounters Date Type Department Care Team ([facility] Contact Info) Description 04/30/2025 10:30 AM EST Office Visit [facility] MED & PEDS [address] [place] [address] Deyvi Ramos MD [address] [place] [address] 05/19/2025 9:00 AM EST Office Visit [facility] MED & PEDS [address] [place] [address] Deyvi Ramos MD [address] [place] [address] documented as of this encounter Visit Diagnoses Not on filedocumented in this encounter Care Teams Site Identification Specialist Relationship Specialty Start Date End Date Deyvi Ramos MD [address] [place] [address] PCP - General Internal Medicine 11/22/[address] [facility] 04/04/24 documented as of this encounter
[2025-04-23 10:10] VITALS: BMI 31.8
--- NOTE | 2025-04-27 11:41 | ECG_ITS ---
Test Reason : afib, rvr Blood Pressure : */* mmHG Vent. Rate : 85 BPM Atrial Rate : 85 BPM P-R Int : 142 ms QRS Dur : 94 ms QT Int : 358 ms P-R-T Axes : 48 -30 87 degrees QTcB Int : 426 ms Normal sinus rhythm Left axis deviation Cannot rule out Inferior infarct , age undetermined ST & T wave abnormality, consider anterolateral ischemia Abnormal ECG When compared with ECG of 13-Apr-2025 23:53, Significant changes have occurred Referred By: Tana Neff Electronically Signed By: Ricky Foy
[2025-04-27 12:10] VITALS: BMI 32.2
[2025-04-27 12:11] VITALS: BMI 32.2
--- NOTE | 2025-04-27 12:16 | P.HPSUR_ITS ---
Pre-Procedural Eval Section A - 24 Hr Update-Section A only Date of Service: 04/27/25 The patient is an INPATIENT: No Changes since office visit: No Cold of Flu in the past 2 weeks, No New Medical Problems, No Changes in Medication and No Patient answered all questions The patient has been examined within 24 hours of the surgical procedure. The History & Physical has been completed within 30 days and I have reviewed it.: No Section B - Complete if H&P > 30 days Chief Complaint: Other nonspecific abnormal finding of lung field Details of Present Illness: 60-year-old lady with PET positive mediastinal lymph nodes Relevant Family History (Specify if Yes): No Relevant Social History: Tobacco Use Present Medications: None Medical History: Significant History (Advanced COPD) Allergies: Allergies Allergy/AdvReac Type Severity Reaction Status Date / Time pseudoephedrine (Sudafed) Allergy Severe Anaphylaxis Verified 04/27/25 12:07 amoxicillin (AMOXICILLIN) Allergy Intermediate EYES Verified 04/27/25 12:07 SWELLING Sulfa (Sulfonamide Allergy Intermediate SWELLING Verified 04/27/25 12:07 Antibiotics) (SULFA (SULFONAMIDE ANTIBIOTICS)) Review of Systems Sugical H&P ROS: Negative: Constitution, Cardiovascular, Respiratory, Neurological, Psychiatric, Hem-Onc, Allergic/Immunologic, Gastrointestinal, Genitourinary, Musculoskeletal, Integumentary, Endocrine and E yes/Ears/Nose/Throat Exam Surgical H&P Exam: Normal: HEENT, Normal: Heart, Normal: Lungs, Normal: Extremities, Normal: Abdomen, Normal: Skin and Normal: Neurological Plan Diagnosis/Plan: Unchanged I have reviewed the history and physical and performed a pertinent physical examination on my patient. No changes have occurred unless specified. Time Spent With Patient Time: Total time managing care of this patient today ____ minutes.
[2025-04-27 12:17] VITALS: BP 135/63; PULSE 99; RESP 17; TEMP 36.8; O2SAT 98
[2025-04-27] MEDS: Lactated Ringers 1,000 ML 100 ML IVCONT (12:24)
--- NOTE | 2025-04-27 12:50 | HO.ANESPROP2 ---
Documented by User: Tana Neff NP 04/24/25 13:37 HPI - Anesthesia Eval Consult details Narrative: 60yo F for Endoscopic Bronchial Ultrasound [facility] [place] [facility] ? anitcoag s/p L2 and L4 Kyphoplasty 02/2025 with [facility] 04/2025 for back pain and palps. Afib with RVR @ 187 on EKG - no further testing or cardiac input during ED. D/C to SNF. 04/24/25: Abel Serrano RN at [facility], pt's heart rate has be regular rate and rhythm. No updated EKG, but Echo done and normal and provider eval done, pending fax'd results. Hx ETOH dependance with acute withdrawal during 2023 admission [facility] Active Problems Active Problems: All Active Problems Hilar lymphadenopathy (Acute) Osteoporotic compression fracture of spine with delayed healing (Acute) Physical deconditioning (Acute) Macrocytosis (Acute) Pulmonary nodules (Acute) Personal history of nicotine dependence (Acute) Compression fx, lumbar spine (Acute) COPD (chronic obstructive pulmonary disease) (Acute) Past Medical History Medical History Atrial fibrillation with RVR Needle phobia Arrhythmia Pulmonary nodules Personal history of nicotine dependence Compression fx, lumbar spine Osteopoikilosis Alcohol use disorder COPD (chronic obstructive pulmonary disease) Family History Family History Father No problems noted. Mother No problems noted. Family history of problems with anesthesia: No Surgical History Surgical History S/P kyphoplasty (03/11/25) History of mandibular surgery History of surgery on lower extremity History of Problems with Anesthesia: No Social History Social History Household Members: Children Household Members Other:: son Housing: Apartment Do you presently have visiting nurse or other home services: No Patient Tobacco Use Status: Former Tobacco user Years Smoked: (onset 16yo, 1/2ppd x 43yrs, 20PYH, quit 2023) Smoked in Last 30 Days: No Use of substances other than those prescribed or required for medical reasons: No Have you been hit, kicked, punched, or otherwise hurt by someone within the past year? If so, by whom?: No Are you DNR?: No Advance Directives: No Advance Directives Information Provided: Yes service: No Meds Allergies Allergy/AdvReac Type Severity Reaction Status Date / Time pseudoephedrine (Sudafed) Allergy Severe Anaphylaxis Verified 04/27/25 12:07 amoxicillin (AMOXICILLIN) Allergy Intermediate EYES Verified 04/27/25 12:07 SWELLING Sulfa (Sulfonamide Allergy Intermediate SWELLING Verified 04/27/25 12:07 Antibiotics) (SULFA (SULFONAMIDE ANTIBIOTICS)) Home Medications ?Medication ?Instructions ?Recorded ?Confirmed ?Last Taken ?Type calcium carbonate 600 mg PO DAILY 09/09/23 04/27/25 3 Days Ago History ~04/11/25 cetirizine 10 mg tablet 10 mg PO DAILY 09/09/23 04/27/25 3 Days Ago History ~04/11/25 cholecalciferol (vitamin D3) 25 25 mcg PO DAILY 09/09/23 04/27/25 3 Days Ago History mcg (1,000 unit) capsule (Vitamin ~04/11/25 D3) trazodone 50 mg tablet 50 mg PO BEDTIME 09/09/23 04/27/25 3 Days Ago History ~04/11/25 acetaminophen 500 mg tablet 500 mg PO Q8H PRN Pain 05/15/24 04/27/25 Unknown History lidocaine 5 % topical patch 1 patch topical DAILY PRN Pain 04/14/25 04/27/25 Unknown History fluticasone propionate 110 2 puff inhalation BID 04/23/25 04/27/25 Unknown History mcg/actuation HFA aerosol inhaler Exam Pertinent Lab Results Pertinent Lab Results: Laboratory Tests 04/14/25 00:19 WBC 10.3 Hgb 13.7 Hct 41.5 Plt Count 334 Sodium 144 Potassium 3.7 Chloride 105 Carbon Dioxide 18 L BUN 6 L Creatinine 0.56 Assessment and Plan Assessment Anesthesia Assessment: Chart Reviewed Final Anesthetic Review Family History of Problems with Anesthesia: No History of Problems with Anesthesia: No Documented by User: Ying Faria, DO 04/27/25 13:31 PMFSH Past Medical History Medical History Atrial fibrillation with RVR Needle phobia Arrhythmia Pulmonary nodules Personal history of nicotine dependence Compression fx, lumbar spine Osteopoikilosis Alcohol use disorder COPD (chronic obstructive pulmonary disease) Family History Family History Father No problems noted. Mother No problems noted. Family history of problems with anesthesia: No Surgical History Surgical History S/P kyphoplasty (03/11/25) History of mandibular surgery History of surgery on lower extremity History of Problems with Anesthesia: No Social History Social History Household Members: Children Household Members Other:: son Housing: Apartment Do you presently have visiting nurse or other home services: No Patient Tobacco Use Status: Former Tobacco user Years Smoked: (onset 16yo, 1/2ppd x 43yrs, 20PYH, quit 2023) Smoked in Last 30 Days: No Use of substances other than those prescribed or required for medical reasons: No Have you been hit, kicked, punched, or otherwise hurt by someone within the past year? If so, by whom?: No Are you DNR?: No Advance Directives: No Advance Directives Information Provided: Yes service: No Meds Allergies Allergy/AdvReac Type Severity Reaction Status Date / Time pseudoephedrine (Sudafed) Allergy Severe Anaphylaxis Verified 04/27/25 12:07 amoxicillin (AMOXICILLIN) Allergy Intermediate EYES Verified 04/27/25 12:07 SWELLING Sulfa (Sulfonamide Allergy Intermediate SWELLING Verified 04/27/25 12:07 Antibiotics) (SULFA (SULFONAMIDE ANTIBIOTICS)) Home Medications ?Medication ?Instructions ?Recorded ?Confirmed ?Last Taken ?Type calcium carbonate 600 mg PO DAILY 09/09/23 04/27/25 3 Days Ago History ~04/11/25 cetirizine 10 mg tablet 10 mg PO DAILY 09/09/23 04/27/25 3 Days Ago History ~04/11/25 cholecalciferol (vitamin D3) 25 25 mcg PO DAILY 09/09/23 04/27/25 3 Days Ago History mcg (1,000 unit) capsule (Vitamin ~04/11/25 D3) trazodone 50 mg tablet 50 mg PO BEDTIME 09/09/23 04/27/25 3 Days Ago History ~04/11/25 acetaminophen 500 mg tablet 500 mg PO Q8H PRN Pain 05/15/24 04/27/25 Unknown History lidocaine 5 % topical patch 1 patch topical DAILY PRN Pain 04/14/25 04/27/25 Unknown History fluticasone propionate 110 2 puff inhalation BID 04/23/25 04/27/25 Unknown History mcg/actuation HFA aerosol inhaler Exam Exam Date and Time: 04/27/25 1250 Height,Weight and Vital Signs: Height 5 ft 4 in Weight 85 kg Vital Signs Temperature 98.2 F 04/27/25 12:17 Pulse Rate 99 04/27/25 12:17 Respiratory Rate 17 04/27/25 12:17 Blood Pressure 135/63 04/27/25 12:17 Pulse Oximetry 98 04/27/25 12:17 Oxygen Delivery Method Room Air 04/27/25 12:17 Temperature 98.2 F 04/27/25 12:17 Pulse Rate 99 04/27/25 12:17 Respiratory Rate 17 04/27/25 12:17 Blood Pressure 135/63 04/27/25 12:17 Pulse Oximetry 98 04/27/25 12:17 Oxygen Delivery Method Room Air 04/27/25 12:17 Airway Mallampati Class: II TM Dist: >3cm Neck ROM: Limited Loose/Missing/Broken Teeth: Yes (multiple missing and broken teeth) Heart: S1S2 Lungs: CTAB Assessment and Plan Assessment Anesthesia Assessment: Anesthesia Plan Discussed and Chart Reviewed Final Anesthetic Review Family History of Problems with Anesthesia: No History of Problems with Anesthesia: No NPO: Yes ASA Class: III Final Preanesthetic Review: No Changes in Pt Med Stat, Meds/Allgs Chart Reviewed, Consent Obtained/Reviewed and Anes Risks/Benef Reviewed Patient Risk: Intermediate Procedure Risk: Intermediate Anesthetic Plan Anesthetic Plan: GA and Agree w/ Assess. and Plan Disposition: Standard PACU
[2025-04-27 14:20] VITALS: BP 119/69; PULSE 94; RESP 18; TEMP 36.1; O2SAT 93
[2025-04-27 14:25] VITALS: BP 122/72; PULSE 93; RESP 18; O2SAT 96
[2025-04-27 14:30] VITALS: BP 118/63; PULSE 93; RESP 13; O2SAT 97
[2025-04-27 14:35] VITALS: BP 109/66; PULSE 96; RESP 16; O2SAT 98
[2025-04-27 14:50] VITALS: BP 112/67; PULSE 90; RESP 18; TEMP 36.9; O2SAT 98
--- NOTE | 2025-04-27 15:38 | P.BOP_ITS ---
Brief Operative Note Date of Service: 04/27/25 Pre-op diagnosis: Mediastinal lymphadenopathy Post-op diagnosis: same Procedure: Flexible bronchoscope with endoscopic ultrasound head advanced through the ET tube with patient intubated for the procedure and through the tracheobronchial tree with small amount of thick clear secretions noted and cleared with normal bronchial mucosa noted underneath. No endobronchial lesions noted. Thereafter endoscopic ultrasound-guided needle aspiration of station 7 lymph node performed with 4 passes, with in procedure pathological review noting lymphocytes in the obtain samples. with sample sent for further testing. Biopsy site observed and no active bleeding was noted. Patient tolerated the procedure well and was transferred to PACU in stable condition. Surgeon: Steven Wing MD Anesthesia: GETA Was an Analytics Associate used for this Procedure?: No Estimated blood loss (mL): 0 Condition: stable Disposition: PACU
== END 2025-04-27 15:41 | disposition home or self-care (01) ==
PROVIDERS: PCP Internal Medicine; Visit Provider Internal Medicine Pulmonary Disease
PROC: (CPT 31652; principal; 2025-04-27 13:00)
DX: R91.8 Other nonspecific abnormal finding of lung field (principal); R59.0 Localized enlarged lymph nodes; J44.9 Chronic obstructive pulmonary disease, unspecified; Z87.891 Personal history of nicotine dependence; Q78.8 Other specified osteochondrodysplasias; F10.10 Alcohol abuse, uncomplicated; Z88.0 Allergy status to penicillin; Z88.2 Allergy status to sulfonamides; Z88.8 Allergy status to other drugs, medicaments and biological substances; Z98.890 Other specified postprocedural states
CPT/HCPCS: 31652; 88173; 88305; 88341; 88342; 93005; J0131; J0165; J0616; J1100; J2003; J2004; J2250; J2405; J2704; J3010

== ENCOUNTER → 2025-04-27 11:40 | Outpatient (BNV) | payer MEDICAID, SELFPAY | PROVIDERS: PCP Internal Medicine; Visit Provider Internal Medicine Pulmonary Disease | DX: R59.0 Localized enlarged lymph nodes (principal) | CPT/HCPCS: 31653 ==

== ENCOUNTER → 2025-04-27 11:41 | Outpatient (BNV) | payer MEDICAID, SELFPAY | PROVIDERS: PCP Internal Medicine; Visit Provider Internal Medicine Cardiovascular Disease | DX: R94.31 Abnormal electrocardiogram [ECG] [EKG] (principal); I48.91 Unspecified atrial fibrillation | CPT/HCPCS: 93010 ==